=== PATIENT | male | born 1960 | race Caucasian/White ===

== ENCOUNTER → 2018-06-07 08:27 | Outpatient (CLI) | payer BC, SELFPAY | DX: R68.82 Decreased libido (principal); R53.83 Other fatigue | CPT/HCPCS: 36415; 84403 ==

== ENCOUNTER → 2019-01-03 | Outpatient (CLI) | payer BC, SELFPAY ==
[2018-06-08 11:20] VITALS: BMI 27.8
[2019-01-03 10:21] LABS: Absolute Lymphocyte Count 1.51 X10^3/uL (0.83-4.51); Basophil# 0.03 X10^3/uL; Basophil% 0.4 % (0-1); Eosinophils% 4.4 % (0-5); Hematocrit 47.8 % (40-54); Hemoglobin 16.3 g/dL (13.0-16.5); Lymphocyte # 1.51 X10^3/ul (4.0); Lymphocyte % 22.3 % (19-41); Mean Corp Hgb Conc 34.1 g/dL (32-36); Mean Corpuscular Hgb 28.7 pg (27.0-32.0); Mean Corpuscular Volume 84.3 fL (80-94); Mean Platelet Vol. 10.4 fl (6.2-12.0); Monocyte# 0.87 X10^3/uL; Monocyte% 12.9 % (0-10); NRBC Flagged by Analyzer 0 % (0-5); Neutrophil # 4.02 X10^3/uL (2.7-7.7); Neutrophil % 59.6 % (47-70); Platelet Count 161 K/mm3 (150-450); RBC Distribution Width CV 11.8 % (11.6-14.6); RBC Distribution Width SD 35.8 fl (35.1-43.9); Red Blood Count 5.67 M/mm3 (4.6-6.2); White Blood Count 6.8 K/mm3 (4.4-11.0)
[2019-01-03 10:33] LABS: ALB/GLOB Ratio 1.1 RATIO (0.9-2.4); AST(SGOT) 27 U/L (15-37); Alanine Aminotransfer ALT/SGPT 58 U/L (16-61); Albumin, Serum 3.7 g/dL (3.2-5.0); Alkaline Phosphatase 74 U/L (45-117); Anion Gap 8 (5-15); BUN 9 mg/dL (7-18); BUN/Creat Ratio 10.1 RATIO (10-20); Calcium,Total 8.7 mg/dL (8.5-10.1); Chloride 105 mmol/L (98-107); Cholesterol 166 mg/dL (200); Creatinine, Serum 0.89 mg/dL (0.70-1.30); EST Glomerular Filtration Rate 93 mL/min (>60); Est Glom Filt Rate - Afr Amer 112 mL/min (>60); Globulin 3.4 g/dL (2.2-4.2); Glucose 81 mg/dL (74-106); High Density Lipoprotein 58 mg/dL; PSA,Total - Annual Screen 5.16 ng/mL (0.00-4.00); Protein, Total 7.1 g/dL (6.4-8.2); Sodium Level 141 mmol/L (136-145); Thyroid Stim Hormone (TSH) 2.17 uIU/mL (0.358-3.74); Triglycerides 85 mg/dL; Very Low Density Lipoprotein 17 mg/dL (5-40)
== END | disposition home or self-care (01) ==
DX: Z00.00 Encounter for general adult medical examination without abnormal findings (principal); I10 Essential (primary) hypertension; R53.83 Other fatigue; Z12.5 Encounter for screening for malignant neoplasm of prostate
CPT/HCPCS: 36415; 80053; 80061; 84153; 84403; 84443; 85025; G0103

== ENCOUNTER 2019-02-16 12:00 | Emergency (ER) | payer BC, SELFPAY ==
[2018-06-08 11:20] VITALS: BMI 27.8
[2019-02-16 12:02] VITALS: BP 110/76; PULSE 73; RESP 17; TEMP 36.9; O2SAT 98; BMI 26.3
--- NOTE | 2019-02-16 13:02 | ED.DCSUM_ITS ---
History of Present Illness Chief Complaint: Lower Extremity Injury Informant: Patient Onset: Days Current Severity: Mild Narrative: Patient had pain of left calf pain for a few days no trauma no numbness weakness paresthesias no history of DVT arthritic conditions. No symptoms in the right leg, no chest pain fever cough has hypertension is well controlled, indicates he may have strained the calf Past Medical History - Allergies and Home Meds Allergies/Adverse Reactions: Allergies No Known Allergies Allergy (Verified 02/16/19 12:02) Primary Care Physician: [facility] Doctor,Out of [Primary Care Provider] - Past Medical History: - Smoking Status: Former smoker - Family History Maternal Family History: Reports: No pertinent history Review of Systems ROS: - As above General: Denies: Chills, Fever, Sweats Eyes: Denies: Visual changes - bilaterally, Diplopia ENT: Denies: Rhinorrhea, Sore throat Cardiovascular: Denies: Chest pain, Palpitations Respiratory: Denies: Dyspnea, Cough, Dyspnea on exertion Gastrointestinal: Denies: Abdominal pain, Nausea, Vomiting, Diarrhea, Melena, Hematochezia Genitourinary: Denies: Dysuria, Hematuria, Frequency Musculoskeletal: Denies: Back pain, Extremity Pain Skin: Denies: Rash, Wounds Neurological: Denies: Headache, Weakness, Numbness Physical Exam Vital Signs/Narrative: Vital Signs Temp Pulse Resp BP Pulse Ox 02/16/19 12:02 98.5 F 73 17 110/76 98 General: Well nourished, Well developed, No Acute Distress Head: Normocephalic, Atraumatic Eyes: Perrl, EOMI ENT: Moist mucous membranes, No rhinorrhea Neck: Supple, Nontender Cardiovascular: Regular rate, Regular rhythm, No murmurs Respiratory: No distress, CTA bilaterally, Chest nontender Abdomen: Soft, Nontender, Nondistended, Normal bowel sounds Back: Nontender, Normal Inspection Extremities: Nontender, No edema, Calf Tenderness, - - He complains subjectively some vague discomfort to the mid position of the left calf there is no area of obvious tenderness here no swelling no signs of infection no radiation no pain to the medial calf he has full range of motion of the hip knee ankle and foot are completely unremarkable neurovascular function pulses are normal Skin: Normal color, No rash Neurological: Alert, Oriented x3, Cranial nerves II-XII grossly intact, Normal Strength, Normal Sensation Psychological: Normal affect, Normal Mood Diagnostic/Tx/Re-eval - Medical Decision Making The duplex technology team is not here to perform duplex scanning explained to the patient he appears to be very low risk for DVT as he is never had a DVT has no cancer immobility or trauma, at this time explained to him one option is to start 1 dose of Eliquis and have him have outpatient duplex scanning on Monday he is comfortable this plan will follow-up I provide him with information on how to recall and arrange for duplex scanning versus providing that imaging via his outpatient providers, he understands and will follow up and return for change in symptoms Home stable Impression final Left calf pain etiology unclear ED Disposition - Plan for ED Patient: Diagnosis: Pain of left calf Instructions: CONTUSION, Lower Extremity Referrals: [facility] Doctor,Out of [Primary Care Provider] - Additional Instructions: Follow-up for duplex scanning with the instruction sheet you were given or call patient providers to schedule return for change in symptoms
[2019-02-16] MEDS: APIXABAN 5 MG TABLET 10 MG PO (13:21)
== END 2019-02-16 13:22 | disposition home or self-care (01) ==
LOC: ED 12:49
PROVIDERS: Emergency Provider Emergency Medicine
DX: M79.662 Pain in left lower leg (principal); Z87.891 Personal history of nicotine dependence
CPT/HCPCS: 99283

== ENCOUNTER → 2019-02-18 | Outpatient (CLI) | payer BC, SELFPAY ==
[2019-02-16 12:02] VITALS: BMI 26.3
--- NOTE | 2019-02-18 11:28 | VDLE_ITS ---
Reason For Study: LLE pain RIGHT LEFT CFV is compressible, spontaneous, phasic, GSV is normal. competent and demonstrates normal CFV is compressible, spontaneous, phasic, augmentation. competent, and demonstrates normal Procedure augmentation. Exam performed in department. FV is compressible, spontaneous, phasic, The exam was diagnostic. competent and demonstrates normal A preliminary report was called and/or faxed augmentation. to ED. POP V is compressible, spontaneous, phasic, competent and demonstrates normal augmentation. T/P Trunk is compressible. PTV is compressible. LT PerV is compressible. Interpretation Summary Deep veins of the left lower extremity are patent and compressible segmentally. There is no evidence of left lower extremity deep vein thrombosis. Valvular competence appears intact within the proximal deep venous system on the left . The left great saphenous vein appears patent and compressible segmentally. Ordering Physician: Tadeo Chun Referring Physician: OTD Performed By: Arianna Sepulveda, SHAI, RVT
== END | disposition home or self-care (01) ==
PROVIDERS: Referring Provider Emergency Medicine; Visit Provider Emergency Medicine
DX: M79.605 Pain in left leg (principal)
CPT/HCPCS: 93971

== ENCOUNTER 2020-07-08 22:05 | Inpatient (IN) | payer BC, SELFPAY ==
[2020-06-08 14:32] VITALS: BMI 26.3
[2020-07-08 22:06] VITALS: BP 142/88; PULSE 81; RESP 15; TEMP 36.7; O2SAT 99; BMI 27.6
--- NOTE | 2020-07-08 22:12 | EKG12_ITS ---
Test Reason : CP Blood Pressure : / mmHG Vent. Rate : 085 BPM Atrial Rate : 085 BPM P-R Int : 200 ms QRS Dur : 088 ms QT Int : 380 ms P-R-T Axes : 038 -10 027 degrees QTc Int : 452 ms Normal sinus rhythm Normal ECG Confirmed by AIDE BELL, VINAYAK ([id number]), medical transcription editor BLAKE PEREIRA ([id number]) on 07/13/2020 11:09:48 AM Referred By: BETHANY Confirmed By:LUIS NOBLE MD
[2020-07-08 22:14] VITALS: BP 142/88; PULSE 87; RESP 15; O2SAT 98
[2020-07-08 22:33] LABS: Absolute Lymphocyte Count 2.11 X10^3/uL (0.83-4.51); Absolute Neutrophil Count 11.6 X10^3/uL (2.0-7.7); Basophil# 0.06 X10^3/uL; Basophil% 0.4 % (0-1); Eosinophil# 0.12 X10^3/uL; Eosinophils% 0.8 % (0-5); Hematocrit 45.6 % (40-54); Hemoglobin 15.6 g/dL (13.0-16.5); Lymphocyte # 2.11 X10^3/ul (4.0); Lymphocyte % 13.9 % (19-41); Mean Corp Hgb Conc 34.2 g/dL (32-36); Mean Corpuscular Hgb 30.2 pg (27.0-32.0); Mean Corpuscular Volume 88.4 fL (80-94); Mean Platelet Vol. 10.2 fl (6.2-12.0); Monocyte# 1.09 X10^3/uL; Monocyte% 7.2 % (0-10); NRBC Flagged by Analyzer 0 % (0-5); Neutrophil # 11.59 X10^3/uL (2.7-7.7); Neutrophil % 76.2 % (47-70); Platelet Count 249 K/mm3 (150-450); RBC Distribution Width CV 11.7 % (11.6-14.6); RBC Distribution Width SD 37.3 fl (35.1-43.9); Red Blood Count 5.16 M/mm3 (4.6-6.2); White Blood Count 15.2 K/mm3 (4.4-11.0)
--- NOTE | 2020-07-08 22:34 | RAD_ITS ---
CHEST PAIN EXAMINATION/TECHNIQUE: XR Chest 1 View: COMPARISON: October 12, 2016 FINDINGS: LINES/DEVICES: None. LUNGS: No consolidation, edema or effusion. No pneumothorax. MEDIASTINUM AND CARDIOVASCULAR STRUCTURES: Cardiac silhouette not enlarged. Central airways and mediastinal contour are unremarkable. BONES AND SOFT TISSUES: Unremarkable. RAD/Chest 1 View (Portable) IMPRESSION: No radiographic evidence of acute cardiopulmonary disease. at 2248 Reported and signed by: Elvira Grullon DO Electronically Signed: Elvira Grullon DO at 22:47 EST Tel , Service support ,
[2020-07-08 22:54] LABS: Anion Gap 9 (5-15); BUN 25 mg/dL (7-18); Calcium,Total 8.8 mg/dL (8.5-10.1); Chloride 103 mmol/L (98-107); Creatinine, Serum 1.04 mg/dL (0.70-1.30); EST Glomerular Filtration Rate 77 mL/min (>60); Est Glom Filt Rate - Afr Amer 93 mL/min (>60); Estimated Creatinine Clearance 79.44 ml/min; Glucose 100 mg/dL (74-106); Potassium 3.6 mmol/L (3.5-5.1); Sodium Level 137 mmol/L (136-145)
[2020-07-08 23:17] VITALS: BP 134/86; PULSE 83
[2020-07-08] MEDS: Aspirin 81 MG TAB.CHEW 324 MG PO (23:17)
[2020-07-08] MEDS: Nitroglycerin Oint 1 INCH PACKET TRANSDERM. (23:17)
[2020-07-08 23:19] VITALS: BP 134/86; PULSE 89; RESP 17; O2SAT 98
--- NOTE | 2020-07-08 23:22 | ED.VIS.GEN ---
History of Present Illness Chief Complaint: Chest Pain Narrative: Patient presents with chest pain that started earlier this morning. He described chest pressure with radiation to both the right and left arms. He has no pleuritic component he has no back pain or tearing sensation. He denies any calf pain or leg pain. No fever chills or cough no DVT or PE risk factors. Past medical history: Hypertension, positive family history of cardiac disease Social history denies smoking Medications reviewed Review of systems: All systems negative except as indicated General: Denies: Fever Eyes: Denies: Visual changes - bilaterally ENT: Denies: Rhinorrhea, Sore throat Cardiovascular: Chest pain as in HPI Respiratory: Denies: Dyspnea, Cough Gastrointestinal: Denies: Abdominal pain, Nausea, Vomiting Genitourinary: Denies: Dysuria Musculoskeletal: Denies: Myalgias Skin: Denies: Rash Neurological: Denies: Headache, no focal weakness Psych: Reports: negative Hematologic: Denies: Easy bruising, Easy bleeding Physical exam General: Well nourished, Well developed, No Acute Distress Head: Normocephalic, Atraumatic Eyes: Conjunctiva not pale ENT: Moist mucous membranes Neck: Supple, Nontender, No lymphadenopathy Cardiovascular: Regular rate, Regular rhythm Respiratory: No distress, CTA bilaterally Abdomen: Soft, Nontender, Nondistended Back: Nontender, Normal Inspection. Negative for: CVA tenderness Extremities: Nontender, No edema Skin: Normal color, No rash Neurological: Alert, Normal Strength, Normal Sensation Psychological: Normal affect Past Medical History - Allergies and Home Meds Allergies/Adverse Reactions: Allergies No Known Allergies Allergy (Verified 07/08/20 22:06) Primary Care Physician: [facility] Doctor,Out of [Primary Care Provider] - Smoking Status: Never smoker - Family History Maternal Family History: Reports: No pertinent history Physical Exam Vital Signs/Narrative: Vital Signs Temp Pulse Resp BP Pulse Ox 07/08/20 23:19 89 17 134/86 H 98 07/08/20 23:17 83 134/86 H 07/08/20 22:14 87 15 142/88 H 98 07/08/20 22:06 98.0 F 81 15 142/88 H 99 Diagnostic/Tx/Re-eval Chest X-Ray - ED: 1 View, Read by ED Physician, Read by Radiologist, Normal, Heart, Lungs, Mediastinum - Rhythm Strip Rhythm Strip: Sinus Rhythm Rate: 85 Ectopy: None - EKG Initial EKG Interpretation: - - This rhythm with a rate of 85. Normal AR and QTc intervals. Nonspecific ST flattening in the lateral precordial leads. - Medical Decision Making Patient has a heart score of 4, may be a 5. He has a normal first troponin. Will be admitted for cardiac work-up. ED Disposition - Plan for ED Patient: Disposition: Acute Care Hospital [facility] Diagnosis: Chest pain Referrals: [facility] Doctor,Out of [Primary Care Provider] -
--- NOTE | 2020-07-08 23:31 | HP.PCM_ITS ---
Problem List (1) Chest pain Status: Acute Qualifiers: Chest pain type: unspecified Qualified Code(s): R07.9 - Chest pain, unspecified (2) Former tobacco use Status: Chronic (3) Alcohol abuse Status: Chronic (4) Chronic back pain Status: Chronic Qualifiers: Back pain location: back pain in unspecified location (5) HTN (hypertension) Status: Chronic Qualifiers: Hypertension type: essential hypertension Qualified Code(s): I10 - Essential (primary) hypertension History of Present Illness Date of Admission: 07/08/20 Chief Complaint: Chest pain The patient is a 60 y/o M w/ PMHx: Chronic back pain, GERD, HTN, Former Tobacco use, EtOH abuse who presents to the [facility] ED on 07/08/20 with history of onset of chest discomfort awakening him from sleep at approximately 9 PM noted to be midsternal described as a pressure rated 7 out of 10 in severity with bilateral upper extremity radiation with no associated diaphoresis, dyspnea, nausea or emesis with improvement to 5-6 out of 10 in severity with nitroglycerin application upon current evaluation. Work-up in the ED included T 98, heart rate 81, BP 142/88, respiratory rate 15, 99% on room air, CBC with WBC 15.2, hemoglobin 15.6, platelet 249 with left shift, BMP with BUN/creatinine 25/1.04 otherwise not marked appearing, troponin less than 0.015, EKG with SR with no acute evidence of ischemia, chest x-ray with no acute cardiopulmonary findings. In the ED patient ministered Nitro-Bid 1 inch and aspirin 324 mg p.o. x1. 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 JAK2 normal EP levels HTN (hypertension) (Chronic) Medical History: Medical History (Last Reviewed 06/08/20 @ 14:34 by Anette Castorena) Hypertension I10 Allergies No Known Allergies Allergy (Verified 07/08/20 22:06) Home Medications: Ambulatory Orders Medication Instructions Recorded Amlodipine [Norvasc] 10 mg PO DAILY 04/05/15 Celecoxib [Celebrex] 200 mg PO BID 07/08/20 Magnesium Oxide [Magnesium] 500 mg PO DAILY 07/08/20 Surgical History: Surgical History (Last Reviewed 06/08/20 @ 14:34 by Anette Castorena) History of hernia repair Z98.890, Z87.19 Psychiatric History: No pertinent psych hx Lives: Spouse/ Significant Other Smoking Status: Former smoker - Patient quit cigarette tobacco usage approximately 40 years prior with prior to this 1 pack every 2 weeks since he been a teenager until quitting. Tobacco Use: Non-smoker Alcohol: Heavy - Patient notes 6-7 beers routinely daily. Drugs: None - *Family History Maternal History Items: Heart Disease Paternal History Items: Heart Disease Review of Systems Constitutional: Reports: Fatigue. Denies: Chills, Fever, Weight Change HEENT: Denies: Head Aches, Sinus Congestion, Sinus Drainage Cardiovascular: Reports: Chest Pain, Chest Pressure. Denies: Light Headedness, Orthopnea, Palpitations, Syncope Respiratory: Denies: Cough, Shortness of breath at rest, Sputum production Gastrointestinal: Denies: Abdominal Pain, Nausea, Vomiting Genitourinary: Denies: Dysuria Musculoskeletal: Reports: Back Pain. Denies: Joint Pain, Joint Tenderness Skin: Denies: Rash, Wounds Neurological: Denies: Numbness, Tingling, Focal weakness Psychiatric: Denies: Anxiety, Depression, Homicidal Ideations, Suicidal Ideations Hematologic/ Lymphatic: Denies: Easy Bruising, Easy Bleeding VTE Information - Inpt Only VTE Present on Admission: No VTE Mechan Device Prophylaxis: SCD's VTE Pharm Prophylaxis ordered?: Yes Patient Problems: Active and Suspected Problems (Last Reviewed 06/08/20 @ 14:34 by Anette guadarrama) Chest pain (Acute) Subjective: Patient seated upright in the ED bed, fatigued, no obvious distress but notes still having chest discomfort. Objective: Physical Examination: General: awake, alert, oriented x 3 and cooperative, seated upright in the ED bed, mildly fatigued appearing, notes still having some chest discomfort. Skin: normal color, turgor, no icterus, cyanosis. HEENT: AT/NC, EOMI, PERRLA, mildly dry MM, no carotid bruits or JVD noted. Lungs: CTA bilaterally, moderate effort, mild decrease BL bases, no rales, ronchi or wheezing. Heart: Regular rate and rhythm; no gallop, rub audible. Abdomen: soft, NTTP, ND, normal BS, no HSM. Extremities: no cyanosis, clubbing, or edema. Neurological: patient awake, alert, oriented as noted; cognitive function intact; pupils equally reactive to light and accomodation; cranial nerves II-XII grossly normal, moving all 4 extremities, no focal deficits, strength mildly global decrease secondary to acute complaints and presentation. Psychiatric: affect appears fatigued otherwise normal, no acute evidence of depressive or anxiety feelings. - Physical Exam Vitals/I&O's: Vital Signs Temp Pulse Resp BP Pulse Ox 98.0 F 89 17 134/86 H 98 07/08/20 22:06 07/08/20 23:19 07/08/20 23:19 07/08/20 23:19 07/08/20 23:19 Oxygen Delivery Method Room Air Weight: 198 lb Body Mass Index (BMI) 27.6 Laboratory Results 07/08/20 22:21: WBC 15.2 H, RBC 5.16, Hgb 15.6, Hct 45.6, MCV 88.4, MCH 30.2, MCHC 34.2, RDW Std Deviation 37.3, RDW Coeff of Jamie 11.7, Plt Count 249, MPV 10.2, Immature Gran % (Auto) 1.500 H, Neut % (Auto) 76.2 H, Lymph % (Auto) 13.9 L, [place] % (Auto) 7.2, Eos % (Auto) 0.8, Baso % (Auto) 0.4, Absolute Neuts (auto) 11.6 H, Absolute Lymphs (auto) 2.11, Nucleated RBC % 0 07/08/20 22:21: Sodium 137, Potassium 3.6, Chloride 103, Carbon Dioxide 25.0, Anion Gap 9, BUN 25 H, Creatinine 1.04, Estim Creat Clear Calc 79.44, Est GFR (MDRD) Af Amer 93, Est GFR (MDRD) Non-Af 77, BUN/Creatinine Ratio 24.0 H, Glucose 100, Calcium 8.8, Troponin I < 0.015 Assessment/Plan All Active Problems (Last Reviewed 06/08/20 @ 14:34 by Anette Castorena) Chest pain (Acute) Strain of lumbar region (Acute) URI, acute (Acute) The patient is a 60 y/o M w/ PMHx: Chronic back pain, GERD, HTN, Former Tobacco use, EtOH abuse who presents to the [facility] ED on 07/08/20 with history of onset of chest discomfort awakening him from sleep at approximately 9 PM noted to be midsternal described as a pressure rated 7 out of 10 in severity with bilateral upper extremity radiation. Chest Pain: EKG in ED sinus rhythm with no acute evidence of ischemia, CXR w/ no acute cardiopulmonary findings, initial trop normal x1. Will admit to PCU, place on a monitored bed to assure no acute myocardial infarction with serial cardiac enzymes and EKGs. If repeat EKGs and serial cardiac enzymes remain unremarkable will pursue a.m. cardiac stress testing. Magnesium level requested. FLP in AM. ASA, NG, morphine. EtOH Abuse: Patient notes routine consumption of 6-7 beers per day. Will maintain on CIWA protocol, MVI, thiamine and folic acid. Will consult case management for information for patient for substance abuse. Chronic back pain: Patient with chronic back pain undergoing routine injections, notes he is following with pain management in [place]. Hypertension: Continue home regimen including Norvasc with hold parameters as needed, PRN hydralazine. Former tobacco use: Encourage tobacco cessation continuation. GERD: We will continue on famotidine. DVT prophylaxis: SCDs, Lovenox. OBSV E&M: [id number] Initial observation care L3
[2020-07-09] VITALS (26 sets, daily range): BP systolic 105–158; BP diastolic 72–100; PULSE 54–99; RESP 10–22; TEMP 36.3–36.8; O2SAT 94–98; BMI 25.2
--- NOTE | 2020-07-09 00:12 | ED.RN ---
pt called with update
--- NOTE | 2020-07-09 01:29 | EKG12_ITS ---
Test Reason : CP Blood Pressure : / mmHG Vent. Rate : 068 BPM Atrial Rate : 068 BPM P-R Int : 190 ms QRS Dur : 088 ms QT Int : 408 ms P-R-T Axes : 018 -10 045 degrees QTc Int : 433 ms Normal sinus rhythm Left ventricular hypertrophy with repolarization abnormality Nonspecific ST abnormality Abnormal ECG When compared with ECG of 09-JUL-2020 01:32, MANUAL COMPARISON REQUIRED, DATA IS UNCONFIRMED Confirmed by AIDE BELL, VINAYAK ([id number]), assistant editor BLAKE PEREIRA ([id number]) on 07/13/2020 12:51:41 PM Referred By: CAITLIN Confirmed By:LUIS NOBLE MD
[2020-07-09 01:43] LABS: Magnesium 2.1 mg/dL (1.6-2.6); Phosphorus 3.3 mg/dL (2.5-4.9)
--- NOTE | 2020-07-09 01:45 | PCS.PANDOC ---
PANDEMIC DOCUMENTATION INITIATED: Date: 07/09/2020 Time: 0052
[2020-07-09] MEDS: oxyCODONE 5 MG Tablet PO ×2 (01:53→07:58)
[2020-07-09] MEDS: 0.9% Normal Saline 1,000 ML 100 ML IV ×2 (01:53→11:40)
[2020-07-09] MEDS: Mag Hydrox/Al Hydrox/Simeth 30 ML UDC PO (04:36)
[2020-07-09] MEDS: Morphine 2 MG/ML Syringe IV (04:36)
--- NOTE | 2020-07-09 04:38 | NURSING ---
Pt awake. c/o chest pressure left side.. Rates pain 6. Pt said he would feel better if could burp. lab drawn troponin. morphine and mylanta given will monitor.
[2020-07-09] MEDS: Aspirin E.C. 81 MG Tablet PO (04:40)
[2020-07-09 04:41] LABS: Absolute Lymphocyte Count 3.59 X10^3/uL (0.83-4.51); Absolute Neutrophil Count 11.5 X10^3/uL (2.0-7.7); Basophil# 0.05 X10^3/uL; Basophil% 0.3 % (0-1); Eosinophil# 0.24 X10^3/uL; Eosinophils% 1.4 % (0-5); Hematocrit 46.5 % (40-54); Hemoglobin 15.5 g/dL (13.0-16.5); Lymphocyte # 3.59 X10^3/ul (4.0); Lymphocyte % 20.9 % (19-41); Mean Corp Hgb Conc 33.3 g/dL (32-36); Mean Corpuscular Hgb 29.3 pg (27.0-32.0); Mean Corpuscular Volume 87.9 fL (80-94); Mean Platelet Vol. 10.1 fl (6.2-12.0); Monocyte# 1.54 X10^3/uL; NRBC Flagged by Analyzer 0 % (0-5); Neutrophil # 11.52 X10^3/uL (2.7-7.7); POSITIVE DIFFERENTIAL YES; Platelet Count 255 K/mm3 (150-450); RBC Distribution Width CV 11.8 % (11.6-14.6); RBC Distribution Width SD 37.8 fl (35.1-43.9); Red Blood Count 5.29 M/mm3 (4.6-6.2); White Blood Count 17.2 K/mm3 (4.4-11.0)
[2020-07-09 04:45] LABS: Differential Indicated SCAN CRITERIA MET
[2020-07-09 05:31] LABS: ALB/GLOB Ratio 1.2 RATIO (0.9-2.4); AST(SGOT) 21 U/L (15-37); Alanine Aminotransfer ALT/SGPT 50 U/L (16-61); Albumin, Serum 3.8 g/dL (3.2-5.0); Alkaline Phosphatase 64 U/L (45-117); Anion Gap 8 (5-15); BUN 21 mg/dL (7-18); BUN/Creat Ratio 24.6 RATIO (10-20); Calcium,Total 9.1 mg/dL (8.5-10.1); Chloride 104 mmol/L (98-107); Cholesterol 193 mg/dL (200); Creatinine, Serum 0.85 mg/dL (0.70-1.30); EST Glomerular Filtration Rate 97 mL/min (>60); Est Glom Filt Rate - Afr Amer 117 mL/min (>60); Globulin 3.2 g/dL (2.2-4.2); Glucose 102 mg/dL (74-106); High Density Lipoprotein 71 mg/dL; Potassium 3.9 mmol/L (3.5-5.1); Sodium Level 136 mmol/L (136-145); Triglycerides 171 mg/dL; Very Low Density Lipoprotein 34 mg/dL (5-40)
[2020-07-09] MEDS: Acetaminophen 325 MG Tablet 650 MG PO (07:58)
--- NOTE | 2020-07-09 08:00 | EKG12_ITS ---
Test Reason : CP ADMIT Blood Pressure : / mmHG Vent. Rate : 086 BPM Atrial Rate : 086 BPM P-R Int : 202 ms QRS Dur : 092 ms QT Int : 376 ms P-R-T Axes : 023 -07 009 degrees QTc Int : 449 ms Normal sinus rhythm Normal ECG When compared with ECG of 12-OCT-2016 19:39, No significant change was found Confirmed by AIDE BELL, VINAYAK ([id number]), restaurant expeditor BLAKE PEREIRA ([id number]) on 07/13/2020 12:51:53 PM Referred By: DR TUCKER Confirmed By:LUIS NOBLE MD
--- NOTE | 2020-07-09 11:00 | NURSING ---
Integrillin infusing to RAC at 2 mcg/kg/min or 13.1 cc/hr upon arrival from [facility]
--- NOTE | 2020-07-09 11:30 | EKG12_ITS ---
Test Reason : AM EKG Blood Pressure : / mmHG Vent. Rate : 053 BPM Atrial Rate : 053 BPM P-R Int : 212 ms QRS Dur : 084 ms QT Int : 468 ms P-R-T Axes : 031 -13 -30 degrees QTc Int : 439 ms Sinus bradycardia with 1st degree A-V block T wave abnormality, consider lateral ischemia Abnormal ECG When compared with ECG of 10-JUL-2020 05:01, MANUAL COMPARISON REQUIRED, DATA IS UNCONFIRMED Confirmed by SANJU BELL, LESLI ([id number]), development editor RADHA LING ([id number]) on 07/14/2020 8:51:53 AM Referred By: JOHNNY Confirmed By:LESLI BILLS MD
--- NOTE | 2020-07-09 11:30 | PCM.PROGNOTE ---
<Alicia Lucero [employer]LEV[employer] - Last Filed: 07/09/20 11:37> Patient Problems: Active and Suspected Problems (Last Reviewed 06/08/20 @ 14:34 by Anette Castorena) Chest pain (Acute) Subjective: Patient seen and examined. STEMI called in stress lab. Patient referred for immediate intervention. Currently denies chest pain. - Physical Exam Vitals/I&O's: Vital Signs Temp Pulse Resp BP Pulse Ox 97.3 F L 79 17 137/92 H 98 07/09/20 11:18 07/09/20 11:18 07/09/20 11:18 07/09/20 11:18 07/09/20 11:18 Oxygen Delivery Method Room Air Weight: 180 lb 8.937 oz Body Mass Index (BMI) 25.2 Intake and Output for Last 24 Hours 07/07/20 07/08/20 07/09/20 23:59 23:59 23:59 Intake Total 696.67 / 696.67 Balance 696.67 / 696.67 General: Alert, Oriented x3, Cooperative HEENT: Atraumatic, PERRLA, EOMI, Normocephalic Neck: Supple, No JVD, Negative Carotid Bruits Lungs: Clear to auscultation, Normal air movement Cardiovascular: Regular rate, No murmurs Abdomen: Bowel Sounds Present, Soft, Non Tender, Non-Distended Extremities: No clubbing, No cyanosis, No edema, Capillary Refill Less than 3 Seconds Skin: No rashes, No breakdown Musculoskeletal: No Tenderness to Palpation of Joints or Extremities Neurological: Cranial nerves II-XII grossly intact, Neuro grossly intact Psych/Mental Status: Normal Affect, Appropriate Microbiology Past 72 Hours 07/08/20 23:20 Mucosa - Nose SARS-CoV-2 Antigen (Rapid) - Final Laboratory Results 07/08/20 22:21: WBC 15.2 H, RBC 5.16, Hgb 15.6, Hct 45.6, MCV 88.4, MCH 30.2, MCHC 34.2, RDW Std Deviation 37.3, RDW Coeff of Jamie 11.7, Plt Count 249, MPV 10.2, Immature Gran % (Auto) 1.500 H, Neut % (Auto) 76.2 H, Lymph % (Auto) 13.9 L, [place] % (Auto) 7.2, Eos % (Auto) 0.8, Baso % (Auto) 0.4, Absolute Neuts (auto) 11.6 H, Absolute Lymphs (auto) 2.11, Nucleated RBC % 0 07/08/20 22:21: Sodium 137, Potassium 3.6, Chloride 103, Carbon Dioxide 25.0, Anion Gap 9, BUN 25 H, Creatinine 1.04, Estim Creat Clear Calc 79.44, Est GFR (MDRD) Af Amer 93, Est GFR (MDRD) Non-Af 77, BUN/Creatinine Ratio 24.0 H, Glucose 100, Calcium 8.8, Troponin I < 0.015 07/08/20 22:21: Phosphorus 3.3, Magnesium 2.1 07/09/20 01:50: Troponin I < 0.015 07/09/20 04:24: WBC 17.2 H, RBC 5.29, Hgb 15.5, Hct 46.5, MCV 87.9, MCH 29.3, MCHC 33.3, RDW Std Deviation 37.8, RDW Coeff of Jamie 11.8, Plt Count 255, MPV 10.1, Immature Gran % (Auto) 1.400 H, Neut % (Auto) 67.0, Lymph % (Auto) 20.9, [place] % (Auto) 9.0, Eos % (Auto) 1.4, Baso % (Auto) 0.3, Absolute Neuts (auto) 11.5 H, Absolute Lymphs (auto) 3.59, Nucleated RBC % 0, Diff Path Review October07/09/20 04:24: Sodium 136, Potassium 3.9, Chloride 104, Carbon Dioxide 24.0, Anion Gap 8, BUN 21 H, Creatinine 0.85, Estim Creat Clear Calc 97.20, Est GFR (MDRD) Af Amer 117, Est GFR (MDRD) Non-Af 97, BUN/Creatinine Ratio 24.6 H, Glucose 102, Calcium 9.1, Total Bilirubin 0.60, AST 21, ALT 50, Alkaline Phosphatase 64, Troponin I 0.032, Total Protein 7.0, Albumin 3.8, Globulin 3.2, Albumin/Globulin Ratio 1.2, Triglycerides 171, Cholesterol 193, LDL Cholesterol 88, VLDL Cholesterol 34, HDL Cholesterol 71 Current Medications Acetaminophen (Acetaminophen 325 Mg Tablet) 650 mg PO Q6H PRN PRN PRN Reason: Pain Score 1-10/Temp > 100.7 F Last Admin: 07/09/20 07:58 Dose: 650 mg Documented by: Al Hydroxide/Mg Hydroxide (Mag Hydrox/Al Hydrox/Simeth 30 Ml Udc) 30 ml PO Q6H PRN PRN PRN Reason: Gastric Burning Last Admin: 07/09/20 04:36 Dose: 30 ml Documented by: Albuterol Sulfate (Albuterol 2.5 Mg/3 Ml Vial.Neb.) 2.5 mg INHALATION Q2H PRN PRN PRN Reason: Dyspnea, wheezing Amlodipine Besylate (Amlodipine 10 Mg Tablet) 10 mg PO DAILY [facility] Aspirin (Aspirin E.C. 81 Mg Tablet) 81 mg PO DAILY@0800 [facility] Last Admin: 07/09/20 04:40 Dose: 81 mg Documented by: Atropine Sulfate (Atropine Sulfate 1 Mg/10 Ml Syringe) 0.5 mg IV UD PRN PRN Reason: HR <50 bpm Celecoxib (Celecoxib 200 Mg Capsule) 200 mg PO BID [facility] Enoxaparin Sodium (Enoxaparin 40 Mg/0.4 Ml Syringe) 40 mg SC DAILY [facility] Famotidine (Famotidine 20 Mg Tablet) 20 mg PO BID [facility] Folic Acid (Folic Acid 1 Mg Tablet) 1 mg PO DAILY@0800 [facility] Stop: 07/11/20 08:01 Guaifenesin (Guaifenesin 10 Ml Udc (200mg/10ml)) 20 ml PO Q4H PRN PRN PRN Reason: COUGH Heparin Sodium (Beef Lung) (Heparin Lock 500 Unit/5 Ml In 10 Ml Syringe) 500 unit IV UD PRN PRN Reason: HEPARIN FLUSH Hydralazine HCl (Hydralazine 20 Mg/Ml Vial) 10 mg IV Q4H PRN PRN PRN Reason: SBP > 160 Sodium Chloride () 1,000 mls @ 100 mls/hr IV .Q10H [facility] Last Infusion: 07/09/20 08:15 Dose: 0 mls/hr Documented by: Sodium Chloride () 250 mls @ 15 mls/hr IV .[id number] PRN PRN Reason: Saline Flush Sodium Chloride () 250 mls @ 15 mls/hr IV .[id number] PRN PRN Reason: Additional IVPB Infusion Sodium Chloride () 1,000 mls @ 100 mls/hr IV .Q10H [facility] Eptifibatide (Integrilin) 75 mg in 100 mls @ 13.104 mls/hr CONT INF .[id number] [facility] Stop: 07/09/20 13:30 Labetalol HCl (Labetalol (Prefilled) 20 Mg/4 Ml) 5 mg IV X1 PRN PRN Reason: SBP >160 when pulling sheath Stop: 07/11/20 11:23 Lorazepam (Lorazepam 1 Mg Tablet) 2 mg PO Q2H PRN PRN; Protocol PRN Reason: CIWA score > 8 but <15 Lorazepam (Lorazepam 1 Mg Tablet) 2 mg PO UD PRN; Protocol PRN Reason: CIWA score >/=15. Lorazepam (Lorazepam 2 Mg/Ml Syringe) 2 mg IV Q2H PRN PRN; Protocol PRN Reason: CIWA score > 8 but <15 Lorazepam (Lorazepam 2 Mg/Ml Syringe) 2 mg IV UD PRN; Protocol PRN Reason: CIWA score >/=15. Magnesium Hydroxide (Magnesium Hydroxide 30 Ml Udc) 30 ml PO DAILY PRN PRN PRN Reason: Constipation Melatonin (Melatonin 3 Mg Tablet) 3 mg PO QHS PRN PRN PRN Reason: INSOMNIA Morphine Sulfate (Morphine 2 Mg/Ml Syringe) 2 mg IV Q3H PRN PRN PRN Reason: Pain Score 6-10 Last Admin: 07/09/20 04:36 Dose: 2 mg Documented by: Multivitamins/Minerals (Multivitamins,Ther W-Minerals Tablet) 1 tablet PO DAILYCM [facility] Nutritional Formula (Lactose Free) (Ensure Enlive 120 Ml Liquid) 120 ml PO 4X/DAY [facility] Ondansetron HCl (Ondansetron 4 Mg/2 Ml Vial) 4 mg IV Q8H PRN PRN PRN Reason: NAUSEA/VOMITING Oxycodone HCl (Oxycodone 5 Mg Tablet) 5 mg PO Q4H PRN PRN PRN Reason: Pain Score 4-5 Last Admin: 07/09/20 07:58 Dose: 5 mg Documented by: Prochlorperazine Edisylate (Prochlorperazine 10 Mg/2 Ml Vial) 5 mg IV Q4H PRN PRN PRN Reason: Breakthrough Nausea/Vomiting Psyllium Hydrophilic Mucilloid (Psyllium 1 Packet) 1 packet PO DAILY PRN PRN PRN Reason: Constipation Senna/Docusate Sodium (Senna/Docusate Sodium 1 Tablet) 2 tablet PO BID PRN PRN PRN Reason: Constipation Sodium Chloride (0.9% Saline Lock 10 Ml Syringe) 10 - 40 ml IV UD PRN PRN Reason: SALINE FLUSH Sodium Chloride (0.9% Normal Saline 500 Ml Iv.Soln.) 500 ml IV BOLUS PRN PRN Reason: VASO-VAGAL PROTOCOL Thiamine HCl (Thiamine Hydrochloride 100 Mg Tablet) 100 mg PO BIDCM [facility] Stop: 07/11/20 17:01 Throat Lozenges (Benzocaine/Menthol 1 Lozenge) 1 lozenge MUCOUS MEM Q2H PRN PRN PRN Reason: SORE THROAT Ticagrelor (Ticagrelor 90 Mg Tablet) 90 mg PO BID [facility] Medical Necessity - Tobacco Use Smoking Status: Former smoker Tobacco Use: Non-smoker Assessment/Plan All Active Problems (Last Reviewed 06/08/20 @ 14:34 by Anette Castorena) Chest pain (Acute) Strain of lumbar region (Acute) URI, acute (Acute) 1. STEMI, status post PCI-cardiac cath report pending. Cardiology following. On aspirin, Brilinta. Add low-dose statin. 2. Hypertension-stable, continue home amlodipine regimen. 3. Alcohol dependence- on CIWA/Ativan protocol. Continue folic acid, thiamine, multivitamin supplementation. 4. Former tobacco use-encouraged continued cessation. 5. GERD-on famotidine. DVT prophylaxis-Lovenox subcu This patient was seen by WENDY Mc under the supervision of Dr. Jones. <Danie Jones - Last Filed: 07/09/20 14:16> - Physical Exam Vitals/I&O's: Vital Signs Temp Pulse Resp BP Pulse Ox 97.3 F L 85 22 H 116/88 H 95 07/09/20 11:18 07/09/20 12:30 07/09/20 12:30 07/09/20 12:30 07/09/20 12:30 Oxygen Delivery Method Room Air Weight: 81.9 kg Body Mass Index (BMI) 25.2 Intake and Output for Last 24 Hours 07/07/20 07/08/20 07/09/20 23:59 23:59 23:59 Intake Total 696.67 / 696.67 Balance 696.67 / 696.67 Microbiology Past 72 Hours 07/08/20 23:20 Mucosa - Nose SARS-CoV-2 Antigen (Rapid) - Final Laboratory Results 07/08/20 22:21: WBC 15.2 H, RBC 5.16, Hgb 15.6, Hct 45.6, MCV 88.4, MCH 30.2, MCHC 34.2, RDW Std Deviation 37.3, RDW Coeff of Jamie 11.7, Plt Count 249, MPV 10.2, Immature Gran % (Auto) 1.500 H, Neut % (Auto) 76.2 H, Lymph % (Auto) 13.9 L, [place] % (Auto) 7.2, Eos % (Auto) 0.8, Baso % (Auto) 0.4, Absolute Neuts (auto) 11.6 H, Absolute Lymphs (auto) 2.11, Nucleated RBC % 0 07/08/20 22:21: Sodium 137, Potassium 3.6, Chloride 103, Carbon Dioxide 25.0, Anion Gap 9, BUN 25 H, Creatinine 1.04, Estim Creat Clear Calc 79.44, Est GFR (MDRD) Af Amer 93, Est GFR (MDRD) Non-Af 77, BUN/Creatinine Ratio 24.0 H, Glucose 100, Calcium 8.8, Troponin I < 0.015 07/08/20 22:21: Phosphorus 3.3, Magnesium 2.1 07/09/20 01:50: Troponin I < 0.015 07/09/20 04:24: WBC 17.2 H, RBC 5.29, Hgb 15.5, Hct 46.5, MCV 87.9, MCH 29.3, MCHC 33.3, RDW Std Deviation 37.8, RDW Coeff of Jamie 11.8, Plt Count 255, MPV 10.1, Immature Gran % (Auto) 1.400 H, Neut % (Auto) 67.0, Lymph % (Auto) 20.9, [place] % (Auto) 9.0, Eos % (Auto) 1.4, Baso % (Auto) 0.3, Absolute Neuts (auto) 11.5 H, Absolute Lymphs (auto) 3.59, Nucleated RBC % 0, Diff Path Review Reviewed 07/09/20 04:24: Sodium 136, Potassium 3.9, Chloride 104, Carbon Dioxide 24.0, Anion Gap 8, BUN 21 H, Creatinine 0.85, Estim Creat Clear Calc 97.20, Est GFR (MDRD) Af Amer 117, Est GFR (MDRD) Non-Af 97, BUN/Creatinine Ratio 24.6 H, Glucose 102, Calcium 9.1, Total Bilirubin 0.60, AST 21, ALT 50, Alkaline Phosphatase 64, Troponin I 0.032, Total Protein 7.0, Albumin 3.8, Globulin 3.2, Albumin/Globulin Ratio 1.2, Triglycerides 171, Cholesterol 193, LDL Cholesterol 88, VLDL Cholesterol 34, HDL Cholesterol 71 07/09/20 11:50: WBC 14.3 H, RBC 5.02, Hgb 15.0, Hct 43.8, MCV 87.3, MCH 29.9, MCHC 34.2, RDW Std Deviation 37.4, RDW Coeff of Jamie 11.8, Plt Count 239, MPV 10.1 Current Medications Acetaminophen (Acetaminophen 325 Mg Tablet) 650 mg PO Q6H PRN PRN PRN Reason: Pain Score 1-10/Temp > 100.7 F Last Admin: 07/09/20 07:58 Dose: 650 mg Documented by: Al Hydroxide/Mg Hydroxide (Mag Hydrox/Al Hydrox/Simeth 30 Ml Udc) 30 ml PO Q6H PRN PRN PRN Reason: Gastric Burning Last Admin: 07/09/20 04:36 Dose: 30 ml Documented by: Albuterol Sulfate (Albuterol 2.5 Mg/3 Ml Vial.Neb.) 2.5 mg INHALATION Q2H PRN PRN PRN Reason: Dyspnea, wheezing Amlodipine Besylate (Amlodipine 10 Mg Tablet) 10 mg PO DAILY [facility] Aspirin (Aspirin E.C. 81 Mg Tablet) 81 mg PO DAILY@0800 [facility] Last Admin: 07/09/20 04:40 Dose: 81 mg Documented by: Atorvastatin Calcium (Atorvastatin Calcium 40 Mg Tablet) 40 mg PO QHS [facility] Atropine Sulfate (Atropine Sulfate 1 Mg/10 Ml Syringe) 0.5 mg IV UD PRN PRN Reason: HR <50 bpm Enoxaparin Sodium (Enoxaparin 40 Mg/0.4 Ml Syringe) 40 mg SC DAILY [facility] Last Admin: 07/09/20 11:48 Dose: Not Given Documented by: Famotidine (Famotidine 20 Mg Tablet) 20 mg PO BID [facility] Folic Acid (Folic Acid 1 Mg Tablet) 1 mg PO DAILY@0800 [facility] Stop: 07/11/20 08:01 Last Admin: 07/09/20 12:38 Dose: Not Given Documented by: Guaifenesin (Guaifenesin 10 Ml Udc (200mg/10ml)) 20 ml PO Q4H PRN PRN PRN Reason: COUGH Heparin Sodium (Beef Lung) (Heparin Lock 500 Unit/5 Ml In 10 Ml Syringe) 500 unit IV UD PRN PRN Reason: HEPARIN FLUSH Hydralazine HCl (Hydralazine 20 Mg/Ml Vial) 10 mg IV Q4H PRN PRN PRN Reason: SBP > 160 Sodium Chloride () 250 mls @ 15 mls/hr IV .[id number] PRN PRN Reason: Additional IVPB Infusion Sodium Chloride () 1,000 mls @ 100 mls/hr IV .Q10H [facility] Last Admin: 07/09/20 11:40 Dose: 100 mls/hr Documented by: Labetalol HCl (Labetalol (Prefilled) 20 Mg/4 Ml) 5 mg IV X1 PRN PRN Reason: SBP >160 when pulling sheath Stop: 07/11/20 11:24 Lorazepam (Lorazepam 1 Mg Tablet) 2 mg PO Q2H PRN PRN; Protocol PRN Reason: CIWA score > 8 but <15 Lorazepam (Lorazepam 1 Mg Tablet) 2 mg PO UD PRN; Protocol PRN Reason: CIWA score >/=15. Lorazepam (Lorazepam 2 Mg/Ml Syringe) 2 mg IV Q2H PRN PRN; Protocol PRN Reason: CIWA score > 8 but <15 Lorazepam (Lorazepam 2 Mg/Ml Syringe) 2 mg IV UD PRN; Protocol PRN Reason: CIWA score >/=15. Magnesium Hydroxide (Magnesium Hydroxide 30 Ml Udc) 30 ml PO DAILY PRN PRN PRN Reason: Constipation Melatonin (Melatonin 3 Mg Tablet) 3 mg PO QHS PRN PRN PRN Reason: INSOMNIA Metoprolol Tartrate (Metoprolol Tartrate 25 Mg Tablet) 25 mg PO BID [facility] Morphine Sulfate (Morphine 2 Mg/Ml Syringe) 2 mg IV Q3H PRN PRN PRN Reason: Pain Score 6-10 Last Admin: 07/09/20 04:36 Dose: 2 mg Documented by: Multivitamins/Minerals (Multivitamins,Ther W[facility]Minerals [facility]t) [facility] Last Admin: 07/09/20 12:38 Dose: Not Given Documented by: Ondansetron HCl (Ondansetron 4 Mg/2 Ml Vial) 4 mg IV Q8H PRN PRN PRN Reason: NAUSEA/VOMITING Oxycodone HCl (Oxycodone 5 Mg Tablet) 5 mg PO Q4H PRN PRN PRN Reason: Pain Score 4-5 Last Admin: 07/09/20 07:58 Dose: 5 mg Documented by: Prochlorperazine Edisylate (Prochlorperazine 10 Mg/2 Ml Vial) 5 mg IV Q4H PRN PRN PRN Reason: Breakthrough Nausea/Vomiting Psyllium Hydrophilic Mucilloid (Psyllium 1 Packet) 1 packet PO DAILY PRN PRN PRN Reason: Constipation Senna/Docusate Sodium (Senna/Docusate Sodium 1 Tablet) 2 tablet PO BID PRN PRN PRN Reason: Constipation Sodium Chloride (0.9% Saline Lock 10 Ml Syringe) 10 - 40 ml IV UD PRN PRN Reason: SALINE FLUSH Sodium Chloride (0.9% Normal Saline 500 Ml Iv.Soln.) 500 ml IV BOLUS PRN PRN Reason: VASO-VAGAL PROTOCOL Thiamine HCl (Thiamine Hydrochloride 100 Mg Tablet) [facility] Stop: 07/11/20 17:01 Last Admin: 07/09/20 12:39 Dose: Not Given Documented by: Throat Lozenges (Benzocaine/Menthol 1 Lozenge) 1 lozenge MUCOUS MEM Q2H PRN PRN PRN Reason: SORE THROAT Ticagrelor (Ticagrelor 90 Mg Tablet) 90 mg PO BID [facility] Assessment/Plan This patient was seen in conjunction with WENDY Mc . I have independently interviewed and examined the patient and reviewed pertinent historical, laboratory, and other data. Please refer to WENDY Mc note for details of this patient's presentation, findings, and recommendations. I have reviewed WENDY Mc note and concur with documented findings. In brief, patient is a 19-year-old gentleman who presented with chest pain. Patient did develop significant chest pain prior to undergoing a nuclear stress test EKG obtained demonstrated ST segment elevation ND. Stress test was discontinued patient underwent emergency left heart catheterization with PCI with COLTON to diagonal branch Physical Examination: GENERAL: cooperative HEENT: Atraumatic; EYES; Anicteric, Normal Conjunctiva NECK; supple, normal thyroid, RESPIRATORY: Diminished to auscultation CARDIOVASCULAR: Regular S1 S2, GI: soft, normoactive bowel sounds, : No Renal angle tenderness; EXTREMITIES: No edema, no clubbing, MUSCULOSKELETAL: no muscle waisting NEURO: Awake; no lateralizing signs. SKIN: No Rash PSYCH; Flat affect Assessment: 1. Acute ST segment elevation ND 2. Essential hypertension 3. Tobacco dependence (patient chews) 4. Alcohol dependence 5. GERD 6. DVT prophylaxis-Lovenox Recommendations: 1. I have discussed the results of my overview and impressions with the patient 2. Options for management were reviewed Inpatient E&M: [id number] Subs Hosp L3
--- NOTE | 2020-07-09 12:02 | CRPHASE1_ITS ---
Patient Communication Former Patient:: Phase I PHII Cardiac Rehab Discussed with Patient:: Yes Guide to Cardiac Rehab Given to Patient:: Yes Cardiac Rehab Facility Choice List Given to Patient:: Yes Choice Program [facility] PHII:: Communication Given to CR Wax Pattern Coater:: [facility] Phase II Cardiac Rehab:: Yes Sessions:: 36 sessions - 3 days/wk, 12 weeks Risk Factors/Lifestyle Smoking Status: Former smoker - Continues to use chewing tobacco Hx Hypertension: Yes Hx Diabetes Mellitus Type 1: No Hx Diabetes Mellitus Type 2: No Hx Metabolic Disorders: No Hx Dyslipidemia: Yes Hx Obesity: No Post-Menopausal: No Stress: Work-related ETOH: Yes Caffeine: No Substance Abuse: No Risk Factor for Sedentary Lifestyle: Moderate Risk Past Cardiac Illness: Coronary Artery Disease, Myocardial Infarction, Other Laboratory Values: Cardiac Rehab Phase I Labs Triglycerides 171 mg/dL (-199) 07/09/20 04:24 Cholesterol 193 mg/dL (200) 07/09/20 04:24 LDL Cholesterol 88 mg/dL (0-130) 07/09/20 04:24 HDL Cholesterol 71 mg/dL (40-) 07/09/20 04:24 Phase I Education Given On:: Reynolds, Nutrition, Antiplatelet medication, Smoking cessation Issues Affecting Care:: None Knowledge of Condition:: No Learning Preferences: Verbal Cardiac Rehabilitation Info Cardiac Rehabilitation Program Information: Cardiac Rehabilitation is important for patients like you who are recovering from a heart problem. Cardiac rehabilitation programs are recognized as integral to the continued care of the patient with coronary heart disease. The cardiac rehabilitation program is designed to optimize a patient's physical, psychological, and social functioning. Health hearing care professional work in cardiac rehabilitation programs and assist you with getting the treatments you need to get stronger and healthier - like exercise, healthy eating habits, and medications. Cardiac rehabilitation has been show to help people with heart problems live longer and have better life enjoyment than people who do not go to cardiac rehabilitation. Please contact the Cardiac Rehabilitation Program at [facility] at in two weeks if you have not heard from them.
[2020-07-09 12:03] LABS: Hematocrit 43.8 % (40-54); Mean Corp Hgb Conc 34.2 g/dL (32-36); Mean Corpuscular Hgb 29.9 pg (27.0-32.0); Mean Corpuscular Volume 87.3 fL (80-94); Mean Platelet Vol. 10.1 fl (6.2-12.0); Platelet Count 239 K/mm3 (150-450); RBC Distribution Width CV 11.8 % (11.6-14.6); RBC Distribution Width SD 37.4 fl (35.1-43.9); Red Blood Count 5.02 M/mm3 (4.6-6.2); White Blood Count 14.3 K/mm3 (4.4-11.0)
--- NOTE | 2020-07-09 12:05 | CRPH1.INST_ITS ---
General Education CAD and cardiac anatomy and function:: Patient communicates acknowledgment, Family communicates acknowledgment, Family returns demonstration, Needs reinforcement Explanation of diagnoses and procedures:: Patient communicates acknowledgment, Family communicates acknowledgment, Family returns demonstration, Needs reinforcement Sign/Symptoms of OK:: Patient communicates acknowledgment, Family communicates acknowledgment, Family returns demonstration, Needs reinforcement Antiplatelet therapy: Patient communicates acknowledgment, Family communicates acknowledgment, Family returns demonstration, Needs reinforcement Proper use of NTG-SL: Patient communicates acknowledgment, Family communicates acknowledgment, Family returns demonstration, Needs reinforcement Emergency procedures and activation of EMS: Patient communicates acknowledgment, Family communicates acknowledgment, Family returns demonstration, Needs reinforcement Compliance of all prescribed medications: Patient communicates acknowledgment, Family communicates acknowledgment, Family returns demonstration, Needs reinforcement Smoking Patient Nicotine/Smoking Risk Factors Are:: Smokeless tobacco Recommendations Include:: Smoking cessation strategies/Smoking packet, Participation in a smoking cessation program, Previous smoker; encourage contin ued cessation Nicotine/Smoking Response Code:: Patient communicates acknowledgment, Family communicates acknowledgment, Family returns demonstration, Needs reinforcement Overweight/Obesity Patient Overweight/Obesity Risk Factors Are:: Overweight = 26-29 Recommendations Include:: Weight loss of 5-10%, Reduced calorie diet, Exercise 5-7 times/week Overweight/Obesity:: Patient communicates acknowledgment, Family communicates acknowledgment, Family returns demonstration, Needs reinforcement Hypertension Recommendations Include:: Maintain BP <130/85, DASH dietary guidelines, Decrease/maintain normal body weight, Moderation of ETOH Hypertension:: Patient communicates acknowledgment, Family communicates acknowledgment, Family returns demonstration, Needs reinforcement Sedentary Patient Sedentary Risk Factors Are:: Lack of regular exercise Recommendations Include:: Aerobic exercise 5-7 times/week for 20-30 minutes continuously, Benefits of regular exercise, Discussed home walking program, Monitored Outpatient Cardiac Rehab Sedentary Response Code:: Patient communicates acknowledgment, Family communicates acknowledgment, Family returns demonstration, Needs reinforcement Stress Recommendations Include:: Identification of stressors, and assessment of coping skills, Stress management techniques Stress Response Code:: Patient communicates acknowledgment, Family communicates acknowledgment, Family returns demonstration, Needs reinforcement
[2020-07-09 12:39] LABS: Pathologist Review Reviewed
[2020-07-09] MEDS: amLODIPine 10 MG Tablet PO (14:11)
[2020-07-09] MEDS: Famotidine 20 MG Tablet PO ×2 (14:11→21:39)
[2020-07-09] MEDS: Thiamine Hydrochloride 100 MG Tablet PO (17:50)
[2020-07-09] MEDS: TICAGRELOR 90 MG TABLET PO (21:39)
[2020-07-09] MEDS: Atorvastatin Calcium 40 MG Tablet PO (21:39)
[2020-07-09] MEDS: Metoprolol Tartrate 25 MG Tablet PO (21:39)
[2020-07-09] MEDS: MELATONIN 3 MG TABLET PO (22:19)
[2020-07-10] VITALS (20 sets, daily range): BP systolic 98–131; BP diastolic 69–99; PULSE 53–77; RESP 12–19; TEMP 36.2–36.8; O2SAT 94–99
[2020-07-10 03:56] LABS: Hematocrit 42.7 % (40-54); Hemoglobin 14.6 g/dL (13.0-16.5); Mean Corp Hgb Conc 34.2 g/dL (32-36); Mean Corpuscular Hgb 30.1 pg (27.0-32.0); Mean Platelet Vol. 10.2 fl (6.2-12.0); Platelet Count 213 K/mm3 (150-450); RBC Distribution Width CV 11.9 % (11.6-14.6); RBC Distribution Width SD 37.8 fl (35.1-43.9); Red Blood Count 4.85 M/mm3 (4.6-6.2); White Blood Count 13.8 K/mm3 (4.4-11.0)
[2020-07-10 04:05] LABS: ALB/GLOB Ratio 1.1 RATIO (0.9-2.4); AST(SGOT) 56 U/L (15-37); Alanine Aminotransfer ALT/SGPT 47 U/L (16-61); Albumin, Serum 3.3 g/dL (3.2-5.0); Alkaline Phosphatase 48 U/L (45-117); Anion Gap 6 (5-15); BUN 18 mg/dL (7-18); BUN/Creat Ratio 22.3 RATIO (10-20); Calcium,Total 8.2 mg/dL (8.5-10.1); Chloride 104 mmol/L (98-107); Creatinine, Serum 0.81 mg/dL (0.70-1.30); EST Glomerular Filtration Rate 103 mL/min (>60); Est Glom Filt Rate - Afr Amer 125 mL/min (>60); Globulin 2.9 g/dL (2.2-4.2); Glucose 101 mg/dL (74-106); Protein, Total 6.2 g/dL (6.4-8.2); Sodium Level 137 mmol/L (136-145)
--- NOTE | 2020-07-10 07:23 | PCM.PN.HOSP ---
Patient Problems: Active and Suspected Problems (Last Reviewed 06/08/20 @ 14:34 by Anette Castorena) Chest pain (Acute) Reason for Visit: ST segment elevation IN Subjective: Patient is a 60-year-old gentleman who presented with chest pain. Patient did develop significant chest pain prior to undergoing a nuclear stress test EKG obtained demonstrated ST segment elevation IN. Stress test was discontinued patient underwent emergency left heart catheterization 07/10/2020; patient seen no chest pain. Plans for patient to be transferred from ICU to progressive care unit. Objective: GENERAL: cooperative HEENT: Atraumatic; EYES; Anicteric, Normal Conjunctiva NECK; supple, normal thyroid, RESPIRATORY: Diminished to auscultation CARDIOVASCULAR: Regular S1 S2, GI: soft, normoactive bowel sounds, : No Renal angle tenderness; EXTREMITIES: No edema, no clubbing, MUSCULOSKELETAL: no muscle waisting NEURO: Awake; no lateralizing signs. SKIN: No Rash PSYCH; Flat affect Vitals/I&O's: Vital Signs Temp Pulse Resp BP Pulse Ox 97.6 F L 56 L 13 114/77 97 07/10/20 04:00 07/10/20 07:00 07/10/20 07:00 07/10/20 07:00 07/10/20 07:00 Oxygen Delivery Method Room Air Weight: 80.6 kg Body Mass Index (BMI) 25.2 Intake and Output for Last 24 Hours 07/08/20 07/09/20 07/10/20 23:59 23:59 23:59 Intake Total 1748.34 / 1748.34 120 / 120 Output Total 1800 / 1800 250 / 250 Balance -51.66 / -51.66 -130 / -130 Microbiology Past 72 Hours 07/08/20 23:20 Mucosa - Nose SARS-CoV-2 Antigen (Rapid) - Final Laboratory Results 07/09/20 04:24: Diff Path Review Reviewed 07/09/20 11:50: WBC 14.3 H, RBC 5.02, Hgb 15.0, Hct 43.8, MCV 87.3, MCH 29.9, MCHC 34.2, RDW Std Deviation 37.4, RDW Coeff of Jamie 11.8, Plt Count 239, MPV 10.1 07/10/20 03:35: WBC 13.8 H, RBC 4.85, Hgb 14.6, Hct 42.7, MCV 88.0, MCH 30.1, MCHC 34.2, RDW Std Deviation 37.8, RDW Coeff of Jamie 11.9, Plt Count 213, MPV 10.2 07/10/20 03:35: Sodium 137, Potassium 4.0, Chloride 104, Carbon Dioxide 27.0, Anion Gap 6, BUN 18, Creatinine 0.81, Estim Creat Clear Calc 102.00, Est GFR (MDRD) Af Amer 125, Est GFR (MDRD) Non-Af 103, BUN/Creatinine Ratio 22.3 H, Glucose 101, Calcium 8.2 L, Total Bilirubin 1.20 H, AST 56 H, ALT 47, Alkaline Phosphatase 48, Total Protein 6.2 L, Albumin 3.3, Globulin 2.9, Albumin/Globulin Ratio 1.1 Current Medications Acetaminophen (Acetaminophen 325 Mg Tablet) 650 mg PO Q6H PRN PRN PRN Reason: Pain Score 1-10/Temp > 100.7 F Last Admin: 07/09/20 07:58 Dose: 650 mg Documented by: Al Hydroxide/Mg Hydroxide (Mag Hydrox/Al Hydrox/Simeth 30 Ml Udc) 30 ml PO Q6H PRN PRN PRN Reason: Gastric Burning Last Admin: 07/09/20 04:36 Dose: 30 ml Documented by: Albuterol Sulfate (Albuterol 2.5 Mg/3 Ml Vial.Neb.) 2.5 mg INHALATION Q2H PRN PRN PRN Reason: Dyspnea, wheezing Amlodipine Besylate (Amlodipine 10 Mg Tablet) 10 mg PO DAILY [facility] Last Admin: 07/09/20 14:11 Dose: 10 mg Documented by: Aspirin (Aspirin E.C. 81 Mg Tablet) 81 mg PO DAILY@0800 [facility] Last Admin: 07/09/20 04:40 Dose: 81 mg Documented by: Atorvastatin Calcium (Atorvastatin Calcium 40 Mg Tablet) 40 mg PO QHS [facility] Last Admin: 07/09/20 21:39 Dose: 40 mg Documented by: Atropine Sulfate (Atropine Sulfate 1 Mg/10 Ml Syringe) 0.5 mg IV UD PRN PRN Reason: HR <50 bpm Enoxaparin Sodium (Enoxaparin 40 Mg/0.4 Ml Syringe) 40 mg SC DAILY [facility] Last Admin: 07/09/20 11:48 Dose: Not Given Documented by: Famotidine (Famotidine 20 Mg Tablet) 20 mg PO BID [facility] Last Admin: 07/09/20 21:39 Dose: 20 mg Documented by: Folic Acid (Folic Acid 1 Mg Tablet) 1 mg PO DAILY@0800 [facility] Stop: 07/11/20 08:01 Last Admin: 07/09/20 12:38 Dose: Not Given Documented by: Guaifenesin (Guaifenesin 10 Ml Udc (200mg/10ml)) 20 ml PO Q4H PRN PRN PRN Reason: COUGH Heparin Sodium (Beef Lung) (Heparin Lock 500 Unit/5 Ml In 10 Ml Syringe) 500 unit IV UD PRN PRN Reason: HEPARIN FLUSH Hydralazine HCl (Hydralazine 20 Mg/Ml Vial) 10 mg IV Q4H PRN PRN PRN Reason: SBP > 160 Sodium Chloride () 250 mls @ 15 mls/hr IV .[id number] PRN PRN Reason: Additional IVPB Infusion Labetalol HCl (Labetalol (Prefilled) 20 Mg/4 Ml) 5 mg IV X1 PRN PRN Reason: SBP >160 when pulling sheath Stop: 07/11/20 11:24 Lorazepam (Lorazepam 1 Mg Tablet) 2 mg PO Q2H PRN PRN; Protocol PRN Reason: CIWA score > 8 but <15 Lorazepam (Lorazepam 1 Mg Tablet) 2 mg PO UD PRN; Protocol PRN Reason: CIWA score >/=15. Lorazepam (Lorazepam 2 Mg/Ml Syringe) 2 mg IV Q2H PRN PRN; Protocol PRN Reason: CIWA score > 8 but <15 Lorazepam (Lorazepam 2 Mg/Ml Syringe) 2 mg IV UD PRN; Protocol PRN Reason: CIWA score >/=15. Magnesium Hydroxide (Magnesium Hydroxide 30 Ml Udc) 30 ml PO DAILY PRN PRN PRN Reason: Constipation Melatonin (Melatonin 3 Mg Tablet) 3 mg PO QHS PRN PRN PRN Reason: INSOMNIA Last Admin: 07/09/20 22:19 Dose: 3 mg Documented by: Metoprolol Tartrate (Metoprolol Tartrate 25 Mg Tablet) 25 mg PO BID [facility] Last Admin: 07/09/20 21:39 Dose: 25 mg Documented by: Morphine Sulfate (Morphine 2 Mg/Ml Syringe) 2 mg IV Q3H PRN PRN PRN Reason: Pain Score 6-10 Last Admin: 07/09/20 04:36 Dose: 2 mg Documented by: Multivitamins/Minerals (Multivitamins,Ther W-Minerals Tablet) [facility] Last Admin: 07/09/20 12:38 Dose: Not Given Documented by: Ondansetron HCl (Ondansetron 4 Mg/2 Ml Vial) 4 mg IV Q8H PRN PRN PRN Reason: NAUSEA/VOMITING Oxycodone HCl (Oxycodone 5 Mg Tablet) 5 mg PO Q4H PRN PRN PRN Reason: Pain Score 4-5 Last Admin: 07/09/20 07:58 Dose: 5 mg Documented by: Prochlorperazine Edisylate (Prochlorperazine 10 Mg/2 Ml Vial) 5 mg IV Q4H PRN PRN PRN Reason: Breakthrough Nausea/Vomiting Psyllium Hydrophilic Mucilloid (Psyllium 1 Packet) 1 packet PO DAILY PRN PRN PRN Reason: Constipation Senna/Docusate Sodium (Senna/Docusate Sodium 1 Tablet) 2 tablet PO BID PRN PRN PRN Reason: Constipation Sodium Chloride (0.9% Saline Lock 10 Ml Syringe) 10 - 40 ml IV UD PRN PRN Reason: SALINE FLUSH Sodium Chloride (0.9% Normal Saline 500 Ml Iv.Soln.) 500 ml IV BOLUS PRN PRN Reason: VASO-VAGAL PROTOCOL Thiamine HCl (Thiamine Hydrochloride 100 Mg Tablet) [facility] Stop: 07/11/20 17:01 Last Admin: 07/09/20 17:50 Dose: 100 mg Documented by: Throat Lozenges (Benzocaine/Menthol 1 Lozenge) 1 lozenge MUCOUS MEM Q2H PRN PRN PRN Reason: SORE THROAT Ticagrelor (Ticagrelor 90 Mg Tablet) 90 mg PO BID [facility] Last Admin: 07/09/20 21:39 Dose: 90 mg Documented by: STROKE Vital Signs/Narrative: Vital Signs Temp Pulse Resp BP Pulse Ox 07/10/20 07:00 56 L 13 114/77 97 07/10/20 06:00 60 17 99/69 94 07/10/20 05:00 54 L 16 116/83 H 97 07/10/20 04:00 97.6 F L 58 L 14 110/84 H 96 Medical Necessity - Tobacco Use Smoking Status: Former smoker - Continues to use chewing tobacco Tobacco Use: Non-smoker Assessment/Plan All Active Problems (Last Reviewed 06/08/20 @ 14:34 by Anette Castorena) Chest pain (Acute) Strain of lumbar region (Acute) URI, acute (Acute) In brief, patient is a 19-year-old gentleman who presented with chest pain. Patient did develop significant chest pain prior to undergoing a nuclear stress test EKG obtained demonstrated ST segment elevation IN. Stress test was discontinued patient underwent emergency left heart catheterization 1. Acute ST segment elevation IN -Underwent left heart catheterization on 07/09/2020 with interventions to admit RPL and proximal diagonal. Subsequently placed on recommended medications 2. Essential hypertension - Blood pressure controlled, home medications continued with dose adjustment as needed 3. Tobacco dependence (patient chews) - Counseled on cessation, offered nicotine patch for tobacco cravings 4. Alcohol dependence ?Counseled on cessation placed on Ativan as needed for DT precautions 5. GERD ?Patient is on H2 blockers 6. DVT prophylaxis -Lovenox Inpatient E&M: 50102 Subs Hosp L2
[2020-07-10] MEDS: Aspirin E.C. 81 MG Tablet PO (09:32)
[2020-07-10] MEDS: Folic Acid 1 MG Tablet PO (09:32)
[2020-07-10] MEDS: Multivitamins,Ther W-Minerals Tablet 1 TABLET PO (09:33)
[2020-07-10] MEDS: Thiamine Hydrochloride 100 MG Tablet PO ×2 (09:33→22:05)
[2020-07-10] MEDS: TICAGRELOR 90 MG TABLET PO ×2 (09:33→22:04)
[2020-07-10] MEDS: Metoprolol Tartrate 25 MG Tablet PO ×2 (09:34→22:05)
[2020-07-10] MEDS: Enoxaparin 40 MG/0.4 ML Syringe SC (09:35)
[2020-07-10] MEDS: amLODIPine 10 MG Tablet PO (09:35)
[2020-07-10] MEDS: Famotidine 20 MG Tablet PO ×2 (09:36→22:05)
--- NOTE | 2020-07-10 10:00 | EKG12_ITS ---
Test Reason : AM EKG Blood Pressure : / mmHG Vent. Rate : 054 BPM Atrial Rate : 054 BPM P-R Int : 208 ms QRS Dur : 086 ms QT Int : 446 ms P-R-T Axes : 023 -13 004 degrees QTc Int : 422 ms Sinus bradycardia Otherwise normal ECG When compared with ECG of 09-JUL-2020 08:10, MANUAL COMPARISON REQUIRED, DATA IS UNCONFIRMED Confirmed by SANJU BELL, LESLI ([id number]), design editor RADHA LING ([id number]) on 07/14/2020 8:53:15 AM Referred By: DR TUCKER Confirmed By:LESLI BILLS MD
--- NOTE | 2020-07-10 10:15 | CASEMGMT ---
RN CM Assessment Note Introduced role of CM to patient. Demographics, PCP verified. Pt is awake, alert and able to participate in assessment. He states he plans to return home on discharge with his who is able to assist him if needed. States he will be able to follow up with physicians on discharge. Presentation: chest pain/STEMI during stress test. 96+ STEMI PCP: WENDY Carvajal Specialists: Dr. Wakefield Insurance: [facility] Pharmacy: [facility] Prescription Benefit: yes. Brilinta card explained to patient and Brilinta brochure given. Pt will take to his pharmacy. LNOK: , Doris Perez Living Arrangements: Lives independently in own home. No care needs identified. Tranportation: drives and can drive DME: none. HHC: none SNF: none Patient DC Goals: Home on DC Plan: Home on dishcarge CM available for discharge planning coordination. Contact CM for any concerns/needs that may arise. Delonte MATHURN RN ACM
--- NOTE | 2020-07-10 10:50 | CASEMGMT ---
Social Work SW received referral from physician for ETOH use. SW met with pt in room and introduced self and role of SW. Discussed alcohol use with pt who does not believe he has a drinking problem. Pt states he does not drink every day and depending on the circumstances, he drinks 4-5 beers alone or 10-12 beers with the guys. Pt stating the alcohol use is to help him cope with stress from his job. SW discussed [facility] program with pt, services they provide, and ways they can assist pt. Pt did accept written information, but at this time does not feel ETOH is a problem and does not feel he needs assistance. Pt made aware that SW will remain available should further needs arise. ELIZABETH Borjas
--- NOTE | 2020-07-10 17:15 | PCM.CONS.C ---
Reason for Consult Date of Consultation: 07/09/20 Reason for Consultation: STEMI History of Present Illness: The patient is a 60 year old M [with presented with chest pain. Initial EKGs did not reveal ST elevation WA. Stress test was ordered and the preprocedure EKG revealed inferior ST elevation WA. Patient was having some chest pain at the time and a STEMI alert was called. I evaluated the patient prior to proceeding with coronary angiography. Since patient is having ongoing chest pain and this elevation WA on the EKG we proceeded with coronary angiography which revealed 99% stenosis in the RPL branch that was treated with drug-coated stent. He also had a 95% stenosis in the diagonal 2 branch which was treated with a drug-coated stent as well. He has some residual disease and branches that are small in diameter. Will be reasonable to treat this medically at this time. Review of systems: All systems reviewed. All others negative except that in HPI.] Past Medical History Allergies/Adverse Reactions: Allergies No Known Allergies Allergy (Verified 07/08/20 22:06) Home Medications: Ambulatory Orders Medication Instructions Recorded Amlodipine [Norvasc] 10 mg PO DAILY 04/05/15 Celecoxib [Celebrex] 200 mg PO BID 07/08/20 Magnesium Oxide [Magnesium] 500 mg PO DAILY 07/08/20 Triamterene-Hctz 37.5-25 mg Cp 1 cap PO DAILY 07/09/20 Past Medical History (Chronic Problems): Chronic Problems (Last Reviewed 06/08/20 @ 14:34 by Anette Castorena) Former tobacco use (Chronic) Alcohol abuse (Chronic) Chronic back pain (Chronic) 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 Drugs: None Objective: Vital Signs Temp Pulse Resp BP Pulse Ox 97.4 F L 64 19 H 115/74 95 07/10/20 15:00 07/10/20 15:00 07/10/20 15:00 07/10/20 15:00 07/10/20 15:00 Oxygen Delivery Method Room Air Weight: 177 lb 11.081 oz Body Mass Index (BMI) 25.2 Intake and Output for Last 24 Hours 07/08/20 07/09/20 07/10/20 23:59 23:59 23:59 Intake Total 1748.34 / 1748.34 570 / 570 Output Total 1800 / 1800 550 / 550 Balance -51.66 / -51.66 General: Awake, Alert, Oriented x 3 HEENT: Atraumatic Oral: Moist Mucosa Neck: Supple Lungs: Clear to auscultation Cardiovascular: Regular Rhythm Abdomen: Soft Extremities: No edema Skin: No Rashes Psych/Mental Status: Appropriate 07/10/20 03:35: WBC 13.8 H, RBC 4.85, Hgb 14.6, Hct 42.7, MCV 88.0, MCH 30.1, MCHC 34.2, Plt Count 213, MPV 10.2 07/10/20 03:35: Sodium 137, Potassium 4.0, Chloride 104, Carbon Dioxide 27.0, Anion Gap 6, BUN 18, Creatinine 0.81, Est GFR (MDRD) Af Amer 125, Est GFR (MDRD) Non-Af 103, BUN/Creatinine Ratio 22.3 H, Glucose 101, Calcium 8.2 L, Total Bilirubin 1.20 H Rhythm: EKG: ECHO: Stress Test: Cardiac Cath: PCI: CT Surgery: Holter monitor: EPS: PPM: CXR: Chest CT Scan: Assessment/Plan 1. STEMI: The pretest EKG done in the stress lab revealed inferior ST elevation WA. Patient had COLTON to the RPL and diagonal 2 as described. We will keep him on dual antiplatelet therapy, beta-michel, statin. I would recommend medical therapy for his LAD stenosis at this time.
[2020-07-10] MEDS: LORazepam 1 MG Tablet 2 MG PO (22:03)
[2020-07-10] MEDS: MELATONIN 3 MG TABLET PO (22:03)
[2020-07-10] MEDS: Atorvastatin Calcium 40 MG Tablet PO (22:04)
[2020-07-11 02:30] VITALS: BP 101/81; PULSE 56; RESP 13; TEMP 36.6; O2SAT 99
[2020-07-11 03:26] LABS: Hematocrit 43.8 % (40-54); Hemoglobin 14.5 g/dL (13.0-16.5); Mean Corp Hgb Conc 33.1 g/dL (32-36); Mean Corpuscular Hgb 29.7 pg (27.0-32.0); Mean Corpuscular Volume 89.8 fL (80-94); Mean Platelet Vol. 10.4 fl (6.2-12.0); Platelet Count 181 K/mm3 (150-450); RBC Distribution Width CV 11.5 % (11.6-14.6); RBC Distribution Width SD 37.6 fl (35.1-43.9); Red Blood Count 4.88 M/mm3 (4.6-6.2); White Blood Count 11.5 K/mm3 (4.4-11.0)
[2020-07-11 03:31] VITALS: PULSE 56
[2020-07-11 03:49] LABS: Anion Gap 6 (5-15); BUN 19 mg/dL (7-18); BUN/Creat Ratio 22.9 RATIO (10-20); Calcium,Total 8.6 mg/dL (8.5-10.1); Chloride 107 mmol/L (98-107); Creatinine, Serum 0.83 mg/dL (0.70-1.30); EST Glomerular Filtration Rate 100 mL/min (>60); Est Glom Filt Rate - Afr Amer 121 mL/min (>60); Estimated Creatinine Clearance 99.54 ml/min; Glucose 103 mg/dL (74-106); Magnesium 2.3 mg/dL (1.6-2.6); Sodium Level 139 mmol/L (136-145)
--- NOTE | 2020-07-11 07:31 | DCINST_ITS ---
- Discharge Diagnoses Current Active Problems: Current Active and Chronic Problems (Last Reviewed 06/08/20 @ 14:34 by Anette Castorena) Chest pain (Acute) Former tobacco use (Chronic) Alcohol abuse (Chronic) Chronic back pain (Chronic) HTN (hypertension) (Chronic) You will use the following diet at home:: Cardiac Discharge Activity: Return to Normal Activity Return to work on:: 07/22/20 Lifting Restrictions: UP TO 10 POUNDS Allergies/Adverse Reactions: Allergies No Known Allergies Allergy (Verified 07/08/20 22:06) Medications to take at Discharge Amlodipine [Norvasc] 10 mg PO DAILY 04/05/15 Magnesium Oxide [Magnesium] 500 mg PO DAILY 07/08/20 Aspirin E.C. [Ecotrin] 81 mg PO DAILY@0800 #90 tab 07/11/20 Atorvastatin Calcium [Lipitor] 40 mg PO QHS #90 tab 07/11/20 Metoprolol Tartrate [Lopressor (beta michel)] 25 mg PO BID #180 tab 07/11/20 Ticagrelor [Brilinta] 90 mg PO BID #180 tab 07/11/20 The following prescriptions were given: Ticagrelor [Brilinta] 90 mg PO BID #180 tab Transmission Status: Received by [id number] Aspirin E.C. [Ecotrin] 81 mg PO DAILY@0800 #90 tab Transmission Status: Received by [facility] Atorvastatin Calcium [Lipitor] 40 mg PO QHS #90 tab Transmission Status: Received by [id number] Metoprolol Tartrate [Lopressor (beta michel)] 25 mg PO BID #180 tab Transmission Status: Received by [facility] Primary Care Physician: [facility] Doctor,Out of [NON-STAFF] - Please follow up with your Primary Care Physician in: IN 1 WEEK Test Results: Test results from this visit will be discussed in further detail at your follow- up appointment, if applicable. Please Follow Up With: When: in 2-4 weeks Proposed Discharge Date: 07/11/20
[2020-07-11 08:00] VITALS: PULSE 62
[2020-07-11 08:23] VITALS: BP 118/78; PULSE 74
[2020-07-11] MEDS: Enoxaparin 40 MG/0.4 ML Syringe SC (08:23)
[2020-07-11] MEDS: Metoprolol Tartrate 25 MG Tablet PO (08:23)
[2020-07-11] MEDS: Famotidine 20 MG Tablet PO (08:25)
[2020-07-11] MEDS: Multivitamins,Ther W-Minerals Tablet 1 TABLET PO (08:25)
[2020-07-11] MEDS: Folic Acid 1 MG Tablet PO (08:25)
[2020-07-11] MEDS: Aspirin E.C. 81 MG Tablet PO (08:25)
[2020-07-11] MEDS: amLODIPine 10 MG Tablet PO (08:26)
[2020-07-11] MEDS: TICAGRELOR 90 MG TABLET PO (08:26)
[2020-07-11] MEDS: Thiamine Hydrochloride 100 MG Tablet PO (08:26)
[2020-07-11 08:30] VITALS: BP 118/78; PULSE 64; RESP 16; TEMP 36.7; O2SAT 99
[2020-07-11 09:43] VITALS: BP 118/78; PULSE 64; RESP 16; TEMP 36.7; O2SAT 99
--- NOTE | 2020-07-11 09:43 | PCM.WORK.EX ---
Work/School Excuse Work/School Excuse for:: Patient Please excuse this person from:: Work From: 06/17/20 through: 07/22/20 Restrictions: Light Duty, No Heavy Lifting - Weight restriction up to 10 pounds
--- NOTE | 2020-07-11 09:45 | DS.PCM_ITS ---
Discharge Date and Diagnosis - Problem List Patient Problems: Active and Suspected Problems (Last Reviewed 06/08/20 @ 14:34 by Anette Castorena) Chest pain (Acute) Date of Admission: 07/08/20 Date of Discharge: 07/11/20 - Primary Discharge Diagnosis Acute Problems: Active Problems (Last Reviewed 06/08/20 @ 14:34 by Anette Castorena) Chest pain (Acute) STEMI - Secondary Discharge Diagnosis Chronic Problems: Chronic Problems (Last Reviewed 06/08/20 @ 14:34 by Anette Castorena) Former tobacco use (Chronic) Alcohol abuse (Chronic) Chronic back pain (Chronic) Primary erythrocytosis (Chronic) negative JAK2 normal EP levels HTN (hypertension) (Chronic) Hospital Course and Treatment Imaging Results: Clinical Impression(s) from Imaging Studies Chest X-Ray 07/08/20 22:34 IMPRESSION: No radiographic evidence of acute cardiopulmonary disease. at 2248 Reported and signed by: Elvira Grullon DO Electronically Signed: Elvira Grullon DO at 22:47 EST Tel , Service support , Operations: None Summary of Care Provided: In brief, patient is a 19-year-old gentleman who presented with chest pain. Patient did develop significant chest pain prior to undergoing a nuclear stress test EKG obtained demonstrated ST segment elevation AL. Stress test was discontinued patient underwent emergency left heart catheterization 1. Acute ST segment elevation AL -Underwent left heart catheterization on 07/09/2020 with interventions to admit RPL and proximal diagonal. Subsequently placed on recommended medications 2. Essential hypertension - Blood pressure controlled, home medications continued with dose adjustment as needed 3. Tobacco dependence (patient chews) - Counseled on cessation, offered nicotine patch for tobacco cravings 4. Alcohol dependence ?Counseled on cessation placed on Ativan as needed for DT precautions 5. GERD ?Patient is on H2 blockers 6. DVT prophylaxis -Lovenox Patient Problems: Active and Suspected Problems (Last Reviewed 06/08/20 @ 14:34 by Anette Castorena) Chest pain (Acute) Objective: GENERAL: cooperative HEENT: Atraumatic; EYES; Anicteric, Normal Conjunctiva NECK; supple, normal thyroid, RESPIRATORY: Diminished to auscultation CARDIOVASCULAR: Regular S1 S2, GI: soft, normoactive bowel sounds, : No Renal angle tenderness; EXTREMITIES: No edema, no clubbing, MUSCULOSKELETAL: no muscle waisting NEURO: Awake; no lateralizing signs. SKIN: No Rash PSYCH; Flat affect - Physical Exam Vitals/I&O's: Vital Signs Temp Pulse Resp BP Pulse Ox 98.1 F 64 16 118/78 99 07/11/20 08:30 07/11/20 08:30 07/11/20 08:30 07/11/20 08:30 07/11/20 08:30 Oxygen Delivery Method Room Air Weight: 77.9 kg Body Mass Index (BMI) 25.2 Intake and Output for Last 24 Hours 07/09/20 07/10/20 07/11/20 23:59 23:59 23:59 Intake Total 1748.34 / 1748.34 930 / 1410 580 / 580 Output Total 1800 / 1800 550 / 850 300 / 300 Balance -51.66 / -51.66 380 / 560 280 / 280 Microbiology Past 72 Hours 07/08/20 23:20 Mucosa - Nose SARS-CoV-2 Antigen (Rapid) - Final Laboratory Results 07/11/20 03:10: WBC 11.5 H, RBC 4.88, Hgb 14.5, Hct 43.8, MCV 89.8, MCH 29.7, MCHC 33.1, RDW Std Deviation 37.6, RDW Coeff of Jamie 11.5 L, Plt Count 181, MPV 10.4 07/11/20 03:10: Sodium 139, Potassium 4.0, Chloride 107, Carbon Dioxide 26.0, Anion Gap 6, BUN 19 H, Creatinine 0.83, Estim Creat Clear Calc 99.54, Est GFR (MDRD) Af Amer 121, Est GFR (MDRD) Non-Af 100, BUN/Creatinine Ratio 22.9 H, Glucose 103, Calcium 8.6, Magnesium 2.3 Current Medications Acetaminophen (Acetaminophen 325 Mg Tablet) 650 mg PO Q6H PRN PRN PRN Reason: Pain Score 1-10/Temp > 100.7 F Last Admin: 07/09/20 07:58 Dose: 650 mg Documented by: Al Hydroxide/Mg Hydroxide (Mag Hydrox/Al Hydrox/Simeth 30 Ml Udc) 30 ml PO Q6H PRN PRN PRN Reason: Gastric Burning Last Admin: 07/09/20 04:36 Dose: 30 ml Documented by: Albuterol Sulfate (Albuterol 2.5 Mg/3 Ml Vial.Neb.) 2.5 mg INHALATION Q2H PRN PRN PRN Reason: Dyspnea, wheezing Amlodipine Besylate (Amlodipine 10 Mg Tablet) 10 mg PO DAILY [facility] Last Admin: 07/11/20 08:26 Dose: 10 mg Documented by: Aspirin (Aspirin E.C. 81 Mg Tablet) 81 mg PO DAILY@0800 [facility] Last Admin: 07/11/20 08:25 Dose: 81 mg Documented by: Atorvastatin Calcium (Atorvastatin Calcium 40 Mg Tablet) 40 mg PO QHS [facility] Last Admin: 07/10/20 22:04 Dose: 40 mg Documented by: Atropine Sulfate (Atropine Sulfate 1 Mg/10 Ml Syringe) 0.5 mg IV UD PRN PRN Reason: HR <50 bpm Enoxaparin Sodium (Enoxaparin 40 Mg/0.4 Ml Syringe) 40 mg SC DAILY [facility] Last Admin: 07/11/20 08:23 Dose: 40 mg Documented by: Famotidine (Famotidine 20 Mg Tablet) 20 mg PO BID [facility] Last Admin: 07/11/20 08:25 Dose: 20 mg Documented by: Guaifenesin (Guaifenesin 10 Ml Udc (200mg/10ml)) 20 ml PO Q4H PRN PRN PRN Reason: COUGH Heparin Sodium (Beef Lung) (Heparin Lock 500 Unit/5 Ml In 10 Ml Syringe) 500 unit IV UD PRN PRN Reason: HEPARIN FLUSH Hydralazine HCl (Hydralazine 20 Mg/Ml Vial) 10 mg IV Q4H PRN PRN PRN Reason: SBP > 160 Sodium Chloride () 250 mls @ 15 mls/hr IV .[id number] PRN PRN Reason: Additional IVPB Infusion Labetalol HCl (Labetalol (Prefilled) 20 Mg/4 Ml) 5 mg IV X1 PRN PRN Reason: SBP >160 when pulling sheath Stop: 07/11/20 11:24 Lorazepam (Lorazepam 1 Mg Tablet) 2 mg PO Q2H PRN PRN; Protocol PRN Reason: CIWA score > 8 but <15 Last Admin: 07/10/20 22:03 Dose: 2 mg Documented by: Lorazepam (Lorazepam 1 Mg Tablet) 2 mg PO UD PRN; Protocol PRN Reason: CIWA score >/=15. Lorazepam (Lorazepam 2 Mg/Ml Syringe) 2 mg IV Q2H PRN PRN; Protocol PRN Reason: CIWA score > 8 but <15 Lorazepam (Lorazepam 2 Mg/Ml Syringe) 2 mg IV UD PRN; Protocol PRN Reason: CIWA score >/=15. Magnesium Hydroxide (Magnesium Hydroxide 30 Ml Udc) 30 ml PO DAILY PRN PRN PRN Reason: Constipation Melatonin (Melatonin 3 Mg Tablet) 3 mg PO QHS PRN PRN PRN Reason: INSOMNIA Last Admin: 07/10/20 22:03 Dose: 3 mg Documented by: Metoprolol Tartrate (Metoprolol Tartrate 25 Mg Tablet) 25 mg PO BID [facility] Last Admin: 07/11/20 08:23 Dose: 25 mg Documented by: Morphine Sulfate (Morphine 2 Mg/Ml Syringe) 2 mg IV Q3H PRN PRN PRN Reason: Pain Score 6-10 Last Admin: 07/09/20 04:36 Dose: 2 mg Documented by: Multivitamins/Minerals (Multivitamins,Ther [facility]als [facility]) [facility] Last Admin: 07/11/20 08:25 Dose: 1 tablet Documented by: Ondansetron HCl (Ondansetron 4 Mg/2 Ml Vial) 4 mg IV Q8H PRN PRN PRN Reason: NAUSEA/VOMITING Oxycodone HCl (Oxycodone 5 Mg Tablet) 5 mg PO Q4H PRN PRN PRN Reason: Pain Score 4-5 Last Admin: 07/09/20 07:58 Dose: 5 mg Documented by: Prochlorperazine Edisylate (Prochlorperazine 10 Mg/2 Ml Vial) 5 mg IV Q4H PRN PRN PRN Reason: Breakthrough Nausea/Vomiting Psyllium Hydrophilic Mucilloid (Psyllium 1 Packet) 1 packet PO DAILY PRN PRN PRN Reason: Constipation Senna/Docusate Sodium (Senna/Docusate Sodium 1 Tablet) 2 tablet PO BID PRN PRN PRN Reason: Constipation Sodium Chloride (0.9% Saline Lock 10 Ml Syringe) 10 - 40 ml IV UD PRN PRN Reason: SALINE FLUSH Sodium Chloride (0.9% Normal Saline 500 Ml Iv.Soln.) 500 ml IV BOLUS PRN PRN Reason: VASO-VAGAL PROTOCOL Thiamine HCl ([facility] Hydrochloride 100 Mg Tablet) [facility] Stop: 07/11/20 17:01 Last Admin: 07/11/20 08:26 Dose: 100 mg Documented by: Throat Lozenges (Benzocaine/Menthol 1 Lozenge) 1 lozenge MUCOUS MEM Q2H PRN PRN PRN Reason: SORE THROAT Ticagrelor (Ticagrelor 90 Mg Tablet) 90 mg PO BID [facility] Last Admin: 07/11/20 08:26 Dose: 90 mg Documented by: Discharge Diet: Low fat/ Low Cholesterol Discharge Activity: Return to Normal Activity Return to work on:: 07/22/20 Home Medications: Medications to take at Discharge Amlodipine [Norvasc] 10 mg PO DAILY 04/05/15 Magnesium Oxide [Magnesium] 500 mg PO DAILY 07/08/20 Aspirin E.C. [Ecotrin] 81 mg PO DAILY@0800 #90 tab 07/11/20 Atorvastatin Calcium [Lipitor] 40 mg PO QHS #90 tab 07/11/20 Metoprolol Tartrate [Lopressor (beta gomez)] 25 mg PO BID #180 tab 07/11/20 Ticagrelor [Brilinta] 90 mg PO BID #180 tab 07/11/20 Following Prescriptions Were Given to Patient: Ticagrelor [Brilinta] 90 mg PO BID #180 tab Transmission Status: Received by [facility] 181 Aspirin E.C. [Ecotrin] 81 mg PO DAILY@0800 #90 tab Transmission Status: Received by [facility] 181 Atorvastatin Calcium [Lipitor] 40 mg PO QHS #90 tab Transmission Status: Received by [facility] 181 Metoprolol Tartrate [Lopressor (beta gomez)] 25 mg PO BID #180 tab Transmission Status: Received by [facility] [id number] Primary Care Physician: Claire Doctor,Out of [NON-STAFF] - Please follow up with your Primary Care Physician in: IN 1 WEEK Please Follow Up With: When: in 2-4 weeks Disposition: Home Minutes spent on discharge:: 45 Patient Condition:: Stable Medical Necessity - Tobacco Use Smoking Status: Former smoker - Continues to use chewing tobacco Tobacco Use: Non-smoker Meaningful Use Info Meaningful Use Diagnoses (Choose all that apply): AMI - AMI/Post PCI/Angioplasty Aspirin given w/in 24hrs of arrival?: Yes ASA at discharge?: Yes Antiplatelet Therapy at Discharge:: Yes Statins at discharge?: Yes Juan Miguel/ARB at discharge?: No Reason Juan Miguel/ARB not ordered:: Not indicated Beta Gomez at discharge?: Yes Done w/ Acute AL measure.: Yes Documented LVEF (%): 60 Inpatient E&M: [id number] Disch Hosp
--- NOTE | 2020-07-11 10:00 | EKG12_ITS ---
Test Reason : POST STEMI Blood Pressure : / mmHG Vent. Rate : 074 BPM Atrial Rate : 074 BPM P-R Int : 198 ms QRS Dur : 086 ms QT Int : 410 ms P-R-T Axes : 018 -10 007 degrees QTc Int : 455 ms Normal sinus rhythm Normal ECG When compared with ECG of 09-JUL-2020 08:10, MANUAL COMPARISON REQUIRED, DATA IS UNCONFIRMED Confirmed by SANJU BELL, LESLI ([id number]), photographic editor RADHA LING ([id number]) on 07/14/2020 8:53:36 AM Referred By: CORINNA Confirmed By:LESLI BILLS MD
--- NOTE | 2020-07-12 17:20 | CL.I_ITS ---
Patient Name: BECKA VALDEZ Study Date: 07/09/2020 Performing: Ja Wakefield MD Ht: 71 inches 180 cm : 1960 Wt: 181 lbs 82 kg Age: 60 Gender: male BSA: 2.02 PROCEDURE(S) PERFORMED [id number], COLTON AND/OR PTCA, ARTERY OR GRAFT, SINGLE VESSEL [id number]/COR/LV [id number] W OR WO PTCA, SINGLE CORONARY ARTERY CLINICAL PROFILE AND CO-MORBIDITIES Indications: ACS <= 24 hrs Heart Failure: None Stress/Imaging Stress/Image Study Performed: No CAD Presentations: STEMI. Symptom onset Date/Time: 07/09/20 Time Not Available CONCLUSIONS CAD as described. Preserved EF with inferior hypokinesis. No significant or MR. Succesful PCI of R PL with COLTON. Successful PCI of D2 with COLTON RECOMMENDATIONS Dual antiplatelet therapy for 1 year. Medical management of rest of CAD DESCRIPTION OF PROCEDURE The patient arrived to the procedure lab. The risks and benefits of the procedure as well as a full d escription of our services here and lack of surgical backup were fully explained to the patient and/o r their significant other prior to the catheterization. The Timeout was completed, verifying the ortiz ect patient and procedure. The patient's procedural site was prepped and draped in the usual fashion. Local anesthetic was given subcutaneously to right radial region with Lidocaine 2%. Using a modified Seldinger technique, arterial access was obtained via the right radial artery, a 6Fr sheath was inse rted.. Left Coronary Artery selective angiography was performed in multiple views using a 5 Fr. JL3. 5 catheter. Right Coronary Artery selective angiography was then performed in multiple views using a 6 Fr. JR 4 guide catheter. Left Ventriculography was performed in TRAN projection using a 6 Fr. XB 3.0 . LV to AO pullback pressures were then recordedThe images were reviewed and options discussed. A decision was then made to proceed with an Intervention, IVUS or other adjunct procedure. BMW Guide wire was advanced to the RPL. 2.0 x 12 Emerge Balloon catheter was advanced across lesi on in the RPL 1st segment mid PTCA balloon inflated at 6 atms for 12 secs. Angiogram performed pre b alloon dilatation. Angiogram performed post balloon dilatation. 2.25 x 16 Synergy Drug Eluting stent was advanced across the lesion in the RPL 1st segment mid Angiogram performed pre stent deployment. Angiogram performed post stent deployment. XB 3.0 Guide catheter was inserted and engaged into the LC A. BMW Guide wire was advanced to the 2nd Diagonal. 2.0 x 12 Emerge Balloon catheter was advanced acr oss lesion in the second diagonal, proximal Angiogram performed pre balloon dilatation. PTCA balloon inflated at 10 atms for 8 secs. PTCA balloon inflated at 6 atms for 10 secs. 2.25 x 20 Synergy Drug E luting stent was advanced across the lesion in the second diagonal, proximal Angiogram performed pre stent deployment. Angiogram performed post stent deployment. 2.5 x 8 NC Emerge Balloon catheter was inserted post stent. Angiogram performed post balloon dilatation. The arterial sheath was pulled and a TR Band was applied for hemostasis 12cc air CORONARY ANGIOGRAPHY DOMINANCE: Right Dominant LEFT HEART ASSESSMENT Left Ventricular Ejection Fraction: by LV Gram 55 % Inferior hypokinesis LEFT MAIN: 20 % ostial Stenosis LEFT ANTERIOR DESCENDING ARTERY: MID LAD: 80 % Stenosis. LAD is about 1.75 to 2 mm in diameter at this location DIAGONAL 1: Proximal - 80 % Stenosis. Very small vessel DIAGONAL 2: Proximal - 95 % Stenosis. 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 Post Stenosis: 0 % Post intervention CELINA flow: 3 Lesion Devices: Medtronic 6 Fr JR4.0 100cm Guide Catheter Conklin .014 BMW [place] Straight 190cm Levon Sci EMERGE MR 2.00x12 BALLOON Levon Sci Synergy MR COLTON 2.25x16 LESION SITE: 2nd Diagonal (Proximal) Lesion Complexity: High/C, chronic total occlusion: No, lesion at bifurcation: Yes, thrombus present: No, lesion length: 12 mm, culprit lesion: No, Previously treated lesion: No Pre Stenosis: 95 % Pre intervention CELINA flow: 3 PROCEDURE: Drug Eluting Stent with pre and post dilatation Non culprit lesion was fixed in addition to the culprit due to severity and the large territory it berg pplied Post Stenosis: 0 % Post intervention CELINA flow: 3 Lesion Devices: Conklin .014 BMW [place] Straight 190cm Levon Sci EMERGE MR 2.00x12 BALLOON Cardinal 6 Fr XB3.0 100cm Guide Catheter Levon Sci Synergy MR COLTON 2.25x20 Levon Sci NC EMERGE MR 2.50x08 BALLOON COMPLICATIONS No Complications PROCEDURE MEDICATIONS Oxygen: 2 L/min via nasal cannula Brilinta 180 mg PO @ 07/09/2020 10:28:33 Heparin 4000 unit(s) IV 07/09/2020 09:36:14 SUMMARY OF HEMODYNAMIC DATA Time AIR REST ECG 09:31:45 AO 132/90 (109) SA 09:39:29 AO 138/83 (109) 09:44:30 LV 160/8, 35 10:03:38 LV 156/9, 20 10:04:42 LV 147/11, 21 10:05:35 LVp 161/5, 26 10:06:00 AOp 157/92 (120) 10:06:06 Signed By Ja Wakefield MD On 07/12/2020 5:20:02 PM Ja Wakefield MD
== END 2020-07-11 10:10 | disposition home or self-care (01) | DRG 247 ==
LOC: ED 23:39 → PCU 23:49 → ICU 07-09 09:30
PROVIDERS: Specialist; Admitting Provider Family Medicine; Emergency Provider Emergency Medicine; PCP Nurse Practitioner Family; Visit Provider Internal Medicine
DX: I21.19 ST elevation (STEMI) myocardial infarction involving other coronary artery of inferior wall (principal); I10 Essential (primary) hypertension; F10.20 Alcohol dependence, uncomplicated; K21.9 Gastro-esophageal reflux disease without esophagitis; F17.220 Nicotine dependence, chewing tobacco, uncomplicated; Z79.899 Other long term (current) drug therapy; G89.29 Other chronic pain; M54.9 Dorsalgia, unspecified
CPT/HCPCS: 36415; 71045; 78452; 80048; 80053; 80061; 83735; 84100; 84484; 85025; 85027; 87426; 92928; 92941; 93005; 93017; 93458; 97802; 99285; A9500; J7030; Q9967; A4216; C1725; C1769; C1874; C1887; C1894; C9600; C9606; J1327; J2785

== ENCOUNTER → 2020-07-16 09:58 | Outpatient (CLI) | payer BC, SELFPAY ==
[2020-07-09 01:34] VITALS: BMI 25.2
--- NOTE | 2020-07-16 10:03 | CR.ITP_ITS ---
Diagnosis - General Information Admitting Diagnosis: stemi, S/P PCI w/coronary stenting Secondary Diagnosis: HTN, HLD, Artherslerotic coronary disease wtihout angina pectoris. Personal Learning Style:: Audio/Visual, Written Barriers to Learning: No Barriers Gave educational material for:: Treating Heart Disease, Emotions & Heart Disease, Stress Management & Relaxation, Sleep Disorders & Heart Disease, How The Heart Works, What it means to have Heart Disease, How Coronary Artery Disease is Diagnosed, Heart Procedures, What Heart Medications Do, Risk Factors & Modifications, Living an Active Life, Nutrition - Education/Goals Individual Counseling: Initial Assessment: Abnormal Cholesterol Levels - HLD, High Blood Pressure - HTN Cardiac Rehabilitation Goals: 1. Maintain the individual as the primary focus of care. 2. To improve the patient's quality of life. 3. Identification of cardiac risk factors and provide cardiac risk factor management. 4. Enhance the psychosocial status of the patient. 5. Reconditioning enough to allow the patient to resume customary activities. 6. Control symptoms of cardiac disease Personal Goals: Initial Assessment: Improve management of stress and emotions, Improve energy level, Get back to work, or to resume activities faster, Improve muscle strength and endurance Scale for measuring improvement of personal goals: Enter appropriate number in Comments. 2 = Unchanged. 3 = Slightly Better. 4 = Moderate Improvement. 5 = Met my Goal - Safety Referral to Physical Therapy: No Referral to [facility] Case Management: No Fall Risk Assessed:: Yes Assistive Devices:: None Exercise - Initial Assessment - Visit Date of Eval: 07/16/20 Session #:: 0 - PRecardiac Rehab evaluation Mets: Pre-: >7 METS for 30 minutes by discharge - Physician Prescribed Exercise Modalities: Treadmill, Rower, Airdyne Frequency: 3x/week for 12 weeks [36 sessions] Intensity: 60-80% of age predicted maximum heart rate reserve Current METSs:: 4.0 Target Heart Rate:: 103-135 Resting Blood Pressure: 118/78 EKG Type: NSR - Outcomes & Goals Goals:: Verbalizes understanding of THR, RPE & goal METS by session 6, Documents in home exercise log/reports 30 min aerobic 5 day/wk by DC, Demonstrates accurate pulse taking by DC - Intervention & Plan Exercise Program Goals: Instruct on personal THR & RPE, Instruct on MET level & personal MET goal, Instruct on home exercise - Physical Activity Home Exercise Physical Activity - Home Exercise: Safe Exercise, Warm-up, Self-monitoring, Cool-Down, Home Exercise > 30 min Daily, Sitting Time <3 hours/daily - Outcomes & Goals Outcomes/Goals: Demonstrates correct Warm-up/exercise Cool-Down (S3) if = 2.5 METs, Verbalizes symptoms of exercise intolerance by Session 3 (S3), Demonstrate safe equipment use (S3) & follows exercise prescrition (6) - Intervention & Plan Plan/Intervention: Instruct warm-up & cool-down if exercising at > 2 METs, Instruct on symptoms of exercise intolerance & actions to take, Instruct & monitor on saf, Assess intial functional capacity & safety risk Nutrition - Initial Assessment - Program Goals Nutrition Program Goals: LDL <100 optimal. 100 - 129 Near optimal. 130 - 159 Borderline High. 160 - 189 High. Total Cholesterol <200 desirable. 200 - 239 Borderline High. >/= 240 High. HDL < 40 Low >/=60 High. Triglycerides <150 desirable. <199 optimal. VlDL 5 - 40. HgbA1C <7%. BMI <25 Patient has diagnosis of Hyperlipidemia (ICD E78)?: Yes - Visit Date of Assessment:: 07/16/20 Session #:: 0 - precardiac rehab evaluation - Cholesterol/Lipids Triglycerides (mg/dL): 171 - 07/09/2020 Total Cholesterol (mg/dL): 193 LDL Cholesterol (mg/dL): 88 HDL Cholesterol (mg/dL): 71 Determine presence & major risk factors that modify LDL goal: Cigarette smoking, Age men > 45 years; women >/= 55 years Outcomes/Goals: Pt IDs own risk factors & lifestyle modifications by Session 10, Verbalizes symptoms of angina & response by session 3., Pt independently manages Intervention/Plan: Instruct on personal lipid levels & lipid goals/NCEP guidelines, Instruct on cholesterol Referral to dietitian:: Yes - Mixed hyperlipidemia - Diabetes (Other Core Measures) Diabetes Type: Not Applicable - Weight Mgt (Other Care) Not Applicable: Yes Height: 5 ft 11 in Weight:: 177 lb BMI: 24.7 Diagnosis Overweight/Obesity BMI> 30% ICD-10 E66: No Diagnosis High BMI/Morbid Obesity BMI> 35% ICD-10 Z68: No Outcomes/Goals: Pt sets, maintains & shows weight loss goal & trend during rehab Intervention/Plan: Instruct on ideal BMI & set weight loss goal w/patient - Healthy Eating Habits Will attend diet classes:: Yes Outcomes/Goals:: Consume diet rich in vegs,fruits,whole grain/high fiber,fish,lean meat, Limit sat/trans fats,cholesterol & added salts & sugars Intervention/Plan:: Assess current eating habits Medical - Initial Assessment - Visit Date of Eval: 07/16/20 Session #:: 0 - precardiac rehab evaluation - Medication Compliance Preventative Medication(s):: Aspirin, Ticagrelor/P2Y12 inhibitor, Statin/lipid, Beta michel H/O mental health issues: depression, anxiety, or addiction?: No Doesn?t believe in the benefits of treatment?: No Believes medications are unnecessary or harmful?: No Has a concern about medication side effects?: No Expresses concern over the cost of medications?: No Outcomes/Goals: Verbalizes medications,desired effect & common side effects @ DC, Pt self-reports following medication regimen, Keeps card in wallet w/medications listed by DC Interventions/plans: Instruct on medication effects & side effects, Review medication list w/patient every two weeks, Instruct importance of taking meds as ordered & assist problem solving - Tobacco Use Tobacco Use: Non-smoker - Hypertension Hypertension Diagnosis:: Hypertension ICD-10 I10 Resting Blood Pressure:: 118/78 [employer] [place] [employer] Hypertension Guidelines: [place] [employer] Hypertension Guidelines. Normal BP Less than 120/80. Elevated BP 120/80. Hypertension Stage 1: BP 130-139/80-89. Hypertesnion Stage 2: BP 140 or higher/90 or higher. Hypertension Crisis: BP higher than 180/120 Outcomes/Goals: Able to verbalize/achieve optimal blood pressure <130/80, Incorporates diet changes & exercise for blood pressure control by DC Interventions/plan: Instruct on optimal blood pressure, hypertension & medications, Instruct on effects of sodium, alcohol, stress, exercise &hypertension - Tobacco Cessation Referral Smoking Cessation Referral:: No Individual Education/Counseling:: No Education Schedule Given:: Yes Psychosocial - Initial Assess - VIsit Date of Eval: 07/16/20 Session #:: 0 - precardiac rehab evaluation Not Applicable: Yes History of previous Mental disease:: No - Target Goals Target Goals: Assess presence or absence of depression. Using a valid screening tool, maximizes coping skills. Positive support system - Psychosocial Test Tool Used:: Henrry Martinez QOL Cardiac, PHQ-9 Questionnaire phq-9 Severity: Severity. 1-4 Minimal Depression. 5-9 Mild Depression. 10-14 Moderate Depression. 15-19 Moderately Sever Depression. 20-27 Severe Depression. Rule: - Referral to Behavioral Health PS - Interventions: Yes Attend Stress Management Classes, No Referral to Behavioral Health if PHQ-9 score >9:, No Referral to [facility], No Referral to Physician if PHQ-9 if score is 5-9: - Outcomes/Goals: See list Psychosocial Outcomes/Goals:: ID's personal stressors & 2 strategies to manage stress by discharge - Intervention/Plan: See List Interventions/Plan:: Assess stressors,coping strategies & signs of derpression on admission, Instruct/assist pt to develop coping & personal stress Mgt strategies, Instruct patient to recognize signs & symptoms of depression, Instruct patient to recog Patient Health Questionnaire Initial Assessment 1. Little interest or pleasure in doing things: Several days 2. Feeling down, depressed, or hopeless: More than half the days 3. Trouble falling or staying asleep, or sleeping too much: More than half the days 4. Feeling tired or having little energy: Nearly every day 5. Poor appetite or overeating: More than half the days 6. Feeling bad about yourself -- or that you are a failure or have let yourself or your family down: More than half the days 7. Trouble concentrating on things, such as reading the newspaper or watching television: Several days 8. Moving or speaking so slowly that other people could have noticed. Or the opposite - being so fidgety or restless that you have been moving around a lot more than usual: Several days 9. Thoughts that you would be better off , or of hurting yourself in some way: Several days How difficult have these problems made it for you to do your work, take care of things at home, or get along with other people?: Somewhat difficult - Patient could benefit from consult with behavioral health or physician mediation based on his PHQ-9 Score Total Score: 15 RJ-Q SV Test - Statements CAD is a disease of the arteries in the heart: False Examples of risk factors for heart disease: True Angina is chest pain or discomfort: True The benefits of resistance training include: True Eating more meat and dairy products: I Don't Know Anti-platelet medications such as aspirin are important: True The only effective way to manage stress: True An exercise warm-up slowly increases heart rate: True Prepared, processed foods usually have high sodium: I Don't Know Depression is common after a heart attack: I Don't Know The statin medications lower cholesterol: I Don't Know To control blood pressure, lower the amount of sodium: I Don't Know If someone gets chest discomfort during walking: False Transfats are partially hydrogenated vegetable oils: I Don't Know Sleep apnea that is not treated increases the risk: I Don't Know To control cholesterol, one should become a vegetarian: I Don't Know Someone knows if he/she is exercising at the right level: True Diabetes cannot be prevented with exercise & health eating: I Don't Know Stress is a large risk for heart attack: True A diet that can help lower blood pressure is rich in: I Don't Know - Total Score Total Correct Responses: 9 Self-Efficacy Initial Assessment We would like to know how confident you are in doing certain activities. Please select your confidence level for:: Select your confidence level for the following using the scale 1-10 where 1 is not at all confident and 10 is totally confident. Your score is the average of all 6 responses. Fatigue: How confident are you that you can keep the fatigue caused by your disease from interfering with the things you want to do? Select Number: 4 Physical Discomfort or Pain: How confident are you that you can keep the p hysical discomfort or pain of your disease from interfering with the things you want to do? Select Number: 4 Emotional Distress: How confident are you that you can keep the emotional distress caused by your disease from interfering with the things you want to do? Select Number: 4 Other Symptoms or Health Problems: How confident are you that you can keep other symptoms or health problems from interfering with the things you want to do? Select Number: 4 Different Tasks and Activities: How confident are you that you can do the different tasks and activities needed to manage your health condition so as to reduce your need to see a doctor? Select Number: 4 Medication: How confident are you that you can do things other than just taking medication to reduce how much your illness affects your everyday life? Select Number: 4 Total Score:: 4 Nutrition Survey - Nutrition Survey Instructions Scoring Instructions: Scoring is as follows: Yes = 1 points. No = 0 point. Patient score that is >/=12 is considered to be at potential nutritional risk and could benefit from a referral to a registered dietitian. - Nutrition Survey Initial Have you lost >10 lbs over the past 2 months without trying?: Yes Are you following a special diet at home for diabetes, low fat, or low salt?: No Are you interested in meeting with a dietitian for help understanding your diet?: No Do you eat less than 3 meals a day?: No Do you eat fatty meats (crandall, sausage, ribs, etc), fried foods, desserts, large amounts of salad dressings, margarine, butter, or cheese most days?: Yes Do you have food allergies? [Enter types in comment field]: No Do you eat in restaurants more than 3 times a week?: No Do you season food with salt, seasoning salt, or garlic salt?: Yes Do you used canned, boxed, frozen meals, or soups, seasoning packets?: No Total Score:: 3
--- NOTE | 2020-07-16 10:03 | CR.HP_ITS ---
CR - History & Physical - General Arrival date:: 07/16/20 Arrival time:: 10:07 Date of Referral:: 07/09/20 Date of CR Evaluation:: 07/16/20 Referring Physician: Dr. Darci Dailey Primary Diagnosis: STEMI, S/P PCI w coronary stenting - History of Present Cardiac Event Onset Date: Enter Onset Date of cardiac illnesses in Comment field below Acute Myocardial Infarction within 12 months:: Yes - STEMI 07/09/2020 PTCA or coronary stenting:: Yes - 07/09/2020 Type of Symptoms:: Came in for routine stress test and when hooked-up to the EKG machine was found to be having ST elevated segments and STEMI Alert was called. Were there any complications?: none - Medications Home Medications: Ambulatory Orders Medication Instructions Recorded Amlodipine [Norvasc] 10 mg PO DAILY 04/05/15 Magnesium Oxide [Magnesium] 500 mg PO DAILY 07/08/20 Aspirin E.C. [Ecotrin] 81 mg PO DAILY@0800 #90 tab 07/11/20 Atorvastatin Calcium [Lipitor] 40 mg PO QHS #90 tab 07/11/20 Metoprolol Tartrate [Lopressor 25 mg PO BID #180 tab 07/11/20 (beta michel)] Ticagrelor [Brilinta] 90 mg PO BID #180 tab 07/11/20 - Allergies Allergies/Adverse Reactions: Allergies No Known Allergies Allergy (Verified 07/08/20 22:06) - Sleep Disorder Evaluation Hx of Sleep Apnea: No Do you snore loudly (louder than talking or can be heard through closed doors)?: Yes Do you often feel tired/ fatigued/ sleepy during daytime?: Yes Has anyone observed you stop breathing during sleep?: Yes History of Hypertension (for STOP score): Yes STOP Results: Positive Advanced Directives - Advanced Directives Power of Brassiere Cup Mold Cutter: No Living Will: No Advance Directives Information Provided: Yes Advance Directives on File: No DNR Order?:: No - MOLST See MOLST form: No Past Medical History - Covid-19 Screening Fever: No Unexplained muscle aches: No Current respiratory symptoms: No Upper respiratory infections symptoms: No Gastro-intestinal symptoms: No Nqk-[id number]-[id number] symptoms: No Has tested positive for COVID-19 in last 30 days: No Had contact w/person w/symptoms or Covid-19 (+) last 14 days: No Has High Risk Exposures ID'd by Health dept/Inf Control team: No 65 years or older:: No Lives in Assisted Living facility:: No Has a chronic lung disease or moderate to severe asthma:: No Has a serious heart condition:: Yes Immunocompromised:: Yes Severely obese (Body Mass Index of 40 or higher):: No Diabetic:: No Has chronic kidney disease undergoing dialysis:: No - Past Medical Illness Medical History: Past Medical History (Last Updated 07/13/20 @ 07:39 by Missy Dye) Atherosclerotic heart disease of [place] coronary artery without angina pectoris (Chronic) I25.[address] elevation myocardial infarction (STEMI) (Resolved) Onset Date: 07/09/20 I25.2 inferior wall Essential (primary) hypertension (Chronic) I10 Alcohol abuse (Chronic) F10.10 Chronic back pain M54.9, G89.29 Former tobacco use Z87.891 Primary erythrocytosis D75.0 negative JAK2 normal EP levels - Past Surgical History Surgical History: Past Surgical History (Last Updated 07/13/20 @ 07:32 by Missy Dye) History of coronary artery stent placement (Resolved) Onset Date: 07/09/20 Z95.5 [id number] w/ 2.25 x 16 mm Synergy Stent and COLTON-D2 w/ 2.25 x 20 mm Synergy Stent 07/09/20 History of hernia repair Z98.890, Z87.19 - Family History Summary Family History: Family History (Last Updated 07/13/20 @ 07:40 by Missy Dye) Mother Heart disease Father Heart disease Social History - Smoking History Smoking Status: Former smoker Hx Tobacco Use: Yes - uses chew; very little. Mialpouch chewing tobbaco Hx Smoking Exposure: No - Alcohol Use Alcohol Usage: Yes - some - Substance Abuse Hx Substance Use: No - Occupation Occupation (List type of work in comments):: Employed Hours worked per day:: 12 - up to 70 week - Hobbies, Recreation, Social Activities Hobbies: Farm - Horses; working pulling horses Recreational Activities: I am able to engage in most, but not all activities - still unable to go down to the barn yet. Limited to 10# weight limit., I am able to engage in a few activities Social Environment - Status Marital Status: - Current Living Arrangements Living Environment:: Spouse - Children How many children do you have?: 5 Do any of your children live nearby?: No - Chris - Safety Do you feel safe in your surroundings?: Yes - Assistance Do you need any assistance at home?: None Review of Systems - Review of Systems Hints: Right click = Denies (Slash). Left click = Reports (Ewiiaapaayp) Review of Present Symptoms: Reports: Angina - some cessation of gas pocket passing, no pain., Fatigue, Appetite - Normal, Appetite - Special Diet - Low fat, low sodium diet.. Denies: Shortness of Breath at Rest, Shortness of Breath with Exertion, Dizziness/Lightheadedness, Heart Arrhythmia/Irregularities, Sleep - Normal - havent been sleeping hardly at all., Sexual Changes - Pain Is Patient Pain Free?: Yes Pain Location: none Pain Level: 0/10 Risk Factor Assessment - Chief Complaint Chief Complaint: Patient is a [address] Dailey who presents to CR today following recent STEMI and emergent heart cath. - Vital Signs Temperature: 97.7 F Respiratory Rate: 16 Pulse Ox: 99 Blood Pressure: 118/78 - Pulse Pulse Rate: 64 Pulse Rhythm: Regular - Hypertension How long have you been treated?: 10 years On medication(s)?: yes Blood Pressure Sitting - Left Arm: 118/78 - Blood Cholesterol/Lipids Total Cholesterol (mg/dL) Goal = less than 200 mg/dL: 193 - 07/09/2020 HDL Cholesterol (mg/dL) Goal = less than 40 mg/dL: 71 LDL Cholesterol (mg/dL) Goal = less than 70 mg/dL: 88 Triglycerides (mg/dL) Goal = less than 150 mg/dL: 171 - Obesity Height: 5 ft 11 in Weight:: 181 lb Weight in Pounds: 181.0 lbs Weight Source: Acute Hospital Body Mass Index (BMI): 25.2 Nutritional Referral for Obesity: No - For Smoking Smoking Risk Guidelines: Smoking Low Risk: None or quit greater than 6 months ago. Smoking Moderate Risk: Smoker or quit 6 months or less ago. Smoking High Risk: Smoker - For Dyslipidemia Dyslipidemia Risk Guidelines: Low Risk: Moderate Risk: High Risk: 15-25% fat 25.1-29% fat >/= 30% fat. <7% sat fat 7-9% sat fat >9% sat fat. <150 mg chol 150-299 mg chol >/= 300 mg chol. LDL <100 LDL 100-129 LDL >/= 130. Chol/HDL ratio <5.0 Chol/HDL ratio 5.0-6.0 Chol/HDL ratio >6.0. Triglycerides <100 Triglycerides 100- 149 Triglycerides >/= 150 - For Diabetes Mellitus Diabetes Risk Guidelines: Diabetes Low Risk: HgA1c <6.5% and/or FBG <120. Diabetes Moderate Risk: HgA1c 6.6-7.9% and/or FBG 120-180. Diabetes High Risk: HgA1c >/= 8% and/or FBG >180 - For Obesity/Overweight Obesity/Overweight Risk Guidelines: Obesity Low Risk: BMI <25.0. Obesity Moderate Risk: BMI 25-29.9. Obesity High Risk: BMI >/= 30.0 - For Hypertension Hypertension Risk Guidelines: Hypertension Low Risk: Systolic <120 and Diastolic <80. Hypertension Moderate Risk: Systolic 120-139 and Diastolic 80-89. Hypertension High Risk: Systolic >/= 140 and Diastolic >/= 90 - For Sedentary Lifestyle Sedentary Lifestyle Risk Guidelines: Sedentary Lifestyle Low Risk: >/= 1,500 kcal/week. Sedentary Lifestyle Moderate Risk: 700-1,499 kcal/week. Sedentary Lifestyle High Risk: < 700 kcal/week - For Depression Depression Risk Guidelines: Depression Low Risk: Not clinically depressed. Depression Moderate Risk: Mildly depressed. Depression High Risk: Clinically depressed - Family History Family History: Family History (Last Updated 07/13/20 @ 07:40 by Missy Dye) Mother Heart disease Father Heart disease Motivation - Motivation to Participate On a scale of 1 to 10, how prepared are you to commit to attending program?: 7 What do you see as barriers to successfully being able to complete the program?: not sure What do you see as the benefits of succesfully completing the program? In other words, what do you hope to get out of participating in the program?: build my strength up, healthier. Are there issues you are dealing with that will interfere with completing the program?: work, schedule Do you have a spouse or signficant other, family or friends who will help support you to complete the program?: yes, excellent
[2020-07-16 10:29] VITALS: BP 118/78; PULSE 64; RESP 16; TEMP 36.5; O2SAT 99; BMI 25.2
[2020-07-16 10:37] VITALS: BP 118/78; BMI 24.7
== END ==
PROVIDERS: PCP Nurse Practitioner Family; Visit Provider Internal Medicine Cardiovascular Disease
DX: I21.3 ST elevation (STEMI) myocardial infarction of unspecified site (principal); Z95.5 Presence of coronary angioplasty implant and graft

== ENCOUNTER 2020-08-07 15:15 | Outpatient (RCR) | payer BC, SELFPAY ==
[2020-07-16 10:29] VITALS: BMI 25.2
[2020-07-16 10:37] VITALS: BMI 24.7
== END 2020-08-09 23:59 ==
LOC: CR 15:15
PROVIDERS: PCP Nurse Practitioner Family; Referring Provider Internal Medicine Cardiovascular Disease; Visit Provider Internal Medicine Cardiovascular Disease
DX: I25.10 Atherosclerotic heart disease of native coronary artery without angina pectoris (principal); I25.2 Old myocardial infarction; Z95.5 Presence of coronary angioplasty implant and graft
CPT/HCPCS: 93798

== ENCOUNTER → 2020-08-21 08:18 | Outpatient (CLI) | payer BC, SELFPAY ==
[2020-07-24 10:35] VITALS: BMI 24.8
[2020-08-12 07:06] VITALS: BMI 24.9
[2020-08-21 09:11] LABS: Hematocrit 42.1 % (40-54); Mean Corp Hgb Conc 33.3 g/dL (32-36); Mean Corpuscular Hgb 29.7 pg (27.0-32.0); Mean Corpuscular Volume 89.2 fL (80-94); Mean Platelet Vol. 11.1 fl (6.2-12.0); Platelet Count 201 K/mm3 (150-450); RBC Distribution Width CV 12.1 % (11.6-14.6); RBC Distribution Width SD 39.5 fl (35.1-43.9); Red Blood Count 4.72 M/mm3 (4.6-6.2); White Blood Count 7.4 K/mm3 (4.4-11.0)
[2020-08-21 09:57] LABS: BNP,B-Type NATRIURETIC PEPTIDE 82.6 pg/mL (0-100)
[2020-08-21 10:01] LABS: Anion Gap 6 (5-15); BUN 15 mg/dL (7-18); BUN/Creat Ratio 15.6 RATIO (10-20); Calcium,Total 9.2 mg/dL (8.5-10.1); Chloride 105 mmol/L (98-107); Creatinine, Serum 0.96 mg/dL (0.70-1.30); EST Glomerular Filtration Rate 84 mL/min (>60); Est Glom Filt Rate - Afr Amer 102 mL/min (>60); Glucose 112 mg/dL (74-106); Potassium 3.7 mmol/L (3.5-5.1); Sodium Level 141 mmol/L (136-145)
== END ==
PROVIDERS: PCP Nurse Practitioner Family; Referring Provider Internal Medicine Cardiovascular Disease; Visit Provider Internal Medicine Cardiovascular Disease
DX: R06.02 Shortness of breath (principal); R23.8 Other skin changes; R60.9 Edema, unspecified
CPT/HCPCS: 36415; 80048; 83880; 85027

== ENCOUNTER 2020-08-24 16:00 | Outpatient (RCR) | payer BC, SELFPAY ==
[2020-07-16 10:29] VITALS: BMI 25.2
[2020-07-16 10:37] VITALS: BMI 24.7
[2020-07-24 10:35] VITALS: BMI 24.8
[2020-08-12 07:06] VITALS: BMI 24.9
== END 2020-09-09 23:59 ==
LOC: NS 16:00
PROVIDERS: PCP Nurse Practitioner Family; Visit Provider Internal Medicine Cardiovascular Disease
DX: I25.10 Atherosclerotic heart disease of native coronary artery without angina pectoris (principal); Z95.5 Presence of coronary angioplasty implant and graft; Z71.3 Dietary counseling and surveillance
CPT/HCPCS: 97802

== ENCOUNTER 2020-09-09 15:15 | Outpatient (RCR) | payer BC, SELFPAY ==
[2020-07-16 10:37] VITALS: BMI 24.7
[2020-07-24 10:35] VITALS: BMI 24.8
--- NOTE | 2020-08-12 06:59 | PCM.CR.ITP ---
Exercise - 30-day Assessment - Visit Date of Eval: 08/12/20 Session #:: 9 - Clarita has missed two scheduled sessions - Physician Prescribed Exercise Modalities: Treadmill, Airdyne, NuStep Frequency: 3x/week for 12 weeks [36 sessions] Intensity: 60-80% of age predicted maximum heart rate reserve Current METSs:: 5.0 increased from 4.0 Target Heart Rate:: 103-135 Current RPE:: 12-13 Maximum Excercise HR:: 132 Resting Blood Pressure: 120/68 - controlled with medications Maximum Exercise Blood Pressure: 146/70 EKG Type: NSR to sinus tach with T wave inversion, no other ectopy - Outcomes & Goals Goals:: Verbalizes understanding of THR, RPE & goal METS by session 6, Documents in home exercise log/reports 30 min aerobic 5 day/wk by DC, Demonstrates accurate pulse taking by DC - Intervention & Plan Exercise Program Goals: Instruct on personal THR & RPE, Instruct on MET level & personal MET goal, Show patient to take own pulse /validate performance until accurate, Instruct on home exercise - 30-day Reassessments 30 day Reassessments:: Progressing - Physical Activity Home Exercise Physical Activity - Home Exercise: Safe Exercise, Warm-up, Self-monitoring, Cool-Down, Home Exercise > 30 min Daily, Sitting Time <3 hours/daily - Outcomes & Goals Outcomes/Goals: Demonstrates correct Warm-up/exercise Cool-Down (S3) if = 2.5 METs, Verbalizes symptoms of exercise intolerance by Session 3 (S3), Demonstrate safe equipment use (S3) & follows exercise prescrition (6) - Intervention & Plan Plan/Intervention: Instruct warm-up & cool-down if exercising at > 2 METs, Instruct on symptoms of exercise intolerance & actions to take, Instruct & monitor on saf, Assess intial functional capacity & safety risk - 30-day Reassessments 30 day Reassessments:: Progressing Nutrition - 30-Day Assessment - Program Goals Nutrition Program Goals: LDL <100 optimal. 100 - 129 Near optimal. 130 - 159 Borderline High. 160 - 189 High. Total Cholesterol <200 desirable. 200 - 239 Borderline High. >/= 240 High. HDL < 40 Low >/=60 High. Triglycerides <150 desirable. <199 optimal. VlDL 5 - 40. HgbA1C <7%. BMI <25 Patient has diagnosis of Hyperlipidemia (ICD E78)?: Yes - Visit Date of Assessment:: 08/12/20 Session #:: 9 - Cholesterol/Lipids Triglycerides (mg/dL): 171 - 07/10/20 Total Cholesterol (mg/dL): 193 LDL Cholesterol (mg/dL): 88 HDL Cholesterol (mg/dL): 71 Determine presence & major risk factors that modify LDL goal: Hypertension or hypertensive medication, Age men > 45 years; women >/= 55 years Outcomes/Goals: Pt IDs own risk factors & lifestyle modifications by Session 10, Verbalizes symptoms of angina & response by session 3., Pt independently manages Intervention/Plan: Instruct on personal lipid levels & lipid goals/NCEP guidelines, Instruct on cholesterol Referral to dietitian:: No - Has initial visit on 08/24/2020 @ 4:00 pm 30-day Reassessments:: Progressing - Diabetes (Other Core Measures) Diabetes Type: Not Applicable - Weight Mgt (Other Care) Not Applicable: Yes Height: 5 ft 11 in Weight:: 178 lb 8 oz BMI: 24.9 Diagnosis Overweight/Obesity BMI> 30% ICD-10 E66: No Diagnosis High BMI/Morbid Obesity BMI> 35% ICD-10 Z68: No Outcomes/Goals: Pt sets, maintains & shows weight loss goal & trend during rehab Intervention/Plan: Instruct on ideal BMI & set weight loss goal w/patient, Assist pt to ID & incorporate diet changes for weight loss by S9 30 day Reassessments:: Progressing - Healthy Eating Habits Will attend diet classes:: Yes Outcomes/Goals:: Consume diet rich in vegs,fruits,whole grain/high fiber,fish,lean meat, Limit sat/trans fats,cholesterol & added salts & sugars Intervention/Plan:: Assess current eating habits 30-day Reassessments:: Progressing Medical - Initial Assessment - Visit Date of Eval: 08/12/20 Session #:: 9 - Medication Compliance Preventative Medication(s):: Aspirin, Ticagrelor/P2Y12 inhibitor, Statin/lipid, Beta michel H/O mental health issues: depression, anxiety, or addiction?: No Doesn?t believe in the benefits of treatment?: No Believes medications are unnecessary or harmful?: No Has a concern about medication side effects?: No Expresses concern over the cost of medications?: No Outcomes/Goals: Verbalizes medications,desired effect & common side effects @ DC, Pt self-reports following medication regimen, Keeps card in wallet w/medications listed by DC Interventions/plans: Instruct on medication effects & side effects, Review medication list w/patient every two weeks, Instruct importance of taking meds as ordered & assist problem solving - Tobacco Use Tobacco Use: Non-smoker - Hypertension Hypertension Diagnosis:: Hypertension ICD-10 I10 Resting Blood Pressure:: 120/68 - controlled with medications Citizen [place] [employer] Hypertension Guidelines: Citizen [place] [employer] Hypertension Guidelines. Normal BP Less than 120/80. Elevated BP 120/80. Hypertension Stage 1: BP 130-139/80-89. Hypertesnion Stage 2: BP 140 or higher/90 or higher. Hypertension Crisis: BP higher than 180/120 Peak Exercise Blood Pressure:: 146/70 Outcomes/Goals: Able to verbalize/achieve optimal blood pressure <130/80, Incorporates diet changes & exercise for blood pressure control by DC Interventions/plan: Instruct on optimal blood pressure, hypertension & medications, Instruct on effects of sodium, alcohol, stress, exercise &hypertension - Tobacco Cessation Referral Smoking Cessation Referral:: No Individual Education/Counseling:: No Education Schedule Given:: Yes Psychosocial - Initial Assess - VIsit Date of Eval: 08/12/20 Session #:: 9 Not Applicable: Yes History of previous Mental disease:: No - Target Goals Target Goals: Assess presence or absence of depression. Using a valid screening tool, maximizes coping skills. Positive support system - Psychosocial Test Tool Used:: PHQ-9 Questionnaire phq-9 Severity: Severity. 1-4 Minimal Depression. 5-9 Mild Depression. 10-14 Moderate Depression. 15-19 Moderately Sever Depression. 20-27 Severe Depression. Rule: - Referral to Behavioral Health PS - Interventions: Yes Attend Stress Management Classes, No Referral to Behavioral Health if PHQ-9 score >9:, No Referral to [facility], No Referral to Physician if PHQ-9 if score is 5-9: - Outcomes/Goals: See list Psychosocial Outcomes/Goals:: ID's personal stressors & 2 strategies to manage stress by discharge - Intervention/Plan: See List Interventions/Plan:: Assess stressors,coping strategies & signs of derpression on admission, Instruct/assist pt to develop coping & personal stress Mgt strategies, Instruct patient to recognize signs & symptoms of depression, Instruct patient to recog Patient Health Questionnaire 30-Day Re-eval Assessment 1. Little interest or pleasure in doing things: Not at all 2. Feeling down, depressed, or hopeless: Several days 3. Trouble falling or staying asleep, or sleeping too much: Not at all 4. Feeling tired or having little energy: Several days 5. Poor appetite or overeating: Not at all 6. Feeling bad about yourself -- or that you are a failure or have let yourself or your family down: Not at all 7. Trouble concentrating on things, such as reading the newspaper or watching television: Not at all 8. Moving or speaking so slowly that other people could have noticed. Or the opposite - being so fidgety or restless that you have been moving around a lot more than usual: Not at all 9. Thoughts that you would be better off , or of hurting yourself in some way: Not at all How difficult have these problems made it for you to do your work, take care of things at home, or get along with other people?: Somewhat difficult Total Score: 2 Self-Efficacy 30-Day Re-eval Assessment We would like to know how confident you are in doing certain activities. Please select your confidence level for:: Select your confidence level for the following using the scale 1-10 where 1 is not at all confident and 10 is totally confident. Your score is the average of all 6 responses. Fatigue: How confident are you that you can keep the fatigue caused by your disease from interfering with the things you want to do? Select Number: 7 Physical Discomfort or Pain: How confident are you that you can keep the physical discomfort or pain of your disease from interfering with the things you want to do? Select Number: 7 Emotional Distress: How confident are you that you can keep the emotional distress caused by your disease from interfering with the things you want to do? Select Number: 8 Other Symptoms or Health Problems: How confident are you that you can keep other symptoms or health problems from interfering with the things you want to do? Select Number: 8 Different Tasks and Activities: How confident are you that you can do the different tasks and activities needed to manage your health condition so as to reduce your need to see a doctor? Select Number: 9 Medication: How confident are you that you can do things other than just taking medication to reduce how much your illness affects your everyday life? Select Number: 10 Total Score:: 8
[2020-08-12 07:06] VITALS: BP 120/68; BP 146/70; BMI 24.9
== END 2020-09-09 23:59 ==
LOC: CR 15:15
PROVIDERS: PCP Nurse Practitioner Family; Referring Provider Internal Medicine Cardiovascular Disease; Visit Provider Internal Medicine Cardiovascular Disease
DX: I25.10 Atherosclerotic heart disease of native coronary artery without angina pectoris (principal); I25.2 Old myocardial infarction; Z95.5 Presence of coronary angioplasty implant and graft
CPT/HCPCS: 93798

== ENCOUNTER 2020-10-07 15:15 | Outpatient (RCR) | payer BC, SELFPAY ==
[2020-08-12 07:06] VITALS: BMI 24.9
[2020-09-10 00:43] VITALS: BP 120/68; BP 146/70
== END 2020-10-09 23:59 ==
LOC: CR 15:15
PROVIDERS: PCP Nurse Practitioner Family; Referring Provider Internal Medicine Cardiovascular Disease; Visit Provider Internal Medicine Cardiovascular Disease
DX: I25.10 Atherosclerotic heart disease of native coronary artery without angina pectoris (principal); I25.2 Old myocardial infarction; Z95.5 Presence of coronary angioplasty implant and graft
CPT/HCPCS: 93798

== ENCOUNTER 2020-10-21 15:15 | Outpatient (RCR) | payer BC, SELFPAY ==
[2020-08-12 07:06] VITALS: BMI 24.9
[2020-10-10 00:41] VITALS: BP 120/68; BP 146/70
--- NOTE | 2020-10-12 08:37 | PCM.CR.ITP ---
Diagnosis Exercise - 90-day Assessment - Visit Date of Eval: 10/12/20 Session #:: 31 - Physician Prescribed Exercise Modalities: Treadmill, Rower, Airdyne, NuStep Frequency: 3x/week for 12 weeks [36 sessions] Intensity: 60-80% of age predicted maximum heart rate reserve Current METSs:: 9.0 increase from 6.5 Target Heart Rate:: 103-135 Current RPE:: 12-13 Maximum Excercise HR:: 104 Resting Blood Pressure: 126/72 Maximum Exercise Blood Pressure: 150/70 EKG Type: NSR to sinus tach w/ occas. PACs noted - Outcomes & Goals Goals:: Verbalizes understanding of THR, RPE & goal METS by session 6, Documents in home exercise log/reports 30 min aerobic 5 day/wk by DC, Demonstrates accurate pulse taking by DC - Intervention & Plan Exercise Program Goals: Instruct on personal THR & RPE, Instruct on MET level & personal MET goal, Show patient to take own pulse /validate performance until accurate, Instruct on home exercise - 30-day Reassessments 30 day Reassessments:: Met - Physical Activity Home Exercise Physical Activity - Home Exercise: Safe Exercise, Warm-up, Self-monitoring, Cool-Down, Home Exercise > 30 min Daily, Sitting Time <3 hours/daily - Outcomes & Goals Outcomes/Goals: Demonstrates correct Warm-up/exercise Cool-Down (S3) if = 2.5 METs, Verbalizes symptoms of exercise intolerance by Session 3 (S3), Demonstrate safe equipment use (S3) & follows exercise prescrition (6) - Intervention & Plan Plan/Intervention: Instruct warm-up & cool-down if exercising at > 2 METs, Instruct on symptoms of exercise intolerance & actions to take, Instruct & monitor on saf, Assess intial functional capacity & safety risk - 30-day Reassessments 30 day Reassessments:: Met Nutrition - Initial Assessment Nutrition - 30-Day Assessment Nutrition - 60-Day Assessment Nutrition - 90-Day Assessment - Program Goals Nutrition Program Goals: LDL <100 optimal. 100 - 129 Near optimal. 130 - 159 Borderline High. 160 - 189 High. Total Cholesterol <200 desirable. 200 - 239 Borderline High. >/= 240 High. HDL < 40 Low >/=60 High. Triglycerides <150 desirable. <199 optimal. VlDL 5 - 40. HgbA1C <7%. BMI <25 Patient has diagnosis of Hyperlipidemia (ICD E78)?: Yes - Visit Date of Assessment:: 10/12/20 Session #:: 31 - Cholesterol/Lipids Determine presence & major risk factors that modify LDL goal: Hypertension or hypertensive medication, Family history of premature CHD in Male < 55 years: female <65 yearsFa, Age men > 45 years; women >/= 55 years Outcomes/Goals: Pt IDs own risk factors & lifestyle modifications by Session 10, Verbalizes symptoms of angina & response by session 3., Pt independently manages Intervention/Plan: Instruct on personal lipid levels & lipid goals/NCEP guidelines, Instruct on cholesterol Referral to dietitian:: No 30-day Reassessments:: Progressing - Diabetes (Other Core Measures) Diabetes Type: Not Applicable - Weight Mgt (Other Care) Height: 5 ft 11 in Weight:: 185 lb 8 oz BMI: 25.8 Diagnosis Overweight/Obesity BMI> 30% ICD-10 E66: No Diagnosis High BMI/Morbid Obesity BMI> 35% ICD-10 Z68: No Outcomes/Goals: Pt sets, maintains & shows weight loss goal & trend during rehab Intervention/Plan: Instruct on ideal BMI & set weight loss goal w/patient 30 day Reassessments:: Met - Healthy Eating Habits Will attend diet classes:: Yes Outcomes/Goals:: Consume diet rich in vegs,fruits,whole grain/high fiber,fish,lean meat, Limit sat/trans fats,cholesterol & added salts & sugars Intervention/Plan:: Assess current eating habits 30-day Reassessments:: Not Met Nutrition - Final Assessment Medical - Initial Assessment Medical- 30-Day Assessment Medical- 60-Day Assessment Medical- 90-Day Assessment - Visit Date of Eval: 10/12/20 Session #:: 31 - Medication Compliance Preventative Medication(s):: Aspirin, Clopidogrel/P2Y12 inhibit, Statin/lipid, Beta michel H/O mental health issues: depression, anxiety, or addiction?: No Doesn?t believe in the benefits of treatment?: No Believes medications are unnecessary or harmful?: No Has a concern about medication side effects?: No Expresses concern over the cost of medications?: No Outcomes/Goals: Verbalizes medications,desired effect & common side effects @ DC, Pt self-reports following medication regimen, Keeps card in wallet w/medications listed by DC Interventions/plans: Instruct on medication effects & side effects, Review medication list w/patient every two weeks, Instruct importance of taking meds as ordered & assist problem solving 30-day Reassessments:: Met - Tobacco Use Tobacco Use: Non-smoker - Hypertension Hypertension Diagnosis:: Hypertension ICD-10 I10 Resting Blood Pressure:: 128/72 Citizen [place] [employer] Hypertension Guidelines: Citizen [place] [employer] Hypertension Guidelines. Normal BP Less than 120/80. Elevated BP 120/80. Hypertension Stage 1: BP 130-139/80-89. Hypertesnion Stage 2: BP 140 or higher/90 or higher. Hypertension Crisis: BP higher than 180/120 Peak Exercise Blood Pressure:: 150/70 Outcomes/Goals: Able to verbalize/achieve optimal blood pressure <130/80, Incorporates diet changes & exercise for blood pressure control by DC Interventions/plan: Instruct on optimal blood pressure, hypertension & medications, Instruct on effects of sodium, alcohol, stress, exercise &hypertension 30 day Reassessments:: Progressing - Tobacco Cessation Referral Smoking Cessation Referral:: No Individual Education/Counseling:: No Education Schedule Given:: Yes Medical - Final Assessment Psychosocial - Initial Assess Psychosocial - 30-Day Assess Psychosocial - 60-Day Assess Psychosocial - 90-Day Assess - VIsit Date of Eval: 10/12/20 Session #:: 31 Not Applicable: Yes History of previous Mental disease:: No Self-reported stressors: Other - job - Psychosocial Test Tool Used:: PHQ-9 Questionnaire phq-9 Severity: Severity. 1-4 Minimal Depression. 5-9 Mild Depression. 10-14 Moderate Depression. 15-19 Moderately Sever Depression. 20-27 Severe Depression. Rule: - Referral to Behavioral Health PS - Interventions: Yes Attend Stress Management Classes, No Referral to Behavioral Health if PHQ-9 score >9:, No Referral to [facility], No Referral to Physician if PHQ-9 if score is 5-9: - Outcomes/Goals: See list Psychosocial Outcomes/Goals:: ID's personal stressors & 2 strategies to manage stress by discharge - Intervention/Plan: See List Interventions/Plan:: Assess stressors,coping strategies & signs of derpression on admission, Instruct/assist pt to develop coping & personal stress Mgt strategies, Instruct patient to recognize signs & symptoms of depression, Instruct patient to recog - 30-day Reassessments: 30 day Reassessments:: Progressing Psychosocial - Final Assessmen Patient Health Questionnaire 90-Day Re-eval Assessment 1. Little interest or pleasure in doing things: Not at all 2. Feeling down, depressed, or hopeless: Not at all 3. Trouble falling or staying asleep, or sleeping too much: Not at all 4. Feeling tired or having little energy: Not at all 5. Poor appetite or overeating: Not at all 6. Feeling bad about yourself -- or that you are a failure or have let yourself or your family down: Not at all 7. Trouble concentrating on things, such as reading the newspaper or watching television: Not at all 8. Moving or speaking so slowly that other people could have noticed. Or the opposite - being so fidgety or restless that you have been moving around a lot more than usual: Not at all 9. Thoughts that you would be better off , or of hurting yourself in some way: Not at all Total Score: 0 Self-Efficacy 90-Day Re-eval Assessment We would like to know how confident you are in doing certain activities. Please select your confidence level for:: Select your confidence level for the following using the scale 1-10 where 1 is not at all confident and 10 is totally confident. Your score is the average of all 6 responses. Fatigue: How confident are you that you can keep the fatigue caused by your disease from interfering with the things you want to do? Select Number: 10 Physical Discomfort or Pain: How confident are you that you can keep the physical discomfort or pain of your disease from interfering with the things you want to do? Select Number: 10 Emotional Distress: How confident are you that you can keep the emotional distress caused by your disease from interfering with the things you want to do? Select Number: 10 Other Symptoms or Health Problems: How confident are you that you can keep other symptoms or health problems from interfering with the things you want to do? Select Number: 10 Different Tasks and Activities: How confident are you that you can do the different tasks and activities needed to manage your health condition so as to reduce your need to see a doctor? Select Number: 10 Medication: How confident are you that you can do things other than just taking medication to reduce how much your illness affects your everyday life? Select Number: 10 Total Score:: 10 Nutrition Survey
[2020-10-12 08:42] VITALS: BP 126/72; BP 128/72; BP 150/70; BMI 25.8
== END 2020-11-09 23:59 ==
LOC: CR 15:15
PROVIDERS: PCP Nurse Practitioner Family; Referring Provider Internal Medicine Cardiovascular Disease; Visit Provider Internal Medicine Cardiovascular Disease
DX: I25.10 Atherosclerotic heart disease of native coronary artery without angina pectoris (principal); I25.2 Old myocardial infarction; Z95.5 Presence of coronary angioplasty implant and graft
CPT/HCPCS: 93798

== ENCOUNTER → 2021-01-21 10:42 | Outpatient (CLI) | payer BC, SELFPAY ==
[2020-10-12 08:42] VITALS: BMI 25.8
[2021-01-21 09:56] VITALS: BMI 24.8
--- NOTE | 2021-01-21 10:47 | RAD_ITS ---
HISTORY: Degenerative disc disease with low back pain for several years EXAMINATION/TECHNIQUE: XR Spine Lumbar Min 4 Views: 5 views COMPARISON: None FINDINGS: VERTEBRAE: Preserved vertebral body height. No acute fracture. Minimal retrolisthesis at L3-4 and L4-5. Preservation of the normal lumbar lordosis. DISCS: Mild disc space narrowing at L3-4 and L4-5. INCLUDED ABDOMEN: Included bowel gas pattern is non-obstructive. RAD/L/S Spine Min 4 Views IMPRESSION: Degenerative disc disease at L3-4 and L4-5. at 1548 Reported and signed by: Vishnu Cullen MD Electronically Signed: Vishnu Cullen MD at 15:47 EDT Tel , Service support ,
== END ==
PROVIDERS: PCP Nurse Practitioner Family
DX: M51.36 Other intervertebral disc degeneration, lumbar region (principal)
CPT/HCPCS: 72110

== ENCOUNTER 2021-06-29 15:20 | Outpatient (CLI) | payer BC, SELFPAY ==
[2020-10-12 08:42] VITALS: BMI 25.8
[2021-06-29 17:58] LABS: AST(SGOT) 14 U/L (15-37); Alanine Aminotransfer ALT/SGPT 37 U/L (16-61); Albumin, Serum 3.8 g/dL (3.2-5.0); Alkaline Phosphatase 87 U/L (45-117); Bilirubin, Direct 0.12 mg/dL (0.00-0.30); Cholesterol 133 mg/dL (200); Globulin 3.2 g/dL (2.2-4.2); High Density Lipoprotein 36 mg/dL; Triglycerides 383 mg/dL; Very Low Density Lipoprotein 77 mg/dL (5-40)
== END 2021-06-29 23:59 | disposition short-term general hospital (02) ==
LOC: LAB 15:22
PROVIDERS: PCP Nurse Practitioner Family; Referring Provider Internal Medicine Cardiovascular Disease; Visit Provider Internal Medicine Cardiovascular Disease
DX: Z79.899 Other long term (current) drug therapy (principal)
CPT/HCPCS: 36415; 80061; 80076

== ENCOUNTER 2021-07-21 06:11 | Outpatient (CLI) | payer BC, SELFPAY ==
[2020-10-12 08:42] VITALS: BMI 25.8
--- NOTE | 2021-07-21 19:05 | STRESSREP ---
Stress Test Report Exercise myocardial perfusion stress test. 61-year-old man with a history of coronary artery disease. Medications metoprolol magnesium aspirin clopidogrel rosuvastatin. Stress protocol: Resting EKG demonstrates normal sinus rhythm with a rate of 65 bpm T wave inversion is noted in lead III. The patient exercised according to regular Sandip protocol for total duration of 8 minutes and 15 seconds. The maximum heart rate attained was 144 bpm which was 91% of max impact at heart rate the maximum workload was 10.4 metabolic equivalents. At rest there were no ST or T wave changes noted to suggest ischemia and at peak exercise there was approximately 0.[address] depression noted in leads II and less than [address] depression noted in lead III and aVF. The above did not meet the criteria for ischemia. No clinical angina was noted the test was terminated due to target heart rate being achieved and dyspnea. The peak blood pressure was 192/78 mmHg. Myocardial perfusion protocol. 11.5 mCi of technetium 99m sestamibi was injected at rest. The patient exercised according to regular Sandip protocol for total duration of 8 minutes and 15 seconds. The maximum heart rate attained was 144 bpm. At peak exercise 33.9 mCi of technetium 99m sestamibi was injected stress images were obtained stress and rest images were reconstructed and compared in the short axis vertical long and horizontal long axis. Gated images were also obtained per Perfusion SPECT analysis: Review of the stress images demonstrate normal uptake of tracer noted in all areas of the myocardium. The resting images similarly demonstrate normal uptake of tracer noted in all areas of the myocardium. No areas of reversibility are noted to suggest ischemia and no previous infarct is noted. Gated SPECT analysis: The gated ejection fraction is 67%. Conclusion: Normal exercise myocardial perfusion stress test at a high workload. Preserved ejection fraction.
== END 2021-07-21 23:59 | disposition home or self-care (01) ==
LOC: CVS 06:14
PROVIDERS: PCP Nurse Practitioner Family; Referring Provider Internal Medicine Cardiovascular Disease; Visit Provider Internal Medicine Cardiovascular Disease
DX: R07.9 Chest pain, unspecified (principal); I10 Essential (primary) hypertension; Z95.5 Presence of coronary angioplasty implant and graft
CPT/HCPCS: 78452; 93017; A9500; A4216

== ENCOUNTER → 2021-12-25 | Outpatient (CLI) | payer BC, SELFPAY ==
[2020-10-12 08:42] VITALS: BMI 25.8
[2021-12-25 09:41] LABS: AST(SGOT) 23 U/L (15-37); Alanine Aminotransfer ALT/SGPT 38 U/L (16-61); Albumin, Serum 3.6 g/dL (3.2-5.0); Alkaline Phosphatase 59 U/L (45-117); Bilirubin, Direct 0.18 mg/dL (0.00-0.30); Cholesterol 134 mg/dL (200); Globulin 3.1 g/dL (2.2-4.2); High Density Lipoprotein 64 mg/dL; Protein, Total 6.7 g/dL (6.4-8.2); Triglycerides 99 mg/dL; Very Low Density Lipoprotein 20 mg/dL (5-40)
== END | disposition home or self-care (01) ==
PROVIDERS: PCP Nurse Practitioner Family; Referring Provider Internal Medicine Cardiovascular Disease; Visit Provider Internal Medicine Cardiovascular Disease
DX: E78.00 Pure hypercholesterolemia, unspecified (principal); E78.2 Mixed hyperlipidemia
CPT/HCPCS: 36415; 80061; 80076

== ENCOUNTER → 2022-07-05 | Outpatient (CLI) | payer BC, SELFPAY ==
[2020-10-12 08:42] VITALS: BMI 25.8
--- NOTE | 2022-07-05 13:00 | RAD_ITS ---
STUDY: X-RAY CHEST REASON FOR EXAM: Male, 62 years old. persistent cough TECHNIQUE: PA and lateral views of the chest. COMPARISON: Comparison is made with prior study dated 07/08/2020. FINDINGS: Scattered calcified granulomas. The lungs are clear. There is no demonstrated pleural abnormality. Normal size heart. Normal mediastinum and radha. Normal visualized pulmonary arteries. There is atherosclerotic calcification of the aortic arch with tortuosity. Normal visualized thoracic spine. Normal visualized ribs, clavicles, and shoulders. There is no demonstrated abnormality of the visualized soft tissue structures of the upper abdomen. RAD/Chest PA and Lateral IMPRESSION: Scattered calcified granulomas. The lungs are clear. Electronically Signed: Jag Luong MD at 13:24 EST ,
== END | disposition home or self-care (01) ==
LOC: MTRAD 12:43
PROVIDERS: PCP Nurse Practitioner Family; Referring Provider Physician Assistant Surgical; Visit Provider Physician Assistant Surgical
DX: J40 Bronchitis, not specified as acute or chronic (principal)
CPT/HCPCS: 71046

== ENCOUNTER → 2022-09-27 | Outpatient (CLI) | payer BC, SELFPAY ==
[2020-10-12 08:42] VITALS: BMI 25.8
[2022-09-27 16:42] LABS: Absolute Lymphocyte Count 1.85 X10^3/uL (0.83-4.51); Absolute Neutrophil Count 5.6 X10^3/uL (2.0-7.7); Basophil# 0.03 X10^3/uL; Basophil% 0.4 % (0-1); Eosinophil# 0.05 X10^3/uL; Eosinophils% 0.6 % (0-5); Hematocrit 43.5 % (40-54); Hemoglobin 14.6 g/dL (13.0-16.5); Lymphocyte # 1.85 X10^3/ul (0.83-4.51); Lymphocyte % 21.6 % (19-41); Mean Corp Hgb Conc 33.6 g/dL (32-36); Mean Corpuscular Hgb 30.1 pg (27.0-32.0); Mean Corpuscular Volume 89.7 fL (80-94); Monocyte# 0.92 X10^3/uL; Monocyte% 10.7 % (0-10); NRBC Flagged by Analyzer 0 % (0-5); Neutrophil # 5.61 X10^3/uL (2.7-7.7); Neutrophil % 65.4 % (47-70); Platelet Count 170 K/mm3 (150-450); RBC Distribution Width CV 12.9 % (11.6-14.6); RBC Distribution Width SD 42.2 fl (35.1-43.9); Red Blood Count 4.85 M/mm3 (4.6-6.2); White Blood Count 8.6 K/mm3 (4.4-11.0)
== END | disposition home or self-care (01) ==
LOC: LAB 16:23
PROVIDERS: PCP Nurse Practitioner Family; Referring Provider Nurse Practitioner Gerontology; Visit Provider Nurse Practitioner Gerontology
DX: R23.3 Spontaneous ecchymoses (principal)
CPT/HCPCS: 36415; 85025

== ENCOUNTER → 2022-11-12 | Outpatient (CLI) | payer BC, SELFPAY ==
[2020-10-12 08:42] VITALS: BMI 25.8
[2022-11-12 09:49] LABS: Absolute Lymphocyte Count 1.02 X10^3/uL (0.83-4.51); Absolute Neutrophil Count 7.1 X10^3/uL (2.0-7.7); Basophil# 0.01 X10^3/uL; Basophil% 0.1 % (0-1); Hematocrit 44.3 % (40-54); Hemoglobin 15.4 g/dL (13.0-16.5); Lymphocyte # 1.02 X10^3/ul (0.83-4.51); Lymphocyte % 12.2 % (19-41); Mean Corp Hgb Conc 34.8 g/dL (32-36); Mean Corpuscular Hgb 29.7 pg (27.0-32.0); Mean Corpuscular Volume 85.5 fL (80-94); Mean Platelet Vol. 10.2 fl (6.2-12.0); Monocyte# 0.23 X10^3/uL; Monocyte% 2.7 % (0-10); NRBC Flagged by Analyzer 0 % (0-5); Neutrophil # 7.09 X10^3/uL (2.7-7.7); Neutrophil % 84.5 % (47-70); Platelet Count 215 K/mm3 (150-450); RBC Distribution Width CV 12.5 % (11.6-14.6); RBC Distribution Width SD 39.4 fl (35.1-43.9); Red Blood Count 5.18 M/mm3 (4.6-6.2); White Blood Count 8.4 K/mm3 (4.4-11.0)
[2022-11-12 10:13] LABS: BNP,B-Type NATRIURETIC PEPTIDE 75.4 pg/mL (0-100)
[2022-11-12 10:30] LABS: ALB/GLOB Ratio 1.2 RATIO (0.9-2.4); AST(SGOT) 20 U/L (15-37); Alanine Aminotransfer ALT/SGPT 27 U/L (16-61); Albumin, Serum 3.8 g/dL (3.2-5.0); Alkaline Phosphatase 62 U/L (45-117); Anion Gap 9 (5-15); BUN 7 mg/dL (7-18); BUN/Creat Ratio 9.3 RATIO (10-20); Bilirubin, Direct 0.17 mg/dL (0.00-0.30); Calcium,Total 9.4 mg/dL (8.5-10.1); Chloride 110 mmol/L (98-107); Cholesterol 116 mg/dL (200); Creatinine, Serum 0.76 mg/dL (0.70-1.30); EST Glomerular Filtration Rate 111 mL/min (>60); Est Glom Filt Rate - Afr Amer 134 mL/min (>60); Globulin 3.3 g/dL (2.2-4.2); Glucose 104 mg/dL (74-106); High Density Lipoprotein 67 mg/dL; PSA,Total - Annual Screen 3.08 ng/mL (0.00-4.00); Protein, Total 7.1 g/dL (6.4-8.2); Sodium Level 143 mmol/L (136-145); Thyroid Stim Hormone (TSH) 1.03 uIU/mL (0.358-3.74); Triglycerides 43 mg/dL; Very Low Density Lipoprotein 9 mg/dL (5-40)
== END | disposition home or self-care (01) ==
LOC: LAB 09:23
PROVIDERS: Internal Medicine Cardiovascular Disease; PCP Nurse Practitioner Family; Referring Provider Nurse Practitioner Family; Visit Provider Nurse Practitioner Family
DX: I25.118 Atherosclerotic heart disease of native coronary artery with other forms of angina pectoris (principal); E78.2 Mixed hyperlipidemia; R60.9 Edema, unspecified; R53.83 Other fatigue; Z12.5 Encounter for screening for malignant neoplasm of prostate
CPT/HCPCS: 80053; 80061; 82248; 83880; 84153; 84443; 85025; G0103

== ENCOUNTER 2024-01-15 19:01 | Emergency (ER) | payer BC, SELFPAY ==
[2020-10-12 08:42] VITALS: BMI 25.8
[2024-01-15 19:01] VITALS: BP 138/87; PULSE 76; RESP 16; TEMP 36.9; O2SAT 98; BMI 24.9
--- NOTE | 2024-01-15 19:12 | EKG12_ITS ---
Test Reason : Blood Pressure : / mmHG Vent. Rate : 075 BPM Atrial Rate : 075 BPM P-R Int : 242 ms QRS Dur : 090 ms QT Int : 394 ms P-R-T Axes : 014 -14 -02 degrees QTc Int : 439 ms Sinus rhythm with 1st degree A-V block Minimal voltage criteria for LVH, may be normal variant ( R in aVL ) Borderline ECG Confirmed by Raj Mckeon ([id number]), editor & co founder BLAKE PEREIRA ([id number]) on 01/16/2024 2:08:56 PM Referred By: Confirmed By:Raj Mckeon
--- NOTE | 2024-01-15 19:12 | CT_ITS ---
INDICATION: BLUNT TRAUMA EXAMINATION: CT Chest And Abdomen W/ Contrast Injection TECHNIQUE: Images were obtained of the chest and abdomen following IV contrast. A radiation dose optimization technique was used for this scan. IV Contrast dosage and agent: IV 100mL [id number]-[id number] COMPARISON: None. FINDINGS: Lungs: Unremarkable Mediastinum: The cardiomediastinal silhouette is not enlarged. No mediastinal, hilar or axillary adenopathy. Mild aortic arch and coronary artery calcifications. No obvious filling defect seen within the visualized pulmonary arteries. Pleura: Unremarkable Liver: Diffusely hypodense consistent with fatty liver. Gallbladder: Unremarkable Spleen: Unremarkable Pancreas: Unremarkable Adrenal Glands: Unremarkable Kidneys: Unremarkable Vasculature: Mild scattered aortoiliac atherosclerotic calcifications. GI Tract: Unremarkable Lymphadenopathy: None Peritoneum: No ascites. Bones/Soft tissues: Mild scattered degenerative changes of the visualized spine. CT/CT Chest AND Abd W/ Contrast IMPRESSION: No acute abnormalities in the chest, abdomen or pelvis. Electronically Signed: Papi Parmar MD at 21:18 EDT ,
--- NOTE | 2024-01-15 19:15 | EDS_ITS ---
HPI History of Present Illness Chief Complaint: Chest Other Detail of Chief Complaint: Blunt chest and abdominal trauma Informant: patient and spouse/S.O. Onset/Context/Timing Onset: Today (Approximate 1 hour prior to presentation) Mechanism/Context: Blunt Injury Quality of Pain: Dull and Aching Location: Chest bilaterally and upper abdomen bilaterally 79 Current Severity: Mild Maximum Severity: Moderate Worsened by: Breathing, moving and palpation Relieved by: nothing Associated Symptoms Associated Symptoms: Negative for Parasthesias, Weakness, Loss of function, Inability to ambulate, Loss of consciousness or Amnesia Narrative Narrative: Patient is a 63-year-old male on aspirin. He has history of alcohol use, essential hypertension, coronary disease, hyperlipidemia, mixed who presents after he was pinned up against the wall by his horse. He developed pain immediately. He states it hurts to breathe and move. Hurts to palpate on examination. He is not look to see if there are any bruising. He denies head trauma. [place] neck pain. [place] paresthesia, anesthesia or motor weakness. Prior similar symptoms: No Recent Illness/Hospitalization: No [facility] Medical History Acute lumbar myofascial strain COVID-19 Bronchitis URI (upper respiratory infection) Acute bronchitis, unspecified Essential (primary) hypertension History of ST elevation myocardial infarction (STEMI) (07/09/20) Atherosclerotic heart disease of [place] coronary artery without angina pectoris Chronic back pain Alcohol abuse Former tobacco use Primary erythrocytosis Home Medications ?Medication ?Instructions ?Recorded ?Last Taken ?Type acetaminophen 650 mg 650 mg PO Q8H PRN PAIN OR FEVER 12/20/21 Unknown History tablet,extended release (Tylenol 8 Hour) ascorbic acid (vitamin C) 500 mg 1 g PO BID 01/10/23 Unknown History tablet cholecalciferol (vitamin D3) 125 125 mcg PO BID PRN 01/10/23 Unknown History mcg (5,000 unit) capsule amlodipine 5 mg tablet 5 mg PO DAILY #90 tabs 08/23/23 Unknown Rx rosuvastatin 20 mg tablet 20 mg PO DAILY #90 tabs 09/05/23 Unknown Rx aspirin 81 mg tablet,delayed 81 mg PO DAILY@0800 #90 tabs 10/02/23 Unknown Rx release guaifenesin 600 mg tablet, 600 mg PO BID #30 tabs 12/02/23 Unknown Rx extended release 12 hr (Mucinex) isosorbide mononitrate 30 mg 30 mg PO DAILY #90 tabs 12/28/23 Unknown Rx tablet,extended release 24 hr metoprolol tartrate 25 mg tablet 12.5 mg PO BID 01/15/24 Unknown History oxycodone-acetaminophen 5 mg-325 1 tab PO Q6H PRN PRN pain 5 days 01/15/24 Unknown Rx mg tablet #20 TABLETS Allergy/AdvReac Type Severity Reaction Status Date / Time No Known Allergies Allergy Verified 01/15/24 19:02 Family History Mother Heart disease Father Heart disease Surgical History History of coronary artery stent placement (07/09/20) History of hernia repair Social History Smoking Status: Former smoker Smokeless tobacco user: chewing tobacco alcohol intake: current alcohol intake frequency: 3 or more drinks per day Alcohol type: beer substance use type: does not use caffeine: Yes Type: carbonated beverages Number of servings: 2 ROS ROS ED Eyes Eyes: Denies blurry vision or change in vision ENT ENT ED: Denies ear pain or rhinorrhea Cardiovascular Cardiovascular: Reports chest pain; Denies palpitations or racing heartbeat Respiratory/Chest Respiratory/Chest: Reports other Details: Positive pleuritic pain ; Denies cough, dyspnea or dyspnea on exertion Gastrointestinal Gastrointestinal: Reports abdominal pain; Denies constipation, nausea or vomiting Genitourinary Genitourinary ED: Denies dysuria, hematuria or urinary frequency Musculoskeletal Musculoskeletal: Denies arthralgias, back pain, myalgias or neck pain Integumentary Denies rash Neurologic Neurologic: Denies headache(s) or paresthesias Psychiatric Psychiatric: Denies anxiety Endocrine Endocrinology: Denies cold intolerance or heat intolerance Hematologic/Lymphatic Hematologic/Lymphatic: Denies easy bleeding EXAM Physical Exam Const Vital Signs: 01/15/24 19:01 01/15/24 19:15 Temperature 98.4 F Temperature Source Temporal Pulse Rate 76 Respiratory Rate 16 Respiratory Pattern Normal Blood Pressure 138/87 H Blood Pressure Mean 104 Pulse Ox 98 Oxygen Delivery Method Room Air Positive well nourished and well developed General Appearance ED: well developed; Negative for NAD HEENT atraumatic; Negative for tenderness Nose: Negative for septum abnormal Eyes PERRL and EOMs intact bilaterally General Eye ED: Yes other Other Details: No subconjunctival hemorrhage. Neck full ROM General: Negative for tenderness Chest Wall inspection of chest normal and palpation of chest normal Chest Narrative: Significant tenderness body of the sternum, lower right and left lower ribs Resp normal respiratory effort and clear to auscultation bilaterally Resp Narrative: There is no crepitus or subcutaneous air. Metric, but diminished. Cardio regular rhythm, S1 normal heart sound, S2 normal heart sound and no murmurs GI normal to inspection, nondistended, normoactive bowel sounds, non-distended and no masses; Negative for non-tender Palpation: tender LUQ and RUQ Back/Spine normal to inspection and no thoracic nor lumbar tenderness General Back: Negative for CVA tenderness Extremity full ROM; Negative for normal to inspection Extremity Narrative: Abrasion dorsal mid right forearm. Bit by horse 2 weeks prior. There is no evidence of infection. Neuro oriented x3, CN's II-XII intact bilaterally and moves all extremities [place] Coma Scale: document GCS findings Spontaneous Obeys Commands Oriented 15 Sensorium / Orientation: alert Psych mental status grossly normal and thought process normal Skin No no rashes or lesions noted, No no wounds, skin turgor normal and no jaundice MDM MDM MDM Narrative Medical decision making narrative: Described under the extremity portion of the medical record patient's complaints, areas of tenderness and mechanism of injury CT of the chest and abdomen with IV contrast was obtained to evaluate for fractured ribs, pneumothorax, hemothorax, hepatic and or splenic injury. Lab Data Attestation: I reviewed the patient's lab results. Lab results narrative: Basic metabolic panel is normal. Labs: Laboratory Results - last 24 hr 01/15/24 19:17 Sodium 136 Potassium 3.8 Chloride 103 Carbon Dioxide 21.0 Anion Gap 12 BUN 11 Creatinine 1.16 Estim Creat Clear Calc 68.52 Est GFR (MDRD) Af Amer 81 Est GFR (MDRD) Non-Af 67 BUN/Creatinine Ratio 9.5 L Glucose 91 Calcium 9[address] of the chest and abdomen not pelvis. Agree there is no abnormality noted. Radiography Diagnostic Testing: Clinical Impression(s) from Imaging Studies Chest/Abdomen CT 01/15/24 19:12 IMPRESSION: No acute abnormalities in the chest, abdomen or pelvis. Electronically Signed: Papi Parmar MD at 21:18 EDT , Discharge Plan Triage Chief Complaint: Chest Other ED Provider: Zeus Sen Dx/Rx/DC Orders Clinical Impression: Chest wall contusion, Atherosclerotic heart disease of [place] coronary artery without angina pectoris, Essential (primary) hypertension, Hyperlipemia, mixed, Abdominal wall contusion, Blunt trauma of abdominal wall Instructions: ED Abd Injury Blunt Benign, ED Chest Wall Contusion Prescriptions: New oxycodone-acetaminophen 5-325 mg tablet 1 tab PO Q6H PRN PRN (Reason: pain) 5 Days Qty: 20 0RF No Action acetaminophen [Tylenol 8 Hour] 650 mg tablet extended release 650 mg PO Q8H PRN (Reason: PAIN OR FEVER) cholecalciferol (vitamin D3) 125 mcg (5,000 unit) capsule 125 mcg PO BID PRN ascorbic acid (vitamin C) 500 mg tablet 1 g PO BID guaifenesin [Mucinex] 600 mg tablet extended release 12hr 600 mg PO BID Qty: 30 0RF metoprolol tartrate 25 mg tablet 12.5 mg PO BID amlodipine 5 mg tablet 5 mg PO DAILY Qty: 90 3RF rosuvastatin 20 mg tablet 20 mg PO DAILY Qty: 90 3RF aspirin 81 mg tablet,delayed release (DR/EC) 81 mg PO DAILY@0800 Qty: 90 3RF isosorbide mononitrate 30 mg tablet extended release 24 hr 30 mg PO DAILY Qty: 90 3RF Primary Care Provider: Santi Carvajal NP Referrals: Santi Carvajal NP, [facility] [Primary Care Provider] - 1 Week if not improving Activity Restrictions/Additional Instructions: 1. You will feel worse over the next 24 to 48 hours 2. You may probably will hurt in more places and you presently do. 3. You may hurt for several days up to a week 4. Apply ice to areas of discomfort 6-10 times a day for the next 3 to 5 days. Application of heating pad or heat will cause the pain to be worse Print Language: Yakut Disposition Disposition: Home, Self Care
[2024-01-15 19:58] LABS: Anion Gap 12 (5-15); BUN 11 mg/dL (7-18); BUN/Creat Ratio 9.5 RATIO (10-20); Calcium,Total 9.3 mg/dL (8.5-10.1); Chloride 103 mmol/L (98-107); Creatinine, Serum 1.16 mg/dL (0.70-1.30); EST Glomerular Filtration Rate 67 mL/min (>60); Est Glom Filt Rate - Afr Amer 81 mL/min (>60); Estimated Creatinine Clearance 68.52 ml/min; Glucose 91 mg/dL (74-106); Potassium 3.8 mmol/L (3.5-5.1); Sodium Level 136 mmol/L (136-145)
[2024-01-15 21:01] VITALS: BP 123/83; PULSE 61; RESP 18; TEMP 36.6; O2SAT 95
[2024-01-15] MEDS: Ondansetron 4 MG/2 ML Vial IV (21:32)
[2024-01-15] MEDS: Morphine 4 MG/ML Syringe IV (21:32)
[2024-01-15 22:38] VITALS: BP 128/76; PULSE 63; RESP 18; TEMP 36.6; O2SAT 96
== END 2024-01-15 22:40 | disposition home or self-care (01) ==
PROVIDERS: Emergency Provider Emergency Medicine; PCP Nurse Practitioner Family; Visit Provider Emergency Medicine
DX: S20.219A Contusion of unspecified front wall of thorax, initial encounter (principal); S30.1XXA Contusion of abdominal wall, initial encounter; W55.12XA Struck by horse, initial encounter; I25.10 Atherosclerotic heart disease of native coronary artery without angina pectoris; E78.2 Mixed hyperlipidemia; M54.9 Dorsalgia, unspecified; G89.29 Other chronic pain; I10 Essential (primary) hypertension; F17.220 Nicotine dependence, chewing tobacco, uncomplicated; I25.2 Old myocardial infarction; Z79.82 Long term (current) use of aspirin; Z79.899 Other long term (current) drug therapy; Z95.5 Presence of coronary angioplasty implant and graft
CPT/HCPCS: 71260; 74160; 80048; 93005; 96374; 96375; 99285; J7050; Q9967; A4216; J2405

== ENCOUNTER → 2024-11-15 | Outpatient (CLI) | payer BC, SELFPAY ==
[2020-10-12 08:42] VITALS: BMI 25.8
--- OUTSIDE RECORDS SUMMARY | 2024-11-15 07:04 | XMS RPT_ITS | CCD ---
Author Organization [facility] CliniSyar Care Team Providers Care Core Winder Name Role Phone Roscoe BEE PRODUCER, BEE PRODUCER-C Santi Primary Care Provid er Roscoe BEE PRODUCER, BEE PRODUCER-C Santi Referring Provider IVY Suh Attending Provider [phone] Pasha BEE PRODUCER, BEE PRODUCER-C Sangita Rome Attending Provider Roscoe BEE PRODUCER, BEE PRODUCER-C Santi Primary Care Provid er Roscoe BEE PRODUCER, BEE PRODUCER-C Santi Referring Provider IVY De Guzman Attending Provider IVY Arnold Attending Provider [phone] Roscoe BEE PRODUCER, BEE PRODUCER-C Santi Primary Care Provid er Roscoe BEE PRODUCER, BEE PRODUCER-C Santi Referring Provider IVY De Guzman Attending Provider IVY Arnold Attending Provider [phone] Roscoe BEE PRODUCER, BEE PRODUCER-C Santi Primary Care Provid er Roscoe BEE PRODUCER, BEE PRODUCER-C Santi Referring Provider IVY De Guzman Attending Provider Roscoe PRATHER, Brittany Primary Care Provider Roscoe SPRAY GUN REPAIRER, Brittany Primary Care Provider Roscoe SPRAY GUN REPAIRER, Brittany Primary Care Provider Roscoe BEE PRODUCER, Santi Referring Unavaila ble Roscoe BEE PRODUCER, Perry Primary Care Unavailmax Pak BEE PRODUCER, Sangita Rome Attending Unavailable Roscoe BEE PRODUCER, Santi Referring Unavailmax HAYNES, Carlos Attending Unavailable Roscoe BEE PRODUCER, Perry Primary Care Unavaila ble Roscoe BEE PRODUCER, Perry Primary Care Unavaila ble Zeus Sen Attending Unavailable Roscoe BEE PRODUCER, Santi Referring Unavaila kelly HAYNES, Sergei Chew Attending Unavailable Roscoe BEE PRODUCER, Perry Primary Care Unavaila kelly Carvajal BEE PRODUCER, Santi Referring Unavaila Karissa Grossman Attending Unavailable Roscoe BEE PRODUCER, Perry Primary Care Unavaila kelly CARVAJAL, [facility] Unavailable ROSCOE, [facility] Unavailable GUIDO NAVARRETE Referring Unavailable ROSCOE, [facility] Unavailable ROSCOE, [facility] Unavailable LANCE, SANTI Referring Unavailable ROSCOE, [facility] Unavailable GUIDO NAVARRETE Referring Unavailable ROSCOE, [facility] Unavailable ROSCOE, [facility] Unavailable ROSCOE, [facility] Unavailable Medications Current Medications Medication Drug Class(es) Dates Sig (Normalized) Sig (Original) 8 hr acetaminophen 650 mg extended release oral tablet (8 sources) Start: 01-21-2021 End: 12-20-2021 take 1 tablet by mouth every eight hours Acetaminophen (Tylenol 8 Hour) 650 mg tablet extended release Active 650 MG PO Q8H December 20, 2021 2:29pm amLODIPine 5 mg oral tablet (20 sources) Dihydropyridine Calcium Channel Gomez Start: 05-16-2023 amLODIPine (NORVASC) 5 mg tablet 05/16/2023 Active Start: 08-21-2020 End: 08-25-2022 take 5 mg by mouth once daily Amlodipine Discontinued 5 MG PO DAILY August 23, 2021 9:26am August 25, 2022 10:58am Start: 04-05-2015 End: 08-21-2020 take 10 mg by mouth once daily Amlodipine Discontinued 10 MG PO DAILY April 05, 2015 12:00am August 21, 2020 3:33pm ascorbic acid 500 mg oral tablet (14 sources) Vitamin C Start: 12-20-2021 take 500 mg by mouth once daily Ascorbic Acid (Vitamin C) Active 500 MG PO DAILY December 20, 2021 12:00am ascorbic acid (V ITAMIN C ORAL) Take by mouth. Active ascorbic acid (V ITAMIN C ORAL) Take by mouth. 0 Active Comment on above: Take by mouth. aspirin 81 mg delayed release oral tablet (20 sources) Platelet Aggregation Inhibitor, Nonsteroidal Anti-inflammatory Drug Start: 07-02-2023 aspirin, enteric coated (ASPIRIN, ENTERIC COATED) 81 mg EC tablet 07/02/2023 Active Start: 07-11-2020 End: 09-27-2022 take 81 mg by mouth once daily Aspirin Discontinued 81 MG PO DAILY@0800 90 September 27, 2022 12:08pm September 27, 2022 4:08pm azithromycin 250 mg oral tablet (11 sources) Macrolide Antimicrobial Start: 07-05-2022 Azithromycin Active 0 PO .COMPLEX July 05, 2022 1:00am take 500 mg today (day 1), then 250 mg for 4 days (days 2-5) PO Start: 06-08-2018 End: 04-05-2019 Azithromycin Discontinued 0 PO .COMPLEX June 08, 2018 1:00am April 05, 2019 10:07am take 500 mg today (day 1), then 250 mg for 4 days (days 2-5) PO Start: 10-12-2016 End: 04-05-2019 Azithromycin Discontinued 25 0 MG PO DIRECTED October 12, 2016 12:00am April 05, 2019 10:07am benzonatate 100 mg oral capsule (20 sources) Non-narcotic Antitussive Start: 09-24-2023 take 2 capsules by mouth three times daily as needed benzonatate (TESSALON PERLE) 100 mg capsule Indications: Chronic cough Take 2 capsules by mouth three times a day as needed. 30 capsule 09/24/2023 Active Start: 08-27-2023 take 1 capsule by [facility] every eight hours as needed benzonatate (TESSALON PERLES) 100 mg capsule Take 1 capsule by mouth three times a day as needed. 12 capsule 08/27/2023 Active Start: 07-21-2023 End: 08-05-2023 take 2 capsules by mouth every eight hours as needed for cough and cough benzonatate (TESSALON PERLE) 100 mg capsule Indications: Subacute cough Take 2 capsules by mouth every 8 hours as needed for cough for up to 15 days. 45 capsule 0 07/21/2023 08/05/2023 Active Start: 06-16-2022 take 200 mg by mouth three times daily Benzonatate Active 200 MG PO THREE TIMES A DAY August 08, 2022 1:00am Start: 10-12-2016 End: 04-05-2019 take 200 mg by mouth three times daily Benzonatate Discontinued 200 MG PO THREE TIMES A DAY June 08, 2018 1:00am April 05, 2019 10:08am Comment on above: Take 2 capsules by m outh every 8 hours as needed for cough for up to 15 days. Take 1 capsule by mo uth three times a day as needed. Take 2 capsules by m outh three times a day as needed. cholecalciferol 0.125 mg oral capsule (4 sources) Vitamin D Start: 022 take 125 ug by mouth twice daily Cholecalciferol (Vitamin D3) Active 125 MCG PO TWICE A DAY June 29, 2021 1:00am dexamethasone 6 mg oral tablet (2 sources) Corticosteroid Start: 023 take 6 mg by mouth once daily Dexamethasone Active 6 MG PO DAILY August 08, 2022 1:00am dextromethorphan hydrobromide 3 mg/ml / guaiFENesin 40 mg/ml oral solution (3 sources) Uncompetitive Y-kuyexz-E-aspartate Receptor Antagonist, Sigma-1 Agonist Start: 023 take 1 mL by mouth every six hours Dextromethorphan-Guai fenesin Active 5 ML PO EVERY 6 HOURS July 05, 2022 1:00am doxycycline hyclate 100 mg oral tablet (7 sources) Tetracycline-class Drug Start: 025 End: 025 take 1 tablet by mouth twice daily doxycycline (VIBRA-TABS) 100 mg tablet Take 1 tablet by mouth two times a day for 7 days. 14 tablet 07/16/2024 07/23/2024 Active Start: 08-27-2023 End: 09-03-2023 take 1 tablet by mouth twice daily doxycycline (VIBRA-TABS) 100 mg tablet Take 1 tablet by mouth two times a day for 7 days. 14 tablet 0 08/27/2023 09/03/2023 Active Start: 07-21-2023 End: 07-26-2023 take 1 capsule by mouth twice daily doxycycline monohydrate (MONODOX) 100 mg capsule Indications: Subacute cough Take 1 capsule by mouth two times a day for 5 days. 10 capsule 0 07/21/2023 07/26/2023 Active Start: 10-12-2016 End: 04-05-2019 take 100 mg by mouth twice daily Doxycycline Hyclate Discontinued 100 MG PO TWICE A DAY October 12, 2016 12:00am April 05, 2019 10:08am Comment on above: Take 1 capsule by mo [facility] two times a day for 5 days. [facility]. 24 hr isosorbide mononitrate 30 mg extended release oral tablet (18 sources) Nitrate Vasodilator Start: 06-12-2023 isosorbide mononitrate ER (IMDUR) 30 mg 24 hr tablet 06/12/2023 Active Start: 06-29-2021 End: 12-21-2021 take 1 tablet by mouth once daily Isosorbide Mononitrate Active 0 .ROUTE .COMPLEX 90 December 21, 2021 4:31pm Take 1 tablet by mouth once daily magnesium oxide 500 mg oral capsule (4 sources) Start: 07-08-2020 take 500 mg by mouth once daily Magnesium Oxide Active 500 MG PO DAILY July 08, 2020 1:00am melatonin 3 mg oral capsule (4 sources) Start: 06-29-2021 take 3 mg by mouth at bedtime Melatonin Active 3 MG PO BEDTIME June 29, 2021 1:00am metoprolol tartrate 50 mg oral tablet (20 sources) beta-Adrenergic Gomez Start: 06-12-2023 metoprolol tartrate, short acting, (LOPRESSOR) 50 mg tablet 06/12/2023 Active Start: 06-29-2021 End: 12-21-2021 take 1 tablet by mouth twice daily Metoprolol Tartrate Active 0 .ROUTE .COMPLEX 180 December 21, 2021 4:31pm Take 1 tablet by mouth twice daily Start: 07-11-2020 End: 06-29-2021 take 25 mg by mouth twice daily Metoprolol Tartrate Di scontinued 25 MG PO TWICE A DAY 180 July 24, 2020 11:43am June 29, 2021 4:16pm mv-min/folic/K1/lycopen/lute in (CENTRUM SILVER ULTRA MEN'S ORAL) (10 sources) mv-min/folic/K1/ lycopen/lutein (CENTRUM SILVER ULTRA MEN'S ORAL) Take by mouth. Active mv-min/folic/K1/ lycopen/lutein (CENTRUM SILVER ULTRA MEN'S ORAL) Take by mouth. 0 Active Comment on above: Take by mouth. nystatin 571937 unt/ml oral suspension (7 sources) Polyene Antifungal Start: 08-27-2023 nystatin (MYCOSTATIN) 100,000 unit/mL suspension Take 5 mL by mouth four times daily. 1tsp swish in mouth for several minutes, then swallow (or expectorate) 4 times daily until gone. 200 mL 08/27/2023 Active Comment on above: Take 5 mL by mouth f our times daily. 1tsp swish in mouth for several minutes, then swallow (or expectorate) 4 times daily until gone. predniSONE 10 mg oral tablet (6 sources) Start: 07-16-2024 End: 07-21-2024 take 4 tablets by mouth once daily predniSONE (DELTASONE) 10 mg tablet Take 4 tablets by mouth once daily for 5 days. 20 tablet 07/16/2024 07/21/2024 Active Start: 09-24-2023 End: 10-03-2023 predniSONE (DELTASONE) 10 mg tablet Indications: Chronic cough Take 4 tabs daily for 3 days, then 2 tabs daily for 3 days, then 1 tab daily for 3 days with food. 21 tablet 0 09/24/2023 10/03/2023 Active Start: 10-12-2016 End: 04-05-2019 take 40 mg by mouth once daily Prednisone Discontinued 40 MG PO DAILY October 12, 2016 12:00am April 05, 2019 10:08am Comment on above: Take 4 tabs daily fo r 3 days, then 2 tabs daily for 3 days, then 1 tab daily for 3 days with food. rosuvastatin calcium 20 mg oral tablet (20 sources) HMG-CoA Reductase Inhibitor Start: 06-12-2023 rosuvastatin (CRESTOR) 20 mg tablet 06/12/2023 Active Start: 06-29-2021 End: 09-27-2022 take 1 tablet by mouth once daily Rosuvastatin Discontinued 0 .ROUTE .COMPLEX 90 September 27, 2022 12:13pm September 27, 2022 4:08pm TAKE 1 TABLET BY MOUTH ONCE DAILY (STOP TAKING ATORVASTATIN) Start: 09-23-2020 End: 06-29-2021 take 5 mg by mouth once daily Rosuvastatin Discontinue d 5 MG PO DAILY September 23, 2020 12:00am June 29, 2021 4:16pm ubidecarenone 10 mg oral capsule (8 sources) Start: 01-21-2021 End: 12-20-2021 Coenzyme Q10 Active 10 MG PO DAILY December 20, 2021 2:30pm zinc gluconate 50 mg oral tablet (4 sources) Start: 06-29-2021 take 50 mg by mouth once daily Zinc Gluconate Active 50 MG PO DAILY June 29, 2021 1:00am Completed/Discontinued Medications Medication Drug Class(es) Dates Sig (Normalized) Sig (Original) amoxicillin 875 mg / clavulanate 125 mg oral tablet (11 sources) Penicillin-class Antibacterial Start: 07-05-2022 End: 07-15-2022 take 1 tablet by mouth every twelve hours Amoxicillin-Pot Clavulanate Discontinued 1 TABLET PO Q12H 31 03July 05, 2022 1:00am July 15, 2022 1:05am Start: 10-17-2021 End: 12-20-2021 take 1 tablet by mouth every twelve hours Amoxicillin-Pot Clavulanate Discontinued 1 TABLET PO Q12H October 17, 2021 12:00am December 20, 2021 2:30pm Start: 05-19-2021 End: 06-28-2021 take 1 tablet by mouth twice daily Amoxicillin-Pot Clavulanate Discontinued 1 TABLET PO TWICE A DAY May 19, 2021 1:00am June 28, 2021 3:04pm atorvastatin 40 mg oral tablet (8 sources) HMG-CoA Reductase Inhibitor Start: 07-11-2020 End: 09-23-2020 take 40 mg by mouth at bedtime Atorvastatin Discontinued 40 MG PO AT BEDTIME July 24, 2020 11:43am September 23, 2020 6:10pm On Hold: Myalgias and joint pain celecoxib 200 mg oral capsule (4 sources) Nonsteroidal Anti-inflammatory Drug Start: 07-08-2020 End: 07-11-2020 take 200 mg by mouth twice daily Celecoxib Discontinued 200 MG PO TWICE A DAY July 08, 2020 1:00am July 11, 2020 8:30am clopidogrel 75 mg oral tablet (20 sources) P2Y12 Platelet Inhibitor Start: 12-20-2021 End: 03-23-2022 take 75 mg by mouth every other day Clopidogrel Discontinued 75 MG PO every other day 45 December 21, 2021 4:30pm March 23, 2022 4:00pm Start: 07-24-2020 End: 12-20-2021 take 75 mg by mouth once daily Clopidogrel Discontinue d 75 MG PO DAILY December 20, 2021 2:46pm December 20, 2021 2:57pm cyclobenzaprine hydrochloride 10 mg oral tablet (4 sources) Muscle Relaxant Start: 06-08-2020 End: 06-13-2020 take 10 mg by mouth three times daily Cyclobenzaprine Discontinued 10 MG PO THREE TIMES A DAY 29 10June 08, 2020 1:00am June 13, 2020 1:03am methylPREDNISolone 4 mg oral tablet (11 sources) Corticosteroid Start: 06-16-2022 End: 07-05-2022 take 1 tablet by mouth once Methylprednisolone (Medrol (Errol)) 4 mg tablets,dose pack Discontinued 0 PO per package directions June 16, 2022 1:00am July 05, 2022 1:38pm PO PER PKG DIR Start: 04-12-2021 End: 05-19-2021 take 1 tablet by mouth once Methylprednisolone (Medrol (Errol)) 4 mg tablets,dose pack Discontinued 0 PO per package directions April 12, 2021 12:00am May 19, 2021 12:26pm PO PER PKG DIR Start: 06-08-2020 End: 06-13-2020 take 1 tablet by mouth once Methylprednisolone (Medrol (Errol)) 4 mg tablets,dose pack Discontinued 4 MG PO per package directions 30 10June 08, 2020 1:00am June 13, 2020 1:03am Neuro-Q (4 sources) Start: 01-21-2021 End: 12-20-2021 Neuro-Q Discontinued PO Augu st 2020 11:00pm December 20, 2021 1:31pm Start: 01-21-2021 End: 12-20-2021 Neuro-Q Discontinued PO Augu st 2020 12:00am December 20, 2021 2:31pm ticagrelor 90 mg oral tablet (4 sources) Start: 07-11-2020 End: 08-21-2020 take 90 mg by mouth twice daily Ticagrelor Discontinued 90 MG PO TWICE A DAY 180 July 11, 2020 1:00am August 21, 2020 3:34pm Triamterene-Hctz 37.5-25 mg Cp (4 sources) Start: 07-09-2020 End: 07-11-2020 take 1 capsule by mouth once daily Triamterene-Hctz 37.5-25 mg Cp Discontinued 1 CAP PO DAILY July 09, 2020 12:00am July 11, 2020 7:30am Start: 07-09-2020 End: 07-11-2020 take 1 capsule by mouth once daily Triamterene-Hctz 37.5-25 mg Cp Discontinued 1 CAP PO DAILY July 09, 2020 1:00am July 11, 2020 8:30am Problems Active Problems Problem Classification Problem Date Documented Da te Episodic/Chronic Acute bronchitis (4 sources) Acute bronchitis; Translations: [Acute bronchitis, unspecified] 06-28-2021 Episodic Acute myocardial infarction (4 sources) Myocardial infarction; Translations: [ST elevation (STEMI) myocardial infarction of unspecified site] 07-13-2020 Chronic Alcohol-related disorders (4 sources) Alcohol abuse; Translations: [Alcohol abuse, uncomplicated] 07-13-2020 Chronic Coagulation and hemorrhagic disorders (2 sources) Finding related to bruising; Translations: [Spontaneous ecchymoses] 09-26-2022 Episodic Coronary atherosclerosis and other heart disease (8 sources) History of acute ST segment elevation myocardial infarction; Translations: [Old myocardial infarction] Onset: 07-09-2020 07-13-2020 Chronic Disorders of lipid metabolism (5 sources) Mixed hyperlipidemia; Translations: [Mixed hyperlipidemia] Chronic Essential hypertension (5 sources) Essential hypertension; Translations: [Essential (primary) hypertension] Chronic Immunizations and screening for infectious disease (4 sources) Patient encounter status; Translations: [Encounter for screening for COVID-19] 06-28-2021 Episodic Mycoses (1 source) Candidiasis of mouth; Translations: [Candidal stomatitis] 08-27-2023 Episodic Nonspecific chest pain (10 sources) Chest pain; Translations: [Chest pain, unspecified] Onset: 02-02-2024 Episodic Other connective tissue disease (4 sources) Pain in calf; Translations: [Pain in left lower leg] 02-17-2019 Episodic Other lower respiratory disease (4 sources) Cough; Translations: [Subacute cough] 07-21-2023 Episodic Other lower respiratory disease (1 source) Chronic cough; Translations: [Chronic cough] 09-24-2023 Episodic Other lower respiratory disease (2 sources) Cough; Translations: [Acute cough] 07-16-2024 Episodic Other non-traumatic joint disorders (2 sources) Pain in elbow; Translations: [Pain in right elbow] 11-24-2023 Episodic Other upper respiratory infections (6 sources) Sinusitis; Translations: [Chronic sinusitis, unspecified] Chronic Other upper respiratory infections (9 sources) Acute upper respiratory infection; Translations: [Acute upper respiratory infection, unspecified] 07-13-2020 Episodic Otitis media and related conditions (5 sources) Acute bilateral otitis media ; Translations: [Otitis media, unspecified, bilateral] Episodic Sprains and strains (4 sources) Low back strain; Translations: [Strain of muscle, fascia and tendon of lower back, initial encounter] 07-13-2020 Episodic Unclassified (1 source) Acute cough; Translations: [Acute cough] Onset: 07-16-2024 Unclassified (1 source) Subacute cough; Translations: [Subacute cough] Onset: 07-22-2023 Viral infection (4 sources) Disease caused by 2019-nCoV; Translations: [COVID-19] 08-08-2022 Episodic Past or Other Problems Problem Classification Problem Date Documented Da te Episodic/Chronic Chronic obstructive pulmonary disease and bronchiectasis (8 sources) Bronchitis; Translations: [Bronchitis, not specified as acute or chronic] Onset: 06-22-2023 06-16-2022 Episodic Coronary atherosclerosis and other heart disease (1 source) Presence of coronary angioplasty implant and graft; Translations: [Percutaneous transluminal coronary angioplasty status] Onset: 07-09-2020 Episodic Other non-traumatic joint disorders (1 source) Pain in right elbow; Translations: [Elbow pain, right] Onset: 11-24-2023 Episodic Results Test Name Value Interpretation Reference Range Facility CNOVon 07-16-2024 CNOV Office Visit (UCWSTR ) BECKA VALDEZ ([id number]) 1960 M Date Time Provider Department 07/16/24 4:45 PM [facility] During your visit today, we recorded the following information about you: Temperature Pulse Respiration Blood pressure 98.1 degrees 94/minute 16/minute 128/80 Weight 87.5 kg Santi Patel, PLASMA PROCESSING CENTRIFUGE OPERATOR.SPRAY GUN REPAIRER 07/16/2024 5:12 PM Signed Subjective HPI Nontoxic-appearing 64-year-old male presents urgent care chief plaint cough chest congestion headache. Duration of symptoms 4 days. Associated symptoms listed above. Most prominent symptom today is cough. OTC medications none. Sick contacts unknown. Denies any chest pain shortness of breath pleuritic pain or hemoptysis. Past medical history prescription medications allergies reviewed. .Patient presents with: Cough: Cough and chest congestion x 4 days PAST MEDICAL HISTORY Diagnosis Date Coronary artery disease s/p OR Hyperlipidemia Hypertension PAST SURGICAL HISTORY Procedure Laterality Date HERNIA REPAIR HX Bilateral inguinal ALLERGIES Patient has no known allergies. MEDICATIONS nystatin (MYCOSTATIN) 100,000 unit/mL suspension Take 5 mL by mouth four times daily. 1tsp swish in mouth for several minutes, then swallow (or expectorate) 4 times daily until gone. amLODIPine (NORVASC) 5 mg tablet aspirin, enteric coated (ASPIRIN, ENTERIC COATED) 81 mg EC tablet isosorbide mononitrate ER (IMDUR) 30 mg 24 hr tablet metoprolol tartrate, short acting, (LOPRESSOR) 50 mg tablet rosuvastatin (CRESTOR) 20 mg tablet ascorbic acid (VITAMIN C ORAL) Take by mouth. mv-min/folic/K1/lycop en/lutein (CENTRUM SILVER ULTRA MEN'S ORAL) Take by mouth. benzonatate (TESSALON PERLE) 100 mg capsule Take 2 capsules by mouth three times a day as needed. (Patient not taking: Reported on 11/24/2023) benzonatate (TESSALON PERLES) 100 mg capsule Take 1 capsule by mouth three times a day as needed. (Patient not taking: Reported on 09/24/2023) No family history on file. Social History Tobacco Use Smoking status: Never Smokeless tobacco: Current Types: Chew BP 128/80 Pulse 94 Temp 36.7 ?C (98.1 ?F) (Tympanic) Resp 16 Wt 87.5 kg (192 lb 14.4 oz) SpO2 96% Review of Systems Constitutional: Negative for chills, fever and malaise/fatigue. HENT: Positive for congestion. Negative for ear discharge, ear pain, sinus pain and sore throat. Eyes: Negative for blurred vision, pain, discharge and redness. Respiratory: Positive for cough. Negative for hemoptysis, sputum production, shortness of breath, wheezing and stridor. Cardiovascular: Negative for chest pain. Gastrointestinal: Negative for abdominal pain, diarrhea, nausea and vomiting. Musculoskeletal: Negative for myalgias. Skin: Negative for itching and rash. Neurological: Negative for dizziness and headaches. Objective Physical Exam Constitutional: General: He is not in acute distress. Appearance: He is not diaphoretic. HENT: Head: Normocephalic. Jaw: No trismus, tenderness, swelling or pain on movement. Nose: Congestion present. Mouth/Throat: Mouth: Mucous membranes are moist. Pharynx: Oropharynx is clear. Uvula midline. No pharyngeal swelling, oropharyngeal exudate, posterior oropharyngeal erythema or uvula swelling. Eyes: Conjunctiva/sclera: Conjunctivae normal. Pupils: Pupils are equal, round, and reactive to light. Cardiovascular: Rate and Rhythm: Normal rate and regular rhythm. Heart sounds: Normal heart sounds. Pulmonary: Effort: Pulmonary effort is normal. No tachypnea, accessory muscle usage or respiratory distress. Breath sounds: Normal breath sounds. No stridor. No wheezing, rhonchi or rales. Abdominal: General: There is no distension. Palpations: Abdomen is soft. Tenderness: There is no abdominal tenderness. There is no guarding or rebound. Musculoskeletal: Cervical back: Normal range of motion and neck supple. No edema, erythema, rigidity or tenderness. No pain with movement. Normal range of motion. Lymphadenopathy: Cervical: No cervical adenopathy. Skin: General: Skin is warm and dry. Neurological: Mental Status: He is alert and oriented to person, place, and time. ASSESSMENT/PLAN: 1. Acute cough - ICD9: 786.2, ICD10: R05.1 (primary diagnosis) - XR CHEST 2V FRONTAL/LAT 2. Sinobronchitis - ICD9: 473.9, 490, ICD10: J32.9, J40 IMPRESSION: Stable exam with no acute radiographic abnormality. Diagnosed sinobronchitis. No acute findings noted on chest x-ray. Placed on prednisone and doxycycline. Has tolerated these antibiotics in the past. Patient was educated on supportive therapies. Patient will follow up with primary care provider as needed. Patient was instructed to immediately proceed to emergency room for any new, worsening, or symptoms lasting longer than anticipated. The patient's clinical presentation (more content not included)... Normal [facility] XR CHEST 2V FRONTAL/LATon XR CHEST 2V FRONTAL/LAT * * *Final Repor t* * * DATE OF EXAM: Jul 16 2024 5:03PM WOX [id number] - XR CHEST 2V FRONTAL/LAT / PROCEDURE REASON: Acute cough * * * * Physician Interpretation * * * * EXAMINATION: CHEST RADIOGRAPH (2 VIEW FRONTAL and LATERAL) PATIENT/TECHNOLOGIST PROVIDED HISTORY: acute cough CLINICAL HISTORY: 64 years old Male with Acute cough MQ: [id number] EXAM DATE/TIME: 07/16/2024 5:03 PM COMPARISON: Chest radiograph 07/22/2023 RESULT: Lines, tubes, and devices: None. Lungs and pleura: Low lung volumes. Mild subsegmental atelectasis/scarring in the RIGHT middle lobe and lingula, unchanged. No consolidation. No pleural effusion or pneumothorax. Cardiomediastinal silhouette: Normal cardiomediastinal silhouette. Coronary artery stent noted. Bones and soft tissues: Mild degenerative changes in the thoracic spine. IMPRESSION: Stable exam with no acute radiographic abnormality. Electrician Helper Automotive: KAYLEY Transcribe Date/Time: Jul 16 2024 5:04P Dictated by : ANGY LEON DO This examination was interpreted and the report reviewed and electronically signed by: ANGY LEON DO on Jul 16 2024 5:06PM EST [id number] Normal [facility] XR Chest PA and Lateralon IMPRESSION: Stable exam with no acute radiographic abnormality. Electrician [employer]per [employer]: KAYLEY Transcribe Date/Time: Jul 16 2024 5:04P Dictated by : AGNY LEON DO This examination was interpreted and the report reviewed and electronically signed by: ANGY LEON DO on Jul 16 2024 5:06PM [facility] DIVISION OF RADIOLOGY * * *Final Report* * * DATE OF EXAM: Jul 16 2024 5:03PM WOX 5291 - XR CHEST 2V FRONTAL/LAT / PROCEDURE REASON: Acute cough * * * * Physician Interpretation * * * * EXAMINATION: CHEST RADIOGRAPH (2 VIEW FRONTAL & LATERAL) PATIENT/TECHNOLOGIST PROVIDED HISTORY: acute cough CLINICAL HISTORY: 64 years old Male with Acute cough MQ: XC2_6 EXAM DATE/TIME: 07/16/2024 5:03 PM COMPARISON: Chest radiograph 07/22/2023 RESULT: Lines, tubes, and devices: None. Lungs and pleura: Low lung volumes. Mild subsegmental atelectasis/scarring in the RIGHT middle lobe and lingula, unchanged. No consolidation. No pleural effusion or pneumothorax. Cardiomediastinal silhouette: Normal cardiomediastinal silhouette. Coronary artery stent noted. Bones and soft tissues: Mild degenerative changes in the thoracic spine. DIVISION OF RADIOLOGY Provider, [facility] - 07/16/2024 * * *Final Report* * * DATE OF EXAM: Jul 16 2024 5:03PM WOX 5291 - XR CHEST 2V FRONTAL/LAT / PROCEDURE REASON: Acute cough * * * * Physician Interpretation * * * * EXAMINATION: CHEST RADIOGRAPH (2 VIEW FRONTAL & LATERAL) PATIENT/TECHNOLOGIST PROVIDED HISTORY: acute cough CLINICAL HISTORY: 64 years old Male with Acute cough MQ: XC2_6 EXAM DATE/TIME: 07/16/2024 5:03 PM COMPARISON: Chest radiograph 07/22/2023 RESULT: Lines, tubes, and devices: None. Lungs and pleura: Low lung volumes. Mild subsegmental atelectasis/scarring in the RIGHT middle lobe and lingula, unchanged. No consolidation. No pleural effusion or pneumothorax. Cardiomediastinal silhouette: Normal cardiomediastinal silhouette. Coronary artery stent noted. Bones and soft tissues: Mild degenerative changes in the thoracic spine. IMPRESSION IMPRESSION: Stable exam with no acute radiographic abnormality. [employer]: KAYLEY Transcribe Date/Time: Jul 16 2024 5:04P Dictated by : ANGY LEON DO This examination was interpreted and the report reviewed and electronically signed by: ANGY LEON DO on Jul 16 2024 5:06PM EST [facility] Radiology Study observation (narrative) [facility] XR Chest PA and LateralOrder ed By: [facility] Provider on 07-16-2024 [facility] Cardiology Visit Reporton Cardiology Visit Report [facility] [address] [place] [address] OFFICE VISIT Date of Service: 01/30/24 MR#: [id number] Acct: [id number] Name: BECKA VALDEZ Rep #: [id number] : 1960 Provider: WENDY huerta Age/Sex: 63/M Location: [facility] Status: Signed HPI HPI History of Present Illness Details: 63-year-old man with a history of coronary artery disease. He had presented in June 2020 with a stress test which was noted to be abnormal. He subsequently was taken to the cardiac catheterization lab, and undergone a cardiac catheterization which demonstrated a dominant right coronary artery with high-grade stenosis noted in the right posterolateral vessel, a left anterior descending artery which was tortuous with a high-grade stenosis noted in the diagonal vessel and some residual disease noted in the mid left anterior descending artery. 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 His ejection fraction was noted to be 55% with inferior hypokinesis. He underwent angioplasty and stenting to the right posterolateral vessel as well as the second diagonal vessel. Medical therapy was used for the rest. He states chest pain after a horse kicked him He denies arm, jaw, or neck discomfort. He denies palpitations. He states intermittent bilateral lower extremity edema near his sock line. He denies claudication. He states intermittent shortness of breath with activity and shortness of breath at rest. This is not new or changing. He denies orthopnea or PND. He denies chronic cough. He denies significant, sudden weight gain. He denies lightheadedness, dizziness, near-syncope, or syncope. He denies blood in urine, blood in stool, or epistaxis. He denies fever with chills. He denies myalgia. He denies fatigue. His exercise level has remained stable. Intake Vital Signs 01/10/23 13:39 01/15/24 19:01 01/30/24 15:45 Height 5 ft 11 in 5 ft 11 in 5 ft 11 in Weight: 188 lb BMI 26.2 BP 135/81 H Blood Pressure Location Lt brachial Position Sitting Respiration 18 Pulse 59 L Pulse Source Monitor Pulse Oximetry (%) 97 Intake Visit Reasons: 1 Y FU [employer] Clerk Required: No Is patient in pain?: No Allergies No Known Allergies Allergy (Verified 01/30/24 15:46) Medications ???Medication ???Instructions ???Recorded ???Confirmed ???Type acetaminophen 650 mg 650 mg PO Q8H PRN PAIN OR FEVER 12/20/21 01/30/24 History tablet,extended release (Tylenol 8 Hour) ascorbic acid (vitamin C) 500 mg 1 g PO BID 01/10/23 01/30/24 History tablet cholecalciferol (vitamin D3) 125 125 mcg PO BID PRN 01/10/23 01/30/24 History mcg (5,000 unit) capsule amlodipine 5 mg tablet 5 mg PO DAILY #90 tabs 08/23/23 01/30/24 Rx rosuvastatin 20 mg tablet 20 mg PO DAILY #90 tabs 09/05/23 01/30/24 Rx aspirin 81 mg tablet,delayed 81 mg PO DAILY@0800 #90 tabs 10/02/23 01/30/24 Rx release guaifenesin 600 mg tablet, 600 mg PO BID #30 tabs 12/02/23 01/30/24 Rx extended release 12 hr (Mucinex) isosorbide mononitrate 30 mg 30 mg PO DAILY #90 tabs 12/28/23 01/30/24 Rx tablet,extended release 24 hr metoprolol tartrate 25 mg tablet 12.5 mg PO BID 01/15/24 01/30/24 History oxycodone-acetaminoph en 5 mg-325 1 tab PO Q6H PRN PRN pain 5 days 01/15/24 01/30/24 Rx mg tablet #20 TABLETS PFSH Medical History Acute lumbar myofascial strain COVID-19 Bronchitis URI (upper respiratory infection) Acute bronchitis, unspecified Essential (primary) hypertension History of ST elevation myocardial infarction (STEMI) (07/09/20) Atherosclerotic heart disease of qaw[place] coronary artery without angina pectoris Chronic back pain Alcohol abuse Former tobacco use Primary erythrocytosis Surgical History History of coronary artery stent placement (07/09/20) History of hernia repair Family History Mother Heart disease Father Heart disease Social History Smoking Status: Former smoker Smokeless tobacco user: chewing tobacco alcohol intake: current alcohol intake frequency: 3 or more drinks per day Alcohol type: beer substance use type: does not use caffeine: Yes Type: carbonated beverages Number of servings: 2 ROS Const Const: Negative for fatigue, weakness, body ache, fever(s) or chills ENT ENT: Negative for dizziness or Nosebleed/epistaxis Cardio Chest Pain: Yes Palpitations: No Edema: None Muscle aches with walking: None Resp Respiratory: Positive for SOB with activity and SOB at rest; Negative for SOB orthopnea SOB lying down, Cough or paroxysmal nocturnal dyspnea GI GI: Negative nause (more content not included)... Normal [facility] 12 Lead EKGon 01-15-2024 12 Lead EKG [facility] Cardiovascular Services [address] [place] [address] 12 Lead EKG 01/15/241925 MR#: [id number] Acct: [id number] Name: BECKA VALDEZ Rep #: [id number] : 1960 63 From: Raj Mckeon MD Attending Dr: Status: DEP ER Ordering Dr: Zeus Sen MD Date: 01/15/24 Location: ED Sex: M C Admitted: Test Reason : Blood Pressure : / mmHG Vent. Rate : 075 BPM Atrial Rate : 075 BPM P-R Int : 242 ms QRS Dur : 090 ms QT Int : 394 ms P-R-T Axes : 014 -14 -02 degrees QTc Int : 439 ms Sinus rhythm with 1st degree A-V block Minimal voltage criteria for LVH, may be normal variant ( R in aVL ) Borderline ECG Confirmed by Raj Mckeon ([id number]), map editor BLAKE PEREIRA ([id number]) on 01/16/2024 2:08:56 PM Referred By: Confirmed By:Raj Mckeon 01/16/24 1408 Date Raj Mckeon MD CC: WENDY Carvajal; Dr. Zeus Sen MD Signed Normal [facility] Basic Metabolic Profile (BMP )on 01-15-2024 BUN/CRE 9.5 RATIO Low 10-20 [facility] Comment on above: Performed By: #### L 500.2500 #### [facility] [address] [place], [address] CA,Total 9.3 mg/dL Normal 8.5-10.1 [facility] Comment on above: Performed By: #### L 500.2500 #### [facility] [address] [place], [address] Chloride [Moles/Vol] 103 mmol/L Normal 98-107 [facility] Comment on above: Performed By: #### L 500.2500 #### [facility] [address] [place], [address] CO2 [Moles/Vol] 21.0 mmol/L Normal 21.0-32.0 [facility] Comment on above: Performed By: #### L 500.2500 #### [facility] [address] [place], [address] Creatinine [Mass/Vol] 1.16 mg/dL Normal 0.70-1.30 [facility] Comment on above: Result Comment: The validity of the calculated GFR GFRAA in patients over 70 years has not been determined. Clinical correlation is essential. Performed By: #### L 500.2500 #### [facility] [address] [place], [address] ECRCL 68.52 ml/min Normal [facility] Comment on above: Performed By: #### L 500.2500 #### [facility] [address] [place], [address] EST GFR - AA 81 mL/min Normal >60 [facility] Comment on above: Result Comment: Afri can Algerian GFR Calc Performed By: #### L 500.2500 #### [facility] [address] [place], [address] GAP 12 Normal 5-15 [facility] Comment on above: Performed By: #### L 500.2500 #### [facility] [address] [place], [address] GFR/1.73 sq M.predicted among non-blacks MDRD (S/P/Bld) [Vol rate/Area] 67 mL/min/{1.73_m2} Normal >60 [facility] Comment on above: Result Comment: Non- GFR Calc Performed By: #### L 500.2500 #### [facility] [address] [place], [address] Glucose [Mass/Vol] 91 mg/dL Normal 74-106 [facility] Comment on above: Performed By: #### L 500.2500 #### [facility] [address] [place], [address] Potassium [Moles/Vol] 3.8 mmol/L Normal 3.5-5.1 [facility] Comment on above: Result Comment: Slig ht Hemolysis, Result may be falsely increased. Performed By: #### L 500.2500 #### [facility] [address] [place], [address] Sodium [Moles/Vol] 136 mmol/L Normal 136-145 [facility] Comment on above: Performed By: #### L 500.2500 #### [facility] [address] [place], [place], [address] Urea nitrogen [Mass/Vol] 11 mg/dL Normal 7-18 [facility] Comment on above: Performed By: #### L 500.2500 #### [facility] [address] [place], [place], [address] CT Chest AND Abd W/ Contrast on 01-15-2024 CT Chest AND Abd W/ Contrast [facility] Imaging Services [address] [place] [address] CT Chest AND Abd W/ Contrast MR#: [id number] Acct: [id number] Name: BECKA VALDEZ Rep #: [id number] : 1960 M 63 From: Papi victoria MD PCP: WENDY Potts Status: REG ER Study: CT Chest AND Abd W/ Contrast Date of Exam: 11/02 Exam# [id number] Ordering Dr: Zeus Sen MD [id number] INDICATION: BLUNT TRAUMA EXAMINATION: CT Chest And Abdomen W/ Contrast Injection TECHNIQUE: Images were obtained of the chest and abdomen following IV contrast. A radiation dose optimization technique was used for this scan. IV Contrast dosage and agent: IV 100mL [id number] COMPARISON: None. FINDINGS: Lungs: Unremarkable Mediastinum: The cardiomediastinal silhouette is not enlarged. No mediastinal, hilar or axillary adenopathy. Mild aortic arch and coronary artery calcifications. No obvious filling defect seen within the visualized pulmonary arteries. Pleura: Unremarkable Liver: Diffusely hypodense consistent with fatty liver. Gallbladder: Unremarkable Spleen: Unremarkable Pancreas: Unremarkable Adrenal Glands: Unremarkable Kidneys: Unremarkable Vasculature: Mild scattered aortoiliac atherosclerotic calcifications. GI Tract: Unremarkable Lymphadenopathy: None Peritoneum: No ascites. Bones/Soft tissues: Mild scattered degenerative changes of the visualized spine. CT/CT Chest AND Abd W/ Contrast IMPRESSION: No acute abnormalities in the chest, abdomen or pelvis. Electronically Signed: Papi Parmar MD at 21:18 EDT , CC: WENDY Carvajal; Dr. Zeus Sen MD [employer]: Signed Normal [facility] Emergency Department Summary on 01-15-2024 Emergency Department Summary [facility] Medical Records Department [address] [place] [address] Emergency Department Summary 01/15/24 MR#: [id number] Acct: [id number] Name: BECKA VALDEZ Rep #: [id number] : 1960 63 From: Zeus Sen MD PCP: WENDY Potts Status:REG ER Location: ED ADDENDUM by Dr. Zeus Sen MD on 01/15/24 at 2155 EKG reveals a normal sinus rhythm rate of 75 with a first-degree AV block. VA interval is 242 ms. QRS duration 90 ms. QT duration 394 ms. Keene is normal. There is evidence of LVH by voltage criteria. There is no concern for cardiac contusion based on the EKG 01/15/24 2155 Cosigner Signature (if applicable): cc: WENDY Carvajal * Signed HPI History of Present Illness Chief Complaint: Chest Other Detail of Chief Complaint: Blunt chest and abdominal trauma Informant: patient and spouse/S.O. Onset/Context/Timing Onset: Today (Approximate 1 hour prior to presentation) Mechanism/Context: Blunt Injury Quality of Pain: Dull and Aching Location: Chest bilaterally and upper abdomen bilaterally 79 Current Severity: Mild Maximum Severity: Moderate Worsened by: Breathing, moving and palpation Relieved by: nothing Associated Symptoms Associated Symptoms: Negative for Parasthesias, Weakness, Loss of function, Inability to ambulate, Loss of consciousness or Amnesia Narrative Narrative: Patient is a 63-year-old male on aspirin. He has history of alcohol use, essential hypertension, coronary disease, hyperlipidemia, mixed who presents after he was pinned up against the wall by his horse. He developed pain immediately. He states it hurts to breathe and move. Hurts to palpate on examination. He is not look to see if there are any bruising. He denies head trauma. Nuys neck pain. Nuys paresthesia, anesthesia or motor weakness. Prior similar symptoms: No Recent Illness/Hospitalizati on: No [facility] Medical History Acute lumbar myofascial strain COVID-19 Bronchitis URI (upper respiratory infection) Acute bronchitis, unspecified Essential (primary) hypertension History of ST elevation myocardial infarction (STEMI) (07/09/20) Atherosclerotic heart disease of q[place]in coronary artery without angina pectoris Chronic back pain Alcohol abuse Former tobacco use Primary erythrocytosis Home Medications ???Medication ???Instructions ???Recorded ???Last Taken ???Type acetaminophen 650 mg 650 mg PO Q8H PRN PAIN OR FEVER 12/20/21 Unknown History tablet,extended release (Tylenol 8 Hour) ascorbic acid (vitamin C) 500 mg 1 g PO BID 01/10/23 Unknown History tablet cholecalciferol (vitamin D3) 125 125 mcg PO BID PRN 01/10/23 Unknown History mcg (5,000 unit) capsule amlodipine 5 mg tablet 5 mg PO DAILY #90 tabs 08/23/23 Unknown Rx rosuvastatin 20 mg tablet 20 mg PO DAILY #90 tabs 09/05/23 Unknown Rx aspirin 81 mg tablet,delayed 81 mg PO DAILY@0800 #90 tabs 10/02/23 Unknown Rx release guaifenesin 600 mg tablet, 600 mg PO BID #30 tabs 12/02/23 Unknown Rx extended release 12 hr (Mucinex) isosorbide mononitrate 30 mg 30 mg PO DAILY #90 tabs 12/28/23 Unknown Rx tablet,extended release 24 hr metoprolol tartrate 25 mg tablet 12.5 mg PO BID 01/15/24 Unknown History oxycodone-acetaminoph en 5 mg-325 1 tab PO Q6H PRN PRN pain 5 days 01/15/24 Unknown Rx mg tablet #20 TABLETS Allergy/AdvReac Type Severity Reaction Status Date / Time No Known Allergies Allergy Verified 01/15/24 19:02 Family History Mother Heart disease Father Heart disease Surgical History History of coronary artery stent placement (07/09/20) History of hernia repair Social History Smoking Status: Former smoker Smokeless tobacco user: chewing tobacco alcohol intake: current alcohol intake frequency: 3 or more drinks per day Alcohol type: beer substance use type: does not use caffeine: Yes Type: carbonated beverages Number of servings: 2 ROS ROS ED Eyes Eyes: Denies blurry vision or change in vision ENT ENT ED: Denies ear pain or rhinorrhea Cardiovascular Cardiovascular: Reports chest pain; Denies palpitations or racing heartbeat Respiratory/Chest Respiratory/Chest: Reports other Details: Positive pleuritic pain ; Denies cough, dyspnea or dyspnea on exertion Gastrointestinal Gastrointestinal: Reports abdominal pain; Denies constipation, nausea or vomiting Genitourinary Genitourinary ED: Denies dysuria, hematuria or urinary frequency Musculoskeletal Musculoskeletal: Denies arthralgias, back pain, myalgias or neck pain Integumentary Denies rash Neurologic Neurologic: Denies headache(s) or paresthesias (more content not included)... Normal [facility]gent [facility] Visit Reporton 0 12-02-2023 Urgent Care Visit Report [facility] [address], [address] [place] [address] OFFICE VISIT Date of Service: 12/02/23 MR#: [id number] Acct: [id number] Name: BECKA VALDEZ Rep #: [id number] : 1960 Provider: WENDY Salgado Age/Sex: 63/M Location: [facility] Status: Signed Intake Vital Signs 01/10/23 13:39 12/02/23 08:12 Height 5 ft 11 in BP 152/80 H Blood Pressure Location Lt brachial Position Sitting Respiration 17 Pulse 59 L Pulse Source NIBP Temp 98.0 F Temp Source Temporal Pulse Oximetry (%) 95 Oxygen Delivery Method room air Intake Visit Reasons: Cough Chief Complaint: cough, chest congestion, yellow mucus [employer] Clerk Required: No Is patient in pain?: No Allergies No Known Allergies Allergy (Verified 12/02/23 08:13) Medications ???Medication ???Instructions ???Recorded ???Confirmed ???Type acetaminophen 650 mg 650 mg PO Q8H PRN 12/20/21 12/02/23 History tablet,extended release (Tylenol 8 Hour) isosorbide mononitrate 30 mg 30 mg PO DAILY #90 tabs 12/22/22 12/02/23 Rx tablet,extended release 24 hr ascorbic acid (vitamin C) 500 mg 500 mg PO BID 01/10/23 12/02/23 History tablet cholecalciferol (vitamin D3) 125 125 mcg PO BID PRN 01/10/23 12/02/23 History mcg (5,000 unit) capsule metoprolol tartrate 50 mg tablet 25 mg (1/2 x 50 mg) PO BID #180 08/14/23 12/02/23 Rx tabs amlodipine 5 mg tablet 5 mg PO DAILY #90 tabs 08/23/23 12/02/23 Rx benzonatate 200 mg capsule 200 mg PO TID PRN cough #20 caps 08/23/23 12/02/23 Rx rosuvastatin 20 mg tablet 20 mg PO DAILY #90 tabs 09/05/23 12/02/23 Rx aspirin 81 mg tablet,delayed 81 mg PO DAILY@0800 #90 tabs 10/02/23 12/02/23 Rx release benzonatate 100 mg capsule 100 mg PO TID #30 caps 12/02/23 12/02/23 Rx guaifenesin 600 mg tablet, 600 mg PO BID #30 tabs 12/02/23 12/02/23 Rx extended release 12 hr (Mucinex) Nurse's Note: cough, chest congestion, yellow mucus x [address] days[address] denies CORONADO, ST, ear pain, fever PFSH Medical History Acute bronchitis, unspecified Acute lumbar myofascial strain Alcohol abuse Atherosclerotic heart disease of qawalangin coronary artery without angina pectoris Bronchitis Chronic back pain COVID-19 Essential (primary) hypertension Former tobacco use History of ST elevation myocardial infarction (STEMI) (07/09/20) Primary erythrocytosis URI (upper respiratory infection) Surgical History History of coronary artery stent placement (07/09/20) History of hernia repair Family History Mother Heart disease Father Heart disease Social History Smoking Status: Never smoker Smokeless tobacco user: chewing tobacco alcohol intake: current alcohol intake frequency: 3 or more drinks per day Alcohol type: beer substance use type: does not use caffeine: Yes Type: carbonated beverages Number of servings: 2 HPI HPI Chief Complaint: cough, chest congestion, yellow mucus Details: BECKA VALDEZ, is a 63 M who presents to the office today for cough - day 3-4 -sx cough bringing up yellow sputum. No fever + chills a couple times. Runny nose clear to yellow -tried so far otc tylenol -non smoker -no hx copd, asthma ROS Const Constitutional: Positive for other (ROS negative x6 except what was placed in HPI) Exam Const General: cooperative, comfortable and no acute distress Orientation: alert, awake and oriented x3 HENMT Head: normal to inspection and normocephalic Ears: hearing grossly normal bilaterally, external ears normal and TM's normal bilaterally Nose: external nose normal and other (+ congestion and rhinorrhea. ) Face and sinus: normal facial exam, sinuses nontender and face symmetric Mouth: oral mucosae normal, lip normal, tongue normal, oropharynx normal and moist mucous membranes Throat: posterior oropharynx normal, tonsils normal, uvula midline and postnasal drainage Neck Neck: normal visual inspection, full ROM and no lymphadenopathy Resp Effort Inspection: normal respiratory effort, able to speak in complete sentences and symmetric chest movement Auscultation: Bilateral: Clear to Auscultation, Left: Clear to Auscultation and Right: Clear to Auscultation Cardio Rate: regular rate Rhythm: regular rhythm Heart Sounds: S1 normal and S2 normal GI Auscultation: normal bowel sounds Palpation: soft Skin General: no rashes or lesions noted and turgor normal Neuro General: patient alert, patient awake and patient oriented x3 Cognition: normal cognition Speech: speech normal Psych Appearance: grossly normal Mental Status: mental status grossly normal Attitude: coope (more content not included)... Normal [facility] 11-28-2023 [facility] Telephone ([facility]) BECKA VALDEZ ([id number]) 1960 M Date Time Provider Department 11/28/23 GUIDO NAVARRETEFATUMA During your visit today, we recorded the following information about you: Elo Lau LPN 11/28/2023 8:49 AM Signed ----- Message from Guido Navarrete MD sent at 11/27/2023 8:17 PM EDT ----- No fractures on final x-ray report. Elo Lau LPN 11/28/2023 8:50 AM Signed Left message for patient to return call. TAINA Dennis Krista, LPN 11/28/2023 8:53 AM Signed Pt notified of results and provider message. Vivian Whalen LPN Allergies As of Date: 11/28/2023 (No Known Allergies) Date Reviewed: 11/24/2023 Reviewed by: Elo Lau LPN - Fully Assessed Prescriptions as of 11/28/2023 - benzonatate (TESSALON PERLE) 100 mg capsule Take 2 capsules by mouth three times a day as needed. - nystatin (MYCOSTATIN) 100,000 unit/mL suspension Take 5 mL by mouth four times daily. 1tsp swish in mouth for several minutes, then swallow (or expectorate) 4 times daily until gone. - benzonatate (TESSALON PERLES) 100 mg capsule Take 1 capsule by mouth three times a day as needed. - amLODIPine (NORVASC) 5 mg tablet - aspirin, enteric coated (ASPIRIN, ENTERIC COATED) 81 mg EC tablet - isosorbide mononitrate ER (IMDUR) 30 mg 24 hr tablet - metoprolol tartrate, short acting, (LOPRESSOR) 50 mg tablet - rosuvastatin (CRESTOR) 20 mg tablet - ascorbic acid (VITAMIN C ORAL) Take by mouth. - mv-min/folic/K1/lycop en/lutein (CENTRUM SILVER ULTRA MEN'S ORAL) Take by mouth. Problem List As Of Date: 11/28/2023 (None) Encounter Status:Closed by VIVIAN WHALEN on 11/28/23 Normal [facility] XR Elbow - right AP and Late ral and obliqueon 11-27-2023 IMPRESSION: 1. No acute radiographic abnormality of the right elbow [employer]: [facility] Transcribe Date/Time: Nov 27 2023 5:06P Dictated by : SANGITA SIMS MD This examination was interpreted and the report reviewed and electronically signed by: SANGITA SIMS MD on Nov 27 2023 5:07PM [facility] DIVISION OF RADIOLOGY * * *Final Report* * * DATE OF EXAM: Nov 24 2023 4:46PM WOX 5325 - XR ELBOW 3V AP/LAT/OTHER RT / PROCEDURE REASON: Elbow pain, right * * * * Physician Interpretation * * * * ELBOW RADIOGRAPHS - HISTORY: Elbow pain, right TECHNOLOGIST PROVIDED HISTORY (if applicable): [place]. caught his right elbow in bet. a horse and gate and hyperextended. bruising to medial side of elbow. TECHNIQUE: XR ELBOW 3V AP/LAT/OTHER RT COMPARISON: None available RESULT: Right elbow: There is no acute osseous, articular, or soft tissue abnormality. There is no joint effusion or soft tissue swelling. Small coronoid process osteophyte and olecranon spur. Small calcification at the insertional triceps DIVISION OF RADIOLOGY Provider, [facility] - 11/27/2023 * * *Final Report* * * DATE OF EXAM: Nov 24 2023 4:46PM WOX [id number] - XR ELBOW 3V AP/LAT/OTHER RT / PROCEDURE REASON: Elbow pain, right * * * * Physician Interpretation * * * * ELBOW RADIOGRAPHS - HISTORY: Elbow pain, right TECHNOLOGIST PROVIDED HISTORY (if applicable): Weds. caught his right elbow in bet. a horse and gate and hyperextended. bruising to medial side of elbow. TECHNIQUE: XR ELBOW 3V AP/LAT/OTHER RT COMPARISON: None available RESULT: Right elbow: There is no acute osseous, articular, or soft tissue abnormality. There is no joint effusion or soft tissue swelling. Small coronoid process osteophyte and olecranon spur. Small calcification at the insertional triceps IMPRESSION IMPRESSION: 1. No acute radiographic abnormality of the right elbow [employer]: [employer] Transcribe Date/Time: Nov 27 2023 5:06P Dictated by : SANGITA SIMS MD This examination was interpreted and the report reviewed and electronically signed by: SANGITA SIMS MD on Nov 27 2023 5:07PM EST [facility] XR Elbow - right AP and Late ral and obliqueOrdered By: Ccf Provider on 11-27-2023 [facility] CNOVon 11-24-2023 CNOV Office Visit (UCWSTR ) BECKA VALDEZ ([id number]) 1960 M Date Time Provider Department 11/24/23 4:15 PM GUIDO NAVARRETE [facility] During your visit today, we recorded the following information about you: Temperature Pulse Respiration Blood pressure 98.9 degrees 84/minute 18/minute 168/90 Weight 83 kg Guido Navarrete MD 11/24/2023 6:56 PM Signed Patient presents with: Edema: R arm -Elbow bruising and swelling x 3 days some puncture wounds are scabbed, no s/sx of infection, pain is starting fabian nside of elbow HPI: Right elbow pain: Duration: pinned between a horse and a gate 2 days ago Location: medial right elbow where bruised Character: aching and tender, worsening Radiation: No. Aggravating: touching and lifting Relieving: Pain relievers: none Associated: bruising Pertinent negatives: Denies fever, numnbess MEDICATIONS: nystatin (MYCOSTATIN) 100,000 unit/mL suspension Take 5 mL by mouth four times daily. 1tsp swish in mouth for several minutes, then swallow (or expectorate) 4 times daily until gone. amLODIPine (NORVASC) 5 mg tablet aspirin, enteric coated (ASPIRIN, ENTERIC COATED) 81 mg EC tablet isosorbide mononitrate ER (IMDUR) 30 mg 24 hr tablet metoprolol tartrate, short acting, (LOPRESSOR) 50 mg tablet rosuvastatin (CRESTOR) 20 mg tablet ascorbic acid (VITAMIN C ORAL) Take by mouth. mv-min/folic/K1/lycop en/lutein (CENTRUM SILVER ULTRA MEN'S ORAL) Take by mouth. benzonatate (TESSALON PERLE) 100 mg capsule Take 2 capsules by mouth three times a day as needed. (Patient not taking: Reported on 11/24/2023) benzonatate (TESSALON PERLES) 100 mg capsule Take 1 capsule by mouth three times a day as needed. (Patient not taking: Reported on 09/24/2023) ALLERGIES: ALLERGIES No Known Allergies VITALS: BP 168/90 Pulse 84 Temp 37.2 ?C (98.9 ?F) Resp 18 Wt 83 kg (182 lb 15.7 oz) SpO2 100% PHYSICAL EXAM: GEN: pleasant, alert, no acute distress ELBOW: right. 6-8cm bluish ecchymosis medial aspect. No erythema. Full ROM with tightness on full extension. Tender olecranon. Non-tender medial and lateral epicondyles. Tender radial head and proximal flexor muscles near the origin. Non-tender biceps and shoulder. ASSESSMENT/PLAN: 1. Elbow pain, right - ICD9: 719.42, ICD10: M25.521 - XR ELBOW SPECIAL VIEWS AP/LAT/OTHER RIGHT - no obvious fracture or dislocation. Radiology interpretation is pending. The patient will be notified if there is a significant finding in the report not discussed at the time of the visit. Treat elbow contusion with rest, ice, compression, and as needed analgesia. Advance activity as tolerated. JODY wrap applied. Guido Navarrete MD Allergies As of Date: 11/24/2023 (No Known Allergies) Date Reviewed: 11/24/2023 Reviewed by: Elo Lau LPN - Fully Assessed Reason for Visit: Edema [39] Cmt: R arm -Elbow bruising and swelling x 3 days some puncture wounds are scabbed, no s/sx of infection, pain is starting fabian nside of elbow Primary Visit Diagnosis:Elbow pain, right [M25.521] Order(s):XR ELBOW SPECIAL VIEWS AP/LAT/OTHER RIGHT [[id number]] Order #: [id number] FUTURE Prescriptions as of 11/24/2023 - benzonatate (TESSALON PERLE) 100 mg capsule Take 2 capsules by mouth three times a day as needed. - nystatin (MYCOSTATIN) 100,000 unit/mL suspension Take 5 mL by mouth four times daily. 1tsp swish in mouth for several minutes, then swallow (or expectorate) 4 times daily until gone. - benzonatate (TESSALON PERLES) 100 mg capsule Take 1 capsule by mouth three times a day as needed. - amLODIPine (NORVASC) 5 mg tablet - aspirin, enteric coated (ASPIRIN, ENTERIC COATED) 81 mg EC tablet - isosorbide mononitrate ER (IMDUR) 30 mg 24 hr tablet - metoprolol tartrate, short acting, (LOPRESSOR) 50 mg tablet - rosuvastatin (CRESTOR) 20 mg tablet - ascorbic acid (VITAMIN C ORAL) Take by mouth. - mv-min/folic/K1/lycop en/lutein (CENTRUM SILVER ULTRA MEN'S ORAL) Take by mouth. Problem List As Of Date: 11/24/2023 (None) Encounter Status:Closed by GUIDO NAVARRETE on 11/24/23 Normal [facility] XR ELBOW 3V AP/LAT/OTHER RTo n 11-24-2023 XR ELBOW 3V AP/LAT/OTHER RT * * *Final Report* * * DATE OF EXAM: Nov 24 2023 4:46PM WOX [id number] - XR ELBOW 3V AP/LAT/OTHER RT / PROCEDURE REASON: Elbow pain, right * * * * Physician Interpretation * * * * ELBOW RADIOGRAPHS - HISTORY: Elbow pain, right TECHNOLOGIST PROVIDED HISTORY (if applicable): Weds. caught his right elbow in bet. a horse and gate and hyperextended. bruising to medial side of elbow. TECHNIQUE: XR ELBOW 3V AP/LAT/OTHER RT COMPARISON: None available RESULT: Right elbow: There is no acute osseous, articular, or soft tissue abnormality. There is no joint effusion or soft tissue swelling. Small coronoid process osteophyte and olecranon spur. Small calcification at the insertional triceps IMPRESSION: 1. No acute radiographic abnormality of the right elbow [employer]: [employer] Transcribe Date/Time: Nov 27 2023 5:06P Dictated by : SANGITA SIMS MD This examination was interpreted and the report reviewed and electronically signed by: SANGITA SIMS MD on Nov 27 2023 5:07PM EST [id number] Normal [facility] XR Elbow - right AP and Late ral and obliqueon 11-24-2023 Radiology Study observation (narrative) [facility] CNOVon 09-24-2023 CNOV Office Visit (UCWSTR ) DORY VALDEZY Tammy ([id number]) 1960 M Date Time Provider Department 09/24/23 10:30 AM DAGMAR MORRISON [facility] During your visit today, we recorded the following information about you: Temperature Pulse Respiration Blood pressure 98.5 degrees 56/minute 18/minute 139/90 Weight 82.7 kg Dagmar Morrison APRN.SPRAY GUN REPAIRER 09/24/2023 12:21 PM Signed Subjective HPI HPI Beckamacario Valdez is a 63 year old male who presents today for CC of cough. This started months. Has tried multiple rounds of atb with minimal relief, multiple xray negative. Symptoms are worsened by nothing. nonsmoker. .Patient presents with: Cough: Chest congestion x2 weeks, recent Flu PAST MEDICAL HISTORY Diagnosis Date Coronary artery disease s/p OR Hyperlipidemia Hypertension PAST SURGICAL HISTORY Procedure Laterality Date HERNIA REPAIR HX Bilateral inguinal ALLERGIES Patient has no known allergies. MEDICATIONS nystatin (MYCOSTATIN) 100,000 unit/mL suspension Take 5 mL by mouth four times daily. 1tsp swish in mouth for several minutes, then swallow (or expectorate) 4 times daily until gone. amLODIPine (NORVASC) 5 mg tablet aspirin, enteric coated (ASPIRIN, ENTERIC COATED) 81 mg EC tablet isosorbide mononitrate ER (IMDUR) 30 mg 24 hr tablet metoprolol tartrate, short acting, (LOPRESSOR) 50 mg tablet rosuvastatin (CRESTOR) 20 mg tablet ascorbic acid (VITAMIN C ORAL) Take by mouth. mv-min/folic/K1/lycop en/lutein (CENTRUM SILVER ULTRA MEN'S ORAL) Take by mouth. benzonatate (TESSALON PERLES) 100 mg capsule Take 1 capsule by mouth three times a day as needed. (Patient not taking: Reported on 09/24/2023) No family history on file. Social History Tobacco Use Smoking status: Never Smokeless tobacco: Current Types: Chew Review of Systems Constitutional: Negative for fever and weight loss. HENT: Negative for ear pain and sinus pain. Respiratory: Positive for cough. Negative for shortness of breath. Cardiovascular: Negative for chest pain. Objective Blood pressure 139/90, pulse (!) 56, temperature 36.9 ?C (98.5 ?F), resp. rate 18, weight 82.7 kg (182 lb 5.1 oz), SpO2 98%. Physical Exam Constitutional: General: He is not in acute distress. Appearance: He is not toxic-appearing or diaphoretic. HENT: Head: Normocephalic and atraumatic. Cardiovascular: Rate and Rhythm: Normal rate and regular rhythm. Heart sounds: Normal heart sounds, S1 normal and S2 normal. Pulmonary: Effort: Pulmonary effort is normal. Breath sounds: Normal breath sounds. Lymphadenopathy: Cervical: No cervical adenopathy. Right cervical: No superficial cervical adenopathy. Left cervical: No superficial cervical adenopathy. Neurological: Mental Status: He is alert and oriented to person, place, and time. Gait: Gait is intact. ASSESSMENT/PLAN: 1. Chronic cough - ICD9: 786.2, ICD10: R05.3 No xray at time of exam Try steroid F/u with pcp - PREDNISONE 10 MG TABLET - BENZONATATE 100 MG CAPSULE Dagmar Morrison APRN.SPRAY GUN REPAIRER Referring Provider: SELF [200] Allergies As of Date: 09/24/2023 (No Known Allergies) Date Reviewed: 09/24/2023 Reviewed by: Dagmar Morrison APRN.SPRAY GUN REPAIRER - Fully Assessed Reason for Visit: Cough [28] Cmt: Chest congestion x2 weeks, recent Flu Primary Visit Diagnosis:Chronic cough [R05.3] Order(s):predniSONE (DELTASONE) 10 mg tabletTake 4 tabs daily for 3 days, then 2 tabs daily for 3 days, then 1 tab daily for 3 days with food.Disp: 21 tabletRfl: 0 benzonatate (TESSALON PERLE) 100 mg capsuleTake 2 capsules by mouth three times a day as needed.Disp: 30 capsuleRfl: 0 Prescriptions as of 09/24/2023 - predniSONE (DELTASONE) 10 mg tablet Take 4 tabs daily for 3 days, then 2 tabs daily for 3 days, then 1 tab daily for 3 days with food. - benzonatate (TESSALON PERLE) 100 mg capsule Take 2 capsules by mouth three times a day as needed. - nystatin (MYCOSTATIN) 100,000 unit/mL suspension Take 5 mL by mouth four times daily. 1tsp swish in mouth for several minutes, then swallow (or expectorate) 4 times daily until gone. - benzonatate (TESSALON PERLES) 100 mg capsule Take 1 capsule by mouth three times a day as needed. - amLODIPine (NORVASC) 5 mg tablet - aspirin, enteric coated (ASPIRIN, ENTERIC COATED) 81 mg EC tablet - isosorbide mononitrate ER (IMDUR) 30 mg 24 hr tablet - metoprolol tartrate, short acting, (LOPRESSOR) 50 mg tablet - rosuvastatin (CRESTOR) 20 mg tablet - ascorbic acid (VITAMIN C ORAL) Take by mouth. - mv-min/folic/K1/lycop en/lutein (CENTRUM SILVER ULTRA MEN'S ORAL) Take by mouth. Problem List As Of Date: 09/24/2023 (None) Prescriptions ordered this encounter Disp Refills Start End PREDNISONE 10 MG TABLET 21 t* 0 09/24/2023 10/03/2023 Sig: Take 4 tabs daily for 3 days, then 2 tabs daily for 3 days, then 1 tab daily for 3 days with food. BENZONATATE 100 M (more content not included)... Normal [facility] CNOVon 08-27-2023 CNOV Office Visit (UCWSTR ) BECKA VALDEZ ([id number]) 1960 M Date Time Provider Department 08/27/23 2:00 PM JANINE ESCOBAR [facility] During your visit today, we recorded the following information about you: Temperature Pulse Respiration Blood pressure 98.5 degrees 82/minute 18/minute 122/78 Weight 80.1 kg Janine Escobar PA 08/27/2023 2:23 PM Signed This note was created using [employer]. Subjective Becka Valdez is a 63 year old male. HPI 63-year-old male presents for cough, chest congestion, nasal congestion for 3 weeks. Patient started getting sick 3 weeks ago with cough, nasal congestion. He states that this week he had a fever on Monday. Fevers have now resolved. He was seen on Monday by an urgent care and diagnosed with influenza. He states that he was prescribed Tamiflu, but did not take it. Patient states that his cough is continuing and worsening. He states it was productive, now is more dry and consistent. He does have nasal congestion and green nasal drainage. No vomiting or diarrhea. No chest pain or shortness of breath. No history of COPD or asthma. PAST MEDICAL HISTORY Diagnosis Date Coronary artery disease s/p OR Hyperlipidemia Hypertension PAST SURGICAL HISTORY Procedure Laterality Date HERNIA REPAIR HX Bilateral inguinal ALLERGIES Patient has no known allergies. MEDICATIONS amLODIPine (NORVASC) 5 mg tablet aspirin, enteric coated (ASPIRIN, ENTERIC COATED) 81 mg EC tablet isosorbide mononitrate ER (IMDUR) 30 mg 24 hr tablet metoprolol tartrate, short acting, (LOPRESSOR) 50 mg tablet rosuvastatin (CRESTOR) 20 mg tablet ascorbic acid (VITAMIN C ORAL) Take by mouth. mv-min/folic/K1/lycop en/lutein (CENTRUM SILVER ULTRA MEN'S ORAL) Take by mouth. doxycycline (VIBRA-TABS) 100 mg tablet Take 1 tablet by mouth two times a day for 7 days. nystatin (MYCOSTATIN) 100,000 unit/mL suspension Take 5 mL by mouth four times daily. 1tsp swish in mouth for several minutes, then swallow (or expectorate) 4 times daily until gone. benzonatate (TESSALON PERLES) 100 mg capsule Take 1 capsule by mouth three times a day as needed. No family history on file. Social History Tobacco Use Smoking status: Never Smokeless tobacco: Current Types: Chew Review of Systems Constitutional: Positive for fever. Negative for chills. HENT: Positive for congestion, sinus pressure and sinus pain. Negative for sore throat. Respiratory: Positive for cough. Negative for shortness of breath and wheezing. Gastrointestinal: Negative for diarrhea and vomiting. Objective BP 122/78 Pulse 82 Temp 36.9 ?C (98.5 ?F) Resp 18 Wt 80.1 kg (176 lb 9.4 oz) SpO2 96% Physical Exam Vitals and nursing note reviewed. Constitutional: General: He is not in acute distress. Appearance: Normal appearance. He is not toxic-appearing. HENT: Right Ear: Tympanic membrane and ear canal normal. Left Ear: Tympanic membrane and ear canal normal. Nose: Congestion present. Mouth/Throat: Mouth: Mucous membranes are moist. Oral lesions present. Tongue: Lesions present. Comments: Patient has white patches on the posterior oropharynx. No tonsillar exudates. He also has some white patches on his tongue. Eyes: Conjunctiva/sclera: Conjunctivae normal. Cardiovascular: Rate and Rhythm: Normal rate and regular rhythm. Pulmonary: Effort: Pulmonary effort is normal. Breath sounds: Rhonchi (Bilateral lower lobe) present. Skin: General: Skin is warm and dry. Neurological: Mental Status: He is alert. Assessment and Plan ASSESSMENT/PLAN: 1. Subacute cough - ICD9: 786.2, ICD10: R05.2 (primary diagnosis) -No XR available at time of exam. Patient will return tomorrow for CXR. -Recently diagnosed with influenza. -Symptoms x 3 weeks. Will treat for sinobronchitis with doxycycline. -Rx for Tessalon Perles - XR CHEST 2V FRONTAL/LAT-patient will return tomorrow for XR. -If XR reveals pneumonia, will need to add on Augmentin due to patient's comorbidities/CAD. 2. Thrush - ICD9: 112.0, ICD10: B37.0 -White patches noted in the oropharynx and tongue. Suspect thrush. Patient was on antibiotics about a month ago. -Rx for nystatin mouthwash Diagnosis and treatment plan were discussed and questions were answered to the patient's satisfaction. Pt acknowledged understanding of concepts and follow up plan. Specific signs and symptoms that would indicate the need for higher level of care were discussed in detail warranting prompt ER evaluation. IVY Gutierrez Allergies As of Date: 08/27/2023 (No Known Allergies) Date Reviewed: 08/27/2023 Reviewed by: Cata Sewell MA - Fully Assessed Reason for Visit: Cough [28] Cmt: nasal drainage x 3 weeks Primary Visit Diagnosis:Subacute cough [R05.2] Other Visit Diagnosis:Thrush [B37.0] Order(s):doxycycline (VIBRA-TABS) 100 mg ta (more content not included)... Normal [facility] Urgent Care Visit Reporton 0 08-23-2023 Urgent Care Visit Report [facility] [address], [address] [place], [place] [address] OFFICE VISIT Date of Service: 08/23/23 MR#: [id number] Acct: [id number] Name: BECKA VALDEZ Rep #: [id number] : 1960 Provider: IVY Rich Age/Sex: 63/M Location: [facility] Status: Signed with Addenda ADDENDUM by IVY Rich on 08/23/23 at 1231 HPI Details: Plan (updated): Benzonatate also prescribed at patient request. Assessment and Plan Assessment and Plan Orders: Orders POC Krystal Covid FLUAB PCR Today Medications: New oseltamivir 75 mg PO BID 5 days 10 caps 0RF benzonatate 200 mg PO TID PRN 20 caps 0RF cough 08/23/23 1231 Date Sergei Aranda cc: * Signed Intake Vital Signs 01/10/23 13:39 08/23/23 10:55 Height 5 ft 11 in Weight: 187 lb BMI 26.0 BP 136/87 H 136/86 H Blood Pressure Location Lt brachial Lt brachial Position Sitting Sitting Respiration 16 17 Pulse 64 89 Pulse Source Monitor NIBP Temp 98.5 F Temp Source Temporal Pulse Oximetry (%) 93 Oxygen Delivery Method room air Intake Visit Reasons: COUGH/FEVER Chief Complaint: cough, fever, CORONADO [employer] Clerk Required: No Is patient in pain?: No Allergies No Known Allergies Allergy (Verified 08/23/23 10:56) Medications acetaminophen 650 mg tablet,extended release (Tylenol 8 Hour) 650 mg PO Q8H PRN 12/20/21 [History Confirmed 08/23/23] aspirin 81 mg tablet,delayed release 81 mg PO DAILY@0800 #90 tabs 09/27/22 [Rx Confirmed 08/23/23] rosuvastatin 20 mg tablet 20 mg PO DAILY #90 tabs 09/27/22 [Rx Confirmed 08/23/23] isosorbide mononitrate 30 mg tablet,extended release 24 hr 30 mg PO DAILY #90 tabs 12/22/22 [Rx Confirmed 08/23/23] ascorbic acid (vitamin C) 500 mg tablet 500 mg PO BID 01/10/23 [History Confirmed 08/23/23] cholecalciferol (vitamin D3) 125 mcg (5,000 unit) capsule 125 mcg PO BID PRN 01/10/23 [History Confirmed 08/23/23] metoprolol tartrate 50 mg tablet 25 mg (1/2 x 50 mg) PO BID #180 tabs 08/14/23 [Rx Confirmed 08/23/23] amlodipine 5 mg tablet 5 mg PO DAILY #90 tabs 08/23/23 [Rx Confirmed 08/23/23] oseltamivir 75 mg capsule 75 mg PO BID 5 days #10 caps 08/23/23 [Rx Confirmed 08/23/23] Nurse's Note: cough, fever, CORONADO x 3 days. declines viral testing, states just need an antibiotic to zap this out [facility] Medical History Acute bronchitis, unspecified Acute lumbar myofascial strain Alcohol abuse Atherosclerotic heart disease of [place] coronary artery without angina pectoris Bronchitis Chronic back pain COVID-19 Essential (primary) hypertension Former tobacco use History of ST elevation myocardial infarction (STEMI) (07/09/20) Primary erythrocytosis URI (upper respiratory infection) Surgical History History of coronary artery stent placement (07/09/20) History of hernia repair Family History Mother Heart disease Father Heart disease Social History Smoking Status: Never smoker Smokeless tobacco user: chewing tobacco alcohol intake: current alcohol intake frequency: 3 or more drinks per day Alcohol type: beer substance use type: does not use caffeine: Yes Type: carbonated beverages Number of servings: 2 HPI HPI Chief Complaint: cough, fever, CORONADO Details: BECKA VALDEZ, is a 63 M who presents to the office today for initial evaluation in the [facility] for approximately 48-hour history of persistent fever, chills, cough, CORONADO, myalgias, fatigue.??? No complaints of chest pain or shortness of breath or dyspnea on exertion. Nonsmoker. Several close contacts recently diagnosed with similar URI complaints. No over the counter taken to assist. No other associated symptoms and no other alleviating/aggravati ng factors. ROS Const Constitutional: No other (As above) Exam Const General: cooperative, healthy appearing and no acute distress Orientation: alert, awake and oriented x3 HENMT Head: normal to inspection Ears: hearing grossly normal bilaterally, external ears normal, TM's normal bilaterally and EAC's normal Nose: external nose normal, nares normal, septum normal and clear nasal discharge Face and sinus: normal facial exam, sinuses nontender and face symmetric Mouth: oral mucosae normal, lip normal, tongue normal and oropharynx normal Throat: posterior oropharynx normal, tonsils normal, uvula midline and no postnasal drainage Eyes General: appearance normal, both eyes and all related structures Neck Neck: normal visual inspection, full ROM, no lymphadenopathy, no meningeal signs and supple Neck mass: No Thyroid: t (more content not included)... Normal [facility] 07-22-2023 [facility] Telephone (UCWSTR) CHRISDORYMacario Munoz ([id number]) 1960 M Date Time Provider Department 07/22/23 [facility] During your visit today, we recorded the following information about you: Guido Navarrete MD 07/22/2023 10:33 AM Signed Chest x-ray showed no pneumonia. He may complete the course of antibiotic. He may have a test for whooping cough if interested. Fred Maya MA 07/22/2023 11:21 AM Signed Patient notified of results and recommendations, verbalized understanding and prefers to finish antibiotics to see how he feels. Fred Maya MA Allergies As of Date: 07/22/2023 (No Known Allergies) Date Reviewed: 07/21/2023 Reviewed by: Fred Maya MA - Fully Assessed Reason for Visit: Results [95] Cmt: CXR negative. Prescriptions as of 07/22/2023 - benzonatate (TESSALON PERLE) 100 mg capsule Take 2 capsules by mouth every 8 hours as needed for cough for up to 15 days. - doxycycline monohydrate (MONODOX) 100 mg capsule Take 1 capsule by mouth two times a day for 5 days. - amLODIPine (NORVASC) 5 mg tablet - aspirin, enteric coated (ASPIRIN, ENTERIC COATED) 81 mg EC tablet - isosorbide mononitrate ER (IMDUR) 30 mg 24 hr tablet - metoprolol tartrate, short acting, (LOPRESSOR) 50 mg tablet - rosuvastatin (CRESTOR) 20 mg tablet - ascorbic acid (VITAMIN C ORAL) Take by mouth. - mv-min/folic/K1/lycop en/lutein (CENTRUM SILVER ULTRA MEN'S ORAL) Take by mouth. Problem List As Of Date: 07/22/2023 (None) Encounter Status:Closed by FRED MAYA on 07/22/23 Normal [facility] XR CHEST 2V FRONTAL/LATon XR CHEST 2V FRONTAL/LAT * * *Final Repor t* * * DATE OF EXAM: Jul 22 2023 10:14AM WOX [id number] - XR CHEST 2V FRONTAL/LAT / PROCEDURE REASON: Subacute cough * * * * Physician Interpretation * * * * EXAMINATION: CHEST RADIOGRAPH (2 VIEW FRONTAL and LATERAL) CLINICAL HISTORY: Subacute cough MQ: XC2_6 EXAM DATE/TIME: 07/22/2023 10:14 AM COMPARISON: 07/03/2023. RESULT: Lines, tubes, and devices: None. Lungs and pleura: There is hypoinflation of the lungs with crowded lung markings in both lung bases. There is no definite infiltrates. No consolidation. No lung mass. No pleural effusion. No pneumothorax. Cardiomediastinal silhouette: Normal cardiomediastinal silhouette. Bones and soft tissues: Unremarkable. IMPRESSION: Stable exam with no definite acute radiographic abnormality. [employer]: [facility] Transcribe Date/Time: Jul 22 2023 10:18A Dictated by : EILEEN MICHAELS MD This examination was interpreted and the report reviewed and electronically signed by: EILEEN MICHAELS MD on Jul 22 2023 10:19AM EST [id number] Normal [facility] XR Chest PA and Lateralon IMPRESSION: Stable exam with no definite acute radiographic abnormality. [employer]: [facility] Transcribe Date/Time: Jul 22 2023 10:18A Dictated by : EILEEN MICHAELS MD This examination was interpreted and the report reviewed and electronically signed by: EILEEN MICHAELS MD on Jul 22 2023 10:19AM EST DIVISION OF RADIOLOGY * * *Final Report* * * DATE OF EXAM: Jul 22 2023 10:14AM WOX [id number] - XR CHEST 2V FRONTAL/LAT / PROCEDURE REASON: Subacute cough * * * * Physician Interpretation * * * * EXAMINATION: CHEST RADIOGRAPH (2 VIEW FRONTAL & LATERAL) CLINICAL HISTORY: Subacute cough MQ: XC2_6 EXAM DATE/TIME: 07/22/2023 10:14 AM COMPARISON: 07/03/2023. RESULT: Lines, tubes, and devices: None. Lungs and pleura: There is hypoinflation of the lungs with crowded lung markings in both lung bases. There is no definite infiltrates. No consolidation. No lung mass. No pleural effusion. No pneumothorax. Cardiomediastinal silhouette: Normal cardiomediastinal silhouette. Bones and soft tissues: Unremarkable. DIVISION OF RADIOLOGY Provider, [facility] - 07/22/2023 * * *Final Report* * * DATE OF EXAM: Jul 22 2023 10:14AM WOX 5291 - XR CHEST 2V FRONTAL/LAT / PROCEDURE REASON: Subacute cough * * * * Physician Interpretation * * * * EXAMINATION: CHEST RADIOGRAPH (2 VIEW FRONTAL & LATERAL) CLINICAL HISTORY: Subacute cough MQ: XC2_6 EXAM DATE/TIME: 07/22/2023 10:14 AM COMPARISON: 07/03/2023. RESULT: Lines, tubes, and devices: None. Lungs and pleura: There is hypoinflation of the lungs with crowded lung markings in both lung bases. There is no definite infiltrates. No consolidation. No lung mass. No pleural effusion. No pneumothorax. Cardiomediastinal silhouette: Normal cardiomediastinal silhouette. Bones and soft tissues: Unremarkable. IMPRESSION IMPRESSION: Stable exam with no definite acute radiographic abnormality. [employer]: PSC[employer]ridger Transcribe Date/Time: Jul 22 2023 10:18A Dictated by : EILEEN MICHAELS MD This examination was interpreted and the report reviewed and electronically signed by: EILEEN MICHAELS MD on Jul 22 2023 10:19AM [facility] Radiology Study observation (narrative) Pratima mcneill [facility] XR Chest PA and LateralOrder ed By: [facility] Provider on 07-22-2023 [facility] CNOVon 07-21-2023 CNOV Office Visit (WSTR ) BECKA VALDEZ ([id number]) 1960 M Date Time Provider Department 07/21/23 6:00 PM GUIDO NAVARRETE [facility] During your visit today, we recorded the following information about you: Temperature Pulse Respiration Blood pressure 99.2 degrees 89/minute 18/minute 123/75 Weight 82.9 kg Guido Navarrete MD 07/21/2023 6:32 PM Signed Patient presents with: Cough: X weeks, intermittent HPI: Coughing for 4 weeks. CXR negative here 07/03/23. His has encouraged him to return for re-evaluation. Positive symptoms: Cough, Shortness of breath, Chest soreness, occasional Sore throat, fatigue Negative symptoms: Wheezing, hemoptysis, sinus pressure, Nasal Congestion, Rhinorrhea, Fever, Vomiting, Diarrhea, OTC: Lozenges, tessalon. Prescribed augmentin for rhinosinusitis 07/03. No history of asthma or COPD. No history of inhaler use. MEDICATIONS: Current Outpatient Medications Medication Sig amLODIPine (NORVASC) 5 mg tablet aspirin, enteric coated (ASPIRIN, ENTERIC COATED) 81 mg EC tablet isosorbide mononitrate ER (IMDUR) 30 mg 24 hr tablet metoprolol tartrate, short acting, (LOPRESSOR) 50 mg tablet rosuvastatin (CRESTOR) 20 mg tablet ascorbic acid (VITAMIN C ORAL) Take by mouth. mv-min/folic/K1/lycop en/lutein (CENTRUM SILVER ULTRA MEN'S ORAL) Take by mouth. No current facility-administered medications for this visit. ALLERGIES: ALLERGIES No Known Allergies VITALS: BP 123/75 Pulse 89 Temp 37.3 ?C (99.2 ?F) Resp 18 Wt 82.9 kg (182 lb 12.8 oz) SpO2 94% PHYSICAL EXAM: GEN: Pleasant, alert, frequent cough. Accompanied by his HEENT: PERRL, EOMI, conjunctiva clear Ears: canals with cerumen Sinuses: non-tender frontal sinus, non-tender maxillary sinuses Throat: moist mucous membranes, mild erythema, no exudate Neck: supple, no thyromegaly, no lymphadenopathy HEART: regular rate and rhythm, no murmurs LUNGS: left lower lung crackles, no wheezes, no increased WOB, non-productive sounding cough ASSESSMENT/PLAN: 1. Subacute cough - ICD9: 786.2, ICD10: R05.2 Suspect left lower lobe pneumonia. Repeat - XR CHEST 2V FRONTAL/LAT (will come back tomorrow when imaging is available) - BENZONATATE 100 MG CAPSULE - DOXYCYCLINE MONOHYDRATE 100 MG CAPSULE Follow up with worsening cough, worsening shortness of breath, increasing chest pain, or late onset fever. Guido Navarrete MD Allergies As of Date: 07/21/2023 (No Known Allergies) Date Reviewed: 07/21/2023 Reviewed by: Fred Maya MA - Fully Assessed Reason for Visit: Cough [28] Cmt: X weeks, intermittent Primary Visit Diagnosis:Subacute cough [R05.2] Order(s):XR CHEST 2V FRONTAL/LAT [[id number]] Order #: [id number] FUTURE benzonatate (TESSALON PERLE) 100 mg capsuleTake 2 capsules by mouth every 8 hours as needed for cough for up to 15 days.Disp: 45 capsuleRfl: 0 doxycycline monohydrate (MONODOX) 100 mg capsuleTake 1 capsule by mouth two times a day for 5 days.Disp: 10 capsuleRfl: 0 Prescriptions as of 07/21/2023 - benzonatate (TESSALON PERLE) 100 mg capsule Take 2 capsules by mouth every 8 hours as needed for cough for up to 15 days. - doxycycline monohydrate (MONODOX) 100 mg capsule Take 1 capsule by mouth two times a day for 5 days. - amLODIPine (NORVASC) 5 mg tablet - aspirin, enteric coated (ASPIRIN, ENTERIC COATED) 81 mg EC tablet - isosorbide mononitrate ER (IMDUR) 30 mg 24 hr tablet - metoprolol tartrate, short acting, (LOPRESSOR) 50 mg tablet - rosuvastatin (CRESTOR) 20 mg tablet - ascorbic acid (VITAMIN C ORAL) Take by mouth. - mv-min/folic/K1/lycop en/lutein (CENTRUM SILVER ULTRA MEN'S ORAL) Take by mouth. Problem List As Of Date: 07/21/2023 (None) Prescriptions ordered this encounter Disp Refills Start End BENZONATATE 100 MG CAPSULE 45 c* 0 07/21/2023 08/05/2023 Route: ORAL Sig: Take 2 capsules by mouth every 8 hours as needed for cough for up to 15 days. DOXYCYCLINE MONOHYDRATE 100 MG CAPSU* 10 c* 0 07/21/2023 07/26/2023 Route: ORAL Sig: Take 1 capsule by mouth two times a day for 5 days. Encounter Status:Closed by GUIDO NAVARRETE on 07/21/23 Normal [facility] XR Chest PA and Lateralon IMPRESSION: No acute radiographic abnormality. [employer]: KAYLEY Transcribe Date/Time: Jul 03 2023 11:37A Dictated by : KAMALJIT MATHEW MD This examination was interpreted and the report reviewed and electronically signed by: KAMALJIT MATHEW MD on Jul 03 2023 11:38AM EST DIVISION OF RADIOLOGY * * *Final Report* * * DATE OF EXAM: Jul 03 2023 11:36AM WOX 5291 - XR CHEST 2V FRONTAL/LAT / PROCEDURE REASON: Acute cough * * * * Physician Interpretation * * * * EXAMINATION: CHEST RADIOGRAPH (2 VIEW FRONTAL & LATERAL) CLINICAL HISTORY: Acute cough MQ: XC2_6 EXAM DATE/TIME: 07/03/2023 11:36 AM COMPARISON: No relevant prior studies available. RESULT: Lines, tubes, and devices: None. Lungs and pleura: No consolidation. No lung mass. No pleural effusion. No pneumothorax. Cardiomediastinal silhouette: Normal cardiomediastinal silhouette. Bones and soft tissues: Unremarkable. DIVISION OF RADIOLOGY Provider, [facility] - 07/03/2023 * * *Final Report* * * DATE OF EXAM: Jul 03 2023 11:36AM WOX 5291 - XR CHEST 2V FRONTAL/LAT / PROCEDURE REASON: Acute cough * * * * Physician Interpretation * * * * EXAMINATION: CHEST RADIOGRAPH (2 VIEW FRONTAL & LATERAL) CLINICAL HISTORY: Acute cough MQ: XC2_6 EXAM DATE/TIME: 07/03/2023 11:36 AM COMPARISON: No relevant prior studies available. RESULT: Lines, tubes, and devices: None. Lungs and pleura: No consolidation. No lung mass. No pleural effusion. No pneumothorax. Cardiomediastinal silhouette: Normal cardiomediastinal silhouette. Bones and soft tissues: Unremarkable. IMPRESSION IMPRESSION: No acute radiographic abnormality. [employer]: PSCB Transcribe Date/Time: Jul 03 2023 11:37A Dictated by : KAMALJIT MATHEW MD This examination was interpreted and the report reviewed and electronically signed by: KAMALJIT MATHEW MD on Jul 03 2023 11:38AM [facility] Radiology Study observation (narrative) Pratima Doran XR Chest PA and LateralOrder ed By: [facility] Provider on 07-03-2023 [facility] Urgent Care Visit Reporton 0 06-22-2023 Urgent Care Visit Report [facility] [address], [address] [place] [address] OFFICE VISIT Date of Service: 06/22/23 MR#: [id number] Acct: [id number] Name: BECKA VALDEZ Rep #: [id number] : 1960 Provider: IVY Rose Age/Sex: 63/M Location: [facility] Status: Signed Intake Vital Signs 01/10/23 13:39 06/22/23 16:38 Height 5 ft 11 in Weight: 187 lb BMI 26.0 BP 136/87 H 140/74 H Blood Pressure Location Lt brachial Lt brachial Position Sitting Sitting Respiration 16 16 Pulse 64 98 Pulse Source Monitor NIBP Temp 97.7 F L Temp Source Temporal Pulse Oximetry (%) 98 Oxygen Delivery Method room air Intake Visit Reasons: Cough Chief Complaint: cough Auto [employer] Clerk Required: No Is patient in pain?: No Allergies No Known Allergies Allergy (Verified 06/22/23 16:38) Medications acetaminophen 650 mg tablet,extended release (Tylenol 8 Hour) 650 mg PO Q8H PRN 12/20/21 [History Confirmed 06/22/23] amlodipine 5 mg tablet 5 mg PO DAILY #90 tabs 08/25/22 [Rx Confirmed 06/22/23] aspirin 81 mg tablet,delayed release 81 mg PO DAILY@0800 #90 tabs 09/27/22 [Rx Confirmed 06/22/23] rosuvastatin 20 mg tablet 20 mg PO DAILY #90 tabs 09/27/22 [Rx Confirmed 06/22/23] isosorbide mononitrate 30 mg tablet,extended release 24 hr 30 mg PO DAILY #90 tabs 12/22/22 [Rx Confirmed 06/22/23] metoprolol tartrate 50 mg tablet 50 mg PO BID #180 tabs 12/22/22 [Rx Confirmed 06/22/23] ascorbic acid (vitamin C) 500 mg tablet 500 mg PO BID 01/10/23 [History Confirmed 06/22/23] cholecalciferol (vitamin D3) 125 mcg (5,000 unit) capsule 125 mcg PO BID PRN 01/10/23 [History Confirmed 06/22/23] Nurse's Note: cough, runny nose x 10 days. declines testing. PFSH Medical History Acute bronchitis, unspecified Acute lumbar myofascial strain Alcohol abuse Atherosclerotic heart disease of [place] coronary artery without angina pectoris Bronchitis Chronic back pain COVID-19 Essential (primary) hypertension Former tobacco use History of ST elevation myocardial infarction (STEMI) (07/09/20) Primary erythrocytosis URI (upper respiratory infection) Surgical History History of coronary artery stent placement (07/09/20) History of hernia repair Family History Mother Heart disease Father Heart disease Social History Smoking Status: Never smoker Smokeless tobacco user: chewing tobacco alcohol intake: current alcohol intake frequency: 3 or more drinks per day Alcohol type: beer substance use type: does not use caffeine: Yes Type: carbonated beverages Number of servings: 2 HPI HPI Chief Complaint: cough Details: BECKA VALDEZ, is a 63 M who presents to the office today for complaint of cough, congestion and postnasal drainage ongoing for the past 10 days. Patient denies fever, chills, sweats. No nausea, vomiting, diarrhea. No hemoptysis, shortness of breath or difficulty breathing. No loss of taste or smell. Patient has tried multiple [id number] medications with little to no relief. No other associated symptoms or alleviating/aggravati ng factors. ROS Const Constitutional: No other (As above) Exam Const General: cooperative and well developed HENDE Head: normal to inspection and atraumatic Ears: hearing grossly normal bilaterally Nose: nasal discharge clear Face and sinus: normal facial exam Mouth: oral mucosae normal Throat: abnormal tonsil bilaterally hypertrophy 1+ Resp Effort Inspection: normal respiratory effort and no audible wheezes Auscultation: Bilateral: Clear to Auscultation Cardio Palpation: normal PMI Rate: regular rate Rhythm: regular rhythm Neuro General: patient alert and CN's II-XI intact bilaterally Psych Appearance: grossly normal Mental Status: mental status grossly normal Coding Level of Care Code Off vis,est,level 3 Diagnoses Bronchitis J40 Assessment and Plan Assessment and Plan (1) Bronchitis: Status: Acute Plan Azithromycin and benzonatate as prescribed today. Encouraged to get plenty of rest, drink lots of clear liquids, and use Tylenol or Ibuprofen (unless contraindicated) for fever and comfort. Patient also educated on other symptomatic management techniques. To be seen in 7-10 days if no improvement; sooner if worsening of symptoms. Patient advised of potential red flags and when appropriate to report to the ED. Patient verbalized understanding and agreement with all the above. 06/22/23 1645 Date Carlos Huber Signature: Date (more content not included)... Normal [facility] Absolute lymphocyte countOrd ered By: Dr. Dailey on 11-12-2022 Lymphocytes Auto (Unsp spec) [#/Vol] 1.02 10*3/uL 0.83-4.51 [facility] Basophil percentageOrdered B y: Dr. Dailey on 11-12-2022 Basophils/100 WBC (Bld) 0.1 % 0-1 [facility] Eosinophils/100 WBC (Bld) 0.0 % 0-5 [facility] Neutrophils (Bld) [#/Vol] 7.1 10*3/uL 2.0-7.7 [facility] Neutrophils/100 WBC (Bld) 84.5 % 47-70 [facility] WBC (Bld) [#/Vol] 8.4 10*3/uL 4.4-11.0 [facility] Bilirubin [Mass/Vol] 0.60 mg/dL 0.20-1.00 [facility] Comment on above: For patients on eltr ombopag therapy, use of Dimension [place] TBIL is not recommended. Chloride [Moles/Vol] 110 mmol/L 98-107 [facility] Cholesterol [Mass/Vol] 116 mg/dL <200 [facility] Comment on above: <200 mg/dL Desirable 200-240 mg/dL Borderline >240 mg/dL High Risk Glucose [Mass/Vol] 104 mg/dL 74-106 [facility] Comment on above: Fasting Glucose resu lt from 100 to 125 mg/dL suggests IMPAIRED HOMEOSTASIS per A.D.A. criteria. Potassium [Moles/Vol] 4.0 mmol/L 3.5-5.1 [facility] Protein [Mass/Vol] 7.1 g/dL 6.4-8.2 [facility] Sodium [Moles/Vol] 143 mmol/L 136-145 [facility] Triglyceride [Mass/Vol] 43 mg/dL <199 [facility] Comment on above: The drugs N-Acetylcy steine and Metamizole may falsely depress this assay.Serum Triglycerides Reference Interval Normal <150 mg/dL Borderline high 150 - 199 mg/dL High 200 - 499 mg/dL Very High > or = 500 mg/dL Blood erythrocytes count (nu mber/volume)Ordered By: Dr. Dailey on 11-12-2022 RBC (Bld) [#/Vol] 5.18 10*6/uL 4.6-6.2 [facility] Blood hemoglobin measurement (mass/volume)Ordered By: Dr. Dailey on 11-12-2022 Hemoglobin (Bld) [Mass/Vol] 15.4 g/dL 13.0-16.5 [facility] Blood lymphocytes/100 leukoc ytesOrdered By: Dr. Dailey on 11-12-2022 Lymphocytes/100 WBC (Bld) 12.2 % 19-41 [facility] Blood monocytes/100 leukocyt esOrdered By: Dr. Dailey on 11-12-2022 Monocytes/100 WBC (Bld) 2.7 % 0-10 [facility] Blood platelet mean volumeOr dered By: Dr. Dailey on 11-12-2022 Platelet mean volume (Bld) [Entitic vol] 10.2 fL 6.2-12.0 [facility] Determination of erythrocyte mean corpuscular volume (MCV)Ordered By: Dr. Dailey on 11-12-2022 MCV (RBC) [Entitic vol] 85.5 fL 80-94 [facility] Direct bilirubinOrdered By: Dr. Dailey on 11-12-2022 Bilirubin.direct [Mass/Vol] 0.17 mg/dL 0.00-0.30 [facility] Hematocrit Auto (Bld) [Volum e fraction]Ordered By: Dr. Dailey on 11-12-2022 Hematocrit (Bld) [Volume fraction] 44.3 % 40-54 [facility] Laboratory - Chemistry and C hemistry - challengeOrdered By: Dr. Dailey on 11-12-2022 Natriuretic peptide B (Bld) [Mass/Vol] 75.4 pg/mL 0-100 [facility] ALP [Catalytic activity/Vol] 62 U/L 45-117 [facility] ALT [Catalytic activity/Vol] 27 U/L 16-61 [facility] CO2 [Moles/Vol] 24.0 mmol/L 21.0-32.0 [facility] Globulin (S) [Mass/Vol] 3.3 g/dL 2.2-4.2 [facility] Urea nitrogen/Creatinine [Mass ratio] 9.3 mg/mg 10-20 [facility] - Hematology and Cell countsOrdered By: Dr. Dailey on 11-12-2022 Erythrocyte distribution width (RBC) [Entitic vol] 39.4 fL 35.1-43.9 [facility] Erythrocyte distribution width (RBC) [Ratio] 12.5 % 11.6-14.6 [facility] Immature granulocytes/100 WBC (Bld) 0.500 % 0.0-0.9 [facility] Comment on above: IG% - Immature Granu locytes (promyelocytes, myelocytes and metamyelocytes) > 1% indicates that a LEFT SHIFT is Present. MCH (RBC) [Entitic mass] 29.7 pg 27.0-32.0 [facility] Nucleated RBC/100 WBC (Bld) [Ratio] 0 % 0-5 [facility] MCHC Auto (RBC) [Mass/Vol]Or dered By: Dr. Dailey on 11-12-2022 MCHC (RBC) [Mass/Vol] 34.8 g/dL 32-36 [facility] No Panel InformationOrdered By: Dr. Dailey on 11-12-2022 Estimated GFR (MDRD) Amer 134 mL/min >60 [facility] Comment on above: GFR Calc Estimated GFR (MDRD) Non-Af Amer 111 mL/min >60 [facility] Comment on above: Non- GFR Calc Prostate Specific Antigen Screen 3.08 ng/mL 0.00-4.00 [facility] Comment on above: This test was perfor med using the TPSA assay method for the[employer]entia chemistry system. Values obtained with differentassay methods cannot be used interchangably.When changing PSA assays in the course of monitoring apatient, additional sequential testing should be carriedout to confirm baseline values. Thyroid Stimulating Hormone (TSH) 1.03 uIU/mL 0.358-3.74 [facility] Platelets bldOrdered By: Dr. Dailey on 11-12-2022 Platelets (Bld) [#/Vol] 215 10*3/uL 150-450 [facility] Serum or plasma albumin rachelle urement (mass/volume)Ordered By: Dr. Dailey on 11-12-2022 Albumin [Mass/Vol] 3.8 g/dL 3.2-5.0 [facility] Serum or plasma albumin/glob ulin mass ratioOrdered By: Dr. Dailey on 11-12-2022 Albumin/Globulin [Mass ratio] 1.2 {ratio} 0.9-2.4 [facility] Serum or plasma calcium rachelle urement (mass/volume)Ordered By: Dr. Dailey on 11-12-2022 Calcium [Mass/Vol] 9.4 mg/dL 8.5-10.1 [facility] Serum or plasma cholesterol in HDL measurement (mass/volume)Ordered By: Dr. Dailey on 11-12-2022 Cholesterol in HDL [Mass/Vol] 67 mg/dL >40 [facility] Comment on above: The drugs N-Acetylcy steine and Metamizole may falsely depress this assay. Reference Range HDL <40 mg/dL Low HDL Cholesterol HDL >or= 60 mg/dL High HDL Cholesterol Serum or plasma cholesterol in VLDL measurement (mass/volume)Ordered By: Dr. Dailey on 11-12-2022 Cholesterol in VLDL [Mass/Vol] 9 mg/dL 5-40 [facility] Serum or plasma creatinine m easurement (mass/volume)Ordered By: Dr. Dailey on 11-12-2022 Creatinine [Mass/Vol] 0.76 mg/dL 0.70-1.30 [facility] Comment on above: The validity of the calculated GFR & GFRAA in patients over 70 years has not been determined. Clinical correlation is essential. Serum or plasma low density lipoprotein (LDL) cholesterol measurement (mass/volume)Ordered By: Dr. Dailey on 11-12-2022 Cholesterol in LDL [Mass/Vol] 40 mg/dL 0-130 [facility] Serum or plasma urea nitroge n measurement (mass/volume)Ordered By: Dr. Dailey on 11-12-2022 Urea nitrogen [Mass/Vol] 7 mg/dL 7-18 [facility] Thin prep Papanicolaou smear with manual screeningOrdered By: Dr. Dailey on 11-12-2022 Thin prep Papanicolaou smear with manual screening 20 U/L 15-37 [facility] Thin prep Papanicolaou smear with manual screening 9 5-15 [facility] Absolute lymphocyte countOrd ered By: Rita Rainey on 09-27-2022 Lymphocytes Auto (Unsp spec) [#/Vol] 1.85 10*3/uL 0.83-4.51 [facility] Basophil percentageOrdered B y: Rita Rainey on 09-27-2022 Basophils/100 WBC (Bld) 0.4 % 0-1 [facility] Eosinophils/100 WBC (Bld) 0.6 % 0-5 [facility] Neutrophils (Bld) [#/Vol] 5.6 10*3/uL 2.0-7.7 [facility] Neutrophils/100 WBC (Bld) 65.4 % 47-70 [facility] WBC (Bld) [#/Vol] 8.6 10*3/uL 4.4-11.0 [facility] Blood erythrocytes count (nu mber/volume)Ordered By: Rita Rainey on 09-27-2022 RBC (Bld) [#/Vol] 4.85 10*6/uL 4.6-6.2 [facility] Blood hemoglobin measurement (mass/volume)Ordered By: Rita Rainey on 09-27-2022 Hemoglobin (Bld) [Mass/Vol] 14.6 g/dL 13.0-16.5 [facility] Blood lymphocytes/100 leukoc ytesOrdered By: Rita Rainey on 09-27-2022 Lymphocytes/100 WBC (Bld) 21.6 % 19-41 [facility] Blood monocytes/100 leukocyt esOrdered By: Rita Rainey on 09-27-2022 Monocytes/100 WBC (Bld) 10.7 % 0-10 [facility] Blood platelet mean volumeOr dered By: Rita Rainey on 09-27-2022 Platelet mean volume (Bld) [Entitic vol] 10.0 fL 6.2-12.0 [facility] Determination of erythrocyte mean corpuscular volume (MCV)Ordered By: Rita Rainey on 09-27-2022 MCV (RBC) [Entitic vol] 89.7 fL 80-94 [facility] Hematocrit Auto (Bld) [Volum e fraction]Ordered By: Rita Rainey on 09-27-2022 Hematocrit (Bld) [Volume fraction] 43.5 % 40-54 [facility] - Hematology and Cell countsOrdered By: Rita Rainey on 09-27-2022 Erythrocyte distribution width (RBC) [Entitic vol] 42.2 fL 35.1-43.9 [facility] Erythrocyte distribution width (RBC) [Ratio] 12.9 % 11.6-14.6 [facility] Immature granulocytes/100 WBC (Bld) 1.300 % 0.0-0.9 [facility] Comment on above: IG% - Immature Granu locytes (promyelocytes, myelocytes and metamyelocytes) > 1% indicates that a LEFT SHIFT is Present. MCH (RBC) [Entitic mass] 30.1 pg 27.0-32.0 [facility] Nucleated RBC/100 WBC (Bld) [Ratio] 0 % 0-5 [facility] MCHC Auto (RBC) [Mass/Vol]Or dered By: Rita Rainey on 09-27-2022 MCHC (RBC) [Mass/Vol] 33.6 g/dL 32-36 [facility] Platelets bldOrdered By: Binu Rainey on 09-27-2022 Platelets (Bld) [#/Vol] 170 10*3/uL 150-450 [facility] - Microbiology an d Antimicrobial susceptibilityon 08-08-2022 SARS-CoV-2 (COVID-19) RNA EDISON+probe Ql (Unsp spec) Detected [facility] No Panel Informationon 08-08 Influenza Types A,B Rapid (Clinic) Not detected [facility] Basophil percentageon 2021 Bilirubin [Mass/Vol] 0.70 mg/dL 0.20-1.00 [facility] Work Phone: Comment on above: For patients on eltr ombopag therapy, use of Dimension [place] TBIL is not recommended. Cholesterol [Mass/Vol] 134 mg/dL <200 [facility] Work Phone: Comment on above: <200 mg/dL Desirable 200-240 mg/dL Borderline >240 mg/dL High Risk Protein [Mass/Vol] 6.7 g/dL 6.4-8.2 [facility] Work Phone: Triglyceride [Mass/Vol] 99 mg/dL <199 [facility] Work Phone: Comment on above: The drugs N-Acetylcy steine and Metamizole may falsely depress this assay.Serum Triglycerides Reference Interval Normal <150 mg/dL Borderline high 150 - 199 mg/dL High 200 - 499 mg/dL Very High > or = 500 mg/dL Direct bilirubinon 2 Bilirubin.direct [Mass/Vol] 0.18 mg/dL 0.00-0.30 [facility] Work Phone: Laboratory - Chemistry and C hemistry - challengeon 12-25-2021 ALP [Catalytic activity/Vol] 59 U/L 45-117 [facility] Work Phone: ALT [Catalytic activity/Vol] 38 U/L 16-61 [facility] Work Phone: Globulin (S) [Mass/Vol] 3.1 g/dL 2.2-4.2 [facility] Work Phone: Serum or plasma albumin rachelle urement (mass/volume)on 12-25-2021 Albumin [Mass/Vol] 3.6 g/dL 3.2-5.0 [facility] Work Phone: Serum or plasma cholesterol in HDL measurement (mass/volume)on 12-25-2021 Cholesterol in HDL [Mass/Vol] 64 mg/dL >40 [facility] Work Phone: Comment on above: The drugs N-Acetylcy steine and Metamizole may falsely depress this assay. Reference Range HDL <40 mg/dL Low HDL Cholesterol HDL >or= 60 mg/dL High HDL Cholesterol Serum or plasma cholesterol in VLDL measurement (mass/volume)on 12-25-2021 Cholesterol in VLDL [Mass/Vol] 20 mg/dL 5-40 [facility] Work Phone: Serum or plasma low density lipoprotein (LDL) cholesterol measurement (mass/volume)on 12-25-2021 Cholesterol in LDL [Mass/Vol] 50 mg/dL 0-130 [facility] Work Phone: Thin prep Papanicolaou smear with manual screeningon 12-25-2021 Thin prep Papanicolaou smear with manual screening 23 U/L 15-37 [facility] Work Phone: Vital Signs Date Time Vital Sign Value Performing Clinician Tracei aleksandr 07-16-2024 16:35-0500 Body temperature 98.1 [degF] Santi Patel APRN.[employer]AY G[employer] REPAIRER Work Phone: [facility] 07-16-2024 16:35-0500 Body weight 87.5 kg Santi Patel APRN.S[employer]AY G[employer] REPAIRER Work Phone: [facility] 07-16-2024 16:35-0500 Diastolic blood pressure 80 mm[Hg] Satni Patel PLASMA PROCESSING CENTRIFUGE OPERATOR.S[employer]AY GUN REPAIRER Work Phone: [facility] 07-16-2024 16:35-0500 Heart rate 94 /min Santi Patel PLASMA PROCESSING CENTRIFUGE OPERATOR.SPRAY GUN REPAIRER Work Phone: [facility] 07-16-2024 16:35-0500 Respiratory rate 16 /min Santi Patel PLASMA PROCESSING CENTRIFUGE OPERATOR.SPRAY GUN REPAIRER Work Phone: [facility] 07-16-2024 16:35-0500 SaO2% (BldA) [Mass fraction] 96 % Santi Patel PLASMA PROCESSING CENTRIFUGE OPERATOR.SPRAY GUN REPAIRER Work Phone: [facility] 07-16-2024 16:35-0500 Systolic blood pressure 128 mm[Hg] Santi Patel PLASMA PROCESSING CENTRIFUGE OPERATOR.SPRAY GUN REPAIRER Work Phone: [facility] 11-24-2023 16:25-0400 Body temperature 98.91 [degF] Guido Navarrete MD Work Phone: [facility] 11-24-2023 16:25-0400 Body weight 83 kg Guido Navarrete MD Work Phone: [facility] 11-24-2023 16:25-0400 Diastolic blood pressure 90 mm[Hg] Guido Navarrete MD Work Phone: [facility] 11-24-2023 16:25-0400 Heart rate 84 /min Guido Navarrete MD Work Phone: [facility] 11-24-2023 16:25-0400 Respiratory rate 18 /min Guido Navarrete MD Work Phone: [facility] 11-24-2023 16:25-0400 SaO2% (BldA) [Mass fraction] 100 % Guido Navarrete MD Work Phone: [facility] 11-24-2023 16:25-0400 Systolic blood pressure 168 mm[Hg] Guido Navarrete MD Work Phone: [facility] 09-24-2023 10:26-0400 Body temperature 98.49 [degF] Dagmar Morrison APRN.SPRAY GUN REPAIRER Work Phone: [facility] 09-24-2023 10:26-0400 Body weight 82.7 kg Dagmar Morrison PLASMA PROCESSING CENTRIFUGE OPERATOR.SPRAY GUN REPAIRER Work Phone: [facility] 09-24-2023 10:26-0400 Diastolic blood pressure 90 mm[Hg] Dagmar Morrison APRN.SPRAY GUN REPAIRER Work Phone: [facility] 09-24-2023 10:26-0400 Heart rate 56 /min Dagmar Morrison APRN.SPRAY GUN REPAIRER Work Phone: [facility] 09-24-2023 10:26-0400 Respiratory rate 18 /min Dagmar Prince PLASMA PROCESSING CENTRIFUGE OPERATOR.SPRAY GUN REPAIRER Work Phone: [facility] 09-24-2023 10:26-0400 SaO2% (BldA) [Mass fraction] 98 % Dagmar King JAMARI.SPRAY GUN REPAIRER Work Phone: [facility] 09-24-2023 10:26-0400 Systolic blood pressure 139 mm[Hg] Dagmar Morrison APRN.SPRAY GUN REPAIRER Work Phone: [facility] 08-27-2023 14:01-0400 Body temperature 98.49 [degF] Krislyn Aberegg PA Work Phone: [facility] 08-27-2023 14:01-0400 Body weight 80.1 kg Krislyn Aberegg PA Work Phone: [facility] 08-27-2023 14:01-0400 Diastolic blood pressure 78 mm[Hg] Krislyn Aberegg PA Work Phone: [facility] 08-27-2023 14:01-0400 Heart rate 82 /min Krislyn Aberegg PA Work Phone: [facility] 08-27-2023 14:01-0400 Respiratory rate 18 /min Krislyn Aberegg PA Work Phone: [facility] 08-27-2023 14:01-0400 SaO2% (BldA) [Mass fraction] 96 % Krislyn Aberegg PA Work Phone: [facility] 08-27-2023 14:01-0400 Systolic blood pressure 122 mm[Hg] Krislyn Aberegg PA Work Phone: [facility] 07-21-2023 18:01-0500 Body temperature 99.19 [degF] Guido Navarrete MD Work Phone: [facility] 07-21-2023 18:01-0500 Body weight 82.92 kg Guido Navarrete MD Work Phone: [facility] 07-21-2023 18:01-0500 Diastolic blood pressure 75 mm[Hg] Guido Navarrete MD Work Phone: [facility] 07-21-2023 18:01-0500 Heart rate 89 /min Guido Navarrete MD Work Phone: [facility] 07-21-2023 18:01-0500 Respiratory rate 18 /min Guido Navarrete MD Work Phone: [facility] 07-21-2023 18:01-0500 SaO2% (BldA) [Mass fraction] 94 % Guido Navarrete MD Work Phone: [facility] 07-21-2023 18:01-0500 Systolic blood pressure 123 mm[Hg] Guido Navarrete MD Work Phone: [facility] 08-08-2022 10:37-0500 Body temperature 97.1 [degF] BEE PRODUCER-C Santi Carvajal BEE PRODUCER Work Phone: [facility] 08-08-2022 10:37-0500 Diastolic blood pressure 72 mm[Hg] BEE PRODUCER-C Santi Carvajal BEE PRODUCER Work Phone: [facility] 08-08-2022 10:37-0500 Heart rate 63 /min BEE PRODUCER-C Santi Carvajal BEE PRODUCER Work Phone: [facility] 08-08-2022 10:37-0500 Respiratory rate 14 /min BEE PRODUCER-C Santi Carvajal BEE PRODUCER Work Phone: [facility] 08-08-2022 10:37-0500 SaO2% (BldA) [Mass fraction] 96 % BEE PRODUCER-C Santi Carvajal BEE PRODUCER Work Phone: [facility] 08-08-2022 10:37-0500 Systolic blood pressure 122 mm[Hg] BEE PRODUCER-C Santi Carvajal BEE PRODUCER Work Phone: [facility] 07-05-2022 12:36-0500 Body temperature 97.5 [degF] BEE PRODUCER-C Santi Carvajal BEE PRODUCER Work Phone: [facility] 07-05-2022 12:36-0500 Diastolic blood pressure 84 mm[Hg] BEE PRODUCER-C Santi Carvajal BEE PRODUCER Work Phone: [facility] 07-05-2022 12:36-0500 Heart rate 60 /min BEE PRODUCER-C Santi Nelsonr BEE PRODUCER Work Phone: [facility] 07-05-2022 12:36-0500 Respiratory rate 16 /min BEE PRODUCER-C Santi Nelsonr BEE PRODUCER Work Phone: [facility] 07-05-2022 12:36-0500 SaO2% (BldA) [Mass fraction] 93 % BEE PRODUCER-C Santi Carvajal BEE PRODUCER Work Phone: [facility] 07-05-2022 12:36-0500 Systolic blood pressure 126 mm[Hg] BEE PRODUCER-C Santi Carvajal BEE PRODUCER Work Phone: [facility] 06-16-2022 16:17-0500 Body temperature 98.4 [degF] BEE PRODUCER-C Santi Carvajal BEE PRODUCER Work Phone: [facility] 06-16-2022 16:17-0500 Diastolic blood pressure 78 mm[Hg] BEE PRODUCER-C Santi Carvajal BEE PRODUCER Work Phone: [facility] 06-16-2022 16:17-0500 Heart rate 86 /min BEE PRODUCER-C Santi Carvajal BEE PRODUCER Work Phone: [facility] 06-16-2022 16:17-0500 Respiratory rate 14 /min BEE PRODUCER-C Santi Carvajal BEE PRODUCER Work Phone: [facility] 06-16-2022 16:17-0500 SaO2% (BldA) [Mass fraction] 97 % BEE PRODUCER-C Santi Nelsonr BEE PRODUCER Work Phone: [facility] 06-16-2022 16:17-0500 Systolic blood pressure 122 mm[Hg] BEE PRODUCER-C Santi Carvajal BEE PRODUCER Work Phone: [facility] 12-20-2021 14:27-0400 Body height 180.34 cm BEE PRODUCER-C Santi Carvajal BEE PRODUCER Work Phone: [facility] Work Phone: 12-20-2021 14:27-0400 Body mass index (BMI) [Ratio] 26.4 kg/m2 BEE PRODUCER-C Santi Carvajal BEE PRODUCER Work Phone: [facility] Work Phone: 12-20-2021 14:27-0400 Body weight 86.18 kg BEE PRODUCER-C Santi Carvajal BEE PRODUCER Work Phone: [facility] Work Phone: 12-20-2021 14:27-0400 Diastolic blood pressure 70 mm[Hg] BEE PRODUCER-C Santi Carvajal BEE PRODUCER Work Phone: [facility] Work Phone: 12-20-2021 14:27-0400 Heart rate 72 /min BEE PRODUCER-C Santi Carvajal BEE PRODUCER Work Phone: [facility] Work Phone: 12-20-2021 14:27-0400 Respiratory rate 16 /min BEE PRODUCER-C Santi Carvajal BEE PRODUCER Work Phone: [facility] Work Phone: 12-20-2021 14:27-0400 Systolic blood pressure 126 mm[Hg] BEE PRODUCER-C Santi Carvajal BEE PRODUCER Work Phone: [facility] Work Phone: 10-17-2021 11:47-0400 Body temperature 98.7 [degF] BEE PRODUCER-C Santi Carvajal BEE PRODUCER Work Phone: [facility] Work Phone: 10-17-2021 11:47-0400 Diastolic blood pressure 78 mm[Hg] BEE PRODUCER-C Santi Carvajal BEE PRODUCER Work Phone: [facility] Work Phone: 10-17-2021 11:47-0400 Heart rate 75 /min BEE PRODUCER-C Santi Carvajal BEE PRODUCER Work Phone: [facility] Work Phone: 10-17-2021 11:47-0400 Respiratory rate 15 /min BEE PRODUCER-C Santi Carvajal BEE PRODUCER Work Phone: [facility] Work Phone: 10-17-2021 11:47-0400 SaO2% (BldA) [Mass fraction] 96 % BEE PRODUCER-C Santi Carvajal BEE PRODUCER Work Phone: [facility] Work Phone: 10-17-2021 11:47-0400 Systolic blood pressure 96 mm[Hg] BEE PRODUCER-C Santi Carvajal BEE PRODUCER Work Phone: [facility] Work Phone: Encounters Encounter Date Encounter Type Care Provider Facility Start: 07-16-2024 End: 07-16-2024 ambulatory BRITTANY CARVAJAL Facility:[facility] Start: 07-16-2024 End: 07-16-2024 Office outpatient visit 25 minutes Santi Patel APRN.CNP Work Phone: [facility] Comment on above: Acute cough (Primary Dx); Sinobronchitis Start: 07-16-2024 End: 07-16-2024 Subsequent hospital visit by physician Xr [facility] Work Phone: Radiology Comment on above: Acute cough [R05.1] Start: 01-30-2024 End: 01-30-2024 ambulatory Santi Carvajal BEE PRODUCER [place] Start: 01-15-2024 End: 01-15-2024 Emergency department patient visit Santi Carvajal BEE PRODUCER Facility:[facility] Start: 12-02-2023 End: 12-02-2023 ambulatory Santi Carvajal BEE PRODUCER [place] Start: 11-28-2023 Telephone encounter Guido Rausch MD Work Phone: [facility] Start: 11-24-2023 End: 11-24-2023 Subsequent hospital visit by physician Xr [facility] Work Phone: Radiology Comment on above: Elbow pain, right [M 25.521] Start: 11-24-2023 End: 11-24-2023 [facility] Facility:[facility] Start: 11-24-2023 End: 11-24-2023 Patient encounter procedure Guido Navarrete MD Work Phone: [facility] Comment on above: Elbow pain, right (P rimary Dx) Start: 09-24-2023 End: 09-24-2023 [facility] Facility:[facility] Start: 09-24-2023 End: 09-24-2023 Patient encounter procedure Dagmar Morrison APRN.CNP Work Phone: [facility] Comment on above: Chronic cough (Prima ry Dx) Start: 08-27-2023 End: 08-27-2023 [facility] Facility:[facility] Start: 08-27-2023 End: 08-27-2023 Patient encounter procedure Janine HAYNES Work Phone: [facility] Comment on above: Subacute cough (Prim essie Dx); Thrush Start: 08-23-2023 End: 08-23-2023 ambulatory [facility] [place] Start: 07-22-2023 End: 07-22-2023 ambulatory [facility] Facility:[facility] Start: 07-22-2023 End: 07-22-2023 Subsequent hospital visit by physician Xr [facility] Work Phone: Radiology Comment on above: Subacute cough [R05. 2] Start: 07-21-2023 End: 07-21-2023 [facility] Facility:[facility] Start: 07-21-2023 End: 07-21-2023 Patient encounter procedure Guido Navarrete MD Work Phone: [facility] Comment on above: Subacute cough (Prim essie Dx) Start: 07-03-2023 End: 07-03-2023 Subsequent hospital visit by physician [facility] Work Phone: Radiology Comment on above: Acute cough [R05.1] Start: 06-22-2023 End: 06-22-2023 ambulatory Santi Carvajal BEE PRODUCER [place] Start: 11-12-2022 End: 11-12-2022 ambulatory BEE PRODUCER-C Santi Carvajal BEE PRODUCER Work Phone: [facility] Work Phone: Start: 11-12-2022 End: 11-12-2022 Patient encounter procedure BEE PRODUCER-C Santi Carvajal BEE PRODUCER [facility] Start: 09-27-2022 End: 09-27-2022 ambulatory BEE PRODUCER-C Santi Carvajal BEE PRODUCER Work Phone: [facility] Work Phone: Start: 09-27-2022 End: 09-27-2022 Patient encounter procedure BEE PRODUCER-C Santi Carvajal BEE PRODUCER [facility] Start: 08-08-2022 End: 08-08-2022 Patient encounter procedure BEE PRODUCER-C Santi Carvajal BEE PRODUCER Work Phone: [facility] Start: 07-05-2022 End: 07-05-2022 ambulatory BEE PRODUCER-C Santi Carvajal BEE PRODUCER Work Phone: [facility] Work Phone: Start: 07-05-2022 End: 07-05-2022 Patient encounter procedure BEE PRODUCER-C Santi Carvajal BEE PRODUCER Work Phone: [facility] Start: 06-16-2022 End: 06-16-2022 Patient encounter procedure BEE PRODUCER-C Santi Carvajal BEE PRODUCER Work Phone: [facility] Start: 12-25-2021 End: 12-25-2021 Patient encounter procedure BEE PRODUCER-Ken Carvajal BEE PRODUCER Work Phone: [facility] Start: 12-20-2021 End: 12-20-2021 Patient encounter procedure BEE PRODUCER-Ken Carvajal BEE PRODUCER Work Phone: [facility] Start: 10-17-2021 End: 10-17-2021 Patient encounter procedure BEE PRODUCER-Ken Carvajal BEE PRODUCER Work Phone: [facility] Procedures Date Procedure Procedure Detail Performing Clinician Start: 07-16-2024 Radiologic exam ches t 2 views Santi Patel APRN.SPRAY GUN REPAIRER Work Phone: Start: 11-24-2023 Radex elbow complete minimum 3 views Guido Navarrete MD Work Phone: Start: 07-22-2023 Radiologic exam ches t 2 views Guido Navarrete MD Work Phone: Start: 07-03-2023 Radiologic exam ches t 2 views Jazzmine Elizabeth PLASMA PROCESSING CENTRIFUGE OPERATORMelvinaSPRAY GUN REPAIRER Work Phone: Start: 07-05-2022 Plain chest X-ray BEE PRODUCERPreet Carvajal BEE PRODUCER Work Phone: Start: 07-09-2020 History of placement of stent for coronary artery disease History of coronary artery stent placement WENDY Carvajal BEE PRODUCER Work Phone: Plan of Treatment Date Care Activity Detail Author Start: 2034 RSV Vaccine (1 - 1-d ose 75+ series) RSV Vaccine (1 - 1-dose 75+ series) [facility] Start: 02-11-2030 Urine microalbumin profile DTaP,Tdap,Td Vaccine (2 - Td or Tdap) [facility] Start: 06-12-2024 Advance Directive Discussion Advance Directive Discussion [facility] Start: 02-11-2024 Covid-19 Vaccine () Covid-19 Vaccine () [facility] Start: 02-11-2024 Covid-19 Vaccine ( season) Covid-19 Vaccine ( season) [facility] Start: 02-11-2024 Influenza vaccination [facility] Start: 06-12-2023 Behavioral Health Screening Behavioral Health Screening [facility] Start: 06-12-2023 Depression Assessment Depression Ass essment [facility] Start: 02-10-2023 Covid-19 Vaccine ( season) Covid-19 Vaccine () [facility] Start: 02-10-2023 Influenza vaccination Influenza Vacc ine (#1) [facility] Start: 2019 RSV Vaccine (1 - 1-d ose 60+ series) RSV Vaccine (1 - 1-dose 60+ series) [facility] Start: 2014 Prostate specific antigen measurement Prostate Cancer Screening Discussion [facility] Start: 2009 Pneumococcal Vaccine : 50+ (1 of 1 - PCV) Pneumococcal Vaccine: 50+ (1 of 1 - PCV) [facility] Start: 2009 Shingrix Vaccine (1 of 2) Shingrix Vaccine (1 of 2) [facility] Start: 2004 Diabetes Screening Diabetes Screenin g [facility] Start: 2004 Screening for malign ant neoplasm of colon [facility] Start: 1994 Lipid panel Lipid Screening [facility] Start: 1977 Anxiety Screening Anxiety Screening [facility] Start: 1977 Depression Screening Depression Scre ening [facility] Start: 1977 Hepatitis C screening Hepatitis C Sc neftali [facility] Start: 1977 HIV screening HIV Screening [facility] Start: 1959 Covid-19 Vaccine (#1) Covid-19 Vacci ne (#1) [facility] End: 08-19-2024 XR Chest 2 Views XR CHEST 2V FRONTAL/LAT Radiology STAT Subacute cough 1 Occurrences starting 07/21/2023 until 08/19/2024 [facility] Work Phone: Comment on above: 1 Occurrences starti ng 07/21/2023 until 08/19/2024 End: 09-25-2024 XR Chest PA and Lateral XR CHEST 2V FRONTAL/LAT Radiology STAT Subacute cough 1 Occurrences starting 08/27/2023 until 09/25/2024 [facility] Work Phone: Comment on above: 1 Occurrences starti ng 08/27/2023 until 09/25/2024 End: 12-23-2024 XR Elbow - right AP and Lateral and oblique XR ELBOW SPECIAL VIEWS AP/LAT/OTHER RIGHT Radiology Routine Elbow pain, right 1 Occurrences starting 11/24/2023 until 12/23/2024 [facility] Work Phone: Comment on above: 1 Occurrences starti ng 11/24/2023 until 12/23/2024 XR Elbow - right AP and Lateral and oblique XR ELBOW SPECIAL VIEWS AP/LAT/OTHER RIGHT Radiology Routine Elbow pain, right 11/24/2023 4:46 PM EDT [facility] Immunizations Immunization Date Immunization Notes Care Provider Fa south 02-12-2020 tetanus toxoid, redu junito diphtheria toxoid, and acellular pertussis vaccine, adsorbed Guido Navarrete MD Work Phone: [facility] Payers Date Payer Category Payer Self-pay [id number] 2023 Unknown [employer] C[employer] PPO OOS [id number] 2023-Present [phone] [address] [place] [address] PPO [id number] 2023 Unknown [id number] Unknown [id number] Unknown [id number] Unknown [id number] Unknown [id number] Social History Date Type Detail Facility Start: 12-20-2021 End: 08-08-2022 Tobacco smoking status NHIS Unknown if ever smoked [facility] Start: 07-09-2020 Heavy [facility] Start: 07-09-2020 None [facility] Start: 07-09-2020 Spouse/ Signif icant Other [facility] Start: 07-09-2020 Non-smoker [facility] Start: 1960 Sex Assigned At Male [facility] Start: 07-03-2023 Tobacco smoking status NHIS Never smoked tobacco [facility] Start: 07-03-2023 Tobacco use and exposure User of smokeless tobacco [facility] History of tobacco use Chews Tobacco [facility] Start: 07-21-2023 End: 07-16-2024 History of Social function [facility] Start: 07-21-2023 End: 07-16-2024 Tobacco use panel [facility] Start: 1960 Sex Assigned At Not on file [facility] Clinical Notes 07-03-2023 to 07-16-2024 Emily Wilson Tech - 07/16/2024 5:00 PM Santi Lassiter APRN.SPRAY GUN REPAIRER - 07/16/2024 4:42 PM ESTTelephone Encounter - Vivian Whalen LPN - 11/28/2023 8:52 AM EDT Note Date & Type Note Facility 07-16-2024 History of Presen t illness Narrative Radiology Service Progress Note PATIENT NAME: Becka Valdez DATE OF SERVICE: July 16, 2024 TIME: 5:03 PM PATIENT IDENTITY VERIFICATION COMPLETED USING TWO (2) IDENTIFIERS: Name and Date of confirmed by patient verbally. FALL SCREENING: Has the patient had 2 falls in the last year or 1 fall with injury or currently using an Ambulatory Assistive Device (Walker, Cane, Wheelchair, Crutches, etc.)? No PATIENT GENDER DATA: Assigned male at PATIENT RELEVANT IMPLANT DATA REVIEWED: Not Applicable PATIENT PRESENTS WITH AN IMPLANTABLE OR ATTACHED ASSOCIATE STORE DIRECTOR: No RADIOLOGY DEPARTMENT: General X-ray: Exam(s) Completed: Chest X-Ray PERIPHERAL IV DATA: Not applicable SIGNED BY: Valentino Arita July 16, 2024 5:03 PM documented in this encounter [facility] 07-16-2024 Note HNO ID: [id number] Author: EMILY WILSON Tech Service: ? Author Type: Technologist Type: Progress Notes Filed: 07/16/2024 17:03 Note Text: Radiology Service Progress Note PATIENT NAME: Becka Valdez DATE OF SERVICE: July 16, 2024 TIME: 5:03 PM PATIENT IDENTITY VERIFICATION COMPLETED USING TWO (2) IDENTIFIERS: Name and Date of confirmed by patient verbally. FALL SCREENING: Has the patient had 2 falls in the last year or 1 fall with injury or currently using an Ambulatory Assistive Device (Walker, Cane, Wheelchair, Crutches, etc.)? No PATIENT GENDER DATA: Assigned male at PATIENT RELEVANT IMPLANT DATA REVIEWED: Not Applicable PATIENT PRESENTS WITH AN IMPLANTABLE OR ATTACHED ASSOCIATE STORE DIRECTOR: No RADIOLOGY DEPARTMENT: General X-ray: Exam(s) Completed: Chest X-Ray PERIPHERAL IV DATA: Not applicable SIGNED BY: Valentino Arita July 16, 2024 5:03 PM [facility] 07-16-2024 Note HNO ID: [id number] Author: SANTI PATEL APRN.SPRAY GUN REPAIRER Service: ? Author Type: Nurse Practitioner Type: Progress Notes Filed: 07/16/2024 17:12 Note Text: Subjective HPI Nontoxic-appearing 64-year-old male presents urgent care chief plaint cough chest congestion headache. Duration of symptoms 4 days. Associated symptoms listed above. Most prominent symptom today is cough. OTC medications none. Sick contacts unknown. Denies any chest pain shortness of breath pleuritic pain or hemoptysis. Past medical history prescription medications allergies reviewed. .Patient presents with: Cough: Cough and chest congestion x 4 days PAST MEDICAL HISTORY Diagnosis Date Coronary artery disease s/p OR Hyperlipidemia Hypertension PAST SURGICAL HISTORY Procedure Laterality Date HERNIA REPAIR HX Bilateral inguinal ALLERGIES Patient has no known allergies. MEDICATIONS nystatin (MYCOSTATIN) 100,000 unit/mL suspension Take 5 mL by mouth four times daily. 1tsp swish in mouth for several minutes, then swallow (or expectorate) 4 times daily until gone. amLODIPine (NORVASC) 5 mg tablet aspirin, enteric coated (ASPIRIN, ENTERIC COATED) 81 mg EC tablet isosorbide mononitrate ER (IMDUR) 30 mg 24 hr tablet metoprolol tartrate, short acting, (LOPRESSOR) 50 mg tablet rosuvastatin (CRESTOR) 20 mg tablet ascorbic acid (VITAMIN C ORAL) Take by mouth. mv-min/folic/K1/lycopen/lutein (CENTRUM SILVER ULTRA MEN'S ORAL) Take by mouth. benzonatate (TESSALON PERLE) 100 mg capsule Take 2 capsules by mouth three times a day as needed. (Patient not taking: Reported on 11/24/2023) benzonatate (TESSALON PERLES) 100 mg capsule Take 1 capsule by mouth three times a day as needed. (Patient not taking: Reported on 09/24/2023) No family history on file. Social History Tobacco Use Smoking status: Never Smokeless tobacco: Current Types: Chew BP 128/80 Pulse 94 Temp 36.7 ?C (98.1 ?F) (Tympanic) Resp 16 Wt 87.5 kg (192 lb 14.4 oz) SpO2 96% Review of Systems Constitutional: Negative for chills, fever and malaise/fatigue. HENT: Positive for congestion. Negative for ear discharge, ear pain, sinus pain and sore throat. Eyes: Negative for blurred vision, pain, discharge and redness. Respiratory: Positive for cough. Negative for hemoptysis, sputum production, shortness of breath, wheezing and stridor. Cardiovascular: Negative for chest pain. Gastrointestinal: Negative for abdominal pain, diarrhea, nausea and vomiting. Musculoskeletal: Negative for myalgias. Skin: Negative for itching and rash. Neurological: Negative for dizziness and headaches. Objective Physical Exam Constitutional: General: He is not in acute distress. Appearance: He is not diaphoretic. HENT: Head: Normocephalic. Jaw: No trismus, tenderness, swelling or pain on movement. Nose: Congestion present. Mouth/Throat: Mouth: Mucous membranes are moist. Pharynx: Oropharynx is clear. Uvula midline. No pharyngeal swelling, oropharyngeal exudate, posterior oropharyngeal erythema or uvula swelling. Eyes: Conjunctiva/sclera: Conjunctivae normal. Pupils: Pupils are equal, round, and reactive to light. Cardiovascular: Rate and Rhythm: Normal rate and regular rhythm. Heart sounds: Normal heart sounds. Pulmonary: Effort: Pulmonary effort is normal. No tachypnea, accessory muscle usage or respiratory distress. Breath sounds: Normal breath sounds. No stridor. No wheezing, rhonchi or rales. Abdominal: General: There is no distension. Palpations: Abdomen is soft. Tenderness: There is no abdominal tenderness. There is no guarding or rebound. Musculoskeletal: Cervical back: Normal range of motion and neck supple. No edema, erythema, rigidity or tenderness. No pain with movement. Normal range of motion. Lymphadenopathy: Cervical: No cervical adenopathy. Skin: General: Skin is warm and dry. Neurological: Mental Status: He is alert and oriented to person, place, and time. ASSESSMENT/PLAN: 1. Acute cough - ICD9: 786.2, ICD10: R05.1 (primary diagnosis) - XR CHEST 2V FRONTAL/LAT 2. Sinobronchitis - ICD9: 473.9, 490, ICD10: J32.9, J40 IMPRESSION: Stable exam with no acute radiographic abnormality. Diagnosed sinobronchitis. No acute findings noted on chest x-ray. Placed on prednisone and doxycycline. Has tolerated these antibiotics in the past. Patient was educated on supportive therapies. Patient will follow up with primary care provider as needed. Patient was instructed to immediately proceed to emergency room for any new, worsening, or symptoms lasting longer than anticipated. The patient's clinical presentation is otherwise unremarkable at this time. Based on exam and clinical finding, the patient is stable for discharge. Plan of care was discussed with patient. Patient verbalizes understanding and agrees to plan of care. This note was generated using [employer] software. It may contain errors in (more content not included)... [facility] 07-16-2024 History of Presen t illness Narrative Subjective HPI Nontoxic-appearing 64-year-old male presents urgent care chief plaint cough chest congestion headache. Duration of symptoms 4 days. Associated symptoms listed above. Most prominent symptom today is cough. OTC medications none. Sick contacts unknown. Denies any chest pain shortness of breath pleuritic pain or hemoptysis. Past medical history prescription medications allergies reviewed. .Patient presents with: Cough: Cough and chest congestion x 4 days PAST MEDICAL HISTORY Diagnosis Date Coronary artery disease s/p OR Hyperlipidemia Hypertension PAST SURGICAL HISTORY Procedure Laterality Date HERNIA REPAIR HX Bilateral inguinal ALLERGIES Patient has no known allergies. MEDICATIONS nystatin (MYCOSTATIN) 100,000 unit/mL suspension Take 5 mL by mouth four times daily. 1tsp swish in mouth for several minutes, then swallow (or expectorate) 4 times daily until gone. amLODIPine (NORVASC) 5 mg tablet aspirin, enteric coated (ASPIRIN, ENTERIC COATED) 81 mg EC tablet isosorbide mononitrate ER (IMDUR) 30 mg 24 hr tablet metoprolol tartrate, short acting, (LOPRESSOR) 50 mg tablet rosuvastatin (CRESTOR) 20 mg tablet ascorbic acid (VITAMIN C ORAL) Take by mouth. mv-min/folic/K1/lycopen/lutein (CENTRUM SILVER ULTRA MEN'S ORAL) Take by mouth. benzonatate (TESSALON PERLE) 100 mg capsule Take 2 capsules by mouth three times a day as needed. (Patient not taking: Reported on 11/24/2023) benzonatate (TESSALON PERLES) 100 mg capsule Take 1 capsule by mouth three times a day as needed. (Patient not taking: Reported on 09/24/2023) No family history on file. Social History Tobacco Use Smoking status: Never Smokeless tobacco: Current Types: Chew BP 128/80 Pulse 94 Temp 36.7 C (98.1 F) (Tympanic) Resp 16 Wt 87.5 kg (192 lb 14.4 oz) SpO2 96% Review of Systems Constitutional: Negative for chills, fever and malaise/fatigue. HENT: Positive for congestion. Negative for ear discharge, ear pain, sinus pain and sore throat. Eyes: Negative for blurred vision, pain, discharge and redness. Respiratory: Positive for cough. Negative for hemoptysis, sputum production, shortness of breath, wheezing and stridor. Cardiovascular: Negative for chest pain. Gastrointestinal: Negative for abdominal pain, diarrhea, nausea and vomiting. Musculoskeletal: Negative for myalgias. Skin: Negative for itching and rash. Neurological: Negative for dizziness and headaches. Objective Physical Exam Constitutional: General: He is not in acute distress. Appearance: He is not diaphoretic. HENT: Head: Normocephalic. Jaw: No trismus, tenderness, swelling or pain on movement. Nose: Congestion present. Mouth/Throat: Mouth: Mucous membranes are moist. Pharynx: Oropharynx is clear. Uvula midline. No pharyngeal swelling, oropharyngeal exudate, posterior oropharyngeal erythema or uvula swelling. Eyes: Conjunctiva/sclera: Conjunctivae normal. Pupils: Pupils are equal, round, and reactive to light. Cardiovascular: Rate and Rhythm: Normal rate and regular rhythm. Heart sounds: Normal heart sounds. Pulmonary: Effort: Pulmonary effort is normal. No tachypnea, accessory muscle usage or respiratory distress. Breath sounds: Normal breath sounds. No stridor. No wheezing, rhonchi or rales. Abdominal: General: There is no distension. Palpations: Abdomen is soft. Tenderness: There is no abdominal tenderness. There is no guarding or rebound. Musculoskeletal: Cervical back: Normal range of motion and neck supple. No edema, erythema, rigidity or tenderness. No pain with movement. Normal range of motion. Lymphadenopathy: Cervical: No cervical adenopathy. Skin: General: Skin is warm and dry. Neurological: Mental Status: He is alert and oriented to person, place, and time. ASSESSMENT/PLAN: 1. Acute cough - ICD9: 786.2, ICD10: R05.1 (primary diagnosis) - XR CHEST 2V FRONTAL/LAT 2. Sinobronchitis - ICD9: 473.9, 490, ICD10: J32.9, J40 IMPRESSION: Stable exam with no acute radiographic abnormality. Diagnosed sinobronchitis. No acute findings noted on chest x-ray. Placed on prednisone and doxycycline. Has tolerated these antibiotics in the past. Patient was educated on supportive therapies. Patient will follow up with primary care provider as needed. Patient was instructed to immediately proceed to emergency room for any new, worsening, or symptoms lasting longer than anticipated. The patient's clinical presentation is otherwise unremarkable at this time. Based on exam and clinical finding, the patient is stable for discharge. Plan of care was discussed with patient. Patient verbalizes understanding and agrees to plan of care. This note was generated using [employer] software. It may contain errors in wording, punctuation, or spelling. Santi Patel APRN.[employer] documented in this encounter [facility] 11-28-2023 Telephone encounter Note Pt notified of results and provider message. Vivian Whalen LPN [facility] 11-28-2023 Miscellaneous Notes Pt notified of results and provider message. Vivian Whalen LPN Left message for patient to return call. Elo Lau LPN ----- Message from Guido Navarrete MD sent at 11/27/2023 8:17 PM EDT ----- No fractures on final x-ray report. documented in this encounter [facility] 11-28-2023 Telephone encounter Note Left message for patient to return call. Elo Lau LPN [facility] 11-28-2023 Telephone encounter Note ----- Message from Guido Navarrete MD sent at 11/27/2023 8:17 PM EDT ----- No fractures on final x-ray report. [facility] 11-24-2023 History of Presen t illness Narrative Radiology Service Progress Note PATIENT NAME: Becka Valdez DATE OF SERVICE: November 24, 2023 TIME: 4:40 PM PATIENT IDENTITY VERIFICATION COMPLETED USING TWO (2) IDENTIFIERS: Name and Date of confirmed by patient verbally. FALL SCREENING: Has the patient had 2 falls in the last year or 1 fall with injury or currently using an Ambulatory Assistive Device (Walker, Cane, Wheelchair, Crutches, etc.)? No PATIENT GENDER DATA: Male PATIENT RELEVANT IMPLANT DATA REVIEWED: Not Applicable PATIENT PRESENTS WITH AN IMPLANTABLE OR ATTACHED ASSOCIATE STORE DIRECTOR: No RADIOLOGY DEPARTMENT: General X-ray: Exam(s) Completed: Upper Extremity X-Ray(s): Elbow, right PERIPHERAL IV DATA: Not applicable SIGNED BY: RT Arpan(R) November 24, 2023 4:40 PM documented in this encounter [facility] 11-24-2023 Note HNO ID: [id number] Author: PHILLIP GÓMEZ RT([employer]) Service: Radiology Author Type: Technologist Type: Progress Notes Filed: 11/24/2023 16:46 Note Text: Radiology Service Progress Note PATIENT NAME: Becka Valdez DATE OF SERVICE: November 24, 2023 TIME: 4:40 PM PATIENT IDENTITY VERIFICATION COMPLETED USING TWO (2) IDENTIFIERS: Name and Date of confirmed by patient verbally. FALL SCREENING: Has the patient had 2 falls in the last year or 1 fall with injury or currently using an Ambulatory Assistive Device (Walker, Cane, Wheelchair, Crutches, etc.)? No PATIENT GENDER DATA: Male PATIENT RELEVANT IMPLANT DATA REVIEWED: Not Applicable PATIENT PRESENTS WITH AN IMPLANTABLE OR ATTACHED ASSOCIATE STORE DIRECTOR: No RADIOLOGY DEPARTMENT: General X-ray: Exam(s) Completed: Upper Extremity X-Ray(s): Elbow, right PERIPHERAL IV DATA: Not applicable SIGNED BY: RT Arpan(Cit[employer]) November 24, 2023 4:40 PM [facility] 11-24-2023 Note HNO ID: [id number] Author: GUIDO NAVARRETE MD Service: ? Author Type: Physician Type: Progress Notes Filed: 11/24/2023 18:56 Note Text: Patient presents with: Edema: R arm -Elbow bruising and swelling x 3 days some puncture wounds are scabbed, no s/sx of infection, pain is starting fabian nside of elbow HPI: Right elbow pain: Duration: pinned between a horse and a gate 2 days ago Location: medial right elbow where bruised Character: aching and tender, worsening Radiation: No. Aggravating: touching and lifting Relieving: Pain relievers: none Associated: bruising Pertinent negatives: Denies fever, numnbess MEDICATIONS: nystatin (MYCOSTATIN) 100,000 unit/mL suspension Take 5 mL by mouth four times daily. 1tsp swish in mouth for several minutes, then swallow (or expectorate) 4 times daily until gone. amLODIPine (NORVASC) 5 mg tablet aspirin, enteric coated (ASPIRIN, ENTERIC COATED) 81 mg EC tablet isosorbide mononitrate ER (IMDUR) 30 mg 24 hr tablet metoprolol tartrate, short acting, (LOPRESSOR) 50 mg tablet rosuvastatin (CRESTOR) 20 mg tablet ascorbic acid (VITAMIN C ORAL) Take by mouth. mv-min/folic/K1/lycopen/lutein (CENTRUM SILVER ULTRA MEN'S ORAL) Take by mouth. benzonatate (TESSALON PERLE) 100 mg capsule Take 2 capsules by mouth three times a day as needed. (Patient not taking: Reported on 11/24/2023) benzonatate (TESSALON PERLES) 100 mg capsule Take 1 capsule by mouth three times a day as needed. (Patient not taking: Reported on 09/24/2023) ALLERGIES: ALLERGIES No Known Allergies VITALS: BP 168/90 Pulse 84 Temp 37.2 ?C (98.9 ?F) Resp 18 Wt 83 kg (182 lb 15.7 oz) SpO2 100% PHYSICAL EXAM: GEN: pleasant, alert, no acute distress ELBOW: right. 6-8cm bluish ecchymosis medial aspect. No erythema. Full ROM with tightness on full extension. Tender olecranon. Non-tender medial and lateral epicondyles. Tender radial head and proximal flexor muscles near the origin. Non-tender biceps and shoulder. ASSESSMENT/PLAN: 1. Elbow pain, right - ICD9: 719.42, ICD10: M25.521 - XR ELBOW SPECIAL VIEWS AP/LAT/OTHER RIGHT - no obvious fracture or dislocation. Radiology interpretation is pending. The patient will be notified if there is a significant finding in the report not discussed at the time of the visit. Treat elbow contusion with rest, ice, compression, and as needed analgesia. Advance activity as tolerated. JODY wrap applied. Guido Navarrete MD [facility] 11-24-2023 History of Presen t illness Narrative Patient presents with: Edema: R arm -Elbow bruising and swelling x 3 days some puncture wounds are scabbed, no s/sx of infection, pain is starting fabian nside of elbow HPI: Right elbow pain: Duration: pinned between a horse and a gate 2 days ago Location: medial right elbow where bruised Character: aching and tender, worsening Radiation: No. Aggravating: touching and lifting Relieving: Pain relievers: none Associated: bruising Pertinent negatives: Denies fever, numnbess MEDICATIONS: nystatin (MYCOSTATIN) 100,000 unit/mL suspension Take 5 mL by mouth four times daily. 1tsp swish in mouth for several minutes, then swallow (or expectorate) 4 times daily until gone. amLODIPine (NORVASC) 5 mg tablet aspirin, enteric coated (ASPIRIN, ENTERIC COATED) 81 mg EC tablet isosorbide mononitrate ER (IMDUR) 30 mg 24 hr tablet metoprolol tartrate, short acting, (LOPRESSOR) 50 mg tablet rosuvastatin (CRESTOR) 20 mg tablet ascorbic acid (VITAMIN C ORAL) Take by mouth. mv-min/folic/K1/lycopen/lutein (CENTRUM SILVER ULTRA MEN'S ORAL) Take by mouth. benzonatate (TESSALON PERLE) 100 mg capsule Take 2 capsules by mouth three times a day as needed. (Patient not taking: Reported on 11/24/2023) benzonatate (TESSALON PERLES) 100 mg capsule Take 1 capsule by mouth three times a day as needed. (Patient not taking: Reported on 09/24/2023) ALLERGIES: ALLERGIES No Known Allergies VITALS: BP 168/90 Pulse 84 Temp 37.2 C (98.9 F) Resp 18 Wt 83 kg (182 lb 15.7 oz) SpO2 100% PHYSICAL EXAM: GEN: pleasant, alert, no acute distress ELBOW: right. 6-8cm bluish ecchymosis medial aspect. No erythema. Full ROM with tightness on full extension. Tender olecranon. Non-tender medial and lateral epicondyles. Tender radial head and proximal flexor muscles near the origin. Non-tender biceps and shoulder. ASSESSMENT/PLAN: 1. Elbow pain, right - ICD9: 719.42, ICD10: M25.521 - XR ELBOW SPECIAL VIEWS AP/LAT/OTHER RIGHT - no obvious fracture or dislocation. Radiology interpretation is pending. The patient will be notified if there is a significant finding in the report not discussed at the time of the visit. Treat elbow contusion with rest, ice, compression, and as needed analgesia. Advance activity as tolerated. JODY wrap applied. Guido Navarrete MD documented in this encounter [facility] 09-24-2023 Note HNO ID: [id number] Author: DAGMAR MORRISON APRN.[employer] Service: ? Author Type: Nurse Practitioner Type: Progress Notes Filed: 09/24/2023 12:21 Note Text: Subjective HPI HPI Becka Valdez is a 63 year old male who presents today for CC of cough. This started months. Has tried multiple rounds of atb with minimal relief, multiple xray negative. Symptoms are worsened by nothing. nonsmoker. .Patient presents with: Cough: Chest congestion x2 weeks, recent Flu PAST MEDICAL HISTORY Diagnosis Date Coronary artery disease s/p OR Hyperlipidemia Hypertension PAST SURGICAL HISTORY Procedure Laterality Date HERNIA REPAIR HX Bilateral inguinal ALLERGIES Patient has no known allergies. MEDICATIONS nystatin (MYCOSTATIN) 100,000 unit/mL suspension Take 5 mL by mouth four times daily. 1tsp swish in mouth for several minutes, then swallow (or expectorate) 4 times daily until gone. amLODIPine (NORVASC) 5 mg tablet aspirin, enteric coated (ASPIRIN, ENTERIC COATED) 81 mg EC tablet isosorbide mononitrate ER (IMDUR) 30 mg 24 hr tablet metoprolol tartrate, short acting, (LOPRESSOR) 50 mg tablet rosuvastatin (CRESTOR) 20 mg tablet ascorbic acid (VITAMIN C ORAL) Take by mouth. mv-min/folic/K1/lycopen/lutein (CENTRUM SILVER ULTRA MEN'S ORAL) Take by mouth. benzonatate (TESSALON PERLES) 100 mg capsule Take 1 capsule by mouth three times a day as needed. (Patient not taking: Reported on 09/24/2023) No family history on file. Social History Tobacco Use Smoking status: Never Smokeless tobacco: Current Types: Chew Review of Systems Constitutional: Negative for fever and weight loss. HENT: Negative for ear pain and sinus pain. Respiratory: Positive for cough. Negative for shortness of breath. Cardiovascular: Negative for chest pain. Objective Blood pressure 139/90, pulse (!) 56, temperature 36.9 ?C (98.5 ?F), resp. rate 18, weight 82.7 kg (182 lb 5.1 oz), SpO2 98%. Physical Exam Constitutional: General: He is not in acute distress. Appearance: He is not toxic-appearing or diaphoretic. HENT: Head: Normocephalic and atraumatic. Cardiovascular: Rate and Rhythm: Normal rate and regular rhythm. Heart sounds: Normal heart sounds, S1 normal and S2 normal. Pulmonary: Effort: Pulmonary effort is normal. Breath sounds: Normal breath sounds. Lymphadenopathy: Cervical: No cervical adenopathy. Right cervical: No superficial cervical adenopathy. Left cervical: No superficial cervical adenopathy. Neurological: Mental Status: He is alert and oriented to person, place, and time. Gait: Gait is intact. ASSESSMENT/PLAN: 1. Chronic cough - ICD9: 786.2, ICD10: R05.3 No xray at time of exam Try steroid F/u with pcp - PREDNISONE 10 MG TABLET - BENZONATATE 100 MG CAPSULE Dagmar Morrison APRN.[facility] 09-24-2023 History of Presen t illness Narrative Subjective HPI HPI Becka Valdez is a 63 year old male who presents today for CC of cough. This started months. Has tried multiple rounds of atb with minimal relief, multiple xray negative. Symptoms are worsened by nothing. nonsmoker. .Patient presents with: Cough: Chest congestion x2 weeks, recent Flu PAST MEDICAL HISTORY Diagnosis Date Coronary artery disease s/p OR Hyperlipidemia Hypertension PAST SURGICAL HISTORY Procedure Laterality Date HERNIA REPAIR HX Bilateral inguinal ALLERGIES Patient has no known allergies. MEDICATIONS nystatin (MYCOSTATIN) 100,000 unit/mL suspension Take 5 mL by mouth four times daily. 1tsp swish in mouth for several minutes, then swallow (or expectorate) 4 times daily until gone. amLODIPine (NORVASC) 5 mg tablet aspirin, enteric coated (ASPIRIN, ENTERIC COATED) 81 mg EC tablet isosorbide mononitrate ER (IMDUR) 30 mg 24 hr tablet metoprolol tartrate, short acting, (LOPRESSOR) 50 mg tablet rosuvastatin (CRESTOR) 20 mg tablet ascorbic acid (VITAMIN C ORAL) Take by mouth. mv-min/folic/K1/lycopen/lutein (CENTRUM SILVER ULTRA MEN'S ORAL) Take by mouth. benzonatate (TESSALON PERLES) 100 mg capsule Take 1 capsule by mouth three times a day as needed. (Patient not taking: Reported on 09/24/2023) No family history on file. Social History Tobacco Use Smoking status: Never Smokeless tobacco: Current Types: Chew Review of Systems Constitutional: Negative for fever and weight loss. HENT: Negative for ear pain and sinus pain. Respiratory: Positive for cough. Negative for shortness of breath. Cardiovascular: Negative for chest pain. Objective Blood pressure 139/90, pulse (!) 56, temperature 36.9 C (98.5 F), resp. rate 18, weight 82.7 kg (182 lb 5.1 oz), SpO2 98%. Physical Exam Constitutional: General: He is not in acute distress. Appearance: He is not toxic-appearing or diaphoretic. HENT: Head: Normocephalic and atraumatic. Cardiovascular: Rate and Rhythm: Normal rate and regular rhythm. Heart sounds: Normal heart sounds, S1 normal and S2 normal. Pulmonary: Effort: Pulmonary effort is normal. Breath sounds: Normal breath sounds. Lymphadenopathy: Cervical: No cervical adenopathy. Right cervical: No superficial cervical adenopathy. Left cervical: No superficial cervical adenopathy. Neurological: Mental Status: He is alert and oriented to person, place, and time. Gait: Gait is intact. ASSESSMENT/PLAN: 1. Chronic cough - ICD9: 786.2, ICD10: R05.3 No xray at time of exam Try steroid F/u with pcp - PREDNISONE 10 MG TABLET - BENZONATATE 100 MG CAPSULE Dagmar Morrison APRN.[employer] REPAIRER documented in this encounter [facility] 08-27-2023 Note HNO ID: [id number] Author: JANINE ESCOBAR PA Service: ? Author Type: Physician [employer] Type: Progress Notes Filed: 08/27/2023 14:23 Note Text: This note was created using [employer]. Subjective Becka Valdez is a 63 year old male. HPI 63-year-old male presents for cough, chest congestion, nasal congestion for 3 weeks. Patient started getting sick 3 weeks ago with cough, nasal congestion. He states that this week he had a fever on Monday. Fevers have now resolved. He was seen on Monday by an urgent care and diagnosed with influenza. He states that he was prescribed Tamiflu, but did not take it. Patient states that his cough is continuing and worsening. He states it was productive, now is more dry and consistent. He does have nasal congestion and green nasal drainage. No vomiting or diarrhea. No chest pain or shortness of breath. No history of COPD or asthma. PAST MEDICAL HISTORY Diagnosis Date Coronary artery disease s/p OR Hyperlipidemia Hypertension PAST SURGICAL HISTORY Procedure Laterality Date HERNIA REPAIR HX Bilateral inguinal ALLERGIES Patient has no known allergies. MEDICATIONS amLODIPine (NORVASC) 5 mg tablet aspirin, enteric coated (ASPIRIN, ENTERIC COATED) 81 mg EC tablet isosorbide mononitrate ER (IMDUR) 30 mg 24 hr tablet metoprolol tartrate, short acting, (LOPRESSOR) 50 mg tablet rosuvastatin (CRESTOR) 20 mg tablet ascorbic acid (VITAMIN C ORAL) Take by mouth. mv-min/folic/K1/lycopen/lutein (CENTRUM SILVER ULTRA MEN'S ORAL) Take by mouth. doxycycline (VIBRA-TABS) 100 mg tablet Take 1 tablet by mouth two times a day for 7 days. nystatin (MYCOSTATIN) 100,000 unit/mL suspension Take 5 mL by mouth four times daily. 1tsp swish in mouth for several minutes, then swallow (or expectorate) 4 times daily until gone. benzonatate (TESSALON PERLES) 100 mg capsule Take 1 capsule by mouth three times a day as needed. No family history on file. Social History Tobacco Use Smoking status: Never Smokeless tobacco: Current Types: Chew Review of Systems Constitutional: Positive for fever. Negative for chills. HENT: Positive for congestion, sinus pressure and sinus pain. Negative for sore throat. Respiratory: Positive for cough. Negative for shortness of breath and wheezing. Gastrointestinal: Negative for diarrhea and vomiting. Objective BP 122/78 Pulse 82 Temp 36.9 ?C (98.5 ?F) Resp 18 Wt 80.1 kg (176 lb 9.4 oz) SpO2 96% Physical Exam Vitals and nursing note reviewed. Constitutional: General: He is not in acute distress. Appearance: Normal appearance. He is not toxic-appearing. HENT: Right Ear: Tympanic membrane and ear canal normal. Left Ear: Tympanic membrane and ear canal normal. Nose: Congestion present. Mouth/Throat: Mouth: Mucous membranes are moist. Oral lesions present. Tongue: Lesions present. Comments: Patient has white patches on the posterior oropharynx. No tonsillar exudates. He also has some white patches on his tongue. Eyes: Conjunctiva/sclera: Conjunctivae normal. Cardiovascular: Rate and Rhythm: Normal rate and regular rhythm. Pulmonary: Effort: Pulmonary effort is normal. Breath sounds: Rhonchi (Bilateral lower lobe) present. Skin: General: Skin is warm and dry. Neurological: Mental Status: He is alert. Assessment and Plan ASSESSMENT/PLAN: 1. Subacute cough - ICD9: 786.2, ICD10: R05.2 (primary diagnosis) -No XR available at time of exam. Patient will return tomorrow for CXR. -Recently diagnosed with influenza. -Symptoms x 3 weeks. Will treat for sinobronchitis with doxycycline. -Rx for Tessalon Perles - XR CHEST 2V FRONTAL/LAT-patient will return tomorrow for XR. -If XR reveals pneumonia, will need to add on Augmentin due to patient's comorbidities/CAD. 2. Thrush - ICD9: 112.0, ICD10: B37.0 -White patches noted in the oropharynx and tongue. Suspect thrush. Patient was on antibiotics about a month ago. -Rx for nystatin mouthwash Diagnosis and treatment plan were discussed and questions were answered to the patient's satisfaction. Pt acknowledged understanding of concepts and follow up plan. Specific signs and symptoms that would indicate the need for higher level of care were discussed in detail warranting prompt ER evaluation. IVY Gutierrez [facility] 08-27-2023 History of Presen t illness Narrative This note was created using [employer]. Subjective Becka Valdez is a 63 year old male. HPI 63-year-old male presents for cough, chest congestion, nasal congestion for 3 weeks. Patient started getting sick 3 weeks ago with cough, nasal congestion. He states that this week he had a fever on Monday. Fevers have now resolved. He was seen on Monday by an urgent care and diagnosed with influenza. He states that he was prescribed Tamiflu, but did not take it. Patient states that his cough is continuing and worsening. He states it was productive, now is more dry and consistent. He does have nasal congestion and green nasal drainage. No vomiting or diarrhea. No chest pain or shortness of breath. No history of COPD or asthma. PAST MEDICAL HISTORY Diagnosis Date Coronary artery disease s/p OR Hyperlipidemia Hypertension PAST SURGICAL HISTORY Procedure Laterality Date HERNIA REPAIR HX Bilateral inguinal ALLERGIES Patient has no known allergies. MEDICATIONS amLODIPine (NORVASC) 5 mg tablet aspirin, enteric coated (ASPIRIN, ENTERIC COATED) 81 mg EC tablet isosorbide mononitrate ER (IMDUR) 30 mg 24 hr tablet metoprolol tartrate, short acting, (LOPRESSOR) 50 mg tablet rosuvastatin (CRESTOR) 20 mg tablet ascorbic acid (VITAMIN C ORAL) Take by mouth. mv-min/folic/K1/lycopen/lutein (CENTRUM SILVER ULTRA MEN'S ORAL) Take by mouth. doxycycline (VIBRA-TABS) 100 mg tablet Take 1 tablet by mouth two times a day for 7 days. nystatin (MYCOSTATIN) 100,000 unit/mL suspension Take 5 mL by mouth four times daily. 1tsp swish in mouth for several minutes, then swallow (or expectorate) 4 times daily until gone. benzonatate (TESSALON PERLES) 100 mg capsule Take 1 capsule by mouth three times a day as needed. No family history on file. Social History Tobacco Use Smoking status: Never Smokeless tobacco: Current Types: Chew Review of Systems Constitutional: Positive for fever. Negative for chills. HENT: Positive for congestion, sinus pressure and sinus pain. Negative for sore throat. Respiratory: Positive for cough. Negative for shortness of breath and wheezing. Gastrointestinal: Negative for diarrhea and vomiting. Objective BP 122/78 Pulse 82 Temp 36.9 C (98.5 F) Resp 18 Wt 80.1 kg (176 lb 9.4 oz) SpO2 96% Physical Exam Vitals and nursing note reviewed. Constitutional: General: He is not in acute distress. Appearance: Normal appearance. He is not toxic-appearing. HENT: Right Ear: Tympanic membrane and ear canal normal. Left Ear: Tympanic membrane and ear canal normal. Nose: Congestion present. Mouth/Throat: Mouth: Mucous membranes are moist. Oral lesions present. Tongue: Lesions present. Comments: Patient has white patches on the posterior oropharynx. No tonsillar exudates. He also has some white patches on his tongue. Eyes: Conjunctiva/sclera: Conjunctivae normal. Cardiovascular: Rate and Rhythm: Normal rate and regular rhythm. Pulmonary: Effort: Pulmonary effort is normal. Breath sounds: Rhonchi (Bilateral lower lobe) present. Skin: General: Skin is warm and dry. Neurological: Mental Status: He is alert. Assessment and Plan ASSESSMENT/PLAN: 1. Subacute cough - ICD9: 786.2, ICD10: R05.2 (primary diagnosis) -No XR available at time of exam. Patient will return tomorrow for CXR. -Recently diagnosed with influenza. -Symptoms x 3 weeks. Will treat for sinobronchitis with doxycycline. -Rx for Tessalon Perles - XR CHEST 2V FRONTAL/LAT-patient will return tomorrow for XR. -If XR reveals pneumonia, will need to add on Augmentin due to patient's comorbidities/CAD. 2. Thrush - ICD9: 112.0, ICD10: B37.0 -White patches noted in the oropharynx and tongue. Suspect thrush. Patient was on antibiotics about a month ago. -Rx for nystatin mouthwash Diagnosis and treatment plan were discussed and questions were answered to the patient's satisfaction. Pt acknowledged understanding of concepts and follow up plan. Specific signs and symptoms that would indicate the need for higher level of care were discussed in detail warranting prompt ER evaluation. IVY Gutierrez documented in this encounter [facility] 07-22-2023 History of Presen t illness Narrative Radiology Service Progress Note PATIENT NAME: Becka Valdez DATE OF SERVICE: July 22, 2023 TIME: 10:07 AM PATIENT IDENTITY VERIFICATION COMPLETED USING TWO (2) IDENTIFIERS: Name and Date of confirmed by patient verbally. FALL SCREENING: Has the patient had 2 falls in the last year or 1 fall with injury or currently using an Ambulatory Assistive Device (Walker, Cane, Wheelchair, Crutches, etc.)? No PATIENT GENDER DATA: Male PATIENT RELEVANT IMPLANT DATA REVIEWED: Yes PATIENT PRESENTS WITH AN IMPLANTABLE OR ATTACHED ASSOCIATE STORE DIRECTOR: No RADIOLOGY DEPARTMENT: General X-ray: Exam(s) Completed: Chest X-Ray PERIPHERAL IV DATA: Not applicable SIGNED BY: RT Cadence(R) July 22, 2023 10:07 AM documented in this encounter [facility] 07-22-2023 Note HNO ID: [id number] Author: LANDRY LANE RT(R) Service: ? Author Type: Fitness [employer] Manager Type: Progress Notes Filed: 07/22/2023 10:13 Note Text: Radiology Service Progress Note PATIENT NAME: Becka Valdez DATE OF SERVICE: July 22, 2023 TIME: 10:07 AM PATIENT IDENTITY VERIFICATION COMPLETED USING TWO (2) IDENTIFIERS: Name and Date of confirmed by patient verbally. FALL SCREENING: Has the patient had 2 falls in the last year or 1 fall with injury or currently using an Ambulatory Assistive Device (Walker, Cane, Wheelchair, Crutches, etc.)? No PATIENT GENDER DATA: Male PATIENT RELEVANT IMPLANT DATA REVIEWED: Yes PATIENT PRESENTS WITH AN IMPLANTABLE OR ATTACHED ASSOCIATE STORE DIRECTOR: No RADIOLOGY DEPARTMENT: General X-ray: Exam(s) Completed: Chest X-Ray PERIPHERAL IV DATA: Not applicable SIGNED BY: RT Cadence(R) July 22, 2023 10:07 AM [facility] 07-21-2023 Note HNO ID: [id number] Author: GUIDO NAVARRETE MD Service: ? Author Type: Physician Type: Progress Notes Filed: 07/21/2023 18:32 Note Text: Patient presents with: Cough: X weeks, intermittent HPI: Coughing for 4 weeks. CXR negative here 07/03/23. His has encouraged him to return for re-evaluation. Positive symptoms: Cough, Shortness of breath, Chest soreness, occasional Sore throat, fatigue Negative symptoms: Wheezing, hemoptysis, sinus pressure, Nasal Congestion, Rhinorrhea, Fever, Vomiting, Diarrhea, OTC: Lozenges, tessalon. Prescribed augmentin for rhinosinusitis 07/03. No history of asthma or COPD. No history of inhaler use. MEDICATIONS: Current Outpatient Medications Medication Sig amLODIPine (NORVASC) 5 mg tablet aspirin, enteric coated (ASPIRIN, ENTERIC COATED) 81 mg EC tablet isosorbide mononitrate ER (IMDUR) 30 mg 24 hr tablet metoprolol tartrate, short acting, (LOPRESSOR) 50 mg tablet rosuvastatin (CRESTOR) 20 mg tablet ascorbic acid (VITAMIN C ORAL) Take by mouth. mv-min/folic/K1/lycopen/lutein (CENTRUM SILVER ULTRA MEN'S ORAL) Take by mouth. No current facility-administered medications for this visit. ALLERGIES: ALLERGIES No Known Allergies VITALS: BP 123/75 Pulse 89 Temp 37.3 ?C (99.2 ?F) Resp 18 Wt 82.9 kg (182 lb 12.8 oz) SpO2 94% PHYSICAL EXAM: GEN: Pleasant, alert, frequent cough. Accompanied by his HEENT: PERRL, EOMI, conjunctiva clear Ears: canals with cerumen Sinuses: non-tender frontal sinus, non-tender maxillary sinuses Throat: moist mucous membranes, mild erythema, no exudate Neck: supple, no thyromegaly, no lymphadenopathy HEART: regular rate and rhythm, no murmurs LUNGS: left lower lung crackles, no wheezes, no increased WOB, non-productive sounding cough ASSESSMENT/PLAN: 1. Subacute cough - ICD9: 786.2, ICD10: R05.2 Suspect left lower lobe pneumonia. Repeat - XR CHEST 2V FRONTAL/LAT (will come back tomorrow when imaging is available) - BENZONATATE 100 MG CAPSULE - DOXYCYCLINE MONOHYDRATE 100 MG CAPSULE Follow up with worsening cough, worsening shortness of breath, increasing chest pain, or late onset fever. Guido Navarrete MD [facility] 07-21-2023 History of Presen t illness Narrative Patient presents with: Cough: X weeks, intermittent HPI: Coughing for 4 weeks. CXR negative here 07/03/23. His has encouraged him to return for re-evaluation. Positive symptoms: Cough, Shortness of breath, Chest soreness, occasional Sore throat, fatigue Negative symptoms: Wheezing, hemoptysis, sinus pressure, Nasal Congestion, Rhinorrhea, Fever, Vomiting, Diarrhea, OTC: Lozenges, tessalon. Prescribed augmentin for rhinosinusitis 07/03. No history of asthma or COPD. No history of inhaler use. MEDICATIONS: Current Outpatient Medications Medication Sig amLODIPine (NORVASC) 5 mg tablet aspirin, enteric coated (ASPIRIN, ENTERIC COATED) 81 mg EC tablet isosorbide mononitrate ER (IMDUR) 30 mg 24 hr tablet metoprolol tartrate, short acting, (LOPRESSOR) 50 mg tablet rosuvastatin (CRESTOR) 20 mg tablet ascorbic acid (VITAMIN C ORAL) Take by mouth. mv-min/folic/K1/lycopen/lutein (CENTRUM SILVER ULTRA MEN'S ORAL) Take by mouth. No current facility-administered medications for this visit. ALLERGIES: ALLERGIES No Known Allergies VITALS: BP 123/75 Pulse 89 Temp 37.3 C (99.2 F) Resp 18 Wt 82.9 kg (182 lb 12.8 oz) SpO2 94% PHYSICAL EXAM: GEN: Pleasant, alert, frequent cough. Accompanied by his HEENT: PERRL, EOMI, conjunctiva clear Ears: canals with cerumen Sinuses: non-tender frontal sinus, non-tender maxillary sinuses Throat: moist mucous membranes, mild erythema, no exudate Neck: supple, no thyromegaly, no lymphadenopathy HEART: regular rate and rhythm, no murmurs LUNGS: left lower lung crackles, no wheezes, no increased WOB, non-productive sounding cough ASSESSMENT/PLAN: 1. Subacute cough - ICD9: 786.2, ICD10: R05.2 Suspect left lower lobe pneumonia. Repeat - XR CHEST 2V FRONTAL/LAT (will come back tomorrow when imaging is available) - BENZONATATE 100 MG CAPSULE - DOXYCYCLINE MONOHYDRATE 100 MG CAPSULE Follow up with worsening cough, worsening shortness of breath, increasing chest pain, or late onset fever. Guido Navarrete MD documented in this encounter [facility] 07-03-2023 History of Presen t illness Narrative Radiology Service Progress Note PATIENT NAME: Becka Valdez DATE OF SERVICE: July 03, 2023 TIME: 11:30 AM PATIENT IDENTITY VERIFICATION COMPLETED USING TWO (2) IDENTIFIERS: Name and Date of confirmed by patient verbally. FALL SCREENING: Has the patient had 2 falls in the last year or 1 fall with injury or currently using an Ambulatory Assistive Device (Walker, Cane, Wheelchair, Crutches, etc.)? No PATIENT GENDER DATA: Male PATIENT RELEVANT IMPLANT DATA REVIEWED: Yes RADIOLOGY DEPARTMENT: General X-ray: Exam(s) Completed: Chest X-Ray PERIPHERAL IV DATA: Not applicable SIGNED BY: RT Cedric(R) July 03, 2023 11:30 AM documented in this encounter [facility] Chief complaint+Reason for v isit Narrative [facility] [place] [address] Work Phone: Evaluation note* Diagnosis Onset Date Resolution Status Bilateral acute otitis media acute Sinusitis acute Hyperlipemia, mixed acute Essential (primary) hypertension chronic Chest pain resolved History of coronary artery stent placement June resolved [facility] Work Phone: Evaluation note* Diagnosis Onset Date Resolution Status Bronchitis acute URI (upper respiratory infection) acute Bronchitis acute [facility] Work Phone: Evaluation note* Diagnosis Onset Date Resolution Status Bronchitis acute URI (upper respiratory infection) acute Bronchitis acute COVID-19 [facility] Work Phone: Evaluation note* Diagnosis Onset Date Resolution [facility] Work Phone: Evaluation note* Diagnosis Subacute cough- Primary [facility] Diagnosis Subacute cough- Primary Cough Thrush Candidiasis of mouth [facility] Diagnosis Chronic cough- Primary [facility] Elbow pain, right- Primary Pain in joint, upper arm documented in this encounter [facility] note* Diagnosis Elbow pain, right Pain in joint, upper arm documented in this encounter [facility] note* Diagnosis Acute cough documented in this encounter [facility] note* Diagnosis Subacute cough Cough documented in this encounter [facility] note* Diagnosis Acute cough- Primary Sinobronchitis Unspecified sinusitis (chronic) Acute cough documented in this encounter [facility] note* Diagnosis Acute cough documented in this encounter [facility] for referral (narrative)* Diagnostic Procedure Only (Routine) - Closed Specialty Diagnoses / Procedures Referred By Contac t Referred To Contact XR IMAGING Diagnoses Elbow pain, right Procedures XR ELBOW SPECIAL VIEWS AP/LAT/OTHER RIGHT RADEX ELBOW COMPLETE MINIMUM 3 VIEWS Guido Navarrete MD [address] [place] [address] [place] [id number] Referral ID Status Reason Start Date Expiration Date V isits Requested Visits Authorized [id number] Closed Auto-Generate d Referral 11/24/2023 12/23/2024 1 1 [facility] for referral (narrative)* Diagnostic Procedure Only (Routine) - Closed Specialty Diagnoses / Procedures Referred By Contac t Referred To Contact XR IMAGING Diagnoses Elbow pain, right Procedures XR ELBOW SPECIAL VIEWS AP/LAT/OTHER RIGHT RADEX ELBOW COMPLETE MINIMUM 3 VIEWS Guido Navarrete MD [address] [place] [address] [place] [address] Referral ID Status Reason Start Date Expiration Date V isits Requested Visits Authorized [id number] Closed Auto-Generate d Referral 11/24/2023 12/23/2024 1 1 [facility] for visit Narrative* Diagnostic Procedure Only (Routine) - Closed Specialty Diagnoses / Procedures Referred By Contac t Referred To Contact XR IMAGING Diagnoses Elbow pain, right Procedures XR ELBOW SPECIAL VIEWS AP/LAT/OTHER RIGHT RADEX ELBOW COMPLETE MINIMUM 3 VIEWS Guido Navarrete MD [address] [facility] [place] [address] [facility] [address] Referral ID Status Reason Start Date Expiration Date V isits Requested Visits Authorized [id number] Closed Auto-Generate d Referral 11/24/2023 12/23/2024 1 1 [facility] Chief Complaint and Reason for Visit Chief Complaint HEAD COLD/CONGESTION 6 wk FU Reason for Visit Bilateral acute otit is media Sinusitis Hyperlipemia, mixed Essential (primary) hypertension Chest pain History of coronary artery stent placement Chief Complaint COUGH/SORE THROAT PERSISTANT COUGH/2ND VISIT EORDER- persisitent cough Reason for Visit Bronchitis URI (upper respiratory infection) Bronchitis Chief Complaint COUGH/SORE THROAT PERSISTANT COUGH/2ND VISIT EORDER- persisitent cough COUGH/FATIGUE E-ORDER Reason for Visit Bronchitis URI (upper respiratory infection) Bronchitis COVID-19 Family History No Family History Records Found Relationship Condition Age at Onset Recorded Date/T sai mother Cardiac disease Unknown father Cardiac disease Unknown Advance Directives No Advanced Directives Records Found Advance Directive Response Recorded Date/ Time Advance Directives No April 05, 2015 9:32pm Living Will No July 16 11:29am Power of Dog Daycare Provider No July 16, 2020 11:29am Advance Directive Response Recorded Date/ Time Advance Directives No April 05, 2015 8:32pm Living Will No July 16 10:29am Power of Dog Daycare Provider No July 16, 2020 10:29am Summary Purpose Additional Source Comments Goals (unrecognized section and content) Goals may be documented in a n alternate sectionGoals may be documented in an alternate sectionGoals may be documented in an alternate sectionGoals may be documented in an alternate section Care Teams (unrecognized sec tion and content) Team Status: Active Member Role Status Dates SANTI CARVAJAL Family Provider Active Santi Carvajal BEE PRODUCER, BEE PRODUCER-C Primary Care Provider Act minnie Team Status: Inactive Member Role Status Dates Santi Carvajal BEE PRODUCER, BEE PRODUCER-C Primary Care Provider, Re ferring Provider Active Sergei HAYNES, PA Attending Provider Active Team Status: Inactive Member Role Status Dates Santi Carvajal BEE PRODUCER, BEE PRODUCER-C Primary Care Provider, Re ferring Provider Active Carlos HAYNES, PA Attending Provider Active Team Status: Inactive Member Role Status Dates Santi Carvajal BEE PRODUCER, BEE PRODUCER-C Primary Care Provider Act minnie Key PA, PA Attending Provider, Referring Provi wilver Active Team Status: Inactive Member Role Status Dates Santi Carvajal BEE PRODUCER, BEE PRODUCER-C Primary Care Provider Act minnie Rainey BEE PRODUCER, BEE PRODUCER-C Attending Provider, Referring P marc Active Team Status: Inactive Member Role Status Dates Santi Carvajal BEE PRODUCER, BEE PRODUCER-C Primary Car e Provider, Attending Provider, Referring Provider Active Core Winder Relationship Specialty Start Date End Date Brittany Carvajal CRESCENCIO [address] [place] [phone] PCP - General Family Medicine 07/03/23 Core Winder Relationship Specialty Start Date End Date Brittany Carvajal CR[facility]CENCIO [address] [facility] [address] [place] [phone] PCP - General Family Medicine 07/03/23 Core Winder Relationship Specialty Start Date End Date Brittany Carvajal CRESCENCIO [address] [place] [phone] PCP - General Family Medicine 07/03/23 Core Winder Relationship Specialty Start Date End Date Brittany Carvajal CNP [address] [facility] [address] [place] [phone] PCP - General Family Medicine 07/03/23 Core Winder Relationship Specialty Start Date End Date Brittany Carvajal CNP [address] [facility] [address] [place] [phone] PCP - General Family Medicine 07/03/23 Core Winder Relationship Specialty Start Date End Date Brittany Carvajal CNP [address] [facility] [address] [place] [phone] PCP - General Family Medicine 07/03/23 Core Winder Relationship Specialty Start Date End Date Roscoe BrittanyCRESCENCIO [address] [facility] [address] [place] [phone] PCP - General Family Medicine 07/03/23 Core Winder Relationship Specialty Start Date End Date Roscoe BrittanyCRESCENCIO [address] [place] [phone] PCP - General Family Medicine 07/03/23 Core Winder Relationship Specialty Start Date End Date Brittany CarvajalCRESCENCIO [address] [facility] [address] [place] [phone] PCP - General Family Medicine 07/03/23 Source Comments (unrecognize d section and content) In the event this informatio n is protected by the Federal Confidentiality of Alcohol and Drug Abuse Patient Records regulations: The Federal rules restrict any use of the information to criminally investigate or prosecute any alcohol or drug abuse patient.[facility] the event this information is protected by the Federal Confidentiality of Alcohol and Drug Abuse Patient Records regulations: The Federal rules restrict any use of the information to criminally investigate or prosecute any alcohol or drug abuse patient.[facility] Center[facility] the event this information is protected by the Federal Confidentiality of Alcohol and Drug Abuse Patient Records regulations: The Federal rules restrict any use of the information to criminally investigate or prosecute any alcohol or drug abuse patient.[facility] Center[facility] the event this information is protected by the Federal Confidentiality of Alcohol and Drug Abuse Patient Records regulations: The Federal rules restrict any use of the information to criminally investigate or prosecute any alcohol or drug abuse patient.[facility] Center[facility] the event this information is protected by the Federal Confidentiality of Alcohol and Drug Abuse Patient Records regulations: The Federal rules restrict any use of the information to criminally investigate or prosecute any alcohol or drug abuse patient.[facility] Center[facility] the event this information is protected by the Federal Confidentiality of Alcohol and Drug Abuse Patient Records regulations: The Federal rules restrict any use of the information to criminally investigate or prosecute any alcohol or drug abuse patient.[facility] Center[facility] the event this information is protected by the Federal Confidentiality of Alcohol and Drug Abuse Patient Records regulations: The Federal rules restrict any use of the information to criminally investigate or prosecute any alcohol or drug abuse patient.[facility] CenterIn the event this information is protected by the Federal Confidentiality of Alcohol and Drug Abuse Patient Records regulations: The Federal rules restrict any use of the information to criminally investigate or prosecute any alcohol or drug abuse patient.[facility] CenterIn the event this information is protected by the Federal Confidentiality of Alcohol and Drug Abuse Patient Records regulations: The Federal rules restrict any use of the information to criminally investigate or prosecute any alcohol or drug abuse patient.[facility] CenterIn the event this information is protected by the Federal Confidentiality of Alcohol and Drug Abuse Patient Records regulations: The Federal rules restrict any use of the information to criminally investigate or prosecute any alcohol or drug abuse patient.[facility] Reason for Visit (unrecogniz ed section and content) Reason Comments Cough X weeks, intermitten t Reason Comments Cough nasal drainage x 3 w eeks Reason Comments Cough Chest congestion x2 weeks, recent Flu Reason Comments Edema R arm -Elbow bruisin g and swelling x 3 days some puncture wounds are scabbed, no s/sx of infection, pain is starting fabian nside of elbow Reason Comments Cough Cough and chest ryan estion x 4 days (unrecognized sect ion and content) No Status Records FoundNo Status Records Found INFORMATION SOURCE (unrecogn ized section and content) DATE CREATED AUTHOR 02/04/2024 [facility] DATE CREATED AUTHOR AUTHOR'S ORGANIZ ATION 07/18/2024 [facility] FOR RECORDS PERTAINING TO PATIENTS WHO ARE OR HAVE BEEN ENROLLED IN A CHEMICAL DEPENDENCY/SUBSTANCEABUSE PROGRAM, SOME INFORMATION MAY BE OMITTED. This clinical summary was aggregated from multiple sources. Caution should be exercised in using it in the provision of clinical care. This summary normalizes information from multiple sources, and as a consequence, information in this document may materially change the coding, format and clinical context of patient data. In addition, data may be omitted in some cases. CLINICAL DECISIONS SHOULD BE BASED ON THE PRIMARY CLINICAL RECORDS. [facility] [employer] [facility]. provides no warranty or guarantee of the accuracy or completeness of information in this document.
[2024-11-15 08:24] LABS: Absolute Neutrophil Count 3.2 X10^3/uL (2.0-7.7); Basophil# 0.04 X10^3/uL; Basophil% 0.6 % (0-1); Eosinophil# 0.16 X10^3/uL; Eosinophils% 2.5 % (0-5); Hematocrit 41.2 % (40-54); Hemoglobin 14.2 g/dL (13.0-16.5); Lymphocyte % 34.6 % (19-41); Mean Corp Hgb Conc 34.5 g/dL (32-36); Mean Corpuscular Volume 86.9 fL (80-94); Mean Platelet Vol. 10.7 fl (6.2-12.0); Monocyte# 0.69 X10^3/uL; Monocyte% 10.9 % (0-10); NRBC Flagged by Analyzer 0 % (0-5); Neutrophil # 3.19 X10^3/uL (2.7-7.7); Neutrophil % 50.3 % (47-70); Platelet Count 191 K/mm3 (150-450); RBC Distribution Width CV 12.6 % (11.6-14.6); RBC Distribution Width SD 39.9 fl (35.1-43.9); Red Blood Count 4.74 M/mm3 (4.6-6.2); White Blood Count 6.4 K/mm3 (4.4-11.0)
[2024-11-15 09:30] LABS: ALB/GLOB Ratio 1.7 RATIO (0.9-2.4); AST(SGOT) 38 U/L (<=37); Alanine Aminotransfer ALT/SGPT 43 U/L (<=46); Albumin, Serum 4.2 g/dL (3.4-4.8); Alkaline Phosphatase 68 U/L (40-129); Anion Gap 11 (5-15); BUN 5 mg/dL (4-19); BUN/Creat Ratio 6.6 RATIO (10-20); Calcium,Total 9.1 mg/dL (7.6-11.0); Carbon Dioxide 25.8 mmol/L (21.0-32.0); Chloride 106 mmol/L (98-108); Creatinine, Serum 0.81 mg/dL (0.70-1.20); EST Glomerular Filtration Rate 98 (>60); Globulin 2.5 g/dL (2.2-4.2); Glucose 78 mg/dL (70-99); PSA,Total - Annual Screen 2.76 ng/mL (0.02-4.00); Potassium 3.5 mmol/L (3.3-5.1); Protein, Total 6.7 g/dL (5.9-8.4); Sodium Level 142 mmol/L (133-145); Total Bilirubin 0.63 mg/dL (0.00-1.30)
[2024-11-15 09:45] LABS: Cholesterol 105 mg/dL (<=200); High Density Lipoprotein 46 mg/dL; Low Density Lipoprotein Calc. 31 mg/dL; Triglycerides 141 mg/dL; Very Low Density Lipoprotein 28 mg/dL (5-40); cholesterol:hdl ratio screen 2.27
== END | disposition home or self-care (01) ==
PROVIDERS: PCP Nurse Practitioner Family; Referring Provider Family Medicine; Visit Provider Family Medicine
DX: Z12.5 Encounter for screening for malignant neoplasm of prostate (principal); I10 Essential (primary) hypertension
CPT/HCPCS: 36415; 80053; 80061; 84153; 84443; 85025; G0103

== ENCOUNTER → 2024-11-26 | Outpatient (CLI) | payer BC, SELFPAY ==
[2020-10-12 08:42] VITALS: BMI 25.8
--- NOTE | 2024-11-26 15:02 | RAD_ITS ---
PROCEDURE: CHEST PA AND LATERAL 11/26/2024 REASON FOR EXAM: SHORTNESS OF BREATH TECHNIQUE: CHEST PA AND LATERAL COMPARISON: 07/05/2022. FINDINGS: Interval appearance of mild left basilar atelectatic pulmonary changes. There is no demonstrated pleural abnormality. Normal heart and pericardium. Normal mediastinum and radha. Normal visualized pulmonary arteries. Normal visualized aortic arch and descending thoracic aorta. Normal visualized thoracic spine. Normal visualized ribs, clavicles, and shoulders. There is no demonstrated abnormality of the visualized soft tissue structures of the upper abdomen. RAD/Chest PA and Lateral IMPRESSION: Interval appearance of mild left basilar atelectatic pulmonary changes. Reading [facility]
[2024-11-26 16:31] LABS: Absolute Lymphocyte Count 2.58 X10^3/uL (0.83-4.51); Absolute Neutrophil Count 4.3 X10^3/uL (2.0-7.7); Basophil# 0.04 X10^3/uL; Basophil% 0.5 % (0-1); Eosinophil# 0.13 X10^3/uL; Eosinophils% 1.6 % (0-5); Hematocrit 40.7 % (40-54); Hemoglobin 13.8 g/dL (13.0-16.5); Lymphocyte # 2.58 X10^3/ul (0.83-4.51); Lymphocyte % 31.8 % (19-41); Mean Corp Hgb Conc 33.9 g/dL (32-36); Mean Corpuscular Hgb 29.6 pg (27.0-32.0); Mean Corpuscular Volume 87.3 fL (80-94); Mean Platelet Vol. 11.2 fl (6.2-12.0); Monocyte# 1.04 X10^3/uL; Monocyte% 12.8 % (0-10); NRBC Flagged by Analyzer 0 % (0-5); Neutrophil # 4.26 X10^3/uL (2.7-7.7); Neutrophil % 52.6 % (47-70); Platelet Count 197 K/mm3 (150-450); RBC Distribution Width CV 12.3 % (11.6-14.6); RBC Distribution Width SD 39.2 fl (35.1-43.9); Red Blood Count 4.66 M/mm3 (4.6-6.2); White Blood Count 8.1 K/mm3 (4.4-11.0)
[2024-11-26 17:32] LABS: Anion Gap 11 (5-15); BUN 11 mg/dL (4-19); BUN/Creat Ratio 10.7 RATIO (10-20); Calcium,Total 9.3 mg/dL (7.6-11.0); Carbon Dioxide 24.8 mmol/L (21.0-32.0); Chloride 103 mmol/L (98-108); Creatinine, Serum 0.99 mg/dL (0.70-1.20); EST Glomerular Filtration Rate 85 (>60); Glucose 94 mg/dL (70-99); Potassium 3.7 mmol/L (3.3-5.1); Pro- Brain NATRIURETIC PEPTIDE 94 pg/mL (<=900); Sodium Level 139 mmol/L (133-145)
[2024-11-26 17:55] LABS: Troponin T High Sensitivity 11 ng/L (<=22)
== END | disposition home or self-care (01) ==
PROVIDERS: PCP Nurse Practitioner Family; Referring Provider Nurse Practitioner Family; Visit Provider Nurse Practitioner Family
DX: R06.02 Shortness of breath (principal); R53.83 Other fatigue; I25.10 Atherosclerotic heart disease of native coronary artery without angina pectoris; I25.2 Old myocardial infarction; Z95.5 Presence of coronary angioplasty implant and graft
CPT/HCPCS: 36415; 71046; 80048; 83880; 84443; 84484; 85025

== ENCOUNTER → 2024-12-03 | Outpatient (CLI) | payer BC, SELFPAY ==
[2020-10-12 08:42] VITALS: BMI 25.8
--- NOTE | 2024-12-03 15:34 | CT_ITS ---
PROCEDURE: CTA CHEST W/WO CONTRAST 12/03/2024 REASON FOR EXAM: RE-EVALUATE NODULE COMPARED TO 04/06/2015 TECHNIQUE: CTA CHEST W/WO CONTRAST Multiplanar Sagittal and Coronal images were obtained. CONTRAST: Isovue 370 VOLUME: 100 mL One or more dose reduction techniques were used (e.g., Automated exposure control, adjustment of the mA and/or kV according to patient size, use of iterative reconstruction technique). RADIATION DOSE SUMMARY: CTDlvol: 11.66 mGy DLP: 413 mGycm COMPARISON: Chest radiograph on 11/26/2024. CT scan 01/15/2024. FINDINGS: Unchanged 4 mm nodule in the right middle lobe. Unchanged moderate coronary artery calcifications. Unchanged calcified mediastinal and hilar lymph nodes with the largest measuring 1.2 cm. Normal enhancement of the main pulmonary artery and right and left pulmonary arteries. Normal enhancement of the bilateral peripheral pulmonary arteries. There is no demonstrated pulmonary embolism. Normal thoracic aorta and visualized great vessels. There is no demonstrated aortic dissection. Normal heart and pericardium. Normal mediastinum. Normal hilar regions. Normal visualized trachea and bronchi. The lungs are well expanded. Normal remaining pulmonary parenchyma. Normal pleura. Normal chest wall structures. Normal osseous structures. Normal visualized upper abdomen. CT/CTA Chest W/WO Contrast IMPRESSION: Unchanged 4 mm nodule in the right middle lobe. Unchanged moderate coronary artery calcifications. Unchanged calcified mediastinal and hilar lymph nodes with the largest measurin g 1.2 cm. Reading Location[facility]
== END | disposition home or self-care (01) ==
LOC: CT 15:33
PROVIDERS: PCP Nurse Practitioner Family; Referring Provider Nurse Practitioner Family; Visit Provider Nurse Practitioner Family
DX: R91.1 Solitary pulmonary nodule (principal); R07.9 Chest pain, unspecified
CPT/HCPCS: 71275; Q9967

== ENCOUNTER → 2024-12-19 | Outpatient (CLI) | payer BC, SELFPAY ==
[2020-10-12 08:42] VITALS: BMI 25.8
--- OUTSIDE RECORDS SUMMARY | 2024-12-19 06:07 | XMS RPT_ITS | CCD ---
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 Name Role Phone Roscoe 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, 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-C Santi Primary Care Provid er Roscoe 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, 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-C aSnti Referring Provider IVY Suh Attending Provider [phone] Pasha 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, 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-C Sangita Rome Attending Provider Roscoe 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, 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-C Santi Primary Care Provid er Roscoe 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, 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-C Santi Referring Provider IVY De Guzman Attending Provider IVY Arnold Attending Provider [phone] Roscoe 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, 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-C Santi Primary Care Provid er Roscoe 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, 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-C Santi Referring Provider IVY De Guzman Attending Provider IVY Arnold Attending Provider [phone] Roscoe 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, 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-C Santi Primary Care Provid er Roscoe 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, 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-C Santi Referring Provider IVY De Guzman Attending Provider Brittany Malhotra CNP Primary Care Provider Brittany Malhotra CNP Primary Care Provider Brittany Malhotra CNP Primary Care Provider ROSCOE, BRITTANY Primary Care Unavailable ROSCOE, BRITTANY Primary Care Unavailable GUIDO EATON Referring Unavailable ROSCOE, BRITTANY Primary Care Unavailable ROSCOE, BRITTANY Primary Care [facility] Referring Unavailable ROSCOE, [facility] Primary Care Unavailable GUIDO EATON Referring Unavailable ROSCOE, [facility] Primary Care Unavailable ROSCOE, [facility] Primary Care Unavailable ROSCOE, [facility] Primary Care Unavailable Roscoe 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-C, [place] Primary Care Provider Milly BELL, Dr. Anthony Attending Provider Dr. Raj Atkins MD Referring Provider Roof 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-C, Sangita Rome Attending Provider Roof 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-C, Sangita Rome Referring Provider [phone] Roscoe 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-C, Santi Referring Provider [phone] Raj Atkins Attending Unavailable Raj Atkins Referring Unavailable Roscoe 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, [facility] Unavaila ble Roof, Sangita H Attending Unavailable Roscoe 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, [facility] Care Unavaila ble Roof, Sangita H Referring Unavailable Roscoe 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, [facility] Unavaila ble Zeus Sen Attending Unavailable Roscoe 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, [facility] Care Unavaila ble Roof, Sangita H Referring Unavailable Roof, Sangita H Attending Unavailable Roscoe 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, [facility] Care Unavaila ble Roscoe 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, Santi Referring Unavaila ble Roof, Sangita H Attending Unavailable Roof, Sangita H Attending Unavailable Roscoe 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, [place] Referring Unavaila ble Roscoe 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, [facility] Unavaila ble Roof, Sangita H Attending Unavailable Roof, Sangita H Referring Unavailable Roscoe 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, [facility] Unavaila ble Medications Current Medications Medication Drug Class(es) Dates Sig (Normalized) Sig (Original) 8 hr acetaminophen 650 mg extended release oral tablet (19 sources) Start: 11-26-2024 Acetaminophen (Tylenol 8 Hour) 650 mg tablet extended release Active 1300 mg PO Q8H as needed for PAIN OR FEVER November 26, 2024 3:49pm Start: 01-21-2021 End: 11-26-2024 take 1 tablet by mouth every eight hours as needed for pain Acetaminophen (Tylenol 8 Hour) 650 mg tablet extended release Discontinued 650 mg PO Q8H as needed for PAIN OR FEVER December 20, 2021 2:29pm November 26, 2024 3:53pm ascorbic acid 500 mg oral tablet (20 sources) Vitamin C Start: 01-10-2023 take 1 g by mouth twice daily Ascorbic Acid (Vitamin C) 500 mg tablet Active 1 g PO TWICE A DAY January 10, 2023 1:42pm Start: 12-20-2021 End: 01-10-2023 take 1 tablet by mouth once daily Ascorbic Acid (Vitamin C) 500 mg tablet Discontinued 500 mg PO DAILY December 20, 2021 12:00am January 10, 2023 1:45pm ascorbic acid (V ITAMIN C ORAL) Take by mouth. Active ascorbic acid (V ITAMIN C ORAL) Take by mouth. 0 Active Comment on above: Take by mouth. cholecalciferol 0.05 mg oral tablet (15 sources) Vitamin D Start: take 1 tablet by mouth once daily Cholecalciferol (Vitamin D3) 50 mcg (2,000 unit) tablet Active 50 ug PO daily November 26, 2024 12:00am Start: 06-29-2021 End: 11-26-2024 take 1 capsule by mouth twice daily as needed Cholecalciferol (Vitamin D3) 125 mcg (5,000 unit) capsule Discontinued 125 ug PO TWICE A DAY as needed January 10, 2023 1:43pm November 26, 2024 3:52pm doxycycline hyclate 100 mg oral tablet (11 sources) Tetracycline-class Drug Start: 07-16-2024 End: 07-23-2024 take 1 tablet by mouth twice daily [...] 07/26/2023 Active Start: 10-12-2016 End: 04-05-2019 take 1 capsule by mouth twice daily Doxycycline Hyclate 100 MG capsule Discontinued 100 mg PO TWICE A DAY 20 0 October 12, 2016 12:00am April 05, 2019 10:08am Comment on above: Take 1 capsule by mo [facility] two times a day for 5 days. Take 1 tablet by [facility] two times a day for 7 days. 24 hr isosorbide mononitrate 60 mg extended release oral tablet (20 sources) Nitrate Vasodilator Start: End: take 1 tablet by mouth once daily, then take 1 tablet by mouth every twenty-four hours Isosorbide Mononitrate 60 mg tablet extended release 24 hr Active 60 mg PO DAILY 90 December 09, 2024 9:44am Start: 06-12-2023 isosorbide mon onitrate ER (IMDUR) 30 mg 24 hr tablet 06/12/2023 Active Start: 06-29-2021 End: 11-26-2024 take 1 tablet by mouth once daily, then take 1 tablet by mouth every twenty-four hours Isosorbide Mononitrate 30 mg tablet extended release 24 hr Discontinued 30 mg PO DAILY 90 December 28, 2023 11:05am November 26, 2024 4:37pm metoprolol tartrate 25 mg oral tablet (20 sources) beta-Adrenergic Gomez Start: 05-07-2024 take 1 tablet by mouth twice daily Metoprolol Tartrate 25 mg tablet Active 25 mg PO TWICE A DAY 180 May 07, 2024 4:31pm Start: 01-15-2024 End: 05-07-2024 Metoprolol Tartrate 25 mg ta blet Discontinued 12.5 mg PO TWICE A DAY 90 May 02, 2024 9:05am May 07, 2024 4:31pm Start: 08-14-2023 End: 01-15-2024 Metoprolol Tartrate 50 mg ta blet Discontinued 25 mg PO TWICE A DAY 180 August 14, 2023 11:59am January 15, 2024 7:54pm Start: 06-29-2021 End: 08-14-2023 take 1 tablet by mouth twice daily Metoprolol Tartrate 50 mg tablet Discontinued 50 mg PO TWICE A DAY 180 December 22, 2022 9:53am August 14, 2023 12:00pm Start: 07-11-2020 End: 06-29-2021 take 1 tablet by mouth twice daily Metoprolol Tartrate 25 mg tablet Discontinued 25 mg PO TWICE A DAY 180 3 July 24, 2020 11:43am June 29, 2021 4:16pm Mv,Ca,Wts-Proi-Ve-Lycopene (Centrum Men) 8 mg iron- 200 mcg-600 mcg tablet (3 sources) Start: 11-26-2024 take 8 tablets by mouth twice daily Mv,Ca,Wvo-Fxfe-Yt-Lycopene (Centrum Men) 8 mg iron- 200 mcg-600 mcg tablet Active 1 {tbl} PO TWICE A DAY November 26, 2024 12:00am mv-min/folic/K1/lycopen/lute in (CENTRUM SILVER ULTRA MEN'S ORAL) (10 sources) mv-min/folic/K1/ lycopen/lutei n (CENTRUM SILVER ULTRA MEN'S ORAL) Take by mouth. Active mv-min/folic/K1/ lycopen/lutein (CENTRUM SILVER ULTRA MEN'S ORAL) Take by mouth. 0 Active Comment on above: Take by mouth. nystatin [id number] unt/ml oral suspension (7 sources) Polyene Antifungal [...] until gone. predniSONE 10 mg oral tablet (14 sources) Start: 07-16-2024 End: 07-21-2024 take 4 [...] 21 tablet 0 09/24/2023 10/03/2023 Active Start: 12-03-2022 End: 01-10-2023 take 4 tablets by mouth once daily, then take 3 tablets by mouth once daily, then take 2 tablets by mouth once daily, then take 1 tablet by mouth once daily Prednisone 10 mg tablet Discontinued 10 mg PO As Directed 30 December 03, 2022 12:00am January 10, 2023 1:44pm 4 tablets daily x3 days, then 3 tablets daily x3 days, then 2 tablets daily x3 days, then 1 tablet daily x3 days Start: 10-12-2016 End: 04-05-2019 take 2 tablets by mouth once daily Prednisone 20 MG tablet Discontinued 40 mg PO DAILY 10 October 12, 2016 12:00am April 05, 2019 10:08am Start: 10-12-2016 End: 04-05-2019 take 40 mg by mouth once daily Prednisone Discontinued 40 MG PO DAILY October 12, 2016 12:00am April 05, 2019 10:08am Comment on above: Take 4 tabs daily fo r 3 days, then 2 tabs daily for 3 days, then 1 tab daily for 3 days with food. Completed/Discontinued Medications Medication Drug Class(es) Dates Sig (Normalized) Sig (Original) acetaminophen 325 mg / oxyCODONE hydrochloride 5 mg oral tablet (4 sources) Opioid Agonist Start: 01-15-2024 End: 11-26-2024 Oxycodone-Acetami nophen 5-325 mg tablet Discontinued 1 {tbl} PO EVERY 6 HOURS NEEDED as needed for pain 20 5 0 January 15, 2024 November 26, 2024 3:50pm Blunt trauma of abdominal wall Contusion of chest wall Other specified injuries of abdomen, initial encounter Contusion of unspecified front wall of thorax, initial encounter amLODIPine 5 mg oral tablet (20 sources) Dihydropyridine Calcium Channel Gomez Start: 08-21-2020 End: 08-14-2024 take 1 tablet by mouth once daily Amlodipine 5 mg tablet Discontinued 5 mg PO DAILY 90 3 August 23, 2023 9:30am August 14, 2024 4:28pm Start: 04-05-2015 End: 08-21-2020 take 1 tablet by mouth once daily Amlodipine 10 MG tablet Discontinued 10 mg PO DAILY April 05, 2015 12:00am August 21, 2020 3:33pm amoxicillin 875 mg / clavulanate 125 mg oral tablet (20 sources) Penicillin-class Antibacterial Start: 07-05-2022 End: 07-15-2022 Amoxicillin-Pot Clavulanate 875-125 mg tablet Discontinued 1 {tbl} PO Q12H 20 July 05, 2022 1:00am July 14, 2022 1:00am July 15, 2022 1:05am Acute sinusitis, unspecified Start: 07-05-2022 End: 07-15-2022 take 1 tablet by mouth every twelve hours Amoxicillin-Pot Clavulanate Discontinued 1 TABLET PO Q12H 31 03July 05, 2022 1:00am July 15, 2022 1:05am Start: 10-17-2021 End: 12-20-2021 Amoxicillin-Pot Clavulanate 875-125 mg tablet Discontinued 1 {tbl} PO Q12H 14 October 17, 2021 12:00am December 20, 2021 2:30pm Start: 10-17-2021 End: 12-20-2021 take 1 tablet by mouth every twelve hours Amoxicillin-Pot Clavulanate Discontinued 1 TABLET PO Q12H October 17, 2021 12:00am December 20, 2021 2:30pm Start: 05-19-2021 End: 06-28-2021 Amoxicillin-Pot Clavulanate 875-125 mg tablet Discontinued 1 {tbl} PO TWICE A DAY May 19, 2021 1:00am June 28, 2021 3:04pm Start: 05-19-2021 End: 06-28-2021 take 1 tablet by mouth twice daily Amoxicillin-Pot Clavulanate Discontinued 1 TABLET PO TWICE A DAY May 19, 2021 1:00am June 28, 2021 3:04pm aspirin 81 mg delayed release oral tablet (20 sources) Platelet Aggregation Inhibitor, Nonsteroidal Anti-inflammatory Drug Start: 07-11-2020 End: 09-16-2024 take 1 tablet by mouth once daily Aspirin 81 mg tablet,delayed release (DR/EC) Discontinued 81 mg PO DAILY@0800 90 3 October 02, 2023 2:46pm September 16, 2024 3:16pm atorvastatin 40 mg oral tablet (16 sources) HMG-CoA Reductase Inhibitor Start: 07-11-2020 End: 09-23-2020 take 1 tablet by mouth at bedtime Atorvastatin 40 mg tablet Discontinued 40 mg PO AT BEDTIME 90 3 July 24, 2020 11:43am September 23, 2020 6:10pm On Hold: Myalgias and joint pain azithromycin 250 mg oral tablet (20 sources) Macrolide Antimicrobial Start: 06-22-2023 End: 08-23-2023 take 2-5 tablets by mouth once daily Azithromycin 250 mg tablet Discontinued 0 PO .COMPLEX 6 0 June 22, 2023 1:00am August 23, 2023 10:56am take 500 mg today (day 1), then 250 mg for 4 days (days 2-5) PO Start: 07-05-2022 End: 12-03-2022 take 2-5 tablets by mouth once daily Azithromycin 250 mg tablet Discontinued 0 PO .COMPLEX 6 0 July 05, 2022 1:00am December 03, 2022 10:57am take 500 mg today (day 1), then 250 mg for 4 days (days 2-5) PO Start: 10-12-2016 End: 04-05-2019 take 2-5 tablets by mouth once daily Azithromycin 250 mg tablet Discontinued 0 PO .COMPLEX 6 0 June 08, 2018 1:00am April 05, 2019 10:07am take 500 mg today (day 1), then 250 mg for 4 days (days 2-5) PO benzonatate 100 mg oral capsule (20 sources) Non-narcotic Antitussive Start: 09-24-2023 take 2 capsules by mouth three times daily as needed benzonatate (TESSALON PERLE) 100 mg capsule Indications: Chronic cough Take 2 capsules by mouth three times a day as needed. 30 capsule 09/24/2023 Active Start: 08-27-2023 End: 01-15-2024 take 1 capsule by mouth three times daily Benzonatate 100 mg capsule Discontinued 100 mg PO THREE TIMES A DAY 30 0 December 02, 2023 12:00am January 15, 2024 7:52pm Start: 08-23-2023 End: 01-15-2024 take 1 capsule by mouth three times daily as needed for cough Benzonatate 200 mg capsule Discontinued 200 mg PO THREE TIMES A DAY as needed for cough 20 0 August 23, 2023 12:00am January 15, 2024 7:52pm Start: 07-21-2023 End: 08-05-2023 take 2 capsules by mouth every eight hours as needed for cough and cough benzonatate (TESSALON PERLE) 100 mg capsule Indications: Subacute cough Take 2 capsules by mouth every 8 hours as needed for cough for up to 15 days. 45 capsule 0 07/21/2023 08/05/2023 Active Start: 06-22-2023 End: 08-23-2023 take 2 capsules by mouth three times daily as needed for cough Benzonatate 100 mg capsule Discontinued 200 mg PO THREE TIMES A DAY as needed for cough 30 0 June 22, 2023 1:00am August 23, 2023 10:56am Start: 06-16-2022 End: 01-10-2023 take 1 capsule by mouth three times daily as needed for cough Benzonatate 200 mg capsule Discontinued 200 mg PO THREE TIMES A DAY as needed for cough 20 0 August 08, 2022 1:00am January 10, 2023 1:43pm Start: 10-12-2016 End: 04-05-2019 take 2 capsules by mouth three times daily as needed for cough Benzonatate 100 mg capsule Discontinued 200 mg PO THREE TIMES A DAY as needed for cough 30 0 June 08, 2018 1:00am April 05, 2019 10:08am Acute upper respiratory infection, unspecified Start: 10-12-2016 End: 04-05-2019 take 200 mg [...] outh three times a day as needed. celecoxib 200 mg oral capsule (8 sources) Nonsteroidal Anti-inflammatory Drug Start: End: take 1 capsule by mouth twice daily Celecoxib 200 MG capsule Discontinued 200 mg PO TWICE A DAY July 08, 2020 1:00am July 11, 2020 8:30am clopidogrel 75 mg oral tablet (20 sources) [id number] Platelet Inhibitor Start: End: take 1 tablet by mouth every other day Clopidogrel 75 mg tablet Discontinued 75 mg PO every other day 45 3 March 23, 2022 4:00pm January 10, 2023 1:42pm On Hold: Excessive bruising. Start: 07-24-2020 End: 12-20-2021 take 1 tablet by mouth once daily Clopidogrel 75 mg tablet Discontinued 75 mg PO DAILY 90 3 December 20, 2021 2:46pm December 20, 2021 2:57pm cyclobenzaprine hydrochloride 10 mg oral tablet (12 sources) Muscle Relaxant Start: 12-03-2022 End: 01-10-2023 take 1 tablet by mouth three times daily as needed for muscle spasms Cyclobenzaprine 10 mg tablet Discontinued 10 mg PO THREE TIMES A DAY as needed for muscle spasm 20 0 December 03, 2022 12:00am January 10, 2023 1:44pm only AFTER work hours on work days Start: 06-08-2020 End: 06-13-2020 take 1 tablet by mouth three times daily as needed for muscle spasms Cyclobenzaprine 10 mg tablet Discontinued 10 mg PO THREE TIMES A DAY as needed for muscle spasm 20 5 0 June 08, 2020 1:00am June 12, 2020 1:00am June 13, 2020 1:03am dexamethasone 6 mg oral tablet (6 sources) Corticosteroid Start: 08-08-2022 End: 01-10-2023 take 1 tablet by mouth once daily Dexamethasone 6 mg tablet Discontinued 6 mg PO DAILY 5 0 August 08, 2022 1:00am January 10, 2023 1:44pm dextromethorphan hydrobromide 3 mg/ml / guaiFENesin 40 mg/ml oral solution (7 sources) Uncompetitive V-imqkja-F-aspartat e Receptor Antagonist, Sigma-1 Agonist Start: 07-05-2022 End: 01-10-2023 take 1 mL by mouth every six hours as needed for cough Dextromethorphan-G uaifenesin 15-200 mg/5 mL liquid Discontinued 5 mL PO EVERY 6 HOURS as needed for cough 118 0 July 05, 2022 1:00am January 10, 2023 1:44pm Start: 07-05-2022 take 1 mL by mouth every six hours Dextromethorphan-Guaifenesin Active 5 ML PO EVERY 6 HOURS 118 July 05, 2022 1:00am 12 hr guaiFENesin 600 mg extended release oral tablet (4 sources) Start: 12-02-2023 End: 11-26-2024 take 1 tablet by mouth twice daily, then take 1 tablet by mouth every twelve hours Guaifenesin (Mucinex) 600 mg tablet extended release 12hr Discontinued 600 mg PO TWICE A DAY 30 0 December 02, 2023 12:00am November 26, 2024 3:51pm magnesium oxide 500 mg oral capsule (8 sources) Start: 07-08-2020 End: 01-10-2023 take 1 capsule by mouth once daily Magnesium Oxide 500 MG capsule Discontinued 500 mg PO DAILY July 08, 2020 1:00am January 10, 2023 1:44pm melatonin 3 mg oral capsule (8 sources) Start: 06-29-2021 End: 01-10-2023 take 1 capsule by mouth at bedtime as needed Melatonin 3 mg capsule Discontinued 3 mg PO BEDTIME as needed June 29, 2021 1:00am January 10, 2023 1:44pm methylPREDNISolone 4 mg oral tablet (20 sources) Corticosteroid Start: 06-16-2022 End: 07-05-2022 take 1 tablet by mouth once Methylprednisolone (Medrol (Errol)) 4 mg tablets,dose pack Discontinued 0 PO per package directions 21 0 June 16, 2022 1:00am July 05, 2022 1:38pm PO PER PKG DIR Start: 04-12-2021 End: 05-19-2021 take 1 tablet by mouth once Methylprednisolone (Medrol (Errol)) 4 mg tablets,dose pack Discontinued 0 PO per package directions 21 0 April 12, 2021 12:00am May 19, 2021 12:26pm PO PER PKG DIR Start: 06-08-2020 End: 06-13-2020 take 1 tablet by mouth once Methylprednisolone (Medrol (Errol)) 4 mg tablets,dose pack Discontinued 4 mg PO per package directions 21 5 0 June 08, 2020 1:00am June 12, 2020 1:00am June 13, 2020 1:03am Neuro-Q (8 sources) Start: 01-21-2021 End: 12-20-2021 Neuro-Q Discontinued PO 0 Au rikki 2020 12:00am December 20, 2021 2:31pm Start: 01-21-2021 End: 12-20-2021 Neuro-Q Discontinued PO Augu st 2020 11:00pm December 20, 2021 1:31pm Start: 01-21-2021 End: 12-20-2021 Neuro-Q Discontinued PO Augu st 2020 12:00am December 20, 2021 2:31pm oseltamivir 75 mg oral capsule (4 sources) Neuraminidase Inhibitor Start: 08-23-2023 End: 08-28-2023 take 1 capsule by mouth twice daily Oseltamivir 75 mg capsule Discontinued 75 mg PO TWICE A DAY 10 5 0 August 23, 2023 12:00am August 27, 2023 12:00am August 28, 2023 12:06am rosuvastatin calcium 20 mg oral tablet (20 sources) HMG-CoA Reductase Inhibitor Start: 06-29-2021 End: 09-16-2024 take 1 tablet by mouth once daily Rosuvastatin 20 mg tablet Discontinued 20 mg PO DAILY 90 3 September 05, 2023 8:00am September 16, 2024 3:16pm Start: 09-23-2020 End: 06-29-2021 take 1 tablet by mouth once daily Rosuvastatin 5 mg tablet Discontinued 5 mg PO DAILY 30 September 23, 2020 12:00am June 29, 2021 4:16pm (stop atorvastatin) ticagrelor 90 mg oral tablet (8 sources) Start: 07-11-2020 End: 08-21-2020 take 1 tablet by mouth twice daily Ticagrelor 90 MG tablet Discontinued 90 mg PO TWICE A DAY 180 July 11, 2020 1:00am August 21, 2020 3:34pm Triamterene-Hctz 37.5-25 mg Cp (8 sources) Start: 07-09-2020 End: 07-11-2020 Triamterene-Hctz 37.5-25 mg Cp Discontinued 1 NMA PO DAILY July 09, 2020 1:00am July 11, 2020 8:30am diuresis Start: 07-09-2020 End: 07-11-2020 Triamterene-Hctz 37.5-25 mg Cp Discontinued 1 NMA PO DAILY July 09, 2020 1:00am July 11, 2020 8:30am Start: 07-09-2020 End: 07-11-2020 take 1 capsule by mouth once daily Triamterene-Hctz 37.5-25 mg Cp Discontinued 1 CAP PO DAILY July 09, 2020 12:00am July 11, 2020 7:30am Start: 07-09-2020 End: 07-11-2020 take 1 capsule by mouth once daily Triamterene-Hctz 37.5-25 mg Cp Discontinued 1 CAP PO DAILY July 09, 2020 1:00am July 11, 2020 8:30am ubidecarenone 10 mg oral capsule (16 sources) Start: 01-21-2021 End: 01-10-2023 Coenzyme Q10 10 mg capsule Discontinued 10 mg PO DAILY December 20, 2021 2:30pm January 10, 2023 1:43pm zinc gluconate 50 mg oral tablet (8 sources) Start: 06-29-2021 End: 01-10-2023 take 1 tablet by mouth once daily Zinc Gluconate 50 mg tablet Discontinued 50 mg PO DAILY June 29, 2021 1:00am January 10, 2023 1:44pm Problems Active Problems Problem Classification Problem Date Documented Da te Episodic/Chronic Acute bronchitis (8 sources) Acute bronchitis; Translations: [Acute bronchitis, unspecified] 06-28-2021 Episodic Comment on above: COVID negative Acute myocardial infarction (8 sources) Myocardial infarction; Translations: [ST elevation (STEMI) myocardial infarction of unspecified site] 07-13-2020 Chronic Alcohol-related disorders (8 sources) Alcohol abuse; Translations: [Alcohol abuse, uncomplicated] 07-13-2020 Chronic Chronic obstructive pulmonary disease and bronchiectasis (11 sources) Bronchitis; Translations: [Bronchitis, not specified as acute or chronic] 06-16-2022 Episodic Coagulation and hemorrhagic disorders (6 sources) Finding related to bruising; Translations: [Spontaneous ecchymoses] 09-26-2022 Episodic Coronary atherosclerosis and other heart disease (19 sources) History of acute ST segment elevation myocardial infarction; Translations: [Old myocardial infarction] Onset: 07-09-2020 07-13-2020 Chronic Comment on above: inferior wall Coronary atherosclerosis and other heart disease (3 sources) Presence of coronary angioplasty implant and graft; Translations: [Percutaneous transluminal coronary angioplasty status] Onset: 07-09-2020 Episodic Disorders of lipid metabolism (14 sources) Mixed hyperlipidemia; Translations: [Mixed hyperlipidemia] Onset: 11-27-2024 Chronic Essential hypertension (14 sources) Essential hypertension; Translations: [Essential (primary) hypertension] Onset: 11-27-2024 Chronic Immunizations and screening for infectious disease (8 sources) Patient encounter status; Translations: [Encounter for screening for COVID-19] 06-28-2021 Episodic Malaise and fatigue (4 sources) Fatigue; Translations: [Other fatigue] Onset: 11-27-2024 11-26-2024 Episodic Mycoses (1 source) Candidiasis of mouth; Translations: [Candidal stomatitis] 08-27-2023 Episodic Nonspecific chest pain (20 sources) Chest pain; Translations: [Chest pain, unspecified] Onset: 02-02-2024 Episodic Other connective tissue disease (8 sources) Pain in calf; Translations: [Pain in left lower leg] 02-17-2019 Episodic Other injuries and conditions due to external causes (4 sources) Blunt injury of abdomen; Translations: [Other specified injuries of abdomen, initial encounter] 01-23-2024 Episodic Other lower respiratory disease (8 sources) Cough; Translations: [Subacute cough] 07-21-2023 Episodic Other lower respiratory disease (1 source) Chronic cough; Translations: [Chronic cough] 09-24-2023 Episodic Other lower respiratory disease (2 sources) Cough; Translations: [Acute cough] 07-16-2024 Episodic Other lower respiratory disease (3 sources) Dyspnea; Translations: [Shortness of breath] 11-26-2024 Episodic Other lower respiratory disease (6 sources) Solitary nodule of lung; Translations: [Solitary pulmonary nodule] 11-26-2024 Episodic Comment on above: right Other lower respiratory disease (2 sources) Shortness of breath; Translations: [Shortness of breath] Onset: 12-02-2024 Episodic Other lower respiratory disease (1 source) Solitary pulmonary nodule; Translations: [Solitary pulmonary nodule] Onset: 12-09-2024 Episodic Other non-traumatic joint disorders (2 sources) Pain in elbow; Translations: [Pain in right elbow] 11-24-2023 Episodic Other screening for suspected conditions (not mental disorders or infectious disease) (1 source) Encounter for screening for malignant neoplasm of prostate; Translations: [Encounter for screening for malignant neoplasm of prostate] Onset: 11-21-2024 Episodic Other upper respiratory disease (4 sources) Congestion of nasal sinus; Translations: [Nasal congestion] 12-02-2023 Episodic Other upper respiratory infections (10 sources) Sinusitis; Translations: [Chronic sinusitis, unspecified] Chronic Other upper respiratory infections (20 sources) Acute upper respiratory infection; Translations: [Acute upper respiratory infection, unspecified] 07-13-2020 Episodic Otitis media and related conditions (9 sources) Acute bilateral otitis media ; Translations: [Otitis media, unspecified, bilateral] Episodic Sprains and strains (12 sources) Low back strain; Translations: [Strain of muscle, fascia and tendon of lower back, initial encounter] 07-13-2020 Episodic Superficial injury; contusion (8 sources) Contusion of trunk; Translations: [Contusion of abdominal wall, initial encounter] 01-23-2024 Episodic Unclassified (1 source) Acute cough; Translations: [Acute cough] Onset: 07-16-2024 Unclassified (1 source) Subacute cough; Translations: [Subacute cough] Onset: 07-22-2023 Viral infection (8 sources) Disease caused by 2019-nCoV; Translations: [COVID-19] 08-08-2022 Episodic Past or Other Problems Problem Classification Problem Date Documented Da te Episodic/Chronic Other non-traumatic joint disorders (1 source) Pain in right elbow; Translations: [Elbow pain, right] Onset: 11-24-2023 Episodic Results Test Name Value Interpretation Reference Range Facility CTA Chest W/WO Contraston CTA Chest W/WO Contrast [facility] Imaging Services [address] [place] [id number] CTA Chest W/WO Contrast MR#: [id number] Acct: [id number] Name: BECKA PEREZ Rep #: [id number] : 1960 M 64 From: Linn stoll MD PCP: 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, 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-C Status: REG CLI Study: CTA Chest W/WO Contrast Date of Exam: 12/03/24 Exam# [id number] Ordering Dr: Sangita Pak NP PROCEDURE: CTA CHEST W/WO CONTRAST 12/03/2024 REASON FOR EXAM: RE-EVALUATE NODULE COMPARED TO 04/06/2015 TECHNIQUE: CTA CHEST W/WO CONTRAST Multiplanar Sagittal and Coronal images were obtained. CONTRAST: Isovue 370 VOLUME: 100 mL One or more dose reduction techniques were used (e.g., Automated exposure control, adjustment of the mA and/or kV according to patient size, use of iterative reconstruction technique). RADIATION DOSE SUMMARY: CTDlvol: 11.66 mGy DLP: 413 mGycm COMPARISON: Chest radiograph on 11/26/2024. CT scan 01/15/2024. FINDINGS: Unchanged 4 mm nodule in the right middle lobe. Unchanged moderate coronary artery calcifications. Unchanged calcified mediastinal and hilar lymph nodes with the largest measuring 1.2 cm. Normal enhancement of the main pulmonary artery and right and left pulmonary arteries. Normal enhancement of the bilateral peripheral pulmonary arteries. There is no demonstrated pulmonary embolism. Normal thoracic aorta and visualized great vessels. There is no demonstrated aortic dissection. Normal heart and pericardium. Normal mediastinum. Normal hilar regions. Normal visualized trachea and bronchi. The lungs are well expanded. Normal remaining pulmonary parenchyma. Normal pleura. Normal chest wall structures. Normal osseous structures. Normal visualized upper abdomen. CT/CTA Chest W/WO Contrast IMPRESSION: Unchanged 4 mm nodule in the right middle lobe. Unchanged moderate coronary artery calcifications. Unchanged calcified mediastinal and hilar lymph nodes with the largest measuring 1.2 cm. Reading Location: [place] [address] CC: WENDY Malhotra; WENDY Pak Brim Curler: Signed Normal [facility] Absolute lymphocyte countOrd ered By: Sangita Pak on 11-26-2024 Lymphocytes Auto (Unsp spec) [#/Vol] 2.58 10*3/uL 0.83-4.51 [facility] Absolute neutrophil countOrd ered By: Sangita Pak on 11-26-2024 Neutrophils (Bld) [#/Vol] 4.3 10*3/uL 2.0-7.7 [facility] Anion gap in Serum or Plasma Ordered By: Sangita Pak on 11-26-2024 Anion gap [Moles/Vol] 11 mmol/L 5-15 [facility] Automated lymphocyte count a s percentage of total leukocytesOrdered By: Sangita Pak on 11-26-2024 Lymphocytes/100 WBC Auto (Unsp spec) 31.8 % - [facility] BUN/creatinine ratioOrdered By: Sangita Pak on 11-26-2024 Urea nitrogen/Creatinine [Mass ratio] 10.7 mg/mg - [facility] Basic Metabolic Profile (BMP )on 11-26-2024 BUN/CRE 10.7 RATIO Normal - [facility] Comment on above: Performed By: #### L 500.2500, L100.0100, L501.9520, L503.7505 ####[facility] [address] [place], [address] Calcium [Mass/Vol] 9.3 mg/dL Normal 7.6-11.0 [facility] Comment on above: Performed By: #### L 500.2500, L100.0100, L501.9520, L503.7505 ####[facility] [address] [place], [address] Chloride [Moles/Vol] 103 mmol/L Normal 98-108 [facility] Comment on above: Performed By: #### L 500.2500, L100.0100, L501.9520, L503.7505 ####[facility] [address] [place], [address] CO2 [Moles/Vol] 24.8 mmol/L Normal 21.0-32.0 [facility] Comment on above: Performed By: #### L 500.2500, L100.0100, L501.9520, L503.7505 ####[facility] [address] [place], [address] Creatinine [Mass/Vol] 0.99 mg/dL Normal 0.70-1.20 [facility] Comment on above: Performed By: #### L 500.2500, L100.0100, L501.9520, L503.7505 ####[facility] [address] [place], [address] GAP 11 Normal 5-15 [facility] Comment on above: Performed By: #### L 500.2500, L100.0100, L501.9520, L503.7505 ####[facility] [address] [place], [address] GFR/1.73 sq M.predicted among non-blacks MDRD (S/P/Bld) [Vol rate/Area] 85 mL/min/{1.73_m2} Normal >60 [facility] Comment on above: Result Comment: mL/m in/1.73m2 CKD-EPI Creatinine Equation (2020) Performed By: #### L 500.2500, L100.0100, L501.9520, L503.7505 ####[facility] [address] [place], [address] Glucose [Mass/Vol] 94 mg/dL Normal 70-99 [facility] Comment on above: Performed By: #### L 500.2500, L100.0100, L501.9520, L503.7505 ####[facility] [address] [place], [address] Potassium [Moles/Vol] 3.7 mmol/L Normal 3.3-5.1 [facility] Comment on above: Performed By: #### L 500.2500, L100.0100, L501.9520, L503.7505 ####[facility] [address] [place], [address] Sodium [Moles/Vol] 139 mmol/L Normal 133-145 [facility] Comment on above: Performed By: #### L 500.2500, L100.0100, L501.9520, L503.7505 ####[facility] [address] [place], [address] Urea nitrogen [Mass/Vol] 11 mg/dL Normal 4-19 [facility] Comment on above: Performed By: #### L 500.2500, L100.0100, L501.9520, L503.7505 ####[facility] [address] [place], [address] Basophil percentageOrdered B y: Sangita Pak on 11-26-2024 Basophils/100 WBC (Bld) 0.5 % 0-1 [facility] CBC W/Diff, Automatedon 11-10 Absolute Lymph 2.58 X10 3/uL Normal 0.83-4.51 [facility] Comment on above: Performed By: #### L 500.2500, L100.0100, L501.9520, L503.7505 ####[facility] [address] [place], [address] Absolute Neut 4.3 X10 3/uL Normal 2.0-7.7 [facility] Comment on above: Performed By: #### L 500.2500, L100.0100, L501.9520, L503.7505 ####[facility] [address] [place], [address] Basophils/100 WBC (Bld) 0.5 % Normal 0-1 [facility] Comment on above: Performed By: #### L 500.2500, L100.0100, L501.9520, L503.7505 ####[facility] [address] [place], [address] Eosinophils/100 WBC (Bld) 1.6 % Normal 0-5 [facility] Comment on above: Performed By: #### L 500.2500, L100.0100, L501.9520, L503.7505 ####[facility] [address] [place], [address] Erythrocyte distribution width (RBC) [Ratio] 12.3 % Normal 11.6-14.6 [facility] Comment on above: Performed By: #### L 500.2500, L100.0100, L501.9520, L503.7505 ####[facility] [address] [place], [address] Hematocrit (Bld) [Volume fraction] 40.7 % Normal 40-54 [facility] Comment on above: Performed By: #### L 500.2500, L100.0100, L501.9520, L503.7505 ####[facility] [address] [place], [address] Hemoglobin (Bld) [Mass/Vol] 13.8 g/dL Normal 13.0-16.5 [facility] Comment on above: Performed By: #### L 500.2500, L100.0100, L501.9520, L503.7505 ####[facility] [address] [place], [address] IG% 0.700 Normal 0.0-0.9 [facility] Comment on above: Result Comment: IG% - Immature Granulocytes (promyelocytes, myelocytes and metamyelocytes) > 1% indicates that a LEFT SHIFT is Present. Performed By: #### L 500.2500, L100.0100, L501.9520, L503.7505 ####[facility] [address] [place], [address] Lymphocytes/100 WBC (Bld) 31.8 % Normal 19-41 [facility] Comment on above: Performed By: #### L 500.2500, L100.0100, L501.9520, L503.7505 ####[facility] [address] [place], [address] MCH (RBC) [Entitic mass] 29.6 pg Normal 27.0-32.0 [facility] Comment on above: Performed By: #### L 500.2500, L100.0100, L501.9520, L503.7505 ####[facility] [address] [place], [address] MCHC (RBC) [Mass/Vol] 33.9 g/dL Normal 32-36 [facility] Comment on above: Performed By: #### L 500.2500, L100.0100, L501.9520, L503.7505 ####[facility] [address] [place], [address] MCV (RBC) [Entitic vol] 87.3 fL Normal 80-94 [facility] Comment on above: Performed By: #### L 500.2500, L100.0100, L501.9520, L503.7505 ####[facility] [address] [place], [address] Monocytes/100 WBC (Bld) 12.8 % High 0-10 [facility] Comment on above: Performed By: #### L 500.2500, L100.0100, L501.9520, L503.7505 ####[facility] [address] [place], [address] Neutrophils/100 WBC (Bld) 52.6 % Normal 47-70 [facility] Comment on above: Performed By: #### L 500.2500, L100.0100, L501.9520, L503.7505 ####[facility] [address] [place], [address] Nucleated RBC (Bld) [#/Vol] 0 10*3/uL Normal 0-5 [facility] Comment on above: Performed By: #### L 500.2500, L100.0100, L501.9520, L503.7505 ####[facility] [address] [place], [address] Platelet mean volume (Bld) [Entitic vol] 11.2 fL Normal 6.2-12.0 [facility] Comment on above: Performed By: #### L 500.2500, L100.0100, L501.9520, L503.7505 ####[facility] [address] [place], [address] Platelets (Bld) [#/Vol] 197 10*3/uL Normal 150-450 [facility] Comment on above: Performed By: #### L 500.2500, L100.0100, L501.9520, L503.7505 ####[facility] [address] [place], [address] RBC (Bld) [#/Vol] 4.66 10*6/uL Normal 4.6-6.2 [facility] Comment on above: Performed By: #### L 500.2500, L100.0100, L501.9520, L503.7505 ####[facility] [address] [place], [address] RDW SD 39.2 fl Normal 35.1-43.9 [facility] Comment on above: Performed By: #### L 500.2500, L100.0100, L501.9520, L503.7505 ####[facility] [address] [place], [address] WBC (Bld) [#/Vol] 8.1 10*3/uL Normal 4.4-11.0 [facility] Comment on above: Performed By: #### L 500.2500, L100.0100, L501.9520, L503.7505 ####[facility] [address] [place], [address] Carbon dioxide, total [Moles /volume] in Central venous bloodOrdered By: Sangita Pak on 11-26-2024 CO2 [Moles/Vol] 24.8 mmol/L 21.0-32.0 [facility] Cardiology Visit Reporton Cardiology Visit Report [facility] [address] [place] [address] OFFICE VISIT Date of Service: 11/26/24 MR#: [id number] Acct: [id number] Name: BECKA PEREZ Rep #: [id number] : 1960 Provider: WENDY huerta Age/Sex: 64/M Location: [facility] Status: Signed HPI HPI History of Present Illness Details: 64-year-old man with a history of coronary artery [...] therapy was used for the rest. He recently contacted our office expressing concerns regarding something is not right. He was asked to present to our office and undergo laboratory testing and chest x-ray. He acknowledges ongoing chest pressure. This is continuous regardless of activity. This is located to right chest. This has been ongoing for 2 weeks. He denies palpitations or lower extremity edema. He denies claudication. He acknowledges shortness of breath at rest and shortness of breath with activity. He denies lightheadedness, dizziness, near-syncope, or syncope. He acknowledges fatigue over the last couple months. He is concerned that his fatigue is similar to fatigue as noted in June 2020. He does acknowledge recently injuring his right ribs after being pinned between a horse and a gate. Intake Vital Signs 01/30/24 15:45 11/26/24 13:50 Height 5 ft 11 in 5 ft 11 in Weight: 188 lb 193 lb BMI 26.2 26.9 BP 135/81 H 131/87 H Blood Pressure Location Lt brachial Lt brachial Position Sitting Sitting Respiration 18 16 Pulse 59 L 70 Pulse Source Monitor NIBP Pulse Oximetry (%) 97 Intake Visit Reasons: See clinical notes, added per JR Optician Apprentice Required: No Accompanied by: Is patient in pain?: No Allergies No Known Allergies Allergy (Verified 11/26/24 15:47) Medications ???Medication ???Instructions ???Recorded ???Confirmed ???Type ascorbic acid (vitamin C) 500 mg 1 g PO BID 01/10/23 11/26/24 Histo ry tablet metoprolol tartrate 25 mg tablet 25 mg PO BID #180 tabs 05/07/24 Rx amlodipine 5 mg tablet 5 mg PO DAILY #90 tabs 08/14/24 Rx aspirin 81 mg tablet,delayed 81 mg PO DAILY@0800 #90 tabs 09/1611/26/24 Rx release rosuvastatin 20 mg tablet 20 mg PO DAILY #90 tabs 09/16/24 0 11/26/24 Rx acetaminophen 650 mg 1,300 mg PO Q8H PRN PAIN OR FEVER 11/26/24 11/26/24 History tablet,extended release (Tylenol 8 Hour) cholecalciferol (vitamin D3) 50 50 mcg PO QDAY 11/26/24 11/26/24 H istory mcg (2,000 unit) tablet isosorbide mononitrate 60 mg 60 mg PO DAILY #90 tabs 11/26/24 0 11/26/24 Rx tablet,extended release 24 hr multivit,Ca,min-iron 8 mg-folic 1 tab PO BID 11/26/24 11/26/24 His tory acid 200 mcg-lycopene 600 mcg tablet (Centrum Men) Have you fallen in the past year?: Yes (Trip and fall) [facility] Medical History Acute lumbar myofascial strain COVID-19 Bronchitis URI (upper respiratory infection) Acute bronchitis, unspecified Essential (primary) hypertension History of ST elevation myocardial infarction (STEMI) (07/09/20) Atherosclerotic heart disease of [place] coronary artery without angina pectoris Chronic back [...] Number of servings: 2 ROS Const Const: Positive for fatigue (Over last couple of months); Negative for weakness Eyes Eyes: Negative for change in vision ENT ENT: Negative for dizziness or balance problems Cardio Chest Pain: Yes Frequency: other (Continuous over last c (more content not included)... Normal [facility] Chest PA and Lateralon 11-26 Chest PA and Lateral [facility] Imaging Services [address] [place], [place] [address] Chest PA and Lateral MR#: [id number] Acct: [id number] Name: BECKA PEREZ Rep #: [id number] : 1960 M 64 From: Linn stoll MD PCP: WENDY Potts Status: REG CLI Study: Chest PA and Lateral Date of Exam: 11/26/24 Exam# [id number] Ordering Dr: Sangita Pak NP 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-Ken PROCEDURE: CHEST PA AND LATERAL 11/26/2024 REASON FOR EXAM: SHORTNESS OF BREATH TECHNIQUE: CHEST PA AND LATERAL COMPARISON: 07/05/2022. FINDINGS: Interval appearance of mild left basilar atelectatic pulmonary changes. There is no demonstrated pleural abnormality. Normal heart and pericardium. Normal mediastinum and radha. Normal visualized pulmonary arteries. Normal visualized aortic arch and descending thoracic aorta. Normal visualized thoracic spine. Normal visualized ribs, clavicles, and shoulders. There is no demonstrated abnormality of the visualized soft tissue structures of the upper abdomen. RAD/Chest PA and Lateral IMPRESSION: Interval appearance of mild left basilar atelectatic pulmonary changes. [facility] CC: WENDY Malhotra; WENDY Pak Brim Curler: Signed Normal [facility] Chloride assayOrdered By: Rosibel Pak on 06-17-2025 Chloride [Moles/Vol] 103 mmol/L 98-108 [facility] Eosinophil percentageOrdered By: Sangita Pak on 11-26-2024 Eosinophils/100 WBC (Bld) 1.6 % 0-5 [facility] Erythrocyte distribution wid th ratioOrdered By: Sangita Pak on 11-26-2024 Erythrocyte distribution width (RBC) [Ratio] 12.3 % 11.6-14.6 [facility] Erythrocyte distribution wid th standard deviationOrdered By: Sangita Pak on 11-26-2024 Erythrocyte distribution width (RBC) [Ratio] 39.2 fl 35.1-43.9 [facility] Glomerular filtration rate ( GFR) estimation/1.73 sq m using serum, plasma, or whole bOrdered By: Sangita Pak on 11-26-2024 GFR/1.73 sq M.predicted among non-blacks MDRD (S/P/Bld) [Vol rate/Area] 85 mL/min/{1.73_m2} >60 [facility] Comment on above: mL/min/1.73m2 CKD-EP I Creatinine Equation (2020) Hematocrit Auto (Bld) [Volum e fraction]Ordered By: Sangita Pak on 11-26-2024 Hematocrit (Bld) [Volume fraction] 40.7 % 40-54 [facility] Hemoglobin measurementOrdere d By: Sangita Pak on 11-26-2024 Hemoglobin (Bld) [Mass/Vol] 13.8 g/dL 13.0-16.5 [facility] Immature granulocytes/100 WB C Auto (Bld)Ordered By: Sangita Pak on 11-26-2024 Immature granulocytes/100 WBC (Bld) 0.700 % 0.0-0.9 [facility] Comment on above: IG% - Immature Granu locytes (promyelocytes, myelocytes and metamyelocytes) > 1% indicates that a LEFT SHIFT is Present. L501.4021on 11-26-2024 Trop T High Sen 11 ng/L Normal <=22 [facility] Comment on above: Performed By: #### L 501.4021 ####[facility] [address] [place], [address] L503.7505on 11-26-2024 Natriuretic peptide B (Bld) [Mass/Vol] 94 pg/mL Normal <=900 [facility] Comment on above: Result Comment: Hear t Failure Unlikely: < 300 pg/mL Heart Failure Likely < 50 Years: > 450 pg/mL 50-75 Years: > 900 pg/mL >75 Years: > 1800 pg/mL Performed By: #### L 500.2500, L100.0100, L501.9520, L503.7505 ####[facility] [address] [place], [address] MCV (mean corpuscular volume ) determinationOrdered By: Sangita Pak on 11-26-2024 MCV (RBC) [Entitic vol] 87.3 fL 80-94 [facility] Mean corpuscular hemoglobin (MCH) determinationOrdered By: Sangita Pak on 11-26-2024 MCH (RBC) [Entitic mass] 29.6 pg 27.0-32.0 [facility] Mean corpuscular hemoglobin concentration (MCHC) determinationOrdered By: Sangita Pak on 11-26-2024 MCHC (RBC) [Mass/Vol] 33.9 g/dL 32-36 [facility] Mean platelet volume determi nationOrdered By: Sangita Pak on 11-26-2024 Platelet mean volume (Bld) [Entitic vol] 11.2 fL 6.2-12.0 [facility] Monocyte percentageOrdered B y: Sangita Pak on 11-26-2024 Monocytes/100 WBC (Bld) 12.8 % High 0-10 [facility] Natriuretic peptide.B prohor tameka N-Terminal [Mass/volume] in Serum or PlasmaOrdered By: Sangita Pak on 11-26-2024 Natriuretic peptide.B prohormone N-Terminal [Mass/Vol] 94 pg/mL <900 [facility] Comment on above: Heart Failure Unlike ly: < 300 pg/mLHeart Failure Likely< 50 Years: > 450 pg/mL50-75 Years: > 900 pg/mL>75 Years: > 1800 pg/mL Neutrophil percentageOrdered By: Sangita Pak on 11-26-2024 Neutrophils/100 WBC (Bld) 52.6 % 47-70 [facility] Nucleated red blood cell per centageOrdered By: Sangita Pak on 11-26-2024 Nucleated RBC/100 WBC (Bld) [Ratio] 0 % 0-5 [facility] Platelet countOrdered By: Rosibel Pak on 11-26-2024 Platelets (Bld) [#/Vol] 197 10*3/uL 150-450 [facility] Potassium measurement (mass/ volume)Ordered By: Sangita Pak on 11-26-2024 Potassium (Unsp spec) [Mass/Vol] 3.7 mmol/L 3.3-5.1 [facility] RBC Auto (Bld) [#/Vol]Ordere d By: Sangita Pak on 11-26-2024 RBC (Bld) [#/Vol] 4.66 10*6/uL 4.6-6.2 [facility] Serum creatinine measurement (mass/volume)Ordered By: Sangita Pak on 11-26-2024 Creatinine [Mass/Vol] 0.99 mg/dL 0.70-1.20 [facility] Serum glucose measurement (m ass/volume)Ordered By: Sangita Pak on 11-26-2024 Glucose [Mass/Vol] 94 mg/dL 70-99 [facility] Serum or plasma calcium rachelle urement (mass/volume)Ordered By: Sangita Pak on 11-26-2024 Calcium [Mass/Vol] 9.3 mg/dL 7.6-11.0 [facility] Serum or plasma urea nitroge n measurement (mass/volume)Ordered By: Sangita Pak on 11-26-2024 Urea nitrogen [Mass/Vol] 11 mg/dL 4-19 [facility] Sodium levelOrdered By: Sangita Pak on 11-26-2024 Sodium [Moles/Vol] 139 mmol/L 133-145 [facility] TSH DL <= 0.005 mIU/L QnOrde red By: Sangita Pak on 11-26-2024 TSH Qn 2.770 uIU/mL 0.300-4.200 [facility] Thyroid Stim Hormone (TSH)on 11-26-2024 TSH 2.770 uIU/mL Normal 0.300-4.200 [facility] Comment on above: Performed By: #### L 500.2500, L100.0100, L501.9520, L503.7505 ####[facility] [address] [place], [address] Troponin T.cardiac [Mass/vol ume] in Serum or Plasma by High sensitivity methodOrdered By: Sangita Pak on 11-26-2024 Troponin T.cardiac High sensitivity method [Mass/Vol] 11 ng/L <22 [facility] White blood cell (WBC) count Ordered By: Sangita Pak on 11-26-2024 WBC (Bld) [#/Vol] 8.1 10*3/uL 4.4-11.0 [facility] Absolute lymphocyte countOrd ered By: Raj Atkins on 11-15-2024 Lymphocytes Auto (Unsp spec) [#/Vol] 2.20 10*3/uL 0.83-4.51 [facility] Absolute neutrophil countOrd ered By: Raj Atkins on 11-15-2024 Neutrophils (Bld) [#/Vol] 3.2 10*3/uL 2.0-7.7 [facility] Anion gap in Serum or Plasma Ordered By: Raj Atkins on 11-15-2024 Anion gap [Moles/Vol] 11 mmol/L 5-15 [facility] Automated lymphocyte count a s percentage of total leukocytesOrdered By: Raj Atkins on 11-15-2024 Lymphocytes/100 WBC Auto (Unsp spec) 34.6 % 19-41 [facility] BUN/creatinine ratioOrdered By: Raj Atkins on 11-15-2024 Urea nitrogen/Creatinine [Mass ratio] 6.6 mg/mg Low 10-20 [facility] Basophil percentageOrdered B y: Raj Atkins on 11-15-2024 Basophils/100 WBC (Bld) 0.6 % 0-1 [facility] Bilirubin, totalOrdered By: Raj Atkins on 11-15-2024 Bilirubin [Mass/Vol] 0.63 mg/dL 0.00-1.30 [facility] CBC W/Diff, Automatedon Absolute Lymph 2.20 X10 3/uL Normal 0.83-4.51 [facility] Comment on above: Performed By: #### L 501.9520, L500.4050, L501.9910, L100.0100, L500.4100 #### [facility] [address] [place], [address] Absolute Neut 3.2 X10 3/uL Normal 2.0-7.7 [facility] Comment on above: Performed By: #### L 501.9520, L500.4050, L501.9910, L100.0100, L500.4100 #### [facility] [address] [place], [address] Basophils/100 WBC (Bld) 0.6 % Normal 0-1 [facility] Comment on above: Performed By: #### L 501.9520, L500.4050, L501.9910, L100.0100, L500.4100 #### [facility] [address] [place], [address] Eosinophils/100 WBC (Bld) 2.5 % Normal 0-5 [facility] Comment on above: Performed By: #### L 501.9520, L500.4050, L501.9910, L100.0100, L500.4100 #### [facility] [address] [place], [address] Erythrocyte distribution width (RBC) [Ratio] 12.6 % Normal 11.6-14.6 [facility] Comment on above: Performed By: #### L 501.9520, L500.4050, L501.9910, L100.0100, L500.4100 #### [facility] [address] [place], [address] Hematocrit (Bld) [Volume fraction] 41.2 % Normal 40-54 [facility] Comment on above: Performed By: #### L 501.9520, L500.4050, L501.9910, L100.0100, L500.4100 #### [facility] [address] [place], [address] Hemoglobin (Bld) [Mass/Vol] 14.2 g/dL Normal 13.0-16.5 [facility] Comment on above: Performed By: #### L 501.9520, L500.4050, L501.9910, L100.0100, L500.4100 #### [facility] [address] [place], [address] IG% 1.100 High 0.0-0.9 [facility] Comment on above: Result Comment: IG% - Immature Granulocytes (promyelocytes, myelocytes and metamyelocytes) > 1% indicates that a LEFT SHIFT is Present. Performed By: #### L 501.9520, L500.4050, L501.9910, L100.0100, L500.4100 #### [facility] [address] [place], [address] Lymphocytes/100 WBC (Bld) 34.6 % Normal 19-41 [facility] Comment on above: Performed By: #### L 501.9520, L500.4050, L501.9910, L100.0100, L500.4100 #### [facility] [address] [place], [address] MCH (RBC) [Entitic mass] 30.0 pg Normal 27.0-32.0 [facility] Comment on above: Performed By: #### L 501.9520, L500.4050, L501.9910, L100.0100, L500.4100 #### [facility] [address] [place], [address] MCHC (RBC) [Mass/Vol] 34.5 g/dL Normal 32-36 [facility] Comment on above: Performed By: #### L 501.9520, L500.4050, L501.9910, L100.0100, L500.4100 #### [facility] Laboratory [address] [place], [address] MCV (RBC) [Entitic vol] 86.9 fL Normal 80-94 [facility] Comment on above: Performed By: #### L 501.9520, L500.4050, L501.9910, L100.0100, L500.4100 #### [facility] [address] [place], [address] Monocytes/100 WBC (Bld) 10.9 % High 0-10 [facility] Comment on above: Performed By: #### L 501.9520, L500.4050, L501.9910, L100.0100, L500.4100 #### [facility] [address] [place], [address] Neutrophils/100 WBC (Bld) 50.3 % Normal 47-70 [facility] Comment on above: Performed By: #### L 501.9520, L500.4050, L501.9910, L100.0100, L500.4100 #### [facility] [address] [place], [address] Nucleated RBC (Bld) [#/Vol] 0 10*3/uL Normal 0-5 [facility] Comment on above: Performed By: #### L 501.9520, L500.4050, L501.9910, L100.0100, L500.4100 #### [facility] [address] [place], [address] Platelet mean volume (Bld) [Entitic vol] 10.7 fL Normal 6.2-12.0 [facility] Comment on above: Performed By: #### L 501.9520, L500.4050, L501.9910, L100.0100, L500.4100 #### [facility] [address] [place], [address] Platelets (Bld) [#/Vol] 191 10*3/uL Normal 150-450 [facility] Comment on above: Performed By: #### L 501.9520, L500.4050, L501.9910, L100.0100, L500.4100 #### [facility] [address] [place], [address] RBC (Bld) [#/Vol] 4.74 10*6/uL Normal 4.6-6.2 [facility] Comment on above: Performed By: #### L 501.9520, L500.4050, L501.9910, L100.0100, L500.4100 #### [facility] [address] [place], [address] RDW SD 39.9 fl Normal 35.1-43.9 [facility] Comment on above: Performed By: #### L 501.9520, L500.4050, L501.9910, L100.0100, L500.4100 #### [facility] [address] [place], [address] WBC (Bld) [#/Vol] 6.4 10*3/uL Normal 4.4-11.0 [facility] Comment on above: Performed By: #### L 501.9520, L500.4050, L501.9910, L100.0100, L500.4100 #### [facility] [address] [place], [address] Calculated very low density lipoprotein (VLDL) cholesterol measurementOrdered By: Raj Atkins on 11-15-2024 Calculated very low density lipoprotein (VLDL) cholesterol measurement 28 mg/dL 5-40 [facility] Carbon dioxide, total [Moles /volume] in Central venous bloodOrdered By: Raj Atkins on 11-15-2024 CO2 [Moles/Vol] 25.8 mmol/L 21.0-32.0 [facility] Chloride assayOrdered By: Sandy Atkins on 11-15-2024 Chloride [Moles/Vol] 106 mmol/L 98-108 [facility] Comprehensive Metabolic Prof ilon 11-15-2024 Albumin [Mass/Vol] 4.2 g/dL Normal 3.4-4.8 [facility] Comment on above: Performed By: #### L 501.9520, L500.4050, L501.9910, L100.0100, L500.4100 #### [facility] [address] [place], [address] Albumin/Globulin [Mass ratio] 1.7 {ratio} Normal 0.9-2.4 [facility] Comment on above: Performed By: #### L 501.9520, L500.4050, L501.9910, L100.0100, L500.4100 #### [facility] [address] [place], [address] ALK PHOS 68 U/L Normal 40-129 [facility] Comment on above: Performed By: #### L 501.9520, L500.4050, L501.9910, L100.0100, L500.4100 #### [facility] [address] [place], [address] ALT [Catalytic activity/Vol] 43 U/L Normal <=46 [facility] Comment on above: Performed By: #### L 501.9520, L500.4050, L501.9910, L100.0100, L500.4100 #### [facility] [address] [place], [address] AST [Catalytic activity/Vol] 38 U/L Normal <=37 [facility] Comment on above: Performed By: #### L 501.9520, L500.4050, L501.9910, L100.0100, L500.4100 #### [facility] [address] [place], [address] Bilirubin [Mass/Vol] 0.63 mg/dL Normal 0.00-1.30 [facility] Comment on above: Performed By: #### L 501.9520, L500.4050, L501.9910, L100.0100, L500.4100 #### [facility] [address] [place], [address] BUN/CRE 6.6 RATIO Low 10-20 [facility] Comment on above: Performed By: #### L 501.9520, L500.4050, L501.9910, L100.0100, L500.4100 #### [facility] [address] [place], [address] Calcium [Mass/Vol] 9.1 mg/dL Normal 7.6-11.0 [facility] Comment on above: Performed By: #### L 501.9520, L500.4050, L501.9910, L100.0100, L500.4100 #### [facility] [address] [place], [address] Chloride [Moles/Vol] 106 mmol/L Normal 98-108 [facility] Comment on above: Performed By: #### L 501.9520, L500.4050, L501.9910, L100.0100, L500.4100 #### [facility] [address] [place], [address] CO2 [Moles/Vol] 25.8 mmol/L Normal 21.0-32.0 [facility] Comment on above: Performed By: #### L 501.9520, L500.4050, L501.9910, L100.0100, L500.4100 #### [facility] [address] [place], [address] Creatinine [Mass/Vol] 0.81 mg/dL Normal 0.70-1.20 [facility] Comment on above: Performed By: #### L 501.9520, L500.4050, L501.9910, L100.0100, L500.4100 #### [facility] [address] [place], [address] GAP 11 Normal 5-15 [facility] Comment on above: Performed By: #### L 501.9520, L500.4050, L501.9910, L100.0100, L500.4100 #### [facility] [address] [place], [address] GFR/1.73 sq M.predicted among non-blacks MDRD (S/P/Bld) [Vol rate/Area] 98 mL/min/{1.73_m2} Normal >60 [facility] Comment on above: Result Comment: mL/m in/1.73m2 CKD-EPI Creatinine Equation (2020) Performed By: #### L 501.9520, L500.4050, L501.9910, L100.0100, L500.4100 #### [facility] [address] [place], [address] Globulin (S) [Mass/Vol] 2.5 g/dL Normal 2.2-4.2 [facility] Comment on above: Performed By: #### L 501.9520, L500.4050, L501.9910, L100.0100, L500.4100 #### [facility] [address] [place], [address] Glucose [Mass/Vol] 78 mg/dL Normal 70-99 [facility] Comment on above: Performed By: #### L 501.9520, L500.4050, L501.9910, L100.0100, L500.4100 #### [facility] [address] [place], [address] Potassium [Moles/Vol] 3.5 mmol/L Normal 3.3-5.1 [facility] Comment on above: Performed By: #### L 501.9520, L500.4050, L501.9910, L100.0100, L500.4100 #### [facility] [address] [place], [address] Sodium [Moles/Vol] 142 mmol/L Normal 133-145 [facility] Comment on above: Performed By: #### L 501.9520, L500.4050, L501.9910, L100.0100, L500.4100 #### [facility] [address] [place], [address] T PROT 6.7 g/dL Normal 5.9-8.4 [facility] Comment on above: Performed By: #### L 501.9520, L500.4050, L501.9910, L100.0100, L500.4100 #### [facility] [address] [place], [address] Urea nitrogen [Mass/Vol] 5 mg/dL Normal 4-19 [facility] Comment on above: Performed By: #### L 501.9520, L500.4050, L501.9910, L100.0100, L500.4100 #### [facility] [address] [place], [address] Eosinophil percentageOrdered By: Raj Atkins on 11-15-2024 Eosinophils/100 WBC (Bld) 2.5 % 0-5 [facility] Erythrocyte distribution wid th ratioOrdered By: Raj Atkins on 11-15-2024 Erythrocyte distribution width (RBC) [Ratio] 12.6 % 11.6-14.6 [facility] Erythrocyte distribution wid th standard deviationOrdered By: Raj Atkins on 11-15-2024 Erythrocyte distribution width (RBC) [Ratio] 39.9 fl 35.1-43.9 [facility] Glomerular filtration rate ( GFR) estimation/1.73 sq m using serum, plasma, or whole bOrdered By: Raj Atkins on 11-15-2024 GFR/1.73 sq M.predicted among non-blacks MDRD (S/P/Bld) [Vol rate/Area] 98 mL/min/{1.73_m2} >60 [facility] Comment on above: mL/min/1.73m2 CKD-EP I Creatinine Equation (2020) Hematocrit Auto (Bld) [Volum e fraction]Ordered By: Raj Atkins on 11-15-2024 Hematocrit (Bld) [Volume fraction] 41.2 % 40-54 [facility] Hemoglobin measurementOrdere d By: Raj Atkins on 11-15-2024 Hemoglobin (Bld) [Mass/Vol] 14.2 g/dL 13.0-16.5 [facility] Immature granulocytes/100 WB C Auto (Bld)Ordered By: Raj Atkins on 11-15-2024 Immature granulocytes/100 WBC (Bld) 1.100 % High 0.0-0.9 [facility] Comment on above: IG% - Immature Granu locytes (promyelocytes, myelocytes and metamyelocytes) > 1% indicates that a LEFT SHIFT is Present. LDL calc ser/plasOrdered By: Raj Atkins on 11-15-2024 Cholesterol in LDL [Mass/Vol] 31 mg/dL [facility] Comment on above: Avrxkbndxp=796-579 m g/dL & Higher Igwx=330 mg/dL or greater Laboratory - Chemistry and C hemistry - challengeOrdered By: Raj Atkins on 11-15-2024 AST [Catalytic activity/Vol] 38 U/L <38 [facility] Lipid Profileon 11-15-2024 CHOL:HDL 2.27 Normal [facility] Comment on above: Performed By: #### L 501.9520, L500.4050, L501.9910, L100.0100, L500.4100 ####[facility] [address] [place], [place], [address] Cholesterol [Mass/Vol] 105 mg/dL Normal <=200 [facility] Comment on above: Result Comment: Chol esterol level, Desirable <200 mg/dL Borderline high cholesterol 200-239 mg/dL High cholesterol >=240 mg/dL Recommendations of the NCEP Adult Treatment Panel for the following risk-cutoff thresholds for the [place] population. Performed By: #### L 501.9520, L500.4050, L501.9910, L100.0100, L500.4100 ####[facility] [address] [place], [address] Cholesterol in HDL [Mass/Vol] 46 mg/dL Normal [facility] Comment on above: Result Comment: [place]az[place] onal Cholesterol Education Program (NCEP) guidelines: <40 mg/dL: Low HDL-cholesterol (major risk factor for CHD) >= 60 mg/dL: High HDL-cholesterol (negative risk factor for CHD) HDL-cholesterol is affected by a number of factors, e.g. smoking, exercise, hormones, sex and age. Performed By: #### L 501.9520, L500.4050, L501.9910, L100.0100, L500.4100 ####[facility] [address] [place], [address] Cholesterol in LDL [Mass/Vol] 31 mg/dL Normal [facility] Comment on above: Result Comment: Bord kcbpsh=457-301 mg/dL Higher Imdb=417 mg/dL or greater Performed By: #### L 501.9520, L500.4050, L501.9910, L100.0100, L500.4100 ####[facility] [address] [place], [address] Cholesterol in VLDL [Mass/Vol] 28 mg/dL Normal 5-40 [facility] Comment on above: Performed By: #### L 501.9520, L500.4050, L501.9910, L100.0100, L500.4100 ####[facility] [address] [place], [address] Triglyceride [Mass/Vol] 141 mg/dL Normal [facility] Comment on above: Result Comment: The drugs N-Acetylcysteine and Metamizole may falsely depress this assay. Normal range: <150 mg/dL Borderline High: 150-199 mg/dL High: 200-499 mg/dL Very High: >500 mg/dL Performed By: #### L 501.9520, L500.4050, L501.9910, L100.0100, L500.4100 ####[facility] [address] [place], [address] MCV (mean corpuscular volume ) determinationOrdered By: Raj Atkins on 11-15-2024 MCV (RBC) [Entitic vol] 86.9 fL 80-94 [facility] Mean corpuscular hemoglobin (MCH) determinationOrdered By: Raj Atkins on 11-15-2024 MCH (RBC) [Entitic mass] 30.0 pg 27.0-32.0 [facility] Mean corpuscular hemoglobin concentration (MCHC) determinationOrdered By: Raj Atkins on 11-15-2024 MCHC (RBC) [Mass/Vol] 34.5 g/dL 32-36 [facility] Mean platelet volume determi nationOrdered By: Raj Atkins on 11-15-2024 Platelet mean volume (Bld) [Entitic vol] 10.7 fL 6.2-12.0 [facility] Monocyte percentageOrdered B y: Raj Atkins on 11-15-2024 Monocytes/100 WBC (Bld) 10.9 % High 0-10 [facility] Neutrophil percentageOrdered By: Raj Atkins on 11-15-2024 Neutrophils/100 WBC (Bld) 50.3 % 47-70 [facility] Nucleated red blood cell per centageOrdered By: Raj Atkins on 11-15-2024 Nucleated RBC/100 WBC (Bld) [Ratio] 0 % 0-5 [facility] PSA,Total - Annual Screenon 11-15-2024 PSA,TOT SCREEN 2.76 ng/mL Normal 0.02-4.00 [facility] Comment on above: Result Comment: This test was performed using the [employer] tPSA method. Measured values of a patient??sample can vary depending on the testing procedure used. PSA values determined on patient samples by different testing procedures cannot be used interchangeably. If there is a change in PSA assays while monitoring therapy, sequential testing should be performed to confirm baseline values. Performed By: #### L 501.9520, L500.4050, L501.9910, L100.0100, L500.4100 #### [facility] [address] [place], [address] Platelet countOrdered By: Sandy Atkins on 11-15-2024 Platelets (Bld) [#/Vol] 191 10*3/uL 150-450 [facility] Potassium measurement (mass/ volume)Ordered By: Raj Atkins on 11-15-2024 Potassium (Unsp spec) [Mass/Vol] 3.5 mmol/L 3.3-5.1 [facility] RBC Auto (Bld) [#/Vol]Ordere d By: Raj Atkins on 11-15-2024 RBC (Bld) [#/Vol] 4.74 10*6/uL 4.6-6.2 [facility] Screening total cholesterol/ high density lipoprotein (HDL) cholesterol ratioOrdered By: Raj Atkins on 11-15-2024 Cholesterol.total/Choles terol in HDL [Mass ratio] 2.27 {ratio} [facility] Serum creatinine measurement (mass/volume)Ordered By: Raj Atkins on 11-15-2024 Creatinine [Mass/Vol] 0.81 mg/dL 0.70-1.20 [facility] Serum globulin measurementOr dered By: Raj Atkins on 11-15-2024 Globulin (S) [Mass/Vol] 2.5 g/dL 2.2-4.2 [facility] Serum glucose measurement (m ass/volume)Ordered By: Raj Atkins on 11-15-2024 Glucose [Mass/Vol] 78 mg/dL 70-99 [facility] Serum or plasma alanine white otransferase (ALT) measurementOrdered By: Raj Atkins on 11-15-2024 ALT [Catalytic activity/Vol] 43 U/L <47 [facility] Serum or plasma albumin rachelle urement (mass/volume)Ordered By: Raj Atkins on 11-15-2024 Albumin [Mass/Vol] 4.2 g/dL 3.4-4.8 [facility] Serum or plasma albumin/glob ulin mass ratioOrdered By: Raj Atkins on 11-15-2024 Albumin/Globulin [Mass ratio] 1.7 {ratio} 0.9-2.4 [facility] Serum or plasma alkaline rani sphatase measurementOrdered By: Raj Atkins on 11-15-2024 ALP [Catalytic activity/Vol] 68 U/L 40-129 [facility] Serum or plasma calcium rachelle urement (mass/volume)Ordered By: Raj Atkins on 11-15-2024 Calcium [Mass/Vol] 9.1 mg/dL 7.6-11.0 [facility] Serum or plasma cholesterol in HDL measurement (mass/volume)Ordered By: Raj Atkins on 11-15-2024 Cholesterol in HDL [Mass/Vol] 46 mg/dL >40 [facility] Comment on above: National Cholesterol Education Program (NCEP) guidelines:<40 mg/dL: Low HDL-cholesterol (major risk factor for CHD)>= 60 mg/dL: High HDL-cholesterol (negative risk factor for CHD)HDL-cholesterol is affected by a number of factors, e.g. smoking, exercise, hormones, sex and age. Serum or plasma cholesterol measurement (mass/volume)Ordered By: Raj Atkins on 11-15-2024 Cholesterol [Mass/Vol] 105 mg/dL <201 [facility] Comment on above: Cholesterol level, D esirable <200 mg/dLBorderline high cholesterol 200-239 mg/dLHigh cholesterol >=240 mg/dLRecommendations of the NCEP Adult Treatment Panel for the following risk-cutoff thresholds for the [place] population. Serum or plasma urea nitroge n measurement (mass/volume)Ordered By: Raj Atkins on 11-15-2024 Urea nitrogen [Mass/Vol] 5 mg/dL 4-19 [facility] Sodium levelOrdered By: Oskar Atkins on 11-15-2024 Sodium [Moles/Vol] 142 mmol/L 133-145 [facility] TSH DL <= 0.005 mIU/L QnOrde red By: Raj Atkins on 11-15-2024 TSH Qn 1.560 uIU/mL 0.300-4.200 [facility] Thyroid Stim Hormone (TSH)on 11-15-2024 TSH 1.560 uIU/mL Normal 0.300-4.200 [facility] Comment on above: Performed By: #### L 501.9520, L500.4050, L501.9910, L100.0100, L500.4100 #### [facility] [address] [place], [address] Total proteinOrdered By: Scottie Atkins on 11-15-2024 Protein [Mass/Vol] 6.7 g/dL 5.9-8.4 [facility] Triglycerides measurementOrd ered By: Raj Atkins on 11-15-2024 Triglyceride [Mass/Vol] 141 mg/dL <199 [facility] Comment on above: The drugs N-Acetylcy steine and Metamizole may falsely depress this assay. Normal range: <150 mg/dLBorderline High: 150-199 mg/dLHigh: 200-499 mg/dLVery High: >500 mg/dL White blood cell (WBC) count Ordered By: Raj Atkins on 11-15-2024 WBC (Bld) [#/Vol] 6.4 10*3/uL 4.4-11.0 [facility] CNOVon 07-16-2024 CNOV Office Visit (UCWSTR ) BECKA PEREZ ([id number]) 1960 M Date Time Provider Department 07/16/24 4:45 PM SANTI PATEL [facility] During your visit today, we recorded the following information about you: Temperature Pulse Respiration Blood pressure 98.1 degrees 94/minute 16/minute 128/80 Weight 87.5 kg Santi Patel APRN.SHIPPING ASSISTANT 07/16/2024 5:12 PM Signed Subjective HPI Nontoxic-appearing [...] HISTORY Diagnosis Date Coronary artery disease s/p MT Hyperlipidemia Hypertension PAST SURGICAL HISTORY Procedure Laterality [...] clinical presentation (more content not included)... Normal [facility] XR CHEST 2V FRONTAL/LATon XR CHEST [...] Stable exam with no acute radiographic abnormality. Brim Curler: [facility] Transcribe Date/Time: Jul 16 2024 5:04P Dictated by : ANGY LEON DO This examination was interpreted and the report reviewed and electronically signed by: ANGY LEON DO on Jul 16 2024 5:06PM EST [id number] Normal [facility] XR Chest PA and Lateralon IMPRESSION: Stable exam with no acute radiographic abnormality. Brim Curler: [facility] Transcribe Date/Time: Jul 16 2024 5:04P Dictated by : ANGY LEON DO This examination was interpreted and the report reviewed and electronically signed by: ANGY LEON DO on Jul 16 2024 5:06PM EST DIVISION OF RADIOLOGY * * *Final [...] the thoracic spine. DIVISION OF RADIOLOGY Provider, [facility] - 07/16/2024 * * *Final Report* * [...] Stable exam with no acute radiographic abnormality. Brim Curler: [facility] Transcribe Date/Time: Jul 16 2024 5:04P Dictated by : ANGY LEON DO This examination was interpreted and the report reviewed and electronically signed by: ANGY LEON DO on Jul 16 2024 5:06PM [facility] Radiology Study observation (narrative) Pratima Doran XR Chest PA and LateralOrder ed By: [facility] Provider on 07-16-2024 [facility] Cardiology Visit Reporton Cardiology Visit Report [facility] [address] [place] [address] OFFICE VISIT Date of Service: 01/30/24 MR#: [id number] Acct: [id number] Name: BECKA PEREZ Rep #: [id number] : 1960 Provider: WENDY huerta Age/Sex: 63/M Location: [facility] Status: Signed HPI HPI History of Present [...] 97 Intake Visit Reasons: 1 Y FU Optician Apprentice Required: No Is patient in pain?: No [...] infarction (STEMI) (07/09/20) Atherosclerotic heart disease of [place] coronary artery without angina pectoris Chronic back [...] Negative nause (more content not included)... Normal [facility] 12 Lead EKGon 01-15-2024 12 Lead EKG [facility] [address] [place] [address] 12 Lead EKG 01/15/24 1926 MR#: [id number] Acct: [id number] Name: BECKA PEREZ Rep #: [id number] : 1960 63 From: Raj Mckeon MD [...] ) Borderline ECG Confirmed by Raj Mckeon ([id number]), photographic editor BLAKE PEREIRA ([id number]) on 01/16/2024 2:08:56 PM Referred By: Confirmed By:Raj Mckeon 01/16/24 1408 Date Raj Mckeon MD CC: 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Preet Malhotra; Dr. Zeus Sen MD Signed Normal [facility] Basic Metabolic Profile (BMP )on 01-15-2024 BUN/CRE 9.5 RATIO Low 10-20 [facility] Comment on above: Performed By: #### L 500.2500 ####[facility] [address] [place], [address] CA,Total 9.3 mg/dL Normal 8.5-10.1 [facility] Comment on above: Performed By: #### L 500.2500 ####[facility] [address] [place], [address] Chloride [Moles/Vol] 103 mmol/L Normal 98-107 [facility] Comment on above: Performed By: #### L 500.2500 ####[facility] [address] [place], [address] CO2 [Moles/Vol] 21.0 mmol/L Normal 21.0-32.0 [facility] Comment on above: Performed By: #### L 500.2500 ####[facility] [address] [place], [address] Creatinine [Mass/Vol] 1.16 mg/dL Normal 0.70-1.30 [facility] Comment on above: Result Comment: The validity of the calculated GFR GFRAA in patients over 70 years has not been determined. Clinical correlation is essential. Performed By: #### L 500.2500 ####[facility] [address] [place], [address] ECRCL 68.52 ml/min Normal [facility] Comment on above: Performed By: #### L 500.2500 ####[facility] [address] [place], [address] EST GFR - AA 81 mL/min Normal >60 [facility] Comment on above: Result Comment: Afri can Afghan GFR Calc Performed By: #### L 500.2500 ####[facility] [address] [place], [address] GAP 12 Normal 5-15 [facility] Comment on above: Performed By: #### L 500.2500 ####[facility] [address] [place], [address] GFR/1.73 sq M.predicted among non-blacks MDRD (S/P/Bld) [Vol rate/Area] 67 mL/min/{1.73_m2} Normal >60 [facility] Comment on above: Result Comment: Non- GFR Calc Performed By: #### L 500.2500 ####[facility] [address] [place], [address] Glucose [Mass/Vol] 91 mg/dL Normal 74-106 [facility] Comment on above: Performed By: #### L 500.2500 ####[facility] [address] [place], [address] Potassium [Moles/Vol] 3.8 mmol/L Normal 3.5-5.1 [facility] Comment on above: Result Comment: Slig ht Hemolysis, Result may be falsely increased. Performed By: #### L 500.2500 ####[facility] [address] [place], [address] Sodium [Moles/Vol] 136 mmol/L Normal 136-145 [facility] Comment on above: Performed By: #### L 500.2500 ####[facility] [address] [place], [address] Urea nitrogen [Mass/Vol] 11 mg/dL Normal 7-18 [facility] Comment on above: Performed By: #### L 500.2500 ####[facility] [address] [place], [address] CT Chest AND Abd W/ Contrast on 01-15-2024 CT Chest AND Abd W/ Contrast [facility] [address] [place] [address] CT Chest AND Abd W/ Contrast MR#: [id number] Acct: [id number] Name: BECKA PEREZ Rep #: [id number] : 1960 M 63 From: Papi victoria MD PCP: 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 NP-Ken Status: REG ER Study: CT Chest AND Abd W/ Contrast Date of Exam: 11/02 Exam# [id number] Ordering Dr: Zeus Sen MD [id number] INDICATION: BLUNT TRAUMA EXAMINATION: CT Chest And [...] MD at 21:18 EDT , CC: WENDY Malhotra; Dr. Zeus Sen MD Brim Curler: Signed Normal [facility] Emergency Department Summary on 01-15-2024 Emergency Department Summary [facility] Medical Records Department [address] [place] [address] Emergency Department Summary 01/15/24 MR#: [id number] Acct: [id number] Name: BECKA PEREZ Rep #: [id number] : 1960 63 From: Zeus Sen MD PCP: WENDY Potts Status:REG ER Location: ED ADDENDUM by Dr. Zeus Sen MD on 01/15/24 at 2155 EKG reveals a normal sinus rhythm rate of 75 with a first-degree AV block. MT interval is 242 ms. QRS duration 90 ms. QT duration 394 ms. [place] is normal. There is evidence of LVH by voltage criteria. There is no concern for cardiac contusion based on the EKG 01/15/24 8346 Cosigner Signature (if applicable): cc: WENDY Malhotra * Signed HPI History of Present Illness [...] similar symptoms: No Recent Illness/Hospitalizati on: No PFSH PFSH Medical History Acute lumbar myofascial strain COVID-19 Bronchitis URI (upper respiratory infection) Acute bronchitis, unspecified Essential (primary) hypertension History of ST elevation myocardial infarction (STEMI) (07/09/20) Atherosclerotic heart disease of [place] coronary artery without angina pectoris Chronic back [...] headache(s) or paresthesias (more content not included)... [facility] 11-28-2023 [facility] Telephone ([facility]) BECKA PEREZ ([id number]) 1960 M Date Time Provider Department 11/28/23 GUIDO EATON [facility] During your visit today, we recorded the following information about you: Elo Lau LPN 11/28/2023 8:49 AM Signed ----- Message from Guido Eaton MD sent at 11/27/2023 8:17 PM EDT [...] Status:Closed by VIVIAN WHALEN on 11/28/23 Normal [facility] XR Elbow - right AP and Late ral and obliqueon 11-27-2023 IMPRESSION: 1. No acute radiographic abnormality of the right elbow [facility]im Cur[facility] Transcribe Date/Time: Nov 27 2023 5:06P Dictated by : SANGITA SIMS MD This examination was interpreted and the report reviewed and electronically signed by: SANGITA SIMS MD on Nov 27 2023 5:07PM [facility] DIVISION OF RADIOLOGY * * *Final Report* [...] the insertional triceps DIVISION OF RADIOLOGY Provider, [facility] * * *Final Report* * [...] acute radiographic abnormality of the right elbow Brim Curler: [facility]LEY Transcribe Date/Time: Nov 27 2023 5:06P Dictated by : SANGITA SIMS MD This examination was interpreted and the report reviewed and electronically signed by: SANGITA SIMS MD on Nov 27 2023 5:07PM EST [facility] XR Elbow - right AP and Late ral and obliqueOrdered By: Ccf Provider on 11-27-2023 [facility] CNOVon 11-24-2023 CNOV Office Visit ([facility]WSTR ) BECKA PEREZ ([id number]) 1960 M Date Time Provider Department 11/24/23 4:15 PM GUIDO EATON [facility] During your visit today, we recorded the following information about you: Temperature Pulse Respiration Blood pressure 98.9 degrees 84/minute 18/minute 168/90 Weight 83 kg Guido Eaton MD 11/24/2023 6:56 PM Signed Patient presents [...] activity as tolerated. JODY wrap applied. Guido Eaton MD Allergies As of Date: 11/24/2023 (No Known Allergies) Date Reviewed: 11/24/2023 Reviewed by: Elo Lau LPN - Fully Assessed Reason for Visit: Edema [39] Cmt: R arm -Elbow bruising and swelling x 3 days some puncture wounds are scabbed, no s/sx of infection, pain is starting fabian nside of elbow Primary Visit Diagnosis:Elbow pain, right [M25.521] Order(s):XR ELBOW SPECIAL VIEWS AP/LAT/OTHER RIGHT [[id number]] Order #: [id number] FUTURE Prescriptions as of 11/24/2023 - benzonatate [...] Date: 11/24/2023 (None) Encounter Status:Closed by GUIDO EATON on 11/24/23 Normal [facility] XR ELBOW 3V AP/LAT/OTHER RTo n [...] acute radiographic abnormality of the right elbow Brim Curler: [facility] Transcribe Date/Time: Nov 27 2023 5:06P Dictated by : SANGITA SIMS MD This examination was interpreted and the report reviewed and electronically signed by: SANGITA SIMS MD on Nov 27 2023 5:07PM EST [id number] Normal [facility] [place] XR Elbow - right AP and Late ral and obliqueon 11-24-2023 Radiology Study observation (narrative) [facility] CNOVon 09-24-2023 CNOV Office Visit ([facility]WSTR ) BECKA PEREZ ([id number]) 1960 M Date Time Provider Department 09/24/23 10:30 AM DAGMAR MORRISON [facility] During your visit today, we recorded the following information about you: Temperature Pulse Respiration Blood pressure 98.5 degrees 56/minute 18/minute 139/90 Weight 82.7 kg Dagmar Morrison APRN.SHIPPING ASSISTANT 09/24/2023 12:21 PM Signed Subjective HPI HPI Becka Munoz Chris is a 63 year old male who presents today for CC of cough. This started months. Has tried multiple rounds of atb with minimal relief, multiple xray negative. Symptoms are worsened by nothing. nonsmoker. .Patient presents with: Cough: Chest congestion x2 weeks, recent Flu PAST MEDICAL HISTORY Diagnosis Date Coronary artery disease s/p MT Hyperlipidemia Hypertension PAST SURGICAL HISTORY Procedure Laterality [...] - BENZONATATE 100 MG CAPSULE Dagmar Morrison APRN.SHIPPING ASSISTANT Referring Provider: SELF [200] Allergies As of Date: 09/24/2023 (No Known Allergies) Date Reviewed: 09/24/2023 Reviewed by: Dagmar Morrison APRN.SHIPPING ASSISTANT - Fully Assessed Reason for Visit: Cough [...] 100 M (more content not included)... Normal [facility] JALENon 08-27-2023 CNOV Office Visit ([facility]WSTR ) BECKA PEREZ ([id number]) 1960 M Date Time Provider Department 08/27/23 2:00 PM JANINE ARIAS [facility] During your visit today, we recorded the following information about you: Temperature Pulse Respiration Blood pressure 98.5 degrees 82/minute 18/minute 122/78 Weight 80.1 kg Janine Arias PA 08/27/2023 2:23 PM Signed This note was created using [employer]. Subjective Becka Perez is a 63 year old male. HPI [...] HISTORY Diagnosis Date Coronary artery disease s/p MT Hyperlipidemia Hypertension PAST SURGICAL HISTORY Procedure Laterality [...] mg ta (more content not included)... Normal [facility] CNPNon 07-22-2023 [facility] Telephone ([facility]) BECKA PEREZ ([id number]) 1960 M Date Time Provider Department 07/22/23 GUIDO EATON [facility] During your visit today, we recorded the following information about you: Guido Eaton MD 07/22/2023 10:33 AM Signed Chest x-ray [...] Status:Closed by FRED MAYA on 07/22/23 Normal [facility] XR CHEST 2V FRONTAL/LATon XR CHEST [...] exam with no definite acute radiographic abnormality. Brim Curler: KAYLEY Transcribe Date/Time: Jul 22 2023 10:18A Dictated by : EILEEN MICHAELS MD This examination was interpreted and the report reviewed and electronically signed by: EILEEN MICHAELS MD on Jul 22 2023 10:19AM EST [id number] Normal [facility] XR Chest PA and Lateralon IMPRESSION: Stable exam with no definite acute radiographic abnormality. Brim Curler: [facility] Transcribe Date/Time: Jul 22 2023 10:18A Dictated by : EILEEN MICHAELS MD This examination was interpreted and the report reviewed and electronically signed by: EILEEN MICHAELS MD on Jul 22 2023 10:19AM [facility] DIVISION OF RADIOLOGY * * *Final Report* [...] soft tissues: Unremarkable. DIVISION OF RADIOLOGY Provider, [facility] - 07/22/2023 * * *Final Report* * [...] exam with no definite acute radiographic abnormality. Brim Curler: [facility] Transcribe Date/Time: Jul 22 2023 10:18A Dictated by : EILEEN MICHAELS MD This examination was interpreted and the report reviewed and electronically signed by: EILEEN MICHAELS MD on Jul 22 2023 10:19AM EST [facility] Radiology Study observation (narrative) [facility] XR Chest PA and LateralOrder ed By: Ccf Provider on 07-22-2023 [facility] CNOVon 07-21-2023 CNOV Office Visit ([facility]WSTR ) BECKA PEREZ ([id number]) 1960 M Date Time Provider Department 07/21/23 6:00 PM GUIDO EATON [facility] During your visit today, we recorded the following information about you: Temperature Pulse Respiration Blood pressure 99.2 degrees 89/minute 18/minute 123/75 Weight 82.9 kg Guido Eaton MD 07/21/2023 6:32 PM Signed Patient presents [...] chest pain, or late onset fever. Guido Eaton MD Allergies As of Date: 07/21/2023 (No Known Allergies) Date Reviewed: 07/21/2023 Reviewed by: Fred Maya MA - Fully Assessed Reason for Visit: Cough [28] Cmt: X weeks, intermittent Primary Visit Diagnosis:Subacute cough [R05.2] Order(s):XR CHEST 2V FRONTAL/LAT [[id number]] Order #: [id number] FUTURE benzonatate (TESSALON PERLE) 100 mg capsuleTake [...] for 5 days. Encounter Status:Closed by GUIDO EATON on 07/21/23 Normal [facility] XR Chest PA and Lateralon IMPRESSION: No acute radiographic abnormality. Brim Curler: [facility] Transcribe Date/Time: Jul 03 2023 11:37A Dictated by : KAMALJIT MATHEW MD This examination was interpreted and the report reviewed and electronically signed by: KAMALJIT MATHEW MD on Jul 03 2023 11:38AM [facility] DIVISION OF RADIOLOGY * * *Final Report* [...] soft tissues: Unremarkable. DIVISION OF RADIOLOGY Provider, Arleen Hurst - 07/03/2023 * * *Final Report* * [...] Unremarkable. IMPRESSION IMPRESSION: No acute radiographic abnormality. Brim Curler: [facility] Transcribe Date/Time: Jul 03 2023 11:37A Dictated by : KAMALJIT MATHEW MD This examination was interpreted and the report reviewed and electronically signed by: KAMALJIT MATHEW MD on Jul 03 2023 11:38AM EST [facility] Radiology Study observation (narrative) [facility] XR Chest PA and LateralOrder ed By: Ccf Provider on 07-03-2023 [facility] Absolute lymphocyte countOrd ered By: Dr. Dailey on 11-12-2022 Lymphocytes Auto (Unsp spec) [#/Vol] 1.02 10*3/uL 0.83-4.51 [facility] Basophil percentageOrdered B y: Dr. Dailey on 11-12-2022 Basophils/100 WBC (Bld) 0.1 % 0-1 [facility] Eosinophils/100 WBC (Bld) 0.0 % 0-5 [facility] Neutrophils (Bld) [#/Vol] 7.1 10*3/uL 2.0-7.7 [facility] Neutrophils/100 WBC (Bld) 84.5 % 47-70 [facility] WBC (Bld) [#/Vol] 8.4 10*3/uL 4.4-11.0 [facility] Bilirubin [Mass/Vol] 0.60 mg/dL 0.20-1.00 [facility] Comment on above: For patients on eltr ombopag therapy, use of Dimension [place] TBIL is not recommended. Chloride [Moles/Vol] 110 mmol/L 98-107 [facility] Cholesterol [Mass/Vol] 116 mg/dL <200 [facility] Comment on above: <200 mg/dL Desirable 200-240 mg/dL Borderline >240 mg/dL High Risk Glucose [Mass/Vol] 104 mg/dL 74-106 [facility] Comment on above: Fasting Glucose resu lt from 100 to 125 mg/dL suggests IMPAIRED HOMEOSTASIS per A.D.A. criteria. Potassium [Moles/Vol] 4.0 mmol/L 3.5-5.1 [facility] Protein [Mass/Vol] 7.1 g/dL 6.4-8.2 [facility] Sodium [Moles/Vol] 143 mmol/L 136-145 [facility] Triglyceride [Mass/Vol] 43 mg/dL <199 [facility] Comment on above: The drugs N-Acetylcy steine and Metamizole may falsely depress this assay.Serum Triglycerides Reference Interval Normal <150 mg/dL Borderline high 150 - 199 mg/dL High 200 - 499 mg/dL Very High > or = 500 mg/dL Blood erythrocytes count (nu mber/volume)Ordered By: Dr. Dailey on 11-12-2022 RBC (Bld) [#/Vol] 5.18 10*6/uL 4.6-6.2 [facility] Blood hemoglobin measurement (mass/volume)Ordered By: Dr. Dailey on 11-12-2022 Hemoglobin (Bld) [Mass/Vol] 15.4 g/dL 13.0-16.5 [facility] Blood lymphocytes/100 leukoc ytesOrdered By: Dr. Dailey on 11-12-2022 Lymphocytes/100 WBC (Bld) 12.2 % 19-41 [facility] Blood monocytes/100 leukocyt esOrdered By: Dr. Dailey on 11-12-2022 Monocytes/100 WBC (Bld) 2.7 % 0-10 [facility] Blood platelet mean volumeOr dered By: Dr. Dailey on 11-12-2022 Platelet mean volume (Bld) [Entitic vol] 10.2 fL 6.2-12.0 [facility] Determination of erythrocyte mean corpuscular volume (MCV)Ordered By: Dr. Dailey on 11-12-2022 MCV (RBC) [Entitic vol] 85.5 fL 80-94 [facility] Direct bilirubinOrdered By: Dr. Dailey on 11-12-2022 Bilirubin.direct [Mass/Vol] 0.17 mg/dL 0.00-0.30 [facility] Hematocrit Auto (Bld) [Volum e fraction]Ordered By: Dr. Dailey on 11-12-2022 Hematocrit (Bld) [Volume fraction] 44.3 % 40-54 [facility] - Chemistry and C hemistry - challengeOrdered By: Dr. Dailey on 11-12-2022 Natriuretic peptide B (Bld) [Mass/Vol] 75.4 pg/mL 0-100 [facility] ALP [Catalytic activity/Vol] 62 U/L 45-117 [facility] ALT [Catalytic activity/Vol] 27 U/L 16-61 [facility] CO2 [Moles/Vol] 24.0 mmol/L 21.0-32.0 [facility] Globulin (S) [Mass/Vol] 3.3 g/dL 2.2-4.2 [facility] Urea nitrogen/Creatinine [Mass ratio] 9.3 mg/mg 10-20 [facility] - Hematology and Cell countsOrdered By: Dr. Dailey on 11-12-2022 Erythrocyte distribution width (RBC) [Entitic vol] 39.4 fL 35.1-43.9 [facility] Erythrocyte distribution width (RBC) [Ratio] 12.5 % 11.6-14.6 [facility] Immature granulocytes/100 WBC (Bld) 0.500 % 0.0-0.9 [facility] Comment on above: IG% - Immature Granu locytes (promyelocytes, myelocytes and metamyelocytes) > 1% indicates that a LEFT SHIFT is Present. MCH (RBC) [Entitic mass] 29.7 pg 27.0-32.0 [facility] Nucleated RBC/100 WBC (Bld) [Ratio] 0 % 0-5 [facility] MCHC Auto (RBC) [Mass/Vol]Or dered By: Dr. Dailey on 11-12-2022 MCHC (RBC) [Mass/Vol] 34.8 g/dL 32-36 [facility] No Panel InformationOrdered By: Dr. Dailey on 11-12-2022 Estimated GFR (MDRD) Amer 134 mL/min >60 [facility] Comment on above: GFR Calc Estimated GFR (MDRD) Non-Af Amer 111 mL/min >60 [facility] Comment on above: Non- GFR Calc Prostate Specific Antigen Screen 3.08 ng/mL 0.00-4.00 [facility] Comment on above: This test was perfor med using the TPSA assay method for [employer] chemistry system. Values obtained with differentassay methods cannot be used interchangably.When changing PSA assays in the course of monitoring apatient, additional sequential testing should be carriedout to confirm baseline values. Thyroid Stimulating Hormone (TSH) 1.03 uIU/mL 0.358-3.74 [facility] Platelets bldOrdered By: Dr. Dailey on 11-12-2022 Platelets (Bld) [#/Vol] 215 10*3/uL 150-450 [facility] Serum or plasma albumin rachelle urement (mass/volume)Ordered By: Dr. Dailey on 11-12-2022 Albumin [Mass/Vol] 3.8 g/dL 3.2-5.0 [facility] Serum or plasma albumin/glob ulin mass ratioOrdered By: Dr. Dailey on 11-12-2022 Albumin/Globulin [Mass ratio] 1.2 {ratio} 0.9-2.4 [facility] Serum or plasma calcium rachelle urement (mass/volume)Ordered By: Dr. Dailey on 11-12-2022 Calcium [Mass/Vol] 9.4 mg/dL 8.5-10.1 [facility] Serum or plasma cholesterol in HDL measurement (mass/volume)Ordered By: Dr. Dailey on 11-12-2022 Cholesterol in HDL [Mass/Vol] 67 mg/dL >40 [facility] Comment on above: The drugs N-Acetylcy steine and Metamizole may falsely depress this assay. Reference Range HDL <40 mg/dL Low HDL Cholesterol HDL >or= 60 mg/dL High HDL Cholesterol Serum or plasma cholesterol in VLDL measurement (mass/volume)Ordered By: Dr. Dailey on 11-12-2022 Cholesterol in VLDL [Mass/Vol] 9 mg/dL 5-40 [facility] Serum or plasma creatinine m easurement (mass/volume)Ordered By: Dr. Dailey on 11-12-2022 Creatinine [Mass/Vol] 0.76 mg/dL 0.70-1.30 [facility] Comment on above: The validity of the calculated GFR & GFRAA in patients over 70 years has not been determined. Clinical correlation is essential. Serum or plasma low density lipoprotein (LDL) cholesterol measurement (mass/volume)Ordered By: Dr. Dailey on 11-12-2022 Cholesterol in LDL [Mass/Vol] 40 mg/dL 0-130 [facility] Serum or plasma urea nitroge n measurement (mass/volume)Ordered By: Dr. Dailey on 11-12-2022 Urea nitrogen [Mass/Vol] 7 mg/dL 7-18 [facility] Thin prep Papanicolaou smear with manual screeningOrdered By: Dr. Dailey on 11-12-2022 Thin prep Papanicolaou smear with manual screening 20 U/L 15-37 [facility] Thin prep Papanicolaou smear with manual screening 9 5-15 [facility] Absolute lymphocyte countOrd ered By: Rita Rainey on 09-27-2022 Lymphocytes Auto (Unsp spec) [#/Vol] 1.85 10*3/uL 0.83-4.51 [facility] Basophil percentageOrdered B y: Rita Rainey on 09-27-2022 Basophils/100 WBC (Bld) 0.4 % 0-1 [facility] Eosinophils/100 WBC (Bld) 0.6 % 0-5 [facility] Neutrophils (Bld) [#/Vol] 5.6 10*3/uL 2.0-7.7 [facility] Neutrophils/100 WBC (Bld) 65.4 % 47-70 [facility] WBC (Bld) [#/Vol] 8.6 10*3/uL 4.4-11.0 [facility] Blood erythrocytes count (nu mber/volume)Ordered By: Rita Rainey on 09-27-2022 RBC (Bld) [#/Vol] 4.85 10*6/uL 4.6-6.2 [facility] Blood hemoglobin measurement (mass/volume)Ordered By: Rita Rainey on 09-27-2022 Hemoglobin (Bld) [Mass/Vol] 14.6 g/dL 13.0-16.5 [facility] Blood lymphocytes/100 leukoc ytesOrdered By: Rita Rainey on 09-27-2022 Lymphocytes/100 WBC (Bld) 21.6 % 19-41 [facility] Blood monocytes/100 leukocyt esOrdered By: Rita Rainey on 09-27-2022 Monocytes/100 WBC (Bld) 10.7 % 0-10 [facility] Blood platelet mean volumeOr dered By: Rita Rainey on 09-27-2022 Platelet mean volume (Bld) [Entitic vol] 10.0 fL 6.2-12.0 [facility] Determination of erythrocyte mean corpuscular volume (MCV)Ordered By: Rita Rainey on 09-27-2022 MCV (RBC) [Entitic vol] 89.7 fL 80-94 [facility] Hematocrit Auto (Bld) [Volum e fraction]Ordered By: Rita Rainey on 09-27-2022 Hematocrit (Bld) [Volume fraction] 43.5 % 40-54 [facility] - Hematology and Cell countsOrdered By: Rita Rainey on 09-27-2022 Erythrocyte distribution width (RBC) [Entitic vol] 42.2 fL 35.1-43.9 [facility] Erythrocyte distribution width (RBC) [Ratio] 12.9 % 11.6-14.6 [facility] Immature granulocytes/100 WBC (Bld) 1.300 % 0.0-0.9 [facility] Comment on above: IG% - Immature Granu locytes (promyelocytes, myelocytes and metamyelocytes) > 1% indicates that a LEFT SHIFT is Present. MCH (RBC) [Entitic mass] 30.1 pg 27.0-32.0 [facility] Nucleated RBC/100 WBC (Bld) [Ratio] 0 % 0-5 [facility] MCHC Auto (RBC) [Mass/Vol]Or dered By: Rita Rainey on 09-27-2022 MCHC (RBC) [Mass/Vol] 33.6 g/dL 32-36 [facility] Platelets bldOrdered By: Binu Rainey on 09-27-2022 Platelets (Bld) [#/Vol] 170 10*3/uL 150-450 [facility] - Microbiology an d Antimicrobial susceptibilityon 08-08-2022 SARS-CoV-2 (COVID-19) RNA EDISON+probe Ql (Unsp spec) Detected [facility] No Panel Informationon 08-08 Influenza Types A,B Rapid (Clinic) Not detected [facility] Basophil percentageon 2021 Bilirubin [Mass/Vol] 0.70 mg/dL 0.20-1.00 [facility] Work Phone: [phone] Comment on above: For patients on eltr ombopag therapy, use of Dimension [place] TBIL is not recommended. Cholesterol [Mass/Vol] 134 mg/dL <200 [facility] Work Phone: Comment on above: <200 mg/dL Desirable 200-240 mg/dL Borderline >240 mg/dL High Risk Protein [Mass/Vol] 6.7 g/dL 6.4-8.2 [facility] Work Phone: Triglyceride [Mass/Vol] 99 mg/dL <199 [facility] Work Phone: [phone] Comment on above: The drugs N-Acetylcy steine and Metamizole may falsely depress this assay.Serum Triglycerides Reference Interval Normal <150 mg/dL Borderline high 150 - 199 mg/dL High 200 - 499 mg/dL Very High > or = 500 mg/dL Direct bilirubinon 2 Bilirubin.direct [Mass/Vol] 0.18 mg/dL 0.00-0.30 [facility] Work Phone: [phone] Laboratory - Chemistry and C hemistry - challengeon 12-25-2021 ALP [Catalytic activity/Vol] 59 U/L 45-117 [facility] Work Phone: [phone] ALT [Catalytic activity/Vol] 38 U/L 16-61 [facility] Work Phone: [phone] Globulin (S) [Mass/Vol] 3.1 g/dL 2.2-4.2 [facility] Work Phone: [phone] Serum or plasma albumin rachelle urement (mass/volume)on 12-25-2021 Albumin [Mass/Vol] 3.6 g/dL 3.2-5.0 [facility] Work Phone: Serum or plasma cholesterol in HDL measurement (mass/volume)on 12-25-2021 Cholesterol in HDL [Mass/Vol] 64 mg/dL >40 [facility] Work Phone: Comment on above: The drugs N-Acetylcy steine and Metamizole may falsely depress this assay. Reference Range HDL <40 mg/dL Low HDL Cholesterol HDL >or= 60 mg/dL High HDL Cholesterol Serum or plasma cholesterol in VLDL measurement (mass/volume)on 12-25-2021 Cholesterol in VLDL [Mass/Vol] 20 mg/dL 5-40 [facility] Work Phone: Serum or plasma low density lipoprotein (LDL) cholesterol measurement (mass/volume)on 12-25-2021 Cholesterol in LDL [Mass/Vol] 50 mg/dL 0-130 [facility] Work Phone: Thin prep Papanicolaou smear with manual screeningon 12-25-2021 Thin prep Papanicolaou smear with manual screening 23 U/L 15-37 [facility] Work Phone: Vital Signs Date Time Vital Sign Value Performing Clinician Mahad brandon 11-26-2024 13:50-0400 Body height 180.34 cm Santi NGUYEN Work Phone: [facility] 11-26-2024 13:50-0400 Body mass index (BMI) [Ratio] 26.9 kg/m2 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 NP-C Work Phone: [facility] 11-26-2024 13:50-0400 Body weight 87.54 kg 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 NP-C Work Phone: [facility] 11-26-2024 13:50-0400 Diastolic blood pressure 87 mm[Hg] 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 NP-C Work Phone: [facility] 11-26-2024 13:50-0400 Heart rate 70 /min 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 NP-C Work Phone: [facility] 11-26-2024 13:50-0400 Respiratory rate 16 /min 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-C Work Phone: [facility] 11-26-2024 13:50-0400 Systolic blood pressure 131 mm[Hg] 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-C Work Phone: [facility] 07-16-2024 16:35-0500 Body temperature 98.1 [degF] [facility] GOURMET COFFEE ATTENDANT.SHIPPING ASSISTANT Work Phone: [facility] 07-16-2024 16:35-0500 Body weight 87.5 kg [facility] GOURMET COFFEE ATTENDANT.SHIPPING ASSISTANT Work Phone: [facility] 07-16-2024 16:35-0500 Diastolic blood pressure 80 mm[Hg] [facility] GOURMET COFFEE ATTENDANT.SHIPPING ASSISTANT Work Phone: [facility] 07-16-2024 16:35-0500 Heart rate 94 /min [facility] GOURMET COFFEE ATTENDANT.SHIPPING ASSISTANT Work Phone: [facility] 07-16-2024 16:35-0500 Respiratory rate 16 /min [facility] GOURMET COFFEE ATTENDANT.SHIPPING ASSISTANT Work Phone: [facility] 07-16-2024 16:35-0500 SaO2% (BldA) [Mass fraction] 96 % [facility] GOURMET COFFEE ATTENDANT.SHIPPING ASSISTANT Work Phone: [facility] 07-16-2024 16:35-0500 Systolic blood pressure 128 mm[Hg] [facility] GOURMET COFFEE ATTENDANT.SHIPPING ASSISTANT Work Phone: [facility] 11-24-2023 16:25-0400 Body temperature 98.91 [degF] Guido Eaton MD Work Phone: [facility] 11-24-2023 16:25-0400 Body weight 83 kg Guido Eaton MD Work Phone: [facility] 11-24-2023 16:25-0400 Diastolic blood pressure 90 mm[Hg] Guido Eaton MD Work Phone: [facility] 11-24-2023 16:25-0400 Heart rate 84 /min Guido Eaton MD Work Phone: [facility] 11-24-2023 16:25-0400 Respiratory rate 18 /min Guido Eaton MD Work Phone: [facility] 11-24-2023 16:25-0400 SaO2% (BldA) [Mass fraction] 100 % Guido Eaton MD Work Phone: [facility] 11-24-2023 16:25-0400 Systolic blood pressure 168 mm[Hg] Guido Eaton MD Work Phone: [facility] 09-24-2023 10:26-0400 Body temperature 98.49 [degF] Dagmar Prince GOURMET COFFEE ATTENDANT.SHIPPING ASSISTANT Work Phone: [facility] 09-24-2023 10:26-0400 Body weight 82.7 kg Dagmar Prince GOURMET COFFEE ATTENDANT.SHIPPING ASSISTANT Work Phone: [facility] 09-24-2023 10:26-0400 Diastolic blood pressure 90 mm[Hg] Dagmar Prince GOURMET COFFEE ATTENDANT.SHIPPING ASSISTANT Work Phone: [facility] 09-24-2023 10:26-0400 Heart rate 56 /min Dagmar Prince GOURMET COFFEE ATTENDANT.SHIPPING ASSISTANT Work Phone: [facility] 09-24-2023 10:26-0400 Respiratory rate 18 /min Dagmar Prince GOURMET COFFEE ATTENDANT.SHIPPING ASSISTANT Work Phone: [facility] 09-24-2023 10:26-0400 SaO2% (BldA) [Mass fraction] 98 % Dagmar Prince GOURMET COFFEE ATTENDANT.SHIPPING ASSISTANT Work Phone: [facility] 09-24-2023 10:26-0400 Systolic blood pressure 139 mm[Hg] Dagmar Prince [employer] ATTENDANT.SHIPPING ASSISTANT Work Phone: [facility] 08-27-2023 14:01-0400 Body temperature 98.49 [degF] Janine HAYNES Work Phone: [facility] 08-27-2023 14:01-0400 Body weight 80.1 kg Krislyn Aberegg PA Work Phone: [facility] 08-27-2023 14:01-0400 Diastolic blood pressure 78 mm[Hg] Krislyn Aberegg PA Work Phone: [facility] 08-27-2023 14:01-0400 Heart rate 82 /min Krislyn Aberegg PA Work Phone: [facility] 08-27-2023 14:01-0400 Respiratory rate 18 /min Krislyn Aberegg PA Work Phone: [facility] 08-27-2023 14:01-0400 SaO2% (BldA) [Mass fraction] 96 % Krislyn Aberegg PA Work Phone: [facility] 08-27-2023 14:01-0400 Systolic blood pressure 122 mm[Hg] Krislyn Aberegg PA Work Phone: [facility] 07-21-2023 18:01-0500 Body temperature 99.19 [degF] Guido Eaton MD Work Phone: [facility] 07-21-2023 18:01-0500 Body weight 82.92 kg Guido Eaton MD Work Phone: [facility] 07-21-2023 18:01-0500 Diastolic blood pressure 75 mm[Hg] Guido Eaton MD Work Phone: [facility] 07-21-2023 18:01-0500 Heart rate 89 /min Guido Eaton MD Work Phone: [facility] 07-21-2023 18:01-0500 Respiratory rate 18 /min Guido Eaton MD Work Phone: [facility] 07-21-2023 18:01-0500 SaO2% (BldA) [Mass fraction] 94 % Guido Eaton MD Work Phone: [facility] 07-21-2023 18:01-0500 Systolic blood pressure 123 mm[Hg] Guido Eaton MD Work Phone: [facility] 08-08-2022 10:37-0500 Body temperature 97.1 [degF] 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-C 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 Work Phone: [facility] 08-08-2022 10:37-0500 Diastolic blood pressure 72 mm[Hg] 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-C 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 Work Phone: [facility] 08-08-2022 10:37-0500 Heart rate 63 /min 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-C 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 Work Phone: [facility] 08-08-2022 10:37-0500 Respiratory rate 14 /min 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-C 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 Work Phone: [facility] 08-08-2022 10:37-0500 SaO2% (BldA) [Mass fraction] 96 % 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-C 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 Work Phone: [facility] 08-08-2022 10:37-0500 Systolic blood pressure 122 mm[Hg] 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-C 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 Work Phone: [facility] 07-05-2022 12:36-0500 Body temperature 97.5 [degF] 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-C 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 Work Phone: [facility] 07-05-2022 12:36-0500 Diastolic blood pressure 84 mm[Hg] 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-C 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 Work Phone: [facility] 07-05-2022 12:36-0500 Heart rate 60 /min 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-C 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 Work Phone: [facility] 07-05-2022 12:36-0500 Respiratory rate 16 /min 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-C 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 Work Phone: [facility] 07-05-2022 12:36-0500 SaO2% (BldA) [Mass fraction] 93 % 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-C 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 Work Phone: [facility] 07-05-2022 12:36-0500 Systolic blood pressure 126 mm[Hg] 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-C 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 Work Phone: [facility] 06-16-2022 16:17-0500 Body temperature 98.4 [degF] 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-C 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 Work Phone: [facility] 06-16-2022 16:17-0500 Diastolic blood pressure 78 mm[Hg] 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-C 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 Work Phone: [facility] 06-16-2022 16:17-0500 Heart rate 86 /min 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-C 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 Work Phone: [facility] 06-16-2022 16:17-0500 Respiratory rate 14 /min 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-C 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 Work Phone: [facility] 06-16-2022 16:17-0500 SaO2% (BldA) [Mass fraction] 97 % 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-C 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 Work Phone: [facility] 06-16-2022 16:17-0500 Systolic blood pressure 122 mm[Hg] 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-C 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 Work Phone: [facility] 12-20-2021 14:27-0400 Body height 180.34 cm 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-C 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 Work Phone: [facility] Work Phone: 12-20-2021 14:27-0400 Body mass index (BMI) [Ratio] 26.4 kg/m2 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-C 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 Work Phone: [facility] Work Phone: 12-20-2021 14:27-0400 Body weight 86.18 kg 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-C 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 Work Phone: [facility] Work Phone: 12-20-2021 14:27-0400 Diastolic blood pressure 70 mm[Hg] 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-C 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 Work Phone: [facility] Work Phone: 12-20-2021 14:27-0400 Heart rate 72 /min 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-C 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 Work Phone: [facility] Work Phone: 12-20-2021 14:27-0400 Respiratory rate 16 /min 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-C 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 Work Phone: [facility] Work Phone: 12-20-2021 14:27-0400 Systolic blood pressure 126 mm[Hg] 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-C 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 Work Phone: [facility] Work Phone: 10-17-2021 11:47-0400 Body temperature 98.7 [degF] 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-C 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 Work Phone: [facility] Work Phone: 10-17-2021 11:47-0400 Diastolic blood pressure 78 mm[Hg] 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-C 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 Work Phone: [facility] Work Phone: 10-17-2021 11:47-0400 Heart rate 75 /min 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-C 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 Work Phone: [facility] Work Phone: 10-17-2021 11:47-0400 Respiratory rate 15 /min 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-C 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 Work Phone: [facility] Work Phone: 10-17-2021 11:47-0400 SaO2% (BldA) [Mass fraction] 96 % 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-C 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 Work Phone: [facility] Work Phone: 10-17-2021 11:47-0400 Systolic blood pressure 96 mm[Hg] 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-C 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 Work Phone: [facility] Work Phone: Encounters Encounter Date Encounter Type Care Provider Facility Start: 12-19-2024 ambulatory 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 Facility:[facility] Start: 12-03-2024 End: 12-03-2024 ambulatory 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-C Work Phone: -Cat Scan [facility] Start: 12-03-2024 End: 12-03-2024 Patient encounter procedure Sangita Pak 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-C -Cat Scan [facility] Work Phone: Start: 12-03-2024 End: 12-03-2024 ambulatory Sangita Pak Facility:[facility] Start: 11-26-2024 End: 11-26-2024 ambulatory 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-C Work Phone: [facility] Work Phone: Start: 11-26-2024 End: 11-26-2024 Patient encounter procedure Sangita Pak 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-C -[facility] Work Phone: Start: 11-26-2024 End: 11-26-2024 ambulatory Sangita Pak Facility:[facility] Start: 11-15-2024 End: 11-15-2024 ambulatory 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-C Work Phone: [facility] Work Phone: Start: 11-15-2024 End: 11-15-[address] Raj Atkins MD -Laboratory Work Phone: Start: 11-15-2024 End: 11-15-2024 ambulatory Raj Atkins Facility:[facility] Start: 07-16-2024 End: 07-16-2024 ambulatory BRITTANY MALHOTRA Facility:[facility] Start: 07-16-2024 End: 07-16-2024 Office outpatient visit 25 minutes Santi Patel APRN.SHIPPING ASSISTANT Work Phone: [facility] Comment on above: Acute cough (Primary Dx); Sinobronchitis Start: 07-16-2024 End: 07-16-2024 Subsequent hospital visit by physician [facility] Work Phone: Radiology Comment on above: Acute cough [R05.1] Start: 01-30-2024 End: 01-30-2024 ambulatory 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 [place] Start: 01-15-2024 End: 01-15-2024 Emergency department patient visit 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 Facility:[facility] Start: 11-28-2023 Telephone encounter Guido Rausch MD Work Phone: [facility] Start: 11-24-2023 End: 11-24-2023 Subsequent hospital visit by physician [facility] Work Phone: Radiology Comment on above: Elbow pain, right [M 25.521] Start: 11-24-2023 End: 11-24-2023 [facility] Facility:[facility] Start: 11-24-2023 End: 11-24-2023 Patient encounter procedure Guido Eaton MD Work Phone: [facility] Comment on above: Elbow pain, right (P rimary Dx) Start: 09-24-2023 End: 09-24-2023 [facility] Facility:[facility] Start: 09-24-2023 End: 09-24-2023 Patient encounter procedure Dagmar Morrison APRN.SHIPPING ASSISTANT Work Phone: [facility] Comment on above: Chronic cough (Prima ry Dx) Start: 08-27-2023 End: 08-27-[address] [facility] Facility:[facility] Start: 08-27-2023 End: 08-27-2023 Patient encounter procedure Janine HAYNES Work Phone: [facility] Comment on above: Subacute cough (Prim essie Dx); Thrush Start: 07-22-2023 End: 07-22-2023 ambulatory BRITTANY MALHOTRA Facility:[facility] Start: 07-22-2023 End: 07-22-2023 Subsequent hospital visit by physician Xr [facility] Work Phone: Radiology Comment on above: Subacute cough [R05. 2] Start: 07-21-2023 End: 07-21-2023 ambulatory BRITTANY MALHOTRA Facility:[facility] Start: 07-21-2023 End: 07-21-2023 Patient encounter procedure Guido Eaton MD Work Phone: [facility] Comment on above: Subacute cough (Prim essie Dx) Start: 07-03-2023 End: 07-03-2023 Subsequent hospital visit by physician Xr [facility] Work Phone: Radiology Comment on above: Acute cough [R05.1] Start: 11-12-2022 End: 11-12-2022 ambulatory 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-C 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 Work Phone: [facility] Work Phone: Start: 11-12-2022 End: 11-12-2022 Patient encounter procedure 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-C 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 Work Phone: [facility] Start: 09-27-2022 End: 09-27-2022 ambulatory 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-C 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 Work Phone: [facility] Work Phone: Start: 09-27-2022 End: 09-27-2022 Patient encounter procedure 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-C 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 Work Phone: [facility] Start: 08-08-2022 End: 08-08-2022 Patient encounter procedure 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-C 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 Work Phone: [facility] Start: 07-05-2022 End: 07-05-2022 ambulatory 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-C 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 Work Phone: [facility] Work Phone: Start: 07-05-2022 End: 07-05-2022 Patient encounter procedure 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-C Santi Nelsonr 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 Work Phone: [facility] Start: 06-16-2022 End: 06-16-2022 Patient encounter procedure 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-C Santi Nelsonr 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 Work Phone: [facility] Start: 12-25-2021 End: 12-25-2021 Patient encounter procedure 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-C 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 Work Phone: [facility] Start: 12-20-2021 End: 12-20-2021 Patient encounter procedure 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-C Santi Nelsonr 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 Work Phone: [facility] Start: 10-17-2021 End: 10-17-2021 Patient encounter procedure 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-C Santi Nelsonr 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 Work Phone: [facility] Procedures Date Procedure Procedure Detail Performing Clinician Start: 12-03-2024 CT angiography of ch est with contrast 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 NP-C Work Phone: Start: 11-26-2024 X-ray of chest, PA a nd lateral views Santi Sloanlucia WALLACE-C Work Phone: Start: 11-15-2024 Prostate specific antigen measurement Santi Alvafermin WALLACE-C Work Phone: Comment on above: This test was perfor med using the [employer] tPSA method. Measured values of a patient sample can vary depending on the testing procedure used. PSA values determined on patient samples by different testing procedures cannot be used interchangeably. If there is a change in PSA assays while monitoring therapy, sequential testing should be performed to confirm baseline values. Start: 07-16-2024 Radiologic exam ches t 2 views Santi Patel APRN.CNP Work Phone: Start: 11-24-2023 Radex elbow complete minimum 3 views Guido Eaton MD Work Phone: Start: 07-22-2023 Radiologic exam ches t 2 views Guido Eaton MD Work Phone: Start: 07-03-2023 Radiologic exam ches t 2 views Jazzmine Elizabeth APRN.SHIPPING ASSISTANT Work Phone: Start: 07-05-2022 Plain chest X-ray 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-C 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 Work Phone: Start: 07-09-2020 History of placement of stent for coronary artery disease History of coronary artery stent placement Sangita Pak 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-C Comment on above: UCV-GEL-OGPTW w/ 2.2 5 x 16 mm Synergy Stent and COLTON-D2 w/ 2.25 x 20 mm Synergy Stent 07/09/20 Plan of Treatment Date Care Activity Detail Author Start: 2034 RSV Vaccine (1 - 1-d ose 75+ series) RSV Vaccine (1 - 1-dose 75+ series) [facility] Start: 02-11-2030 Urine microalbumin profile DTaP,Tdap,Td Vaccine (2 - Td or Tdap) [facility] Start: 11-26-2024 Evaluation of diagnostic study results [facility] Start: 11-26-2024 X-ray of chest, PA a nd lateral views Chest PA and Lateral [facility] Start: 06-12-2024 Advance Directive Discussion Advance Directive Discussion [facility] Start: 02-11-2024 Covid-19 Vaccine ( season) Covid-19 Vaccine () [facility] Start: 02-11-2024 Covid-19 Vaccine ( season) Covid-19 Vaccine ( season) [facility] Start: 02-11-2024 Influenza vaccination [facility] Start: 06-12-2023 Behavioral Health Screening Behavioral Health Screening [facility] Start: 06-12-2023 Depression Assessment Depression Ass essment [facility] Start: 02-10-2023 Covid-19 Vaccine ( season) Covid-19 Vaccine ( season) [facility] Start: 02-10-2023 Influenza vaccination Influenza Vacc ine (#1) [facility] Start: 2019 RSV Vaccine (1 - 1-d ose 60+ series) RSV Vaccine (1 - 1-dose 60+ series) [facility] Start: 2014 Prostate specific antigen measurement Prostate Cancer Screening Discussion [facility] Start: 2009 Pneumococcal Vaccine : 50+ (1 of 1 - PCV) Pneumococcal Vaccine: 50+ (1 of 1 - PCV) [facility] Start: 2009 Shingrix Vaccine (1 of 2) Shingrix Vaccine (1 of 2) [facility] Start: 2004 Diabetes Screening Diabetes Screenin g [facility] Start: 2004 Screening for malign ant neoplasm of colon [facility] Start: 1994 Lipid panel Lipid Screening [facility] Start: 1977 Anxiety Screening Anxiety Screening [facility] Start: 1977 Depression Screening Depression Scre ening [facility] Start: 1977 Hepatitis C screening Hepatitis C Sc reening [facility] Start: 1977 HIV screening HIV Screening [facility] Start: 1959 Covid-19 Vaccine (#1) Covid-19 Vacci ne (#1) [facility] CTA Chest vessels WO and W contrast IV [facility] End: 08-19-2024 XR Chest 2 Views XR CHEST 2V FRONTAL/LAT Radiology STAT Subacute cough 1 Occurrences starting 07/21/2023 until 08/19/2024 [facility] Work Phone: Comment on above: 1 Occurrences starti ng 07/21/2023 until 08/19/2024 End: 09-25-2024 XR Chest PA and Lateral XR CHEST 2V FRONTAL/LAT Radiology STAT Subacute cough 1 Occurrences starting 08/27/2023 until 09/25/2024 [facility] Work Phone: Comment on above: 1 Occurrences starti ng 08/27/2023 until 09/25/2024 End: 12-23-2024 XR Elbow - right AP and Lateral and oblique XR ELBOW SPECIAL VIEWS AP/LAT/OTHER RIGHT Radiology Routine Elbow pain, right 1 Occurrences starting 11/24/2023 until 12/23/2024 [facility] Work Phone: Comment on above: 1 Occurrences starti ng 11/24/2023 until 12/23/2024 XR Elbow - right AP and Lateral and oblique XR ELBOW SPECIAL VIEWS AP/LAT/OTHER RIGHT Radiology Routine Elbow pain, right 11/24/2023 4:46 PM EDT [facility] Immunizations Immunization Date Immunization Notes Care Provider Vivienne dia 02-12-2020 tetanus toxoid, redu junito diphtheria toxoid, and acellular pertussis vaccine, adsorbed Guido Eaton MD Work Phone: [facility] Payers Date Payer Category Payer Self-pay [id number] 2023 Unknown [employer] PPO OOS [id number] 2023-Present [phone] [address] [place] [address] PPO [id number] 2023 Unknown [id number] Unknown [id number] Unknown [id number] Unknown [id number] Unknown [id number] Unknown [id number] Unknown [id number] Unknown [id number] Social History Date Type Detail Facility Start: 12-20-2021 End: 08-08-2022 Tobacco smoking status NHIS Unknown if ever smoked [facility] Start: 07-09-2020 Heavy Josias Co [facility] Start: 07-09-2020 None [facility] Start: 07-09-2020 Spouse/ Signif icant Other [facility] Start: 07-09-2020 Non-smoker [facility] Start: 1960 Sex Assigned At Male [facility] Start: 07-03-2023 Tobacco smoking status NHIS Never smoked tobacco [facility] Start: 07-03-2023 Tobacco use and exposure User of smokeless tobacco [facility] History of tobacco use Chews Tobacco [facility] Start: 07-21-2023 End: 07-16-2024 History of Social function [facility] Start: 07-21-2023 End: 07-16-2024 Tobacco use panel [facility] Start: 1960 Sex Assigned At Not on file [facility] Start: 01-15-2024 Tobacco smoking status NHIS Ex-smoker (finding) [facility] Clinical Notes 07-03-2023 to 12-04-2024 Note Date & Type Note Facility 12-04-2024 Radiology Diagnostic study note [facility] [address], [place] [address] CTA Chest W/WO Contrast MR#: [id number] Acct: [id number] Name: BECKA PEREZ Rep #: [id number] : 1960 M 64 From: Gayle Crane MD PCP: 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 NP-C Status: REG CLI Study:CTA Chest W/WO Contrast Date of Exam: 12/03/24 Exam# [id number] Ordering Dr: Galen Pak NP 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-C PROCEDURE: CTA CHEST W/WO CONTRAST 12/03/2024 REASON FOR EXAM: RE-EVALUATE NODULE COMPARED TO 04/06/2015 TECHNIQUE: CTA CHEST W/WO CONTRAST Multiplanar Sagittal and Coronal images were obtained. CONTRAST: Isovue 370 VOLUME: 100 mL One or more dose reduction techniques were used (e.g., Automated exposure control, adjustment of the mA and/or kV according to patient size, use of iterative reconstruction technique). RADIATION DOSE SUMMARY: CTDlvol: 11.66 mGy DLP: 413 mGycm COMPARISON: Chest radiograph on 11/26/2024. CT scan 01/15/2024. FINDINGS: Unchanged 4 mm nodule in the right middle lobe. Unchanged moderate coronary artery calcifications. Unchanged calcified mediastinal and hilar lymph nodes with the largest measuring1.2 cm. Normal enhancement of the main pulmonary artery and right and left pulmonary arteries. Normal enhancement of the bilateral peripheral pulmonary arteries. There is no demonstrated pulmonary embolism. Normal thoracic aorta and visualized great vessels. There is no demonstrated aortic dissection. Normal heart and pericardium. Normal mediastinum. Normal hilar regions. Normal visualized trachea and bronchi. The lungs are well expanded. Normal remaining pulmonary parenchyma. Normal pleura. Normal chest wall structures. Normal osseous structures. Normal visualized upper abdomen. CT/CTA Chest W/WO Contrast IMPRESSION: Unchanged 4 mm nodule in the right middle lobe. Unchanged moderate coronary artery calcifications. Unchanged calcified mediastinal and hilar lymph nodes with the largest measuring1.2 cm. Reading Location: [place] [address] CC: WENDY Malhotra; WENDY Pak ~ Brim Curler: Signed [facility] 11-27-2024 Radiology Diagnostic study note [facility] [address] [place], [place] [address] Chest PA and Lateral MR#: [id number] Acct: [id number] Name: BECKA PEREZ Rep #: [id number] : 1960 M 64 From: Gayle Crane MD PCP: WENDY Potts Status: REG CLI Study:Chest PA and Lateral Date of Exam: 11/26/24 Exam# [id number] Ordering Dr: Galen Pak NP PROCEDURE: CHEST PA AND LATERAL 11/26/2024 REASON FOR EXAM: SHORTNESS OF BREATH TECHNIQUE: CHEST PA AND LATERAL COMPARISON: 07/05/2022. FINDINGS: Interval appearance of mild left basilar atelectatic pulmonary changes. There is no demonstrated pleural abnormality. Normal heart and pericardium. Normal mediastinum and radha. Normal visualized pulmonary arteries. Normal visualized aortic arch and descending thoracic aorta. Normal visualized thoracic spine. Normal visualized ribs, clavicles, and shoulders. There is no demonstrated abnormality of the visualized soft tissue structures ofthe upper abdomen. RAD/Chest PA and Lateral IMPRESSION: Interval appearance of mild left basilar atelectatic pulmonary changes. [facility] CC: WENDY Malhotra; WENDY Pak ~ Brim Curler: Signed [facility] 11-26-2024 Progress note Note Date/Time November 26, 2024 4:42pm [facility] [address] [place] [address] OFFICE VISIT Date of Service: 11/26/24 MR#: [id number] Acct: [id number] Name: BECKA PEREZ Rep #: [id number] : 1960 Provider: WENDY Pak Age/Sex: 64/M [place] [facility] Status: Signed HPI HPI History of Present Illness Details: 64-year-old man with a history of coronary artery disease. He had presented in June 2020 with a stress test which was noted to be abnormal. He subsequentlywas taken to the cardiac catheterization lab, and [...] therapy was used for the rest. He recently contacted our office expressing concerns regarding something is notright. He was asked to present to our office and undergo laboratory testing and chest x-ray. He acknowledges ongoing chest pressure. This is continuous regardless of activity. This is located to right chest. This has been ongoing for 2 weeks. He denies palpitations or lower extremity edema. He denies claudication. He acknowledges shortness of breath at rest and shortness of breath with activity. He denies lightheadedness, dizziness, near-syncope, or syncope. He acknowledges fatigue over the last couple months. He is concerned that his fatigue is similar to fatigue as noted in June 2020. He does acknowledge recently injuring his right ribs after being pinned between a horse and a gate. Intake Vital Signs 01/30/24 15:45 11/26/24 13:50 Height 5 ft 11 in 5 ft 11 in Weight: 188 lb 193 lb BMI 26.2 26.9 BP 135/81 H 131/87 H Blood Pressure Location Lt brachial Lt brachial Position Sitting Sitting Respiration 18 16 Pulse 59 L 70 Pulse Source Monitor NIBP Pulse Oximetry (%) 97 Intake Visit Reasons: See clinical notes, added per JR Optician Apprentice Required: No Accompanied by: Is patient in pain?: No Allergies No Known Allergies Allergy (Verified 11/26/24 15:47) Medications ?Medication ?Instructions ?Recorded ?Confirmed ?Type ascorbic acid (vitamin C) 500 mg 1 g PO BID 01/10/23 0 11/26/24 History tablet metoprolol tartrate 25 mg tablet 25 mg PO BID #180 tab s 05/07/24 11/26/24 Rx amlodipine 5 mg tablet 5 mg PO DAILY #90 tabs 08/1411/26/24 Rx aspirin 81 mg tablet,delayed 81 mg PO DAILY@0800 #90 t abs 09/16/24 11/26/24 Rx release rosuvastatin 20 mg tablet 20 mg PO DAILY #90 tabs 04/01/0311/26/24 Rx acetaminophen 650 mg 1,300 mg PO Q8H PRN PAIN OR FEVER 11/26/24 11/26/24 History tablet,extended release (Tylenol 8 Hour) cholecalciferol (vitamin D3) 50 50 mcg PO QDAY 5 11/26/24 History mcg (2,000 unit) tablet isosorbide mononitrate 60 mg 60 mg PO DAILY #90 tabs 0 11/26/24 11/26/24 Rx tablet,extended release 24 hr multivit,Ca,min-iron 8 mg-folic 1 tab PO BID 11/26/24 11/26/24 History acid 200 mcg-lycopene 600 mcg tablet (Centrum Men) Have you fallen in the past year?: Yes (Trip and fall) [facility] Medical History Acute lumbar myofascial strain COVID-19 Bronchitis URI (upper respiratory infection) Acute bronchitis, unspecified Essential (primary) hypertension History of ST elevation myocardial infarction (STEMI) (07/09/20) Atherosclerotic heart disease of [place] coronary artery without angina pectoris Chronic back [...] Number of servings: 2 ROS Const Const: Positive for fatigue (Over last couple of months); Negative for weakness Eyes Eyes: Negative for change in vision ENT ENT: Negative for dizziness or balance problems Cardio Chest Pain: Yes Frequency: other (Continuous over last couple of weeks) Character: other (Pressure) Onset: other (Continuous regardless of activity) Location: right chest Duration: continuous Palpitations: No Edema: None Muscle aches with walking: None Resp Respiratory: Positive for SOB with activity and SOB at rest; Negative for SOB orthopneaundefinedSOB lying down GI GI: Negative nausea or heartburn : Negative for hematuria or frequent nighttime urination/ nocturia Musc Musc: Negative for balance problems Skin Skin: Negative non-healing lesions or rash Neuro Neuro: Negative for dizziness, lightheadedness, near syncope, syncope or weakness Endo Endo: Positive for fatigue (Over last couple of months) Allergy Allergy/Immunology: Negative for rash Cardiology Exam Const Appearance: cooperative, healthy appearing, comfortable and no acute distress Nutritional Appearance: well nourished and overweight Orientation: alert, awake and oriented x3 Head Head: normal to inspection Ears: hearing grossly normal bilaterally Nose: external nose normal Face and Sinus: face symmetric Mouth: moist mucous membranes Eyes General: appearance normal, both eyes and all related structures Eyelids: eyelids normal EOM: EOM intact bilaterally Neck Neck: normal visual inspection and no JVD Carotids: normal carotid upstroke Chest Chest inspection: normal inspection of the chest, symmetric chest movement and normal respiratory effort; Negative cough Auscultation: Bilateral: Clear to Auscultation Cardio Rate: regular rate Rhythm: regular rhythm Heart sounds: S1 normal and S2 normal; Negative rub, gallop or murmur GI GI: normal to inspection Neuro General: patient alert, patient awake, patient oriented x3 and CN's II-XI intactbilaterally Skin Skin: no rashes or lesions noted Extremities Pulses: Normal: Right Posterior Tibial Pulse, Left Posterior Tibial Pulse, RightRadial Pulse and Left Radial Pulse Lower Extremity Edema: None: Bilateral Psych Psychological: normal affect Supplemental Info Supplemental Information Stress test from 07/21/2021: Conclusion: Normal exercise myocardial perfusion stress test at a high workload. Preserved ejection fraction. Cardiac intervention 07/12/2020: CONCLUSIONS CAD as described. Preserved EF with inferior hypokinesis. No significant or MR. Succesful PCI of RPL with COLTON. Successful PCI of D2 with COLTON RECOMMENDATIONS Dual antiplatelet therapy for 1 year. Medical management of rest of CAD CORONARY ANGIOGRAPHY DOMINANCE: Right Dominant LEFT HEART ASSESSMENT Left Ventricular Ejection Fraction: by LV Gram 55 % Inferior hypokinesis LEFT MAIN: 20 % ostial Stenosis LEFT ANTERIOR DESCENDING ARTERY: MID LAD: 80 % Stenosis. LAD is about 1.75 to 2 mm in diameter at this location DIAGONAL 1: Proximal - 80 % Stenosis. Very small vessel DIAGONAL 2: Proximal - 95 % Stenosis. 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 This is similar to previous ECG dated 01/15/2024. There are no acute ST or T wave changes noted. His symptoms are concerned that it may be CAD related. His laboratory testing that includes fluid volume overload, anemia, and troponin is pending. Chest x-ray is also pending. We will wait results of laboratory testing for further input. He was asked to increase isosorbide to 60 mg p.o. daily. We did review that if his troponin is positive, that he will require a repeat troponin to evaluate trend. As this is at the end of office day, he may requirerepeat laboratory testing in the ER. This was reviewed with him that he will becontacted if his troponin comes back positive to present to ER for second troponin check. If his troponin is negative, we will discuss further with respect to heart catheterization versus stress test. (2) History of coronary artery stent placement: Status: Resolved Comment: CIC-BUL-DGSTO w/ 2.25 x 16 mm Synergy Stent and COLTON-D2 w/ 2.25 x 20 mm Synergy Stent 07/09/20 Plan: Stress test on 07/21/2021 was negative for ischemia at a high workload. After stress test, he was started on isosorbide. He will continue current treatment plan as outlined above. (3) Essential (primary) hypertension: Status: Chronic Plan: Patient's blood pressure is well-controlled. We will continue to monitor. We will not make any medication regimen changes. (4) Hyperlipemia, mixed: Status: Acute Plan: The patient was reminded of LDL goal of 70 and below for secondary prevention. Lipid panel from 11/12/2022 showed Total Cholesterol: 116, HDL: 67, LDL: 40, andTriglycerides: 43. He will continue Crestor therapy. (5) Lung nodule, solitary: Status: Acute Comment: right Plan: He had a chest CT scan in March 2015 that commented on a 4 mm soft tissue nodule at the right lung base. Per discharge summary in 2014, it was recommended to have a repeat CT scan in 6 months. He has not had this rechecked. He was asked to go repeat CT scan to assess his current symptoms as well as to reassess nodule. Depending on results, further recommendation be made. Orders: Orders 12 Lead EKG performed by [facility] Today I25.10 - Atherosclerotic heart disease of [place] coronary artery without angina pectoris, I25.2 - Old myocardial infarction, R06.02 - Shortness of breath, R53.83 - Other fatigue Troponin T High Sensitivity Today R07.9 - Chest pain, unspecified CTA Chest W/WO Contrast Today R07.9 - Chest pain, unspecified, R91.1 - Solitarypulmonary nodule Medications: Changed From isosorbide mononitrate ER 30 mg PO DAILY 90 tabs 3RF To isosorbide mononitrate ER 60 mg PO DAILY 90 tabs 3RF Plan Details Additional Comments: Thank you for allowing us to participate in the patients plan of care, if you have any questions please do not hesitate to call. Plan was reviewed with patient/family member along with red flag symptoms. Understanding was acknowledged. Questions were answered to apparent satisfaction. This note was generated using a voice recognition system and there may be incorrect words, spelling or punctuation that were not noted when reviewing the office note prior to saving. Portions of this documentation were copied and pasted from previous office visitnotes to provide a cohesive continuity of the history. The note has been reviewed, edited, and updated, as necessary. Coding Level of Care Code Off vis,est,level 4 Diagnoses Chest pain, unspecified type R07.9 Chest pain type: unspecified History of coronary artery stent placement Z95.5 Essential (primary) hypertension I10 Hyperlipemia, mixed E78.2 Lung nodule, solitary R91.1 Coding Level of Care Code Off vis,est,level 4 Diagnoses Chest pain, unspecified type R07.9 Chest pain type: unspecified History of coronary artery stent placement Z95.5 Essential (primary) hypertension I10 Hyperlipemia, mixed E78.2 Lung nodule, solitary R91.1 Clinical Quality Measures Falls Risk Screening/Assistive Devices Have you fallen in the past year?: Yes (Trip and fall) 11/26/24 1642 <Electronically signed by Sangtia NGUYEN> Date _ Sangita NGUYEN Cosigner Signature: Date (if applicable) CC: WENDY Malhotra ~ [facility] Work Phone: 1(922) 414-131206-17-2025 Evaluation note* Diagnosis Onset Date Resolution Status Admit Date Chest pain acute November 26 3:14pm Hyperlipemia, mixed acute November 26, 2024 3:14pm Lung nodule, solitary acute Tushar e 2024 3:14pm Essential (primary) hypertension chronic November 26, 2024 3:14pm History of coronary artery stent placement July 09, 2020 resolved November 26 3:14pm [facility] Work Phone: [phone]) 237-556706-17-2025 [facility] [address] [place] [address] OFFICE VISIT Date of Service: 11/26/24 MR#: [id number] Acct: [id number] Name: BECKA PEREZ Rep #: [id number] : [id number] Provider: WENDY Pak Age/Sex: 64/M Location: [facility] Status: Signed HPI HPI History of Present Illness Details: 64-year-old man with a history of coronary artery disease. He had presented in June 2020 with a stress test which was noted to be abnormal. He subsequentlywas taken to the cardiac catheterization lab, and [...] therapy was used for the rest. He recently contacted our office expressing concerns regarding something is notright. He was asked to present to our office and undergo laboratory testing and chest x-ray. He acknowledges ongoing chest pressure. This is continuous regardless of activity. This is located to right chest. This has been ongoing for 2 weeks. He denies palpitations or lower extremity edema. He denies claudication. Heacknowledges shortness of breath at rest and shortness of breath with activity. He denies lightheadedness, dizziness, near-syncope, or syncope. He acknowledges fatigue over the last couple months. Heis concerned that his fatigue is similar to fatigue as noted in June 2020. He does acknowledge re cently injuring his right ribs after being pinned between a horse and a gate. Intake Vital Signs 01/30/24 15:45 11/26/24 13:50 Height 5 ft 11 in 5 ft 11 in Weight: 188 lb 193 lb BMI 26.2 26.9 BP 135/81 H 131/87 H Blood Pressure Location Lt brachial Lt brachial Position Sitting Sitting Respiration 18 16 Pulse 59 L 70 Pulse Source Monitor NIBP Pulse Oximetry (%) 97 Intake Visit Reasons: See clinical notes, added per JR Optician Apprentice Required: No Accompanied by: Is patient in pain?: No Allergies No Known Allergies Allergy (Verified 11/26/24 15:47) Medications ?Medication ?Instructions ?Recorded ?Confirmed ?Type ascorbic acid (vitamin C) 500 mg 1 g PO BID 01/10/23 0 11/26/24 History tablet metoprolol tartrate 25 mg tablet 25 mg PO BID #180 tab s 05/07/24 11/26/24 Rx amlodipine 5 mg tablet 5 mg PO DAILY #90 tabs 08/1411/26/24 Rx aspirin 81 mg tablet,delayed 81 mg PO DAILY@0800 #90 t abs 09/16/24 11/26/24 Rx release rosuvastatin 20 mg tablet 20 mg PO DAILY #90 tabs 04/01/0311/26/24 Rx acetaminophen 650 mg 1,300 mg PO Q8H PRN PAIN OR FEVER 11/26/24 11/26/24 History tablet,extended release (Tylenol 8 Hour) cholecalciferol (vitamin D3) 50 50 mcg PO QDAY 5 11/26/24 History mcg (2,000 unit) tablet isosorbide mononitrate 60 mg 60 mg PO DAILY #90 tabs 0 11/26/24 11/26/24 Rx tablet,extended release 24 hr multivit,Ca,min-iron 8 mg-folic 1 tab PO BID 11/26/24 11/26/24 History acid 200 mcg-lycopene 600 mcg tablet (Centrum Men) Have you fallen in the past year?: Yes (Trip and fall) [facility] Medical History Acute lumbar myofascial strain COVID-19 Bronchitis URI (upper respiratory infection) Acute bronchitis, unspecified Essential (primary) hypertension History of ST elevation myocardial infarction (STEMI) (07/09/20) Atherosclerotic heart disease of [place] coronary artery without angina pectoris Chronic back [...] Number of servings: 2 ROS Const Const: Positive for fatigue (Over last couple of months); Negative for weakness Eyes Eyes: Negative for change in vision ENT ENT: Negative for dizziness or balance problems Cardio Chest Pain: Yes Frequency: other (Continuous over last couple of weeks) Character: other (Pressure) Onset: other (Continuous regardless of activity) Location: right chest Duration: continuous Palpitations: No Edema: None Muscle aches with walking: None Resp Respiratory: Positive for SOB with activity and SOB at rest; Negative for SOB orthopneaundefinedSOB lying down GI GI: Negative nausea or heartburn : Negative for hematuria or frequent nighttime urination/ nocturia Musc Musc: Negative for balance problems Skin Skin: Negative non-healing lesions or rash Neuro Neuro: Negative for dizziness, lightheadedness, near syncope, syncope or weakness Endo Endo: Positive for fatigue (Over last couple of months) Allergy Allergy/Immunology: Negative for rash Cardiology Exam Const Appearance: cooperative, healthy appearing, comfortable and no acute distress Nutritional Appearance: well nourished and overweight Orientation: alert, awake and oriented x3 Head Head: normal to inspection Ears: hearing grossly normal bilaterally Nose: external nose normal Face and Sinus: face symmetric Mouth: moist mucous membranes Eyes General: appearance normal, both eyes and all related structures Eyelids: eyelids normal EOM: EOM intact bilaterally Neck Neck: normal visual inspection and no JVD Carotids: normal carotid upstroke Chest Chest inspection: normal inspection of the chest, symmetric chest movement and normal respiratory effort; Negative cough Auscultation: Bilateral: Clear to Auscultation Cardio Rate: regular rate Rhythm: regular rhythm Heart sounds: S1 normal and S2 normal; Negative rub, gallop or murmur GI GI: normal to inspection Neuro General: patient alert, patient awake, patient oriented x3 and CN's II-XI intactbilaterally Skin Skin: no rashes or lesions noted Extremities Pulses: Normal: Right Posterior Tibial Pulse, Left Posterior Tibial Pulse, RightRadial Pulse and Left Radial Pulse Lower Extremity Edema: None: Bilateral Psych Psychological: normal affect Supplemental Info Supplemental Information Stress test from 07/21/2021: Conclusion: Normal exercise myocardial perfusion stress test at a high workload. Preserved ejection fraction. Cardiac intervention 07/12/2020: CONCLUSIONS CAD as described. Preserved EF with inferior hypokinesis. No significant or MR. Succesful PCI ofRPL with COLTON. Successful PCI of D2 with COLTON RECOMMENDATIONS Dual antiplatelet therapy for 1 year. Medical management of rest of CAD CORONARY ANGIOGRAPHY DOMINANCE: Right Dominant LEFT HEART ASSESSMENT Left Ventricular Ejection Fraction: by LV Gram 55 % Inferior hypokinesis LEFT MAIN: 20 % ostial Stenosis LEFT ANTERIOR DESCENDING ARTERY: MID LAD: 80 % Stenosis. LAD is about 1.75 to 2 mm in diameter at this location DIAGONAL 1: Proximal - 80 % Stenosis. Very small vessel DIAGONAL 2: Proximal - 95 % Stenosis. 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 This is similar to previous ECG dated 01/15/2024. There are no acute ST or T wave changes noted. His symptoms are concerned that it may be CAD related. His laboratory testing that includes fluid volume overload, anemia, and troponin is pending. Chest x-ray is also pending. We will wait results of laboratory testing for further input. He was asked to increase isosorbide to 60 mg p.o. daily. We did review that if his troponin is positive, that he will require a repeat troponin to evaluate trend. As this is at the end of office day, he may requirerepeat laboratory testing in the ER. This was reviewed with him that he will becontacted if his troponin comes back positive to present to ER for second troponin check. If his troponin is negative, we will discuss further with respect to heart catheterization versus stress test. (2) History of coronary artery stent placement: Status: Resolved Comment: [id number] w/ 2.25 x 16 mm Synergy Stent and COLTON-D2 w/ 2.25 x 20 mm Synergy Stent 07/09/20 Plan: Stress test on 07/21/2021 was negative for ischemia at a high workload. After stress test, he was started on isosorbide. He will continue current treatment plan as outlined above. (3) Essential (primary) hypertension: Status: Chronic Plan: Patient's blood pressure is well-controlled. We will continue to monitor. We will not make any medication regimen changes. (4) Hyperlipemia, mixed: Status: Acute Plan: The patient was reminded of LDL goal of 70 and below for secondary prevention. Lipid panel from 11/12/2022 showed Total Cholesterol: 116, HDL: 67, LDL: 40, andTriglycerides: 43. He will continue Crestor therapy. (5) Lung nodule, solitary: Status: Acute Comment: right Plan: He had a chest CT scan in March 2015 that commented on a 4 mm soft tissue nodule at the right lung base. Per discharge summary in 2014, it was recommended to have a repeat CT scan in 6 months. He has not had this rechecked. He was asked to go repeat CT scan to assess his current symptoms as well as to reassess nodule. Depending on results, further recommendation be made. Orders: Orders 12 Lead EKG performed by [facility] Today I25.10 - Atherosclerotic heart disease of [place] coronary arterywithout angina pectoris, I25.2 - Old myocardial infarction, R06.02 - Shortness of breath, R53.83 - Other fatigue Troponin T High Sensitivity Today R07.9 - Chest pain, unspecified CTA Chest W/WO Contrast Today R07.9 - Chest pain, unspecified, R91.1 - Solitarypulmonary nodule Medications: Changed From isosorbide mononitrate ER 30 mg PO DAILY 90 tabs 3RF To isosorbide mononitrate ER 60 mg PO DAILY 90 tabs 3RF Plan Details Additional Comments: Thank you for allowing us to participate in the patients plan of care, if you have any questions please do not hesitate to call. Plan was reviewed with patient/family member along with red flag symptoms. Understanding was acknowledged. Questions were answered to apparent satisfaction. This note was generated using a voice recognition system and there may be incorrect words, spellingor punctuation that were not noted when reviewing the office note prior to saving. Portions of this documentation were copied and pasted from previous office visitnotes to provide a cohesive continuity of the history. The note has been reviewed, edited, and updated, as necessary. Coding Level of Care Code Off vis,est,level 4 Diagnoses Chest pain, unspecified type R07.9 Chest pain type: unspecified History of coronary artery stent placement Z95.5 Essential (primary) hypertension I10 Hyperlipemia, mixed E78.2 Lung nodule, solitary R91.1 Coding Level of Care Code Off vis,est,level 4 Diagnoses Chest pain, unspecified type R07.9 Chest pain type: unspecified History of coronary artery stent placement Z95.5 Essential (primary) hypertension I10 Hyperlipemia, mixed E78.2 Lung nodule, solitary R91.1 Clinical Quality Measures Falls Risk Screening/Assistive Devices Have you fallen in the past year?: Yes (Trip and fall) 11/26/24 1642 P 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-C> Date _ [facility] RODRIGO Huber Signature: Date (if applicable) CC: WENDY Malhotra ~ [facility]02-04-2025 History of Present illness Narrative* Emily Wilson Tech - 07/16/2024 5:00 PM EST Radiology Service Progress Note PATIENT NAME: Becka Perez DATE OF SERVICE: July 16, 2024 TIME: 5:03 PM PATIENT IDENTITY VERIFICATION COMPLETED USING TWO (2) IDENTIFIERS: Name and Date of confirmedby patient verbally. FALL SCREENING: Has the patient had 2 falls in the last year or 1 fall with injury or currently using an Ambulatory Assistive Device (Walker, Cane, Wheelchair, Crutches, etc.)? No PATIENT GENDER DATA: Assigned male at PATIENT RELEVANT IMPLANT DATA REVIEWED: Not Applicable PATIENT PRESENTS WITH AN IMPLANTABLE OR ATTACHED TAPE MACHINE TAILER: No RADIOLOGY DEPARTMENT: General X-ray: Exam(s) Completed: Chest X-Ray PERIPHERAL IV DATA: Not applicable SIGNED BY: Valentino Arita July 16, 2024 5:03 PM [facility] NoteHNO ID: [id number] Author: EMILY WILSON Tech Service: ? Author Type: Technologist Type: Progress Notes Filed: 07/16/2024 17:03 Note Text: Radiology Service Progress Note PATIENT NAME: Becka Perez DATE OF SERVICE: July 16, 2024 TIME: [...] PATIENT PRESENTS WITH AN IMPLANTABLE OR ATTACHED TAPE MACHINE TAILER: No RADIOLOGY DEPARTMENT: General X-ray: Exam(s) Completed: Chest X-Ray PERIPHERAL IV DATA: Not applicable SIGNED BY: Valentino Arita July 16, 2024 5:03 [facility]02-04-2025 NoteHNO ID: [id number] Author: SANTI PATEL APRN.CNP Service: ? Author Type: Nurse Practitioner Type: [...] HISTORY Diagnosis Date Coronary artery disease s/p MT Hyperlipidemia Hypertension PAST SURGICAL HISTORY Procedure Laterality [...] of care. This note was generated using Delivery Hero software. It may contain errors in (more content not included)...[facility]02-04-2025 History of Present illness Narrative* Santi Patel APRN.SHIPPING ASSISTANT - 07/16/2024 4:42 PM EST Subjective HPI Nontoxic-appearing 64-year-old male presents urgent [...] HISTORY Diagnosis Date Coronary artery disease s/p MT Hyperlipidemia Hypertension PAST SURGICAL HISTORY Procedure Laterality Date HERNIA REPAIR HX Bilateral inguinal ALLERGIES Patient has no known allergies. MEDICATIONS nystatin (MYCOSTATIN) 100,000 unit/mL suspension Take 5 mL by mouth four times daily. 1tsp swish inmouth for several minutes, then swallow (or expectorate) [...] of care. This note was generated using [employer] Hero software. It may contain errors in wording, punctuation, or spelling. Santi Patel APRN.CRESCENCIO documented in this encounterSelect [facility] [place]24 Telephone encounter Note * Telephone Encounter - Vivian Whalen LPN - 11/28/2023 8:52 AM EDT Pt notified of results and provider message. Vivian Whalen LPN [facility]-18-2024 Miscellaneous Notes* Telephone Encounter - Vivian Whalen LPN - 11/28/2023 8:52 AM EDT Pt notified of results and provider message. Vivian Whalen LPN * Telephone Encounter - Elo Lau LPN - 11/28/2023 8:49 AM EDT Left message for patient to return call. Elo Lau LPN * Telephone Encounter - Elo Lau LPN - 11/28/2023 8:49 AM EDT ----- Message from Guido Eaton MD sent at 11/27/2023 8:17 PM EDT ----- No fractures on final x-ray report. documented in this encounterSelect [facility] [place]24 Telephone encounter Note * Telephone Encounter - Elo Lau LPN - 11/28/2023 8:49 AM EDT Left message for patient to return call. Elo Lau LPN [facility] Telephone encounter Note* Telephone Encounter - Elo Lau LPN - 11/28/2023 8:49 AM EDT ----- Message from Guido Eaton MD sent at 11/27/2023 8:17 PM EDT ----- No fractures on final x-ray report. [facility] History of Present illness Narrative* Phillip Gómez RT(R) - 11/24/2023 4:40 PM EDT Radiology Service Progress Note PATIENT NAME: Becka Perez DATE OF SERVICE: November 24, 2023 TIME: 4:40 PM PATIENT IDENTITY VERIFICATION COMPLETED USING TWO (2) IDENTIFIERS: Name and Date of confirmedby patient verbally. FALL SCREENING: Has the patient had 2 falls in the last year or 1 fall with injury or currently using an Ambulatory Assistive Device (Walker, Cane, Wheelchair, Crutches, etc.)? No PATIENT GENDER DATA: Male PATIENT RELEVANT IMPLANT DATA REVIEWED: Not Applicable PATIENT PRESENTS WITH AN IMPLANTABLE OR ATTACHED TAPE MACHINE TAILER: No RADIOLOGY DEPARTMENT: General X-ray: Exam(s) Completed: Upper Extremity X- Ray(s): Elbow, right PERIPHERAL IV DATA: Not applicable SIGNED BY: RT Arpan(R) November 24, 2023 4:40 PM documented [facility] encounter[facility] NoteHNO ID: [id number] Author: PHILLIP GÓMEZ RT(R) Service: Radiology Author Type: Technologist Type: Progress Notes Filed: 11/24/2023 16:46 Note Text: Radiology Service Progress Note PATIENT NAME: Becka Perez DATE OF SERVICE: November 24, 2023 TIME: [...] PATIENT PRESENTS WITH AN IMPLANTABLE OR ATTACHED TAPE MACHINE TAILER: No RADIOLOGY DEPARTMENT: General X-ray: Exam(s) Completed: Upper Extremity X-Ray(s): Elbow, right PERIPHERAL IV DATA: Not applicable SIGNED BY: RT Arpan(Citlaly) November 24, 2023 4:40 [facility]06-14-2024 NoteHNO ID: [id number] Author: GUIDO EATON MD Service: ? Author Type: Physician Type: [...] activity as tolerated. JODY wrap applied. Guido Eaton [facility]06-14-2024 History of Present illness Narrative* Guido Eaton MD - 11/24/2023 4:30 PM EDT Patient presents with: Edema: R arm -Elbow [...] by mouth four times daily. 1tsp swish inmouth for several minutes, then swallow (or expectorate) [...] is a significant finding in the report notdiscussed at the time of the visit. Treat elbow contusion with rest, ice, compression, and as needed analgesia. Advance activity as tolerated. JODY wrap applied. Guido Eaton MD documented in this encounterSelect [facility]04-14-2024 NoteHNO ID: [id number] Author: DAGMAR MORRISON APRN.SHIPPING ASSISTANT Service: ? Author Type: Nurse Practitioner Type: Progress Notes Filed: 09/24/2023 12:21 Note Text: Subjective HPI HPI Becka Perez is a 63 year old male who presents today for CC of cough. This started months. Has tried multiple rounds of atb with minimal relief, multiple xray negative. Symptoms are worsened by nothing. nonsmoker. .Patient presents with: Cough: Chest congestion x2 weeks, recent Flu PAST MEDICAL HISTORY Diagnosis Date Coronary artery disease s/p MT Hyperlipidemia Hypertension PAST SURGICAL HISTORY Procedure Laterality [...] - BENZONATATE 100 MG CAPSULE Dagmar Morrison APRN.[facility]04-14-2024 History of Present illness Narrative* Dagmar Morrison APRN.SHIPPING ASSISTANT - 09/24/2023 10:30 AM EDT Subjective HPI HPI Becka Perez is a 63 year old male who presents today for CC of cough. This started months. Has tried multiple rounds of atb with minimal relief, multiple xray negative. Symptoms are worsened by nothing. nonsmoker. .Patient presents with: Cough: Chest congestion x2 weeks, recent Flu PAST MEDICAL HISTORY Diagnosis Date Coronary artery disease s/p MT Hyperlipidemia Hypertension PAST SURGICAL HISTORY Procedure Laterality Date HERNIA REPAIR HX Bilateral inguinal ALLERGIES Patient has no known allergies. MEDICATIONS nystatin (MYCOSTATIN) 100,000 unit/mL suspension Take 5 mL by mouth four times daily. 1tsp swish inmouth for several minutes, then swallow (or expectorate) [...] - BENZONATATE 100 MG CAPSULE Dagmar Morrison APRN.SHIPPING ASSISTANT documented in this encounterSelect [facility]-17-2024 NoteHNO ID: [id number] Author: JANINE ARIAS PA Service: ? Author Type: Physician Mainframe Systems Administrator Type: Progress Notes Filed: 08/27/2023 14:23 Note Text: This note was created using NoteWriter. Subjective Becka Perez is a 63 year old male. HPI [...] HISTORY Diagnosis Date Coronary artery disease s/p MT Hyperlipidemia Hypertension PAST SURGICAL HISTORY Procedure Laterality [...] discussed in detail warranting prompt ER evaluation. Janine Arias [facility]03-17-2024 History of Present illness Narrative* Janine Arias PA - 08/27/2023 2:17 PM EDT This note was created using NoteWriter. Subjective Becka Perez is a 63 year old male. HPI 63-year-old male presents for cough, chest congestion, nasal congestion for 3 weeks. Patient started getting sick 3 weeks ago with cough, nasal congestion. He states that this week he had a feveron Monday. Fevers have now resolved. He was seen on Monday by an urgent care and diagnosed with influenza. He states that he was prescribed Tamiflu, but did not take it. Patient states that hiscough is continuing and worsening. He states it was productive, now is more dry and consistent. He does have nasal congestion and green nasal drainage. No vomiting or diarrhea. No chest pain or shortness of breath. No history of COPD or asthma. PAST MEDICAL HISTORY Diagnosis Date Coronary artery disease s/p MT Hyperlipidemia Hypertension PAST SURGICAL HISTORY Procedure Laterality [...] by mouth four times daily. 1tsp swish inmouth for several minutes, then swallow (or expectorate) [...] posterior oropharynx. No tonsillar exudates. He also hassome white patches on his tongue. Eyes: Conjunctiva/sclera: [...] tongue. Suspect thrush. Patient was on antibiotics abouta month ago. -Rx for nystatin mouthwash Diagnosis and treatment plan were discussed and questions were answered to the patient's satisfaction. Pt acknowledged understanding of concepts and follow up plan. Specific signs and symptoms that would indicate the need for higher level of care were discussed in detail warranting prompt ER evaluation. IVY Gutierrez documented in this encounterSelect [facility]-10-[facility]24 History of Present illness Narrative* Landry Lane RT(R) - 07/22/2023 10:00 AM EST Radiology Service Progress Note PATIENT NAME: Becka Perez DATE OF SERVICE: July 22, 2023 TIME: 10:07 AM PATIENT IDENTITY VERIFICATION COMPLETED USING TWO (2) IDENTIFIERS: Name and Date of confirmedby patient verbally. FALL SCREENING: Has the patient had 2 falls in the last year or 1 fall with injury or currently using an Ambulatory Assistive Device (Walker, Cane, Wheelchair, Crutches, etc.)? No PATIENT GENDER DATA: Male PATIENT RELEVANT IMPLANT DATA REVIEWED: Yes PATIENT PRESENTS WITH AN IMPLANTABLE OR ATTACHED TAPE MACHINE TAILER: No RADIOLOGY DEPARTMENT: General X-ray: Exam(s) Completed: Chest X-Ray PERIPHERAL IV DATA: Not applicable SIGNED BY: RT Cadence(Citlaly) July 22, 2023 10:07 AM documented in this encounterSelect [facility]-10-2024 NoteHNO ID: [id number] Author: LANDRY LANE RT (R) Service: ? Author Type: Web Programmer Type: Progress Notes Filed: 07/22/2023 10:13 Note Text: Radiology Service Progress Note PATIENT NAME: Becka Perez DATE OF SERVICE: July 22, 2023 TIME: [...] PATIENT PRESENTS WITH AN IMPLANTABLE OR ATTACHED TAPE MACHINE TAILER: No RADIOLOGY DEPARTMENT: General X-ray: Exam(s) Completed: Chest X-Ray PERIPHERAL IV DATA: Not applicable SIGNED BY: MK Vila) July 22, 2023 10:07 [facility]02-09-2024 NoteHNO ID: [id number] Author: GUIDO EATON MD Service: ? Author Type: Physician Type: [...] chest pain, or late onset fever. Guido Eaton, [facility]02-09-2024 History of Present illness Narrative* Guido Eaton MD - 07/21/2023 6:04 PM EST Patient presents with: Cough: X weeks, intermittent [...] of breath, increasing chest pain, or late onsetfever. Guido Eaton MD documented in this encounterSelect [facility]-22-2024 History of Present illness Narrative* Kari Beaver, RT(R) - 07/03/2023 11:10 AM EST Radiology Service Progress Note PATIENT NAME: Becka Perez DATE OF SERVICE: July 03, 2023 TIME: 11:30 AM PATIENT IDENTITY VERIFICATION COMPLETED USING TWO (2) IDENTIFIERS: Name and Date of confirmedby patient verbally. FALL SCREENING: Has the patient [...] 03, 2023 11:30 AM [facility]Reason for visit Narrative* Chief Complaint COUGH/FATIGUE E-ORDER Mixed hyperlipidemia Reason for Visit [facility] [place] [address] Work Phone: Evaluation note* Diagnosis Onset Date Resolution Status Bilateral acute otitis media acute Sinusitis acute Hyperlipemia, mixed acute Essential (primary) hypertension chronic Chest pain resolved History of coronary artery stent placement June resolved [facility] Work Phone: Evaluation note* Diagnosis Onset Date Resolution Status Bronchitis acute URI (upper respiratory infection) acute Bronchitis acute [facility] Work Phone: Evaluation note* Diagnosis Onset Date Resolution Status Bronchitis acute URI (upper respiratory infection) acute Bronchitis acute COVID-19 [facility] Work Phone: Evaluation note* Diagnosis Onset Date Resolution Status [facility]-19 acute [facility] Work Phone: Evaluation note* Diagnosis Subacute cough- Primary Cough documented in this encounter [facility] note* Diagnosis Subacute cough- Primary Cough Thrush Candidiasis of mouth [facility] Diagnosis Chronic cough- Primary Cough documented in this encounter [facility] note* Diagnosis Elbow pain, right- Primary Pain in joint, upper arm documented in this encounter [facility] note* Diagnosis Elbow pain, right Pain in joint, upper arm documented in this encounter [facility] note* Diagnosis Acute cough documented in this encounter [facility] note* Diagnosis Subacute cough Cough documented in this encounter [facility] note* Diagnosis Acute cough- Primary Sinobronchitis Unspecified sinusitis (chronic) Acute cough documented in this encounter [facility] note* Diagnosis Acute cough documented in this encounter [facility] noteNo assessment information availableWMarion Hospital Work Phone: Reason for referral (narrative)* Diagnostic Procedure Only (Routine) - Closed Specialty Diagnoses / Procedures Referred By Contac t Referred To Contact XR IMAGING Diagnoses Elbow pain, right Procedures XR ELBOW SPECIAL VIEWS AP/LAT/OTHER RIGHT RADEX ELBOW COMPLETE MINIMUM 3 VIEWS Guido Eaton MD [address] [id number] [place] [address] Referral ID Status Reason Start Date Expiration Date V isits Requested Visits Authorized [id number] Closed Auto-Generate d Referral 11/24/2023 12/23/2024 1 1 [facility] for referral (narrative)* Diagnostic Procedure Only (Routine) - Closed Specialty Diagnoses / Procedures Referred By Contac t Referred To Contact XR IMAGING Diagnoses Elbow pain, right Procedures XR ELBOW SPECIAL VIEWS AP/LAT/OTHER RIGHT RADEX ELBOW COMPLETE MINIMUM 3 VIEWS Guido Eaton MD [address] [place] [address] [place] [address] Referral ID Status Reason Start Date Expiration Date V isits Requested Visits Authorized [id number] Closed Auto-Generate d Referral 11/24/2023 12/23/2024 1 1 [facility] for referral (narrative)No reason for referral information availableWMarion Hospital Work Phone: Reason for visit Narrative* Diagnostic Procedure Only (Routine) - Closed Specialty Diagnoses / Procedures Referred By Contac t Referred To Contact XR IMAGING Diagnoses Elbow pain, right Procedures XR ELBOW SPECIAL VIEWS AP/LAT/OTHER RIGHT RADEX ELBOW COMPLETE MINIMUM 3 VIEWS Guido Eaton MD [address] [place] [address] [place] [address] Referral ID Status Reason Start Date Expiration Date V isits Requested Visits Authorized [id number] Closed Auto-Generate d Referral 11/24/2023 12/23/2024 1 1 [facility] Chief Complaint and Reason for Visit Chief [...] Bronchitis URI (upper respiratory infection) Bronchitis COVID-19 Chief Complaint Admit Date INT LAB AND XRAY ORDER November 26, 2024 2 :48pm See clinical notes, added per JR November 262024 3:14pm Reason for Visit Admit Date Chest pain November 26, 2024 3:14 pm Hyperlipemia, mixed November 26, 2024 3:14 pm Lung nodule, solitary November 26, 2024 3: 14pm Essential (primary) hypertension November 262024 3:14pm History of coronary artery stent placeme nt November 26, 2024 3:14pm Chief Complaint Admit Date INT LAB AND XRAY ORDER November 26, 2024 2 :48pm See clinical notes, added per JR November 262024 3:14pm CP, LUNG NODULE December 03, 2024 3:31 pm Family History No Family History Records Found Relationship Condition Age at Onset Recorded Date/T sai mother Cardiac disease Unknown father Cardiac disease Unknown Advance Directives No Advanced Directives Records Found Advance Directive Response Recorded Date/ Time Advance Directives No April 05, 2015 9:32pm Living Will No July 16 11:29am Power of Certified Nurses' Aide No July 16, 2020 11:29am Advance Directive Response Recorded Date/ Time Advance Directives No April 05, 2015 8:32pm Living Will No July 16 10:29am Power of Certified Nurses' Aide No July 16, 2020 10:29am Advance Directive Response Recorded Date/ Time Advance Directives No April 05, 2015 9:32pm Summary Purpose Additional Source Comments Goals (unrecognized [...] Status: Active Member Role Status Dates SANTI MALHOTRA Family Provider Active 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, 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-C Primary Care Provider Act minnie Team Status: Inactive Member Role Status Dates 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, 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-C Primary Care Provider, Re ferring Provider Active Sergei Aranda PA, PA Attending Provider Active Team Status: Inactive Member Role Status Dates 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, 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-C Primary Care Provider, Re ferring Provider Active Carlos HAYNES, PA Attending Provider Active Team Status: Inactive Member Role Status Dates 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, 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-C Primary Care Provider Act minnie Carlos HAYNES, PA Attending Provider, Referring Provi wilver Active Team Status: Inactive Member Role Status Dates 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, 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-C Primary Care Provider Act minnie Rita Rainey 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, 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-C Attending Provider, Referring Kika tran Active Team Status: Inactive Member Role Status Dates 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, 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-C Primary Car e Provider, Attending Provider, Referring Provider Active Boat Outfitting Supervisor Relationship Specialty Start Date End Date Brittany Malhotra CNP [address] [place] [phone] PCP - General Family Medicine 07/03/23 Boat Outfitting Supervisor Relationship Specialty Start Date End Date Brittany Malhotra CRESCENCIO [address] [place] [phone] PCP - General Family Medicine 07/03/23 Boat Outfitting Supervisor Relationship Specialty Start Date End Date Brittany Malhotra CNP [address] [place] [phone] PCP - General Family Medicine 07/03/23 Boat Outfitting 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 Relationship Specialty Start Date End Date Brittany Malhotra CNP [address] [place] [phone] PCP - General Family Medicine 07/03/23 Boat Outfitting Supervisor Relationship Specialty Start Date End Date Brittany Malhotra CNP [address] [place] [address] PCP - General Family Medicine 07/03/23 Boat Outfitting 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 Relationship Specialty Start Date End Date Brittany Malhotra CNP [address] [place] [phone] PCP - General Family Medicine 07/03/23 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 Outfitting 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 Relationship Specialty Start Date End Date Brittany Malhotra CNP [address] [place] [phone] PCP - General Family Medicine 07/03/23 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 Raj Atkins MD Attending Provider Active Start: November 15, 2024 End: November 15, 2024 Dr. Raj Atkins MD Referring Provider Active Start: November 15, 2024 End: November 15, 2024 Team Status: Active Member Role Status Dates 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, 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-C Primary Care Provider Act minnie Start: November 26, 2024 Sangita Pak 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, 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-C Attending Provider Active S tart: November 26, 2024 Sangita Pak 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, 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-C Referring Provider Active S tart: November 26, 2024 Team Status: Inactive Member Role Status Dates 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, 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-C Primary Care Provider Act minnie Start: November 26, 2024 End: November 26, 2024 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, 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-C Referring Provider Active Start: November 26, 2024 End: November 26, 2024 Sangita Pak 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, 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-C Attending Provider Active S tart: November 26, 2024 End: November 26, 2024 Team Status: Active Member Role Status Dates 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, 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-C Primary Care Provider Act minnie Team Status: Inactive Member Role Status Dates 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, 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-C Primary Care Provider Act minnie Start: November 26, 2024 End: November 26, 2024 Sangita Pak 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, 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-C Attending Provider Active S tart: November 26, 2024 End: November 26, 2024 Sangita Pak 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, 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-C Referring Provider Active S tart: November 26, 2024 End: November 26, 2024 Team Status: Active Member Role/Relationship Status Dates 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, 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-C Primary Care Provider Act minnie Team Status: Inactive Member Role/Relationship Status Dates 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, 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-C Primary Care Provider Act minnie Start: November 15, 2024 End: November 15, 2024 Dr. Raj Atkins MD Attending Provider Active Start: November 15, 2024 End: November 15, 2024 Dr. Raj Atkins MD Referring Provider Active Start: November 15, 2024 End: November 15, 2024 Team Status: Inactive Member Role/Relationship Status Dates 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, 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-C Primary Care Provider Act minnie Start: November 26, 2024 End: November 26, 2024 Sangita Pak 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, 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-C Attending Provider Active S tart: November 26, 2024 End: November 26, 2024 Sangita Pak 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, 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-C Referring Provider Active S tart: November 26, 2024 End: November 26, 2024 Team Status: Inactive Member Role/Relationship Status Dates 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, 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-C Primary Care Provider Act minnie Start: November 26, 2024 End: November 26, 2024 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, 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-C Referring Provider Active Start: November 26, 2024 End: November 26, 2024 Sangita Pak 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, 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-C Attending Provider Active S tart: November 26, 2024 End: November 26, 2024 Team Status: Inactive Member Role/Relationship Status Dates 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, 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-C Primary Care Provider Act minnie Start: December 03, 2024 End: December 03, 2024 Sangita Pak 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, 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-C Attending Provider Active S tart: December 03, 2024 End: December 03, 2024 Sangita Pak 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, 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-C Referring Provider Active S tart: December 03, 2024 End: December 03, 2024 Source Comments (unrecognize d section and content) In the event this informatio n is protected by the Federal Confidentiality of Alcohol and Drug Abuse Patient Records regulations: The Federal rules restrict any use of the information to criminally investigate or prosecute any alcohol or drug abuse patient.[facility] the event this information is protected by the Federal Confidentiality of Alcohol and Drug Abuse Patient Records regulations: The Federal rules restrict any use of the information to criminally investigate or prosecute any alcohol or drug abuse patient.[facility] the event this information is protected by the Federal Confidentiality of Alcohol and Drug Abuse Patient Records regulations: The Federal rules restrict any use of the information to criminally investigate or prosecute any alcohol or drug abuse patient.[facility] the event this information is protected by the Federal Confidentiality of Alcohol and Drug Abuse Patient Records regulations: The Federal rules restrict any use of the information to criminally investigate or prosecute any alcohol or drug abuse patient.[facility] the event this information is protected by the Federal Confidentiality of Alcohol and Drug Abuse Patient Records regulations: The Federal rules restrict any use of the information to criminally investigate or prosecute any alcohol or drug abuse patient.[facility] the event this information is protected by the Federal Confidentiality of Alcohol and Drug Abuse Patient Records regulations: The Federal rules restrict any use of the information to criminally investigate or prosecute any alcohol or drug abuse patient.[facility] the event this information is protected by the Federal Confidentiality of Alcohol and Drug Abuse Patient Records regulations: The Federal rules restrict any use of the information to criminally investigate or prosecute any alcohol or drug abuse patient.[facility] the event this information is protected by the Federal Confidentiality of Alcohol and Drug Abuse Patient Records regulations: The Federal rules restrict any use of the information to criminally investigate or prosecute any alcohol or drug abuse patient.[facility] the event this information is protected by the Federal Confidentiality of Alcohol and Drug Abuse Patient Records regulations: The Federal rules restrict any use of the information to criminally investigate or prosecute any alcohol or drug abuse patient.[facility] the event this information is protected by the Federal Confidentiality of Alcohol and Drug Abuse Patient Records regulations: The Federal rules restrict any use of the information to criminally investigate or prosecute any alcohol or drug abuse patient.[facility] Reason for Visit (unrecogniz ed section and [...] ized section and content) DATE CREATED AUTHOR 07/18/2024 [facility] DATE CREATED AUTHOR AUTHOR'S ORGANIZ ATION 12/11/2024 [facility] FOR RECORDS PERTAINING TO PATIENTS WHO [...] BE BASED ON THE PRIMARY CLINICAL RECORDS. [employer] provides no warranty or guarantee of the accuracy or completeness of information in this document.
--- NOTE | 2024-12-23 07:25 | STRESSREP ---
Stress Test Report Exercise myocardial perfusion stress test. 64-year-old male with a history of chest pain Stress protocol: Resting EKG demonstrates normal sinus rhythm with a rate of 69 bpm resting blood pressure is 120/80 mmHg. The patient exercised according to the regular [facility] protocol for a total duration of 8 minutes attaining a maximum heart rate of 134 bpm which was 86% of maximum predicted heart rate; the maximum workload was 10.1 metabolic equivalents. At rest there were no ST or T wave changes noted to suggest ischemia and at peak exercise upsloping ST changes only were noted which did not meet the criteria for ischemia. No clinical angina was noted the test was terminated due to the target heart rate being achieved/fatigue. The peak blood pressure was 178/78 mmHg. Rate-pressure product was 21,300. Myocardial perfusion protocol. 11.9 mCi of technetium 99m sestamibi was injected at rest. The patient exercised according to regular [facility] protocol for total duration of 8 minutes and at peak exercise 34.7 mCi of technetium 99m sestamibi was injected stress images were obtained stress and rest images were reconstructed in comparing the short axis vertical long and horizontal long axis. Gated images were also obtained. Perfusion SPECT analysis: Review of the stress images demonstrate normal uptake of tracer noted in all areas of the myocardium. The resting images similarly demonstrate normal uptake of tracer noted in all areas of the myocardium. No areas of reversibility are noted to suggest ischemia no previous infarct was noted. Gated SPECT analysis: The gated ejection fraction is 73%. Conclusion: Normal exercise myocardial perfusion stress test at a high workload Preserved ejection fraction.
== END | disposition home or self-care (01) ==
LOC: CVS 06:01
PROVIDERS: PCP Nurse Practitioner Family; Referring Provider Nurse Practitioner Family; Visit Provider Nurse Practitioner Family
DX: R07.9 Chest pain, unspecified (principal); R06.02 Shortness of breath; I25.2 Old myocardial infarction; I10 Essential (primary) hypertension; E78.2 Mixed hyperlipidemia; Z95.5 Presence of coronary angioplasty implant and graft
CPT/HCPCS: 78452; 93017; A9500; A4216

== ENCOUNTER → 2025-01-01 | Outpatient (CLI) | payer BC, SELFPAY ==
[2020-10-12 08:42] VITALS: BMI 25.8
[2025-01-07 17:08] LABS: Lyme Scn Total Ab w/Rflx Negative (Negative)
== END | disposition home or self-care (01) ==
LOC: LAB 16:03
PROVIDERS: PCP Nurse Practitioner Family; Referring Provider Nurse Practitioner Family; Visit Provider Nurse Practitioner Family
DX: R53.83 Other fatigue (principal)
CPT/HCPCS: 36415; 84443; 86617; 86618